=== PATIENT | female | born 1960 | race African-American/Black ===

== ENCOUNTER 2020-03-10 08:48 | Outpatient (REF) | payer BC, SELFPAY ==
--- NOTE | 2020-03-10 | MM_ITS ---
EXAMINATION: MM DIAGNOSTIC DIGITAL BREAST TOMOSYNTHESIS, BILATERAL CLINICAL INFORMATION: Due for yearly. Probable benign fine calcifications mid upper outer right breast. Family history breast cancer in mother and 2 sisters. The lifetime risk of breast cancer based on the Tyrer-Cuzick Model is 11%. COMPARISON: Mammography: 03/12/2019, 09/06/2018, 03/06/2018, 02/23/2018 (BI-RADS 0), 01/26/2017 TECHNIQUE: Digital breast tomosynthesis is performed in both the craniocaudal and mediolateral oblique views along with computer-aided detection (CAD). Synthesized 2D images are generated from the tomosynthesis. Additional views are provided: Bilateral CC, magnification right CC, magnification right ML x2. FINDINGS: There are scattered areas of fibroglandular density (ACR BI-RADS breast composition Category b). There are no significant masses, abnormal calcifications, or other abnormalities. Parenchymal pattern is similar to prior studies and there is no developing density. The axilla and skin contours are unremarkable. Fine calcifications mid upper outer right breast are stable from prior diagnostic exams and now considered benign. Results are provided to the patient at time of visit by the technologist. MM/MM tomosynthesis diagnostic BI IMPRESSION: 1. No significant changes from prior studies. 2. Right breast calcifications for follow-up are stable from prior diagnostic exams and now considered benign. ASSESSMENT: BI-RADS 2: Benign RECOMMENDATION: Routine annual mammography screening. This patient's information was entered into a reminder system with a target due date for their next mammogram.
== END 2020-03-10 08:49 | disposition home or self-care (01) ==
LOC: HO.MAMMO 08:48
PROVIDERS: PCP Internal Medicine; Visit Provider Internal Medicine
DX: R92.1 Mammographic calcification found on diagnostic imaging of breast (principal)
CPT/HCPCS: 77062; 77066

== ENCOUNTER 2020-06-29 10:34 | Outpatient (REF) | payer BC, SELFPAY ==
[2020-06-29 11:09] LABS: MANUAL DIFF FLAG NO
[2020-06-29 11:40] LABS: Basophils Absolute Auto 0.1 X10*3/uL (0.0-0.2); Basophils Percent Auto 0.6 % (0-2); Eosinophils Percent Auto 0.5 % (0-4); Hematocrit 41.6 % (37-47); Hemoglobin 13.2 g/dl (12.0-16.0); Imm Gran Abs Auto 0.02 X10*3/uL (0.00-0.03); Imm Gran Pct Auto 0.3 % (0.0-0.4); Lymphocytes Absolute Auto 3.6 X10*3/uL (1.2-4.9); Lymphocytes Percent Auto 46.8 % (20-40); Mean Corpuscular HGB Conc 31.7 g/dl (31.0-35.0); Mean Corpuscular Hemoglobin 29.1 pg (27.0-33.0); Mean Corpuscular Volume 91.6 fL (80-98); Mean Platelet Volume 10.7 fL (9.4-12.3); Monocytes Absolute Auto 0.7 X10*3/uL (0.1-1.2); Monocytes Percent Auto 8.6 % (2-11); Neutrophils Absolute Auto 3.3 X10*3/uL (2.0-8.3); Neutrophils Percent Auto 43.2 % (45-73); Platelet Count 217 X10*3/uL (160-400); Red Blood Count 4.54 X10*6/uL (4.20-5.50); Red Cell Distribution Width 14.6 % (11.0-16.0); White Blood Count 7.7 X10*3/uL (4.8-10.8)
[2020-06-29 11:52] LABS: Glucose Urine UA NEG (NEG); Leukocyte Esterase Urine NEG (NEG); Nitrite Urine NEG (NEG); PH 5.5 (5.0-8.0); Specific Gravity - Urine >= 1.030 (1.005-1.025); Urine Blood NEG (NEG); Urine Ketones NEG (NEG); Urine Protein NEG (NEG-TRACE)
[2020-06-29 11:55] LABS: Estimated Average Glucose 114 mg/dL; Hemoglobin A1c % 5.6 %
[2020-06-29 11:56] LABS: Appearance Urine CLOUDY; Color Urine YELLOW
[2020-06-29 12:05] LABS: Creatinine Urine 131.72 mg/dL; Microalbum/Creatinine Ratio Ur 4.5 ug/mg cr
[2020-06-29 12:20] LABS: Alanine Aminotransferase 12 U/L (0-31); Albumin Level 3.9 g/dL (3.5-5.0); Alkaline Phosphatase 74 U/L (39-117); Anion Gap 11 (12-20); Aspartate Amino Transferase 13 U/L (5-31); Bilirubin Total 0.6 mg/dL (0.0-1.0); Blood Urea Nitrogen 15 mg/dL (9-16); Calcium 8.9 mg/dL (8.4-10.2); Carbon Dioxide 30 mmol/L (22-29); Chloride 105 mmol/L (96-108); Cholesterol 205 mg/dL; Estimated Glomerular Filt Rate > 60; Glucose Fasting 96 mg/dL (60-99); HDL Cholesterol 76 mg/dL; LDL Cholesterol Calculated 112 mg/dl; Sodium 142 mmol/L (135-145); Total Protein 6.8 g/dL (6.5-8.0); Triglycerides 89 mg/dL
[2020-06-29 12:29] LABS: Vitamin D 25-OH Total 33.5 ng/mL (>30)
== END 2020-06-29 10:35 | disposition home or self-care (01) ==
LOC: HO.LNP 10:34
PROVIDERS: Visit Provider Internal Medicine
DX: Z00.00 Encounter for general adult medical examination without abnormal findings (principal); D72.820 Lymphocytosis (symptomatic); R73.03 Prediabetes; E55.9 Vitamin D deficiency, unspecified
CPT/HCPCS: 80053; 80061; 81003; 82043; 82306; 83036; 85025

== ENCOUNTER 2020-08-12 07:28 | Outpatient (REF) | payer BC, SELFPAY ==
--- NOTE | ~2020-08-12 | XR_ITS ---
EXAMINATION: XR SHOULDER, LEFT CLINICAL INFORMATION: Pain COMPARISON: None TECHNIQUE: Three views of the left shoulder. FINDINGS: Bone alignment is normal. No fracture or dislocation is seen. The glenohumeral joint is normal. There is arthritis at the acromioclavicular joint. Soft tissues are unremarkable. XR/XR shoulder LT min 2V IMPRESSION: Arthritis at the acromioclavicular joint.
== END 2020-08-12 07:29 | disposition home or self-care (01) ==
LOC: HO.HOSX 07:28
PROVIDERS: Visit Provider Physician Assistant
DX: M25.512 Pain in left shoulder (principal); M75.82 Other shoulder lesions, left shoulder
CPT/HCPCS: 20610; 73030; J1040

== ENCOUNTER 2020-09-28 07:00 | Outpatient (RCR) | payer BC, SELFPAY ==
--- NOTE | 2020-09-01 08:05 | MHC.PT.EP ---
[facility] [place] Office [place] Office [place] Office [address] Antwan Kevin [address] [phone] F: [phone] F: [phone] F: [phone] F: [phone] Physical Therapy Plan of Care Date of Evaluation: Date of Surgery: Diagnosis: left shoulder tendinosis Assessment: The patient arrived reporting left shoulder pain. She had normal cervical, and shoulder ROM and functional shoulder strength. Reduced strength in shoulder extension, ER, and abduction suggests she may have secondary GH impingement. 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 I gave her Klaudia seated retractions as her intial HEP due to initial improvements in radiculopathy. I will monitor baselines and proceed based on clinical presention. She is an excellent candidate for skilled PT. Frequency and Duration: The patient will be seen 2x/week x 4 weeks Short Term Goals: 1.Pt to able to demonstrate proper sitting posture with the use of a lumbar roll to decrease aggravating factors. 2.Pt to be able to demonstrate proper posture for common leisure activities such as crocheting and phone/tablet use. 3.For the patient to demonstrate proper upright sitting posture with use of the lumbar roll to improve compliance and carryover. Long-Term Goals: 1. Pt to be able to return to normal PLOF without limiting pain. 2. Pt to be able to return to overhead reaching without pain or limitation. 3. Pt to be able to manage her pain with selected exercise and stretching regime. Treatment Plan: Modalities to reduce pain, spasms and effusion. Manual therapy to restore motion and function. Therapeutic exercise to improve strength and flexibility. Neuromuscular re-education for posture and balance. Therapeutic activities to return to functional activities of daily living. Electronically signed by: Vannesa Field PT DPT Please sign and return to therapist. Thank you for your referral.
== END 2020-10-19 08:00 | disposition home or self-care (01) ==
LOC: HO.PT 07:00
PROVIDERS: PCP Internal Medicine; Visit Provider Physician Assistant
DX: M75.82 Other shoulder lesions, left shoulder (principal)
CPT/HCPCS: 97033; 97110; 97112; 97140; 97162

== ENCOUNTER 2020-10-26 08:10 | Outpatient (REF) | payer BC, SELFPAY ==
--- NOTE | ~2020-10-26 | MM_ITS ---
EXAMINATION: BONE DENSITOMETRY CLINICAL INDICATION: Screening for osteoporosis. COMPARISON: Previous BD dated 10/24/2018 and baseline BD dated 02/25/2016. TECHNIQUE: Using a [employer] DXA System (software version: 13.1) manufactured by [employer], dual-energy x-ray absorptiometry was performed of the lumbar spine and left hip. The images are of good technical quality. Summary results are attached. FINDINGS: AP SPINE L1-L4 (excluding L2): The data of L1-L4 has been changed to exclude the L2 vertebral body, because degenerative changes at this level may cause overestimation of lumbar spine density. Current: BMD 1.005 g/cm2, Z-score -1.6, T-score -1.4, osteopenia, 3.9% increase from previous, 4.0% increase from baseline (<5% change is not significant). Prior: BMD 0.967 g/cm2. Baseline: BMD 0.966 g/cm2. LEFT FEMUR, NECK: Current: BMD 0.854 g/cm2, Z-score -1.5, T-score -1.3, osteopenia. Prior: BMD 0.816 g/cm2. Baseline: BMD 0.821 g/cm2. LEFT FEMUR, TOTAL: Current: BMD 0.955 g/cm2, Z-score -1.0, T-score -0.4, normal, 2.5% increase from previous, 2.6% increase from baseline (<5% change is not significant). Prior: BMD 0.932 g/cm2. Baseline: BMD 0.931 g/cm2. IDENTIFIED RISK FACTORS: Osteoporosis, history of fracture (adult), menopause. HISTORY OF FRACTURE: Rib. MEDICATIONS: Calcium supplements or multivitamin, vitamin D. MM/XR DEXA axial skeleton IMPRESSION: 1. DIAGNOSIS: Osteopenia based on the lowest T-score value of -1.4 in the lumbar spine applying World Health Organization criteria. 2. 10-YEAR FRACTURE RISK PREDICTION, FRAX: Major osteoporotic fracture (clinical spine, forearm, hip or shoulder) 5.4%. Hip fracture 0.4%. 3. Treatment Recommendations: NOF guidelines recommend consideration for treatment in postmenopausal women and men age 50 and older presenting with the following: -A hip or vertebral (clinical or morphometric) fracture. -T-score less than or equal to -2.5 at the femoral neck or spine after appropriate evaluation to exclude secondary causes. -Low bone mass at the hip or spine and a 10-year fracture probability by FRAX of greater than or equal to 3% for hip fracture or greater than or equal to 20% for major osteoporotic fracture based on the [place] adapted WHO algorithm. 4. Other Recommendations: All treatment decisions require clinical judgment and consideration of individual patient factors, including patient preferences, comorbidities, previous drug use, risk factors not captured in the FRAX model (e.g. frailty, falls, vitamin D deficiency, increased bone turnover, interval significant decline in bone density) and possible under or overestimation of fracture risk by FRAX. Additional medical evaluation for secondary cause of low bone mineral density may be appropriate. FUTURE SCAN RECOMMENDATION: People with diagnosed cases of osteoporosis or at high risk for fracture should have regular bone mineral density tests. For patients eligible for Medicare, routine testing is allowed once every 2 years. The testing frequency can be increased to one year for patients who have rapidly progressing disease, those who are receiving or discontinuing medical therapy to restore bone mass, or have additional risk factors.
== END 2020-10-26 08:11 | disposition home or self-care (01) ==
LOC: HO.MAMMO 08:10
PROVIDERS: PCP Internal Medicine; Visit Provider Internal Medicine
DX: Z13.820 Encounter for screening for osteoporosis (principal); M81.8 Other osteoporosis without current pathological fracture; Z78.0 Asymptomatic menopausal state; Z87.81 Personal history of (healed) traumatic fracture; Z79.899 Other long term (current) drug therapy
CPT/HCPCS: 77080

== ENCOUNTER → 2020-12-07 08:26 | Outpatient (BNVA) | payer BC, SELFPAY | PROVIDERS: PCP Internal Medicine; Visit Provider Advanced Practice Midwife ==

== ENCOUNTER 2021-03-16 07:25 | Outpatient (REF) | payer BC, SELFPAY ==
--- NOTE | ~2021-03-16 | MM_ITS ---
EXAMINATION: MM SCREENING DIGITAL BREAST TOMOSYNTHESIS, BILATERAL CLINICAL INFORMATION: Screening. Asymptomatic. The lifetime risk of breast cancer based on the Tyrer-Cuzick Model is 11%. COMPARISON: Mammography: 03/10/2020, 03/12/2019, 09/06/2018, 03/06/2018 TECHNIQUE: Digital breast tomosynthesis is performed in both the craniocaudal and mediolateral oblique views along with computer-aided detection (CAD). Synthesized 2D images are generated from the tomosynthesis. FINDINGS: There are scattered areas of fibroglandular density (ACR BI-RADS breast composition Category b). There are no significant masses, abnormal calcifications, or other abnormalities. No significant changes from prior exam. The axilla and skin contours are unremarkable. MM/MM tomosynthesis screening BI IMPRESSION: No mammographic evidence of malignancy. ASSESSMENT: BI-RADS 1: Negative RECOMMENDATION: Routine annual mammography screening. This patient's information was entered into a reminder system with a target due date for their next mammogram.
== END 2021-03-16 07:26 | disposition home or self-care (01) ==
LOC: HO.MAMMO 07:25
PROVIDERS: PCP Internal Medicine; Visit Provider Internal Medicine
DX: Z12.31 Encounter for screening mammogram for malignant neoplasm of breast (principal)
CPT/HCPCS: 77063; 77067

== ENCOUNTER 2021-06-02 08:46 | Outpatient (REF) | payer BC, SELFPAY ==
--- NOTE | ~2021-06-02 | XR_ITS ---
EXAMINATION: XR SKULL CLINICAL INFORMATION: Head injury. COMPARISON: None TECHNIQUE: 5 views of the skull were obtained. FINDINGS: Multiple views of the skull reveal no visible fracture or bony abnormality. The soft tissues are normal. The paranasal sinuses and the mastoid air cells are well-aerated. No scalp soft tissue abnormality seen. XR/XR skull min 4V IMPRESSION: Unremarkable sinus exam.
== END 2021-06-02 08:47 | disposition home or self-care (01) ==
LOC: HO.XRAY 08:46
PROVIDERS: PCP Internal Medicine; Visit Provider Internal Medicine
DX: S09.90XD Unspecified injury of head, subsequent encounter (principal)
CPT/HCPCS: 70260

== ENCOUNTER 2021-07-07 10:30 | Outpatient (REF) | payer BC, SELFPAY ==
[2021-07-07 10:34] LABS: MANUAL DIFF FLAG NO
[2021-07-07 11:01] LABS: Basophils Percent Auto 0.5 % (0-2); Eosinophils Percent Auto 0.7 % (0-4); Hematocrit 42.2 % (37.0-47.0); Hemoglobin 13.5 g/dl (12.0-16.0); Imm Gran Abs Auto 0.01 X10*3/uL (0.00-0.03); Imm Gran Pct Auto 0.2 % (0.0-0.4); Lymphocytes Absolute Auto 3.1 X10*3/uL (1.2-4.9); Mean Corpuscular Hemoglobin 29.6 pg (27.0-33.0); Mean Corpuscular Volume 92.5 fL (80.0-98.0); Mean Platelet Volume 10.7 fL (9.4-12.3); Monocytes Absolute Auto 0.6 X10*3/uL (0.1-1.2); Monocytes Percent Auto 10.9 % (2-11); Neutrophils Percent Auto 34.7 % (45-73); Platelet Count 247 X10*3/uL (160-400); Red Blood Count 4.56 X10*6/uL (4.20-5.50); Red Cell Distribution Width 13.5 % (11.0-16.0); White Blood Count 5.8 X10*3/uL (4.8-10.8)
[2021-07-07 11:07] LABS: Appearance Urine HAZY; Color Urine YELLOW; Glucose Urine UA NEG (NEG); Leukocyte Esterase Urine NEG (NEG); Nitrite Urine NEG (NEG); PH 5.5 (5.0-8.0); Specific Gravity - Urine >= 1.030 (1.005-1.025); Urine Blood NEG (NEG); Urine Ketones NEG (NEG); Urine Protein NEG (NEG-TRACE)
[2021-07-07 11:11] LABS: Estimated Average Glucose 120 mg/dL; Hemoglobin A1c % 5.8 %
[2021-07-07 11:48] LABS: Alanine Aminotransferase 19 U/L (0-31); Albumin Level 3.9 g/dL (3.5-5.0); Alkaline Phosphatase 92 U/L (39-117); Anion Gap 12 (12-20); Aspartate Amino Transferase 15 U/L (5-31); Bilirubin Total 0.6 mg/dL (0.0-1.0); Blood Urea Nitrogen 9 mg/dL (9-16); Calcium 9.2 mg/dL (8.4-10.2); Carbon Dioxide 27 mmol/L (22-29); Chloride 106 mmol/L (96-108); Cholesterol 184 mg/dL; Estimated Glomerular Filt Rate > 60; Glucose Random 101 mg/dL (60-115); HDL Cholesterol 55 mg/dL; LDL Cholesterol Calculated 110 mg/dl; Sodium 141 mmol/L (135-145); Total Protein 7.1 g/dL (6.5-8.0); Triglycerides 98 mg/dL
[2021-07-07 12:15] LABS: Creatinine Urine 214.29 mg/dL; Microalbum/Creatinine Ratio Ur 3.7 ug/mg cr
[2021-07-07 15:02] LABS: Vitamin D 25-OH Total 34.4 ng/mL (>30)
== END 2021-07-07 10:31 | disposition home or self-care (01) ==
LOC: HO.LNP 10:30
PROVIDERS: Visit Provider Internal Medicine
DX: Z00.00 Encounter for general adult medical examination without abnormal findings (principal); D72.820 Lymphocytosis (symptomatic); E55.9 Vitamin D deficiency, unspecified; R73.03 Prediabetes
CPT/HCPCS: 80053; 80061; 81003; 82043; 82306; 83036; 85025

== ENCOUNTER 2021-12-13 09:43 | Outpatient (REF) | payer BC, SELFPAY ==
--- NOTE | ~2021-12-13 | XR_ITS ---
EXAMINATION: XR RIBS, BILATERAL CLINICAL INFORMATION: Fall and slip. COMPARISON: None TECHNIQUE: PA chest and 3 views of the bilateral ribs. FINDINGS: There is no evidence of acute parenchymal disease, pneumothorax, or pleural effusion. Heart normal size. No evidence of pulmonary edema. There is calcific tendinitis of the right shoulder. There appears to be a Lap band in place. No acute displaced right or left rib fracture is appreciated. XR/XR ribs BI min 4V w CXR1V IMPRESSION: No acute parenchymal disease within the chest. No acute displaced right or left rib fracture identified. Calcific tendinitis of the right shoulder.
== END 2021-12-13 09:44 | disposition home or self-care (01) ==
LOC: HO.XRAY 09:43
PROVIDERS: PCP Internal Medicine; Visit Provider Internal Medicine
DX: R07.81 Pleurodynia (principal)
CPT/HCPCS: 71111

== ENCOUNTER → 2022-01-02 10:01 | Outpatient (REF) | payer BC, SELFPAY ==
--- NOTE | ~2022-01-02 | NM_ITS ---
EXAMINATION: NM BONE SCAN OF THE WHOLE BODY CLINICAL INFORMATION: Rib pain. COMPARISON: The previous bone scan dated 12/31/2017 is available for comparison. Radiographs of the bilateral ribs dated 12/13/2021 and radiographs of the skull dated 06/02/2021 are available for comparison. TECHNIQUE: Multiple gamma scintillation camera images of the whole body were performed 3 hours following the intravenous administration of 32 mCi Tc-99m MDP. FINDINGS: In the head, no significant abnormalities are present. In the thoracic cage and upper extremities, very faint foci of increased activity are present in a few ribs. These are well visualized only on the anterior oblique spot views and involve the anterolateral aspects of the right fifth and eighth ribs and a very faint focus in the anterolateral aspect of the left ninth rib. There is also mild focus of increased activity at the costochondral junction of the left eighth rib. Minimally increased activity is present in the sternomanubrial articulation and the right acromioclavicular joint. In the spine, a minimal thoracolumbar scoliosis is present with lumbar convexity to the left. There is minimally increased activity bilaterally in the posterior elements at L5/S1 and there is minimally increased activity in the right costovertebral junctions of the 5 through T9. In the pelvis, no significant abnormalities are present. In the lower extremities, there is mildly increased activity in the patellar compartments of both knees and the medial compartment of the left knee and a moderately intense foci in the lateral mid feet bilaterally. Minimally increased activity medially in both ankles is also noted. No other definite bony abnormalities are noted. The urinary bladder and faint visualization of both kidneys are noted. Radiographs of the bilateral ribs dated 12/13/2021 do not show abnormalities at correspond to the subtle rib abnormalities on this bone scan described above. NM/NM bone scan whole body IMPRESSION: 1. A few faint rib lesions are visualized bilaterally as described above. These are nonspecific but in the absence of other suspicious abnormalities are likely due to healing rib fractures. 2. A few additional mild nonspecific abnormalities are noted as described above and these are all likely arthritic or traumatic in etiology. None of these abnormalities is strongly suspicious for metastatic disease.
== END ==
LOC: HO.NUCMED 10:01
PROVIDERS: PCP Internal Medicine; Visit Provider Internal Medicine
DX: R07.81 Pleurodynia (principal)
CPT/HCPCS: 78306; A9503

== ENCOUNTER 2022-02-25 14:54 | Emergency (ER) | payer BC, SELFPAY ==
--- NOTE | ~2022-02-25 | XR_ITS ---
EXAMINATION: XR chest 2V CLINICAL INFORMATION: Reason for Exam cough/sputum production COMPARISON: Prior chest x-ray November 2021 TECHNIQUE: XR chest 2V Lungs and Kira: Both lungs are clear. Pleura: Normal. Costophrenic angles are sharp. No pneumothorax. Heart: The heart is normal in size. Mediastinum: The mediastinum is within normal limits.. Bones: Skeletal structures included are normal for patient's age. XR/XR chest 2V IMPRESSION: No radiographic evidence of acute infiltrates or failure.
[2022-02-25 16:23] VITALS: BP 157/76; PULSE 96; RESP 18; TEMP 37; O2SAT 95; BMI 39.4
--- NOTE | 2022-02-25 16:24 | ED_ITS ---
HPI - URI/Sore Throat General Chief Complaint: Upper Respiratory Symptoms Stated Complaint: headache,sinus infection Time Seen by Provider: 02/25/22 19:06 Related Data Home Medications Medication Instructions Recorded Confirmed cholecalciferol (vitamin D3) 50 50 mcg PO DAILY 12/07/20 mcg (2,000 unit) capsule alendronate 70 mg tablet 70 mg PO QWEEK 12/13/21 calcium citrate 250 mg PO DAILY 12/13/21 timolol maleate 0.5 % eye drops 1 drp ophthalmic (eye) BID 12/13/21 Previous Rx's Medication Instructions Recorded doxycycline hyclate 100 mg capsule 100 mg PO BID 10 days #20 caps 02/25/22 prednisone 20 mg tablet 40 mg PO DAILY 5 days #10 tabs 02/25/22 Allergies Allergy/AdvReac Type Severity Reaction Status Date / Time grapefruit [Grapefruit] Allergy Mild RASH Verified 02/25/22 16:26 Penicillins Allergy Mild BLISTERS Verified 02/25/22 16:26 penicillin V Allergy Unknown Unknown Verified 02/25/22 16:26 [facility] Past Medical History Medical History Age related osteoporosis BRCA negative COVID-19 vaccine series completed Vitamin D deficiency Surgical History History of arthroscopy of left shoulder History of arthroscopy of right shoulder Hx of cholecystectomy Hx of laparoscopic gastric banding Family History Family History Mother History of breast cancer Sister History of breast cancer Sister History of breast cancer Social History Social History Alcohol intake: current Alcohol intake frequency: a few times a week Patient Tobacco Use Status: Never used Tobacco Advance Directives: No Advance Directives Information Provided: No Current occupational status: employed 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 Sexual orientation: Straight/Heterosexual Gender identity: Female Physical Exam Vital Signs: Vital Signs: Last Vital Signs Temp 98.6 F 02/25/22 16:23 Pulse 96 02/25/22 16:23 Resp 18 02/25/22 16:23 BP 157/76 H 02/25/22 16:23 Pulse Ox 95 02/25/22 16:23 O2 Del Method 02/25/22 16:23 BMI result Body Mass Index 39.4 Course Reevaluation(s) Reevaluation #1: MITRAE - 61yoF presenting to the ER with complaints of generalized fatigue, malaise, intermittent headaches, sinus pressure pain with associated nasal congestion/rhinorrhea, sore throat, ear pain and a productive cough for the past week which is worsened. Denies any other symptoms. Plan: COVID and influenza swab obtained. Chest x-ray ordered. Patient will be sent back to the waiting room patient is stable at this time. Time: 16:24 MDM - URI/Sore Throat Lab Data Labs: Lab Results 02/25/22 02/25/22 Range/Units 16:27 16:27 COVID-19 ([facility]) Negative (Negative) COVID-19 Clin Com See Note Influenza Type A ([facility]) Negative (Negative) Influenza Type B ([facility]) Negative (Negative) Influenza A & B Note See Note Discharge Plan Discharge Clinical Impression: Sinusitis Patient Disposition: Home, Self-Care Instructions: Sinusitis (ED) Additional Instructions: Take your medications as prescribed. If you were prescribed antibiotics today, it is important that you take your medication to their entirety, do not skip any doses, do not finish them early. Follow-up with your primary care provider this week. Return to the emergency department with new or worsening symptoms. Such as fevers, chills, chest pain, shortness of breath, nausea, vomiting, dizziness, headache, vision changes, lethargy In case of emergency call 911 Prescriptions: New doxycycline hyclate 100 mg capsule 100 mg PO BID 10 Days Qty: 20 0RF prednisone 20 mg tablet 40 mg PO DAILY 5 Days Qty: 10 0RF No Action cholecalciferol (vitamin D3) 50 mcg (2,000 unit) capsule 50 mcg PO DAILY alendronate 70 mg tablet 70 mg PO QWEEK timolol maleate 0.5 % drops 1 drp ophthalmic (eye) BID calcium citrate 250 mg calcium tablet 250 mg PO DAILY Referrals: Fredy De Santiago MD [Primary Care Provider] - 2 days Stand Alone Forms: Work/School Release
[2022-02-25 16:53] LABS: COVID-19 Test Negative (Negative); IDNOW Serial# 16C4AD1C
[2022-02-25 16:54] LABS: IDNOW Serial# 9DB6401D; Influenza A Negative (Negative); Influenza B2 Negative (Negative)
--- NOTE | 2022-02-25 19:30 | ED_ITS ---
HPI - General Adult General Chief complaint: Upper Respiratory Symptoms Stated complaint: headache,sinus infection Time Seen by Provider: 02/25/22 19:06 Source: patient Mode of arrival: ambulatory Limitations: no limitations History of Present Illness HPI narrative: 61-year-old female no significant medical history presents to the emergency department with sinus pressure, dry cough, wheezing, fatigue, malaise x1 week progressively worsening. Patient tells me this feels like her typical sinus infection. She tells me she is experiencing some shortness of breath with coughing however no shortness of breath at rest. Patient reports that her headache feels like her typical sinus headache, frontal pressure. Vague complaints of left ear discomfort. Patient denies chest pain, fevers, chills, nausea, vomiting, abdominal pain, headache, vision changes in dizziness. Related Data Home Medications Medication Instructions Recorded Confirmed cholecalciferol (vitamin D3) 50 50 mcg PO DAILY 12/07/20 mcg (2,000 unit) capsule alendronate 70 mg tablet 70 mg PO QWEEK 12/13/21 calcium citrate 250 mg PO DAILY 12/13/21 timolol maleate 0.5 % eye drops 1 drp ophthalmic (eye) BID 12/13/21 Previous Rx's Medication Instructions Recorded doxycycline hyclate 100 mg capsule 100 mg PO BID 10 days #20 caps 02/25/22 prednisone 20 mg tablet 40 mg PO DAILY 5 days #10 tabs 02/25/22 Allergies Allergy/AdvReac Type Severity Reaction Status Date / Time grapefruit [Grapefruit] Allergy Mild RASH Verified 02/25/22 16:26 Penicillins Allergy Mild BLISTERS Verified 02/25/22 16:26 penicillin V Allergy Unknown Unknown Verified 02/25/22 16:26 Review of Systems Review of Systems: Constitutional : No Weight loss, No Fever, No Chills, + Fatigue, + Malaise ENT/Mouth : No sore throat, No Rhinorrhea, +congestion Eyes: No Eye Pain, No Swelling, No Redness Cardiovascular : No Chest Pain, No SOB, No Dyspnea on Exertion, No Orthopnea, No Edema, No Palpitations Respiratory : + Cough, No Sputum, + Wheezing Gastrointestinal : No Nausea, No Vomiting, No Diarrhea, No Constipation, No abdominal Pain, No Hematochezia, No Melena Genitourinary : No Dysuria, No Urinary Frequency, No Hematuria, Musculoskeletal : No joint pain, No Myalgias, No Joint Swelling Skin : No Skin Lesions, No rash Neuro : No Weakness, No Numbness, No Dizziness, No Headache Psych : No Anxiety/Panic, No Depression All other systems reviewed and are negative Yes all other systems are reviewed and are negative [facility] Past Medical History Attestation statement: The following information was validated with the patient. Source: old records reviewed and nursing notes reviewed Medical History Age related osteoporosis BRCA negative COVID-19 vaccine series completed Vitamin D deficiency Surgical History History of arthroscopy of left shoulder History of arthroscopy of right shoulder Hx of cholecystectomy Hx of laparoscopic gastric banding Family History Family History Mother History of breast cancer Sister History of breast cancer Sister History of breast cancer Social History Social History Alcohol intake: current Alcohol intake frequency: a few times a week Patient Tobacco Use Status: Never used Tobacco Advance Directives: No Advance Directives Information Provided: No Current occupational status: employed 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 Oriented X3.? No acute distress.? Head: Normocephalic, atraumatic, no step-offs or deformities Eyes: Pupils equal, round and reactive to light.? ENT: Pharynx normal.? Neck: Normal inspection.? Neck supple.? CVS: Normal heart rate and rhythm.? Pulses normal.? Respiratory: No respiratory distress.? Breath sounds normal.? Abdomen: Soft and nontender.? Skin: Skin warm and dry.? Normal skin color.? Normal skin turgor.? Extremities: No lower extremity edema.? No calf ttp. 5/5 strength to bilateral upper and lower extremities Back: No midline tenderness, no C-spine tenderness, full range of motion, no CVA tenderness bilaterally Neuro: Oriented X 3.? No motor deficit.? No sensory deficit. CN 2-12 intact Course Reevaluation(s) Reevaluation #1: Chest x-ray with no acute findings. At this time patient will be discharged home on doxycycline for sinusitis as patient does have a penicillin allergy also discharged home on prednisone. Advised return with new or worsening symptoms. At this time I feel comfortable discharge home. Time: 19:38 Medical Decision Making [facility] Narrative Medical decision making narrative: 1938 61-year-old female presents with sinus like symptoms, feels like her typical sinus infection. Reports headache without red flag symptoms. Physical examination with pain it/discomfort with palpation of facial sinuses and pressure with forward bending. Regular rate and rhythm. Lungs clear. Abdomen soft nontender nondistended. Neuro nonfocal. Cerebellar intact. Likely sinusitis or viral infection. I do not suspect intracranial hemorrhage, posterior stroke, stroke. GCS of 15, NIH stroke scale 0. Unlikely pneumonia. No signs of you be ordered Plan at this time is to obtain chest x-ray. Medical Records Medical records reviewed: Yes I reviewed the patient's medical records. Lab Data Lab results reviewed: Yes I reviewed the patient's lab results. Labs: Lab Results 02/25/22 02/25/22 Range/Units 16:27 16:27 COVID-19 ([facility]) Negative (Negative) COVID-19 Clin Com See Note Influenza Type A ([facility]) Negative (Negative) Influenza Type B ([facility]) Negative (Negative) Influenza A & B Note See Note Critical Care Time Critical Care Time Critical Care Time: No Discharge Plan Discharge Clinical Impression: Sinusitis Patient Disposition: Home, Self-Care Instructions: Sinusitis (ED) Additional Instructions: Take your medications as prescribed. If you were prescribed antibiotics today, it is important that you take your medication to their entirety, do not skip any doses, do not finish them early. Follow-up with your primary care provider this week. Return to the emergency department with new or worsening symptoms. Such as fevers, chills, chest pain, shortness of breath, nausea, vomiting, dizziness, headache, vision changes, lethargy In case of emergency call 911 Prescriptions: New doxycycline hyclate 100 mg capsule 100 mg PO BID 10 Days Qty: 20 0RF prednisone 20 mg tablet 40 mg PO DAILY 5 Days Qty: 10 0RF No Action cholecalciferol (vitamin D3) 50 mcg (2,000 unit) capsule 50 mcg PO DAILY alendronate 70 mg tablet 70 mg PO QWEEK timolol maleate 0.5 % drops 1 drp ophthalmic (eye) BID calcium citrate 250 mg calcium tablet 250 mg PO DAILY Referrals: Fredy De Santiago MD [Primary Care Provider] - 2 days Stand Alone Forms: Work/School Release
[2022-02-25] MEDS: Doxycycline Monohydrate 100 MG CAPSULE PO (19:54)
[2022-02-25 19:56] VITALS: BP 176/79; PULSE 87; RESP 20; TEMP 37.2; O2SAT 95
== END 2022-02-25 19:58 | disposition home or self-care (01) ==
PROVIDERS: Physician Assistant Medical; Emergency Provider Emergency Medicine; PCP Internal Medicine
DX: J32.9 Chronic sinusitis, unspecified (principal); Z20.822 Contact with and (suspected) exposure to COVID-19
CPT/HCPCS: 71046; 87502; 87635; 99283

== ENCOUNTER 2022-03-21 07:22 | Outpatient (REF) | payer BC, SELFPAY ==
--- NOTE | ~2022-03-21 | MM_ITS ---
EXAMINATION: MM SCREENING DIGITAL BREAST TOMOSYNTHESIS, BILATERAL CLINICAL INFORMATION: Screening. Asymptomatic. Family history breast cancer: Mother, sister x2. The lifetime risk of breast cancer based on the Tyrer-Cuzick Model is 10%. COMPARISON: Mammography: 03/16/2021, 03/10/2020, 03/12/2019 TECHNIQUE: Digital breast tomosynthesis is performed in both the craniocaudal and mediolateral oblique views along with computer-aided detection (CAD). Synthesized 2D images are generated from the tomosynthesis. Additional left CC view is provided. FINDINGS: There are scattered areas of fibroglandular density (ACR BI-RADS breast composition Category b). There are no significant masses, abnormal calcifications, or other abnormalities. Parenchymal pattern is similar to prior studies. There is no developing density or architectural abnormality. The axilla and skin contours are unremarkable. No significant changes. MM/MM tomosynthesis screening BI IMPRESSION: No mammographic evidence of malignancy. ASSESSMENT: BI-RADS 1: Negative RECOMMENDATION: Routine annual mammography screening. This patient's information was entered into a reminder system with a target due date for their next mammogram.
== END 2022-03-21 07:23 | disposition home or self-care (01) ==
LOC: HO.MAMMO 07:22
PROVIDERS: PCP Internal Medicine; Visit Provider Internal Medicine
DX: Z12.31 Encounter for screening mammogram for malignant neoplasm of breast (principal)
CPT/HCPCS: 77063; 77067

== ENCOUNTER 2022-07-13 10:30 | Outpatient (REF) | payer BC, SELFPAY ==
[2022-07-13 10:34] LABS: MANUAL DIFF FLAG NO
[2022-07-13 10:57] LABS: Appearance Urine Cloudy; Color Urine Yellow; Glucose Urine UA Negative (Negative); Leukocyte Esterase Urine Moderate (2+) (Negative); Nitrite Urine Negative (Negative); PH 5.5 (5.0-9.0); UMIC TRIGGER UACC YES; Urine Blood Large (3+) (Negative); Urine Ketones Negative (Negative); Urine Protein 100 (2+) mg/dL (Neg-Trace)
[2022-07-13 10:59] LABS: Basophils Percent Auto 0.4 % (0-2); Eosinophils Absolute Auto 0.1 X10*3/uL (0.0-0.4); Eosinophils Percent Auto 0.5 % (0-4); Hematocrit 40.5 % (37.0-47.0); Hemoglobin 13.2 g/dl (12.0-16.0); Imm Gran Abs Auto 0.03 X10*3/uL (0.00-0.03); Imm Gran Pct Auto 0.3 % (0.0-0.4); Lymphocytes Absolute Auto 3.4 X10*3/uL (1.2-4.9); Mean Corpuscular HGB Conc 32.6 g/dl (31.0-35.0); Mean Corpuscular Hemoglobin 28.6 pg (27.0-33.0); Mean Corpuscular Volume 87.9 fL (80.0-98.0); Mean Platelet Volume 10.7 fL (9.4-12.3); Monocytes Absolute Auto 1.1 X10*3/uL (0.1-1.2); Monocytes Percent Auto 9.7 % (2-11); Neutrophils Absolute Auto 6.3 x10*3/uL (2.0-8.3); Neutrophils Percent Auto 58.1 % (45-73); Platelet Count 209 X10*3/uL (160-400); Red Blood Count 4.61 X10*6/uL (4.20-5.50); Red Cell Distribution Width 13.9 % (11.0-16.0); White Blood Count 10.9 X10*3/uL (4.8-10.8)
[2022-07-13 11:03] LABS: Bacteria Urine 4+ (None Seen); Hyaline Casts Urine 0-2 /LPF (0-2); RBC Urine >20 /HPF (0-2); UACC Culture Trigger YES; WBC Urine >50 /HPF (0-5)
[2022-07-13 11:24] LABS: Estimated Average Glucose 123 mg/dL; Hemoglobin A1c % 5.9 %
[2022-07-13 11:29] LABS: Alanine Aminotransferase 17 U/L (0-31); Albumin Level 3.9 g/dL (3.5-5.0); Alkaline Phosphatase 74 U/L (39-117); Anion Gap 15 (12-20); Aspartate Amino Transferase 16 U/L (5-31); Bilirubin Total 0.8 mg/dL (0.0-1.0); Blood Urea Nitrogen 11 mg/dL (9-16); Calcium 9.1 mg/dL (8.4-10.2); Carbon Dioxide 26 mmol/L (22-29); Chloride 106 mmol/L (96-108); Cholesterol 187 mg/dL; Estimated Glomerular Filt Rate > 60; Glucose Fasting 96 mg/dL (60-99); HDL Cholesterol 75 mg/dL; LDL Cholesterol Calculated 100 mg/dl; Potassium 3.4 mmol/L (3.3-5.1); Sodium 144 mmol/L (135-145); Total Protein 6.8 g/dL (6.5-8.0); Triglycerides 64 mg/dL
[2022-07-13 11:32] LABS: Vitamin D 25-OH Total 25.5 ng/mL (>30)
== END 2022-07-13 10:31 | disposition home or self-care (01) ==
LOC: HO.LNP 10:30
PROVIDERS: Visit Provider Internal Medicine
DX: Z00.00 Encounter for general adult medical examination without abnormal findings (principal); R73.03 Prediabetes; D72.820 Lymphocytosis (symptomatic); E55.9 Vitamin D deficiency, unspecified
CPT/HCPCS: 80053; 80061; 81001; 82306; 83036; 85025; 87086; 87088; 87186

== ENCOUNTER 2022-08-10 11:39 | Outpatient (REF) | payer BC, SELFPAY ==
[2022-08-10 11:53] LABS: Appearance Urine Cloudy; Color Urine Yellow; Glucose Urine UA Negative (Negative); Leukocyte Esterase Urine Trace (Negative); Nitrite Urine Negative (Negative); Specific Gravity - Urine 1.025 (1.005-1.025); UMIC TRIGGER UA YES; Urine Blood Negative (Negative); Urine Ketones Negative (Negative); Urine Protein Trace mg/dL (Neg-Trace)
[2022-08-10 12:07] LABS: Bacteria Urine 4+ (None Seen); Calcium Oxalate Crystals Urine Present; Hyaline Casts Urine 0-2 /LPF (0-2); WBC Urine 0-5 /HPF (0-5)
== END 2022-08-10 11:40 | disposition home or self-care (01) ==
LOC: HO.LNP 11:39
PROVIDERS: Visit Provider Internal Medicine
DX: R31.9 Hematuria, unspecified (principal)
CPT/HCPCS: 81001

== ENCOUNTER 2022-09-08 11:02 | Outpatient (REF) | payer BC, SELFPAY ==
[2022-09-08 11:35] LABS: Appearance Urine Cloudy; Color Urine Yellow; Glucose Urine UA Negative (Negative); Leukocyte Esterase Urine Negative (Negative); Nitrite Urine Negative (Negative); PH 5.5 (5.0-9.0); Urine Blood Negative (Negative); Urine Ketones Negative (Negative); Urine Protein Negative (Neg-Trace)
[2022-09-08 11:44] LABS: Bacteria Urine 2+ (None Seen); RBC Urine 0-2 /HPF (0-2); WBC Urine 0-5 /HPF (0-5)
== END 2022-09-08 11:03 | disposition home or self-care (01) ==
LOC: HO.LNP 11:02
PROVIDERS: Visit Provider Internal Medicine
DX: R31.9 Hematuria, unspecified (principal)
CPT/HCPCS: 81001

== ENCOUNTER 2023-03-26 07:20 | Outpatient (REF) | payer BC, SELFPAY ==
--- NOTE | ~2023-03-26 | MM_ITS ---
EXAMINATION: MM SCREENING DIGITAL BREAST TOMOSYNTHESIS, BILATERAL CLINICAL INFORMATION: Screening. Asymptomatic. COMPARISON: Mammography: This study is compared with prior exams dating back to 2019. TECHNIQUE: Digital breast tomosynthesis is performed in both the craniocaudal and mediolateral oblique views along with computer-aided detection (CAD). Synthesized 2D images are generated from the tomosynthesis. FINDINGS: There are scattered areas of fibroglandular density (ACR BI-RADS breast composition Category b). There are grouped calcifications in the low 11 to 12:00 position of the left breast at a middle depth. Additional mammographic imaging with magnification is advised. There are no other significant findings in the left breast. In the right breast, there are no significant masses, abnormal calcifications, or other abnormalities. MM/MM tomosynthesis screening BI IMPRESSION: Calcifications in the left breast warrants additional mammographic imaging with magnification. No mammographic signs of malignancy right breast. ASSESSMENT: BI-RADS BI-RADS 0 - Incomplete: Needs additional Imaging. RECOMMENDATION: Additional views of the left breast. Radiology department staff will contact the patient for additional imaging. Additional Imaging required This examination should not preclude the clinical evaluation of a suspicious palpable abnormality. This patient's information was entered into a reminder system with a target due date for their next mammogram.
== END 2023-03-26 07:21 | disposition home or self-care (01) ==
LOC: HO.MAMMO 07:20
PROVIDERS: PCP Internal Medicine; Visit Provider Internal Medicine
DX: Z12.31 Encounter for screening mammogram for malignant neoplasm of breast (principal)
CPT/HCPCS: 77063; 77067

== ENCOUNTER → 2023-03-26 07:30 | Outpatient (BNV) | payer BC, SELFPAY | PROVIDERS: PCP Internal Medicine; Visit Provider Radiology Diagnostic Radiology | DX: Z12.31 Encounter for screening mammogram for malignant neoplasm of breast (principal) | CPT/HCPCS: 77063; 77067 ==

== ENCOUNTER 2023-04-27 07:59 | Outpatient (REF) | payer BC, SELFPAY ==
--- NOTE | ~2023-04-27 | MM_ITS ---
EXAMINATION: MM DIAGNOSTIC DIGITAL MAMMOGRAPHY, LEFT CLINICAL INFORMATION: Follow-up left breast calcifications seen on screening examination central left breast 11-12 o'clock, increasing over time since 2020. Patient is high risk, with strong family history. COMPARISON: Mammography: Screening mammography 03/26/2023, 03/21/2022, 03/16/2021, 03/10/2020, and dating back to 2016. TECHNIQUE: Digital mammography is performed in the following views: 2-D Spot magnification left CC and ML views obtained. FINDINGS: There are scattered areas of fibroglandular density (ACR BI-RADS breast composition Category b). There are focal grouped pleomorphic calcifications measuring approximately 3 mm in diameter in the central left breast, 11-12 o'clock axis, which have been slowly increasing in number over time since 2020. These were not seen in 2019. They have a pleomorphic, somewhat suspicious appearance and cannot be categorized as benign. They are indeterminant. Recommendation is for stereotactic biopsy left breast. No additional abnormalities noted left breast. MM/MM added views LT IMPRESSION: Indeterminate calcifications left breast 11-12 o'clock axis, middle one third, for which stereotactic biopsy is recommended. Findings and recommendations were discussed with the patient in detail, who is in agreement with the overall plan. ASSESSMENT: BI-RADS BI-RADS 4 - Suspicious finding RECOMMENDATION: Biopsy recommended This patient's information was entered into a reminder system with a target due date for their next mammogram.
== END 2023-04-27 08:00 | disposition home or self-care (01) ==
LOC: HO.MAMMO 07:59
PROVIDERS: PCP Internal Medicine; Visit Provider Internal Medicine
DX: R92.1 Mammographic calcification found on diagnostic imaging of breast (principal)
CPT/HCPCS: 77065

== ENCOUNTER → 2023-04-27 08:00 | Outpatient (BNV) | payer BC, SELFPAY | PROVIDERS: PCP Internal Medicine; Visit Provider Radiology Diagnostic Radiology | DX: R92.1 Mammographic calcification found on diagnostic imaging of breast (principal) | CPT/HCPCS: 77065 ==

== ENCOUNTER 2023-05-03 07:59 | Outpatient (AMB) | payer BC, SELFPAY ==
--- NOTE | 2023-05-03 08:02 | A.OFFVIS_ITS ---
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 She is doing well with no concerns. Not currently consuming a healthy diet, does take calcium and vitamin D, no regular exercise. Participates on a [employer] league. Currently sexually active. Denies any vaginal dryness or irritation. STI testing offered; she declines. Last pap smear; 2018. Last mammogram; 2023. Family history of breast cancer BRCA negative. Colonoscopy is UTD. [facility] Medical History Breast calcification, left COVID-19 vaccine series completed BRCA negative Vitamin D deficiency Age related osteoporosis Surgical History Hx of laparoscopic gastric banding Hx of cholecystectomy History of arthroscopy of right shoulder History of arthroscopy of left shoulder Family History (Updated 05/03/23 @ 08:10 by UMM Griffin) Mother History of breast cancer Sister History of breast cancer Sister History of breast cancer Maternal Aunt Ovarian cancer Social History (Updated 05/03/23 @ 08:10 by UMM Griffin) Alcohol intake: current Alcohol intake frequency: a few times a week Patient Tobacco Use Status: Never used Tobacco Current occupational status: employed 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 Sexual orientation: Straight/Heterosexual Gender identity: Female Female Reproductive History Menstrual Menopause type: natural Total pregnancies: 3 Full term: 2 Number of Living Children: 2 Ab induced: 1 Date of last pap smear: 11/26/18 (neg pap and hpv) Date of Mammogram: 03/26/23 (Birad 0) Review of Systems Const All systems reviewed & are unremarkable except as noted in HPI and below Reports as per HPI Eyes Reports no additional complaints ENT Reports no additional complaints Card Reports no additional complaints Resp Reports no additional complaints GI Reports as per HPI and Reports no additional complaints Reports as per HPI Musc Reports no additional complaints Skin/Breast Reports as per HPI Neuro Reports no additional complaints Psych Reports no additional complaints Endo Reports no additional complaints Sherif/Lymph Reports no additional complaints Aller/Immun Reports no additional complaints Physical Exam Vital Signs: Last Vital Signs BP 120/82 05/03/23 08:05 BMI result Body Mass Index 42.0 Const General: cooperative, healthy appearing, no acute distress, well developed and alert Orientation/consciousness: patient oriented x3 HEENT Head: Yes normal to inspection Eyes General: appearance normal, both eyes and all related structures Neck Neck: Yes normal visual inspection Thyroid: Thyroid normal Chest Chest palpation & inspection: normal inspection of the chest and other (no puckering, dimpling, peau de orange, retraction, discharge, masses) Breast/axilla inspection: normal inspection of the breasts Breast/axilla palpation: normal palpation of the breasts Resp Effort & Inspection: normal respiratory effort GI Inspection: Yes normal to inspection and Yes obesity Palpation (GI): Soft to palpation Rectal Exam - Female: deferred General: Yes bladder normal to palpation External Female Exam: normal external appearance and normal appearance of the urethra Speculum Exam - Vagina: normal appearance of the vagina, normal palpation and normal vaginal discharge Speculum Exam - Cervix: normal appearance of the cervix and normal palpation Bimanual exam- vagina & uterus: normal bimanual exam, normal palpation, uterine size normal, bladder normal to palpation, normal palpation and non-tender Bimanual Exam- Adnexa, other: no masses Skin General skin exam: no rashes or lesions noted Rashes: no rashes Neuro General: patient oriented x3 Cognition (Neuro): normal cognition Extrem General: Yes normal to inspection Psych Attitude: cooperative Thought process: Normal thought process present Assessment & Plan Assessment & Plan (1) Encounter for well woman exam with routine gynecological exam: Code(s): Z01.419 - Encounter for gynecological examination (general) (routine) without abnormal findings Plan Discussed: Current recommendations for pap smears per ASCCP guidelines. Breast awareness, periodic self breast exams and yearly mammogram. Maintain a healthy lifestyle, well balanced diet including Calcium 1,200 mg and Vitamin D 600 IU daily, and routine exercise. Contact the office with any postmenopausal bleeding. All of her questions and concerns were addressed to the best of my ability. RTO in 1 year for annual gunner's mate exam. This note is constructed using voice recognition software. While every effort has been made to ensure accuracy, welfare officer errors may have been included. Orders: Orders Pap Smear Today Z01.419 - Encounter for gynecological examination (general) (routine) without abnormal findings Coding Level of Care Code Est Pt Prev Care >65y(50886) Diagnoses Encounter for well woman exam with routine gynecological exam Z01.419
[2023-05-03 08:05] VITALS: BP 120/82; BMI 42.0
== END 2023-05-03 08:38 | disposition home or self-care (01) ==
PROVIDERS: PCP Internal Medicine; Visit Provider Advanced Practice Midwife
DX: Z01.419 Encounter for gynecological examination (general) (routine) without abnormal findings (principal)
CPT/HCPCS: 99397

== ENCOUNTER 2023-05-03 08:21 | Outpatient (REF) | payer BC, SELFPAY ==
[2023-05-08 03:25] LABS: HPV mRNA E6/E7 rflx Not Detected (Not Detected)
== END 2023-05-03 08:22 | disposition home or self-care (01) ==
LOC: HO.LNP 08:21
PROVIDERS: Visit Provider Advanced Practice Midwife
DX: Z01.419 Encounter for gynecological examination (general) (routine) without abnormal findings (principal); Z11.51 Encounter for screening for human papillomavirus (HPV); R92.1 Mammographic calcification found on diagnostic imaging of breast
CPT/HCPCS: 87624; 88142

== ENCOUNTER 2023-05-03 08:34 | Outpatient (AMB) | payer BC, SELFPAY ==
--- NOTE | 2023-05-03 08:39 | MHC.OFFVIS ---
Intake Vital Signs 05/03/23 08:48 Height 4 ft 11 in Weight 208 lb BMI 42.0 BP 120/82 Blood Pressure Location Rt brachial Position Sitting Intake Visit Reasons: Stereo Bx Lt breast calcifications Intake Note: This patient presents for a Stereotactic biopsy consult for left breast calcifications. Patient c/o; reports no breast complaints at this time. Bx: 05/03/23 Registered Client Associate Required: No Accompanied by: Self / Same As Patient Allergies grapefruit [Grapefruit] Allergy (Mild, Verified 05/03/23 08:47) RASH Penicillins Allergy (Mild, Verified 05/03/23 08:47) BLISTERS penicillin V Allergy (Unknown, Verified 05/03/23 08:47) Unknown Medication List - Last Reconciled 05/03/23 by Guerrero Fritz MD alendronate 70 mg PO QWEEK calcium citrate 250 mg PO DAILY cholecalciferol (vitamin D3) 50 mcg PO DAILY timolol maleate 0.5% 1 drp ophthalmic (eye) BID HPI Stereo Bx Lt breast calcifications HPI Details 63-year-old female referred for left breast calcifications. These were initially seen on a screening mammogram last month so she was brought in for diagnostic mammogram last week. There was note of focal grouped pleomorphic calcifications about 3 mm in diameter in the central left breast at the 11 to 12 o'clock position which have increased in number over time since 2020. A stereotactic biopsy was recommended by the radiologist. She denies any palpable breast mass or any nipple or skin changes. Her menarche was at the age of 10. Her 1st was at age of 14. She had 3 pregnancies. She had menopause in her 40's. She does state that her mother and sister were both diagnosed to have breast cancer in their 40s. The patient says that she already had genetic testing which was negative for mutations. [facility] Medical History Breast calcification, left COVID-19 vaccine series completed BRCA negative Vitamin D deficiency Age related osteoporosis Surgical History Hx of laparoscopic gastric banding Hx of cholecystectomy History of arthroscopy of right shoulder History of arthroscopy of left shoulder Family History (Updated 05/03/23 @ 08:10 by UMM Griffin) Mother History of breast cancer Sister History of breast cancer Sister History of breast cancer Maternal Aunt Ovarian cancer Social History (Updated 05/03/23 @ 08:10 by Jeri Chadwick Armen) Alcohol intake: current Alcohol intake frequency: a few times a week Patient Tobacco Use Status: Never used Tobacco Current occupational status: employed 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 Sexual orientation: Straight/Heterosexual Gender identity: Female Female Reproductive History Menstrual Age of Menarche: 10 Total pregnancies: 3 Number of Living Children: 2 Review of Systems Const Denies chills and Denies fever(s) Card Denies chest pain, Denies dyspnea and Denies dyspnea on exertion Resp Denies cough, Denies dyspnea and Denies dyspnea on exertion GI Denies hematochezia and Denies change in bowel habits Denies hematuria Musc Denies back pain and Denies limited range of motion Neuro Denies focal weakness and Denies convulsions Psych Denies depression and Denies mood swings Physical Exam Const Other: Morbidly obese General: comfortable and no acute distress Orientation/consciousness: patient oriented x3 Neck Neck: Yes no lymphadenopathy Chest Other: Has large breasts, no palpable breast masses, no nipple or skin changes, no axillary lymphadenopathy. Resp Auscultation: clear to auscultation bilaterally Cardio Rhythm: regular rhythm GI Palpation (GI): Soft to palpation, nontender and no guarding Neuro General: patient oriented x3 Assessment & Plan Assessment & Plan (1) Breast calcification, left: Code(s): R92.1 - Mammographic calcification found on diagnostic imaging of breast Plan: She had pleomorphic calcifications on the left breast as described above. A stereotactic biopsy was recommended by the radiologist. I explained to her the technique of this procedure. I will see her again in the office to discuss the path report next week. She understands the plan and says she is comfortable with this. She does not seem to present with risk factors for breast cancer. Orders: Orders MM stereotactic biopsy LT 05/02/23 R92.1 - Mammographic calcification found on diagnostic imaging of breast Coding Level of Care Code New Pt Level 3 (62303) Diagnoses Breast calcification, left R92.1
[2023-05-03 08:48] VITALS: BP 120/82; BMI 42.0
== END 2023-05-03 09:01 | disposition home or self-care (01) ==
PROVIDERS: PCP Internal Medicine; Referring Provider Internal Medicine; Visit Provider Surgery
DX: R92.1 Mammographic calcification found on diagnostic imaging of breast (principal)
CPT/HCPCS: 99203

== ENCOUNTER 2023-05-03 09:06 | Outpatient (REF) | payer BC, SELFPAY ==
--- NOTE | ~2023-05-03 | MM_ITS ---
EXAMINATION: STEREOTACTIC TOMOSYNTHESIS-GUIDED VACUUM-ASSISTED BREAST BIOPSY, LEFT SPECIMEN RADIOGRAPH, LEFT POST PROCEDURE DIGITAL MAMMOGRAM, LEFT CLINICAL INFORMATION: Subtle group of suspicious increasing calcifications left breast centrally, approximate 1:00 axis middle one third. COMPARISON: Diagnostic mammogram 04/27/2023. Studies dating back to 2016. TECHNIQUE/PROCEDURE: Informed consent was obtained from the patient after discussion of the benefits, risks, and alternatives to biopsy today. Patient appeared to understand. Gave opportunity for questions. Patient signed consent form. BIOPSY TABLE: NextInput Affirm Prone Biopsy System. LESION: Focus of grouped pleomorphic calcifications 11:00 central left breast. LOCAL ANESTHESIA: 4 mL 1% lidocaine; 8 mL 1% lidocaine with epinephrine. DERMATOTOMY: Single skin lala dermatotomy performed. NEEDLE: Rumble Eviva 9-gauge vacuum assisted core biopsy device. APPROACH: lateral medial. TARGETING: Combination of digital breast tomosynthesis and stereotactic digital mammography used for targeting. CORES: 8. CLIP: SurFlashstarts SecurMark Barrel-shaped marker. SPECIMEN RADIOGRAPH: Specimen radiograph is taken in separate room using digital mammography. The index calcifications are in the excised cores. The calcifications have been completely excised. POST PROCEDURE UNILATERAL DIGITAL MAMMOGRAM: The post biopsy mammogram is performed in separate room using separate digital mammography equipment from the biopsy procedure. CC and ML views are obtained. There are scattered areas of fibroglandular density (breast composition category: b). The clip marker was in appropriate position within the biopsy cavity on the final tomographic post clip images. On the post procedure unilateral mammogram,, on the left cc view, due to tissue rebound, the clip has migrated approximately 4.5 cm lateral to the biopsy cavity. On the left ML view, the clip is migrated along the tract and is located 1.3 cm posterior lateral to the biopsy cavity. This is most definitely one of the most exaggerated cases of tissue rebound clip displacement I have ever witnessed. Should the area need to be excised, we will localize the biopsy cavity, and not the migrated cylinder clip. Surgeon should please take note of this finding. The patient tolerated the procedure well. No immediate complications. Home instructions reviewed with the patient. Final pathology results are pending. MM/MM stereotactic biopsy LT IMPRESSION: 1. Digital tomosynthesis-guided core biopsy left breast calcifications centrally with clip placement. 2. Specimen radiograph taken and post procedure mammogram. Calcifications have been completely excised. Marked tissue rebound clip migration occurred after the patient was removed from the stereotactic compression. See above. We will localize the biopsy cavity, not the clip, should the area need to be excised. 3. Final pathology results pending. An addendum report will be issued.
[2023-05-03] MEDS: Lidocaine HCl 1 % MPF 5 ML VIAL 4 ML SUBCUT (12:03)
[2023-05-03] MEDS: Sodium Bicarbonate 8.4% 50 MEQ/50 ML VIAL SUBCUT (12:05)
[2023-05-03] MEDS: Lidocaine HCl 1%/Epi 1:100,000 10 ML VIAL 17 ML SUBCUT (12:06)
== END 2023-05-03 09:07 | disposition home or self-care (01) ==
LOC: HO.MAMMO 09:06
PROVIDERS: PCP Internal Medicine; Visit Provider Surgery
DX: R92.1 Mammographic calcification found on diagnostic imaging of breast (principal)
CPT/HCPCS: 19081; 88305; A4648

== ENCOUNTER → 2023-05-03 10:00 | Outpatient (BNV) | payer BC, SELFPAY | PROVIDERS: PCP Internal Medicine; Visit Provider Radiology Diagnostic Radiology | DX: R92.1 Mammographic calcification found on diagnostic imaging of breast (principal) | CPT/HCPCS: 19081 ==

== ENCOUNTER 2023-05-10 09:28 | Outpatient (AMB) | payer BC, SELFPAY ==
--- NOTE | 2023-05-10 09:29 | MHC.OFFVIS ---
Intake Intake Visit Reasons: Stereo Bx Results Lt breast calcifications Intake Note: This patient presents for a follow-up for Stereotactic breast biopsy results. Pt c/o; reports no complaints at this time. Working Manager Required: No Accompanied by: Self / Same As Patient Allergies grapefruit [Grapefruit] Allergy (Mild, Verified 05/10/23 09:30) RASH Penicillins Allergy (Mild, Verified 05/10/23 09:30) BLISTERS penicillin V Allergy (Unknown, Verified 05/10/23 09:30) Unknown Medication List - Last Reconciled 05/10/23 by Guerrero Fritz MD alendronate 70 mg PO QWEEK calcium citrate 250 mg PO DAILY cholecalciferol (vitamin D3) 50 mcg PO DAILY timolol maleate 0.5% 1 drp ophthalmic (eye) BID HPI Stereo Bx Results Lt breast calcifications HPI Details She had undergone stereotactic biopsy for left breast calcifications last 05/03/2022. She says she tolerated procedure well denied any bruising or pain post procedure. [facility] Medical History Breast calcification, left COVID-19 vaccine series completed BRCA negative Vitamin D deficiency Age related osteoporosis Surgical History Hx of laparoscopic gastric banding Hx of cholecystectomy History of arthroscopy of right shoulder History of arthroscopy of left shoulder Family History Mother History of breast cancer Sister History of breast cancer Sister History of breast cancer Maternal Aunt Ovarian cancer Social History Alcohol intake: current Alcohol intake frequency: a few times a week Patient Tobacco Use Status: Never used Tobacco Current occupational status: employed 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 Sexual orientation: Straight/Heterosexual Gender identity: Female Female Reproductive History Menstrual Age of Menarche: 10 Review of Systems Const Denies chills and Denies fever(s) Card Denies chest pain, Denies dyspnea and Denies dyspnea on exertion Resp Denies cough, Denies dyspnea and Denies dyspnea on exertion GI Denies hematochezia and Denies change in bowel habits Denies hematuria Musc Denies back pain and Denies limited range of motion Neuro Denies focal weakness and Denies convulsions Psych Denies depression and Denies mood swings Physical Exam Const General: comfortable and no acute distress Chest Other: Biopsy site on left breast without any hematoma or ecchymosis Resp Effort & Inspection: normal respiratory effort Assessment & Plan Assessment & Plan (1) Breast calcification, left: Code(s): R92.1 - Mammographic calcification found on diagnostic imaging of breast Plan: Status post stereotactic biopsy. She is doing very well. Her path report shows fibroadenoma. I explained to her the benign nature of this pathology. I emphasized to her the importance of regular screening mammograms. She can follow up on a p.r.n. basis. Coding Level of Care Code Est Pt Level 2 (78081) Diagnoses Breast calcification, left R92.1
== END 2023-05-10 09:44 | disposition home or self-care (01) ==
PROVIDERS: PCP Internal Medicine; Referring Provider Internal Medicine; Visit Provider Surgery
DX: R92.1 Mammographic calcification found on diagnostic imaging of breast (principal)
CPT/HCPCS: 99212

== ENCOUNTER → 2023-05-10 09:28 | Outpatient (BNVA) | payer BC, SELFPAY | PROVIDERS: PCP Internal Medicine; Visit Provider Surgery | DX: R92.1 Mammographic calcification found on diagnostic imaging of breast (principal) ==

== ENCOUNTER 2023-07-17 11:01 | Outpatient (REF) | payer MEDICARE, SELFPAY ==
[2023-07-17 11:07] LABS: MANUAL DIFF FLAG NO
[2023-07-17 11:40] LABS: Basophils Percent Auto 0.6 % (0-2); Eosinophils Absolute Auto 0.1 X10*3/uL (0.0-0.4); Eosinophils Percent Auto 1.1 % (0-4); Hematocrit 41.2 % (37.0-47.0); Hemoglobin 13.3 g/dl (12.0-16.0); Imm Gran Abs Auto 0.01 X10*3/uL (0.00-0.03); Imm Gran Pct Auto 0.2 % (0.0-0.4); Lymphocytes Absolute Auto 2.8 X10*3/uL (1.2-4.9); Lymphocytes Percent Auto 43.1 % (20-40); Mean Corpuscular HGB Conc 32.3 g/dl (31.0-35.0); Mean Corpuscular Hemoglobin 29.1 pg (27.0-33.0); Mean Corpuscular Volume 90.2 fL (80.0-98.0); Mean Platelet Volume 10.4 fL (9.4-12.3); Monocytes Absolute Auto 0.8 X10*3/uL (0.1-1.2); Monocytes Percent Auto 11.8 % (2-11); Neutrophils Absolute Auto 2.8 x10*3/uL (2.0-8.3); Neutrophils Percent Auto 43.2 % (45-73); Platelet Count 233 X10*3/uL (160-400); Red Blood Count 4.57 X10*6/uL (4.20-5.50); Red Cell Distribution Width 14.1 % (11.0-16.0); White Blood Count 6.5 X10*3/uL (4.8-10.8)
[2023-07-17 11:44] LABS: Estimated Average Glucose 120 mg/dL; Hemoglobin A1c % 5.8 % (<6.0)
[2023-07-17 11:49] LABS: Appearance Urine Cloudy; Color Urine Yellow; Glucose Urine UA Negative (Negative); Leukocyte Esterase Urine Negative (Negative); Nitrite Urine Negative (Negative); PH 5.5 (5.0-9.0); Specific Gravity - Urine 1.025 (1.005-1.025); Urine Blood Negative (Negative); Urine Ketones Negative (Negative); Urine Protein Negative (Neg-Trace)
[2023-07-17 11:54] LABS: Bacteria Urine 4+ (None Seen); Hyaline Casts Urine 0-2 /LPF (0-2); RBC Urine 0-2 /HPF (0-2); Squamous Epithelial Cell Urine >20 /HPF (0-2); UACC Culture Trigger YES
[2023-07-17 12:01] LABS: Alanine Aminotransferase 15 U/L (0-31); Albumin Level 3.8 g/dL (3.5-5.0); Alkaline Phosphatase 67 U/L (39-117); Anion Gap 10 (12-20); Aspartate Amino Transferase 16 U/L (5-31); Bilirubin Total 0.5 mg/dL (0.0-1.0); Blood Urea Nitrogen 13 mg/dL (9-16); Calcium 9.2 mg/dL (8.4-10.2); Carbon Dioxide 30 mmol/L (22-29); Chloride 107 mmol/L (96-108); Cholesterol 193 mg/dL (<200); Estimated Glomerular Filt Rate > 60; Glucose Fasting 97 mg/dL (60-99); HDL Cholesterol 69 mg/dL (>40); LDL Cholesterol Calculated 104 mg/dL (<100); Potassium 3.9 mmol/L (3.3-5.1); Sodium 143 mmol/L (135-145); Total Protein 7.4 g/dL (6.5-8.0); Triglycerides 103 mg/dL (<150)
[2023-07-17 12:06] LABS: Creatinine Urine 179.11 mg/dL; Microalbum/Creatinine Ratio Ur 3.9 ug/mg cr (<30)
[2023-07-17 12:18] LABS: Vitamin D 25-OH Total 33.5 ng/mL (>30)
== END 2023-07-17 11:02 | disposition home or self-care (01) ==
LOC: HO.LNP 11:01
PROVIDERS: Visit Provider Internal Medicine
DX: Z00.00 Encounter for general adult medical examination without abnormal findings (principal); Z13.6 Encounter for screening for cardiovascular disorders; D72.820 Lymphocytosis (symptomatic); E55.9 Vitamin D deficiency, unspecified; R73.03 Prediabetes
CPT/HCPCS: 80053; 80061; 81001; 82043; 82306; 82570; 83036; 85025; 87086

== ENCOUNTER 2023-12-06 11:11 | Outpatient (AMB) | payer MEDICARE, SELFPAY ==
--- NOTE | 2023-12-06 11:13 | A.OFFVIS_ITS ---
Vital Signs 12/06/23 11:25 Height 4 ft 11 in Weight 212 lb BMI 42.8 Handedness Right Intake Visit Reasons: Right shoulder pain Intake Note: Arely is a 63 year old right hand dominant female who presents with complaints of minimal discomfort in her right shoulder. The patient states that she made her appointment several weeks ago. At that time she had relatively severe pain along the lateral aspect of her right shoulder. Over the last 2 weeks her pain has dissipated almost completely. She has been using topical ointments which gave her fairly good relief. The patient states that she underwent bilateral shoulder surgery by Dr. Pepe approximately 10 years ago. She denies any weakness. Allergies grapefruit [Grapefruit] Allergy (Mild, Verified 12/06/23 11:24) RASH Penicillins Allergy (Mild, Verified 12/06/23 11:24) BLISTERS penicillin V Allergy (Unknown, Verified 12/06/23 11:24) Unknown Medication List - Last Reconciled 12/06/23 by Lobo Rivas MD alendronate 70 mg PO QWEEK calcium citrate 250 mg PO DAILY cholecalciferol (vitamin D3) 50 mcg PO DAILY timolol maleate 0.5% 1 drp ophthalmic (eye) BID PFSH Medical History Breast calcification, left COVID-19 vaccine series completed BRCA negative Vitamin D deficiency Age related osteoporosis Surgical History Hx of laparoscopic gastric banding Hx of cholecystectomy History of arthroscopy of right shoulder History of arthroscopy of left shoulder Family History Mother History of breast cancer Sister History of breast cancer Sister History of breast cancer Maternal Aunt Ovarian cancer Social History (Updated 12/06/23 @ 11:25 by ANGELO Lowery) Alcohol intake: current Alcohol intake frequency: a few times a week Patient Tobacco Use Status: Never used Tobacco Current occupational status: unemployed Current occupation: right hand dominant Sexual orientation: Straight/Heterosexual Gender identity: Female Female Reproductive History Menstrual Age of Menarche: 10 Physical Exam Vital Signs: BMI result Body Mass Index 42.8 Const Other: Well-nourished well-developed very friendly female awake alert and oriented x3 in no acute distress Extrem Other: Bilateral upper extremity examination shows good capillary refill, no skin lesions noted, normal sensation light touch Right shoulder examination shows full range of motion when compared to her left shoulder, 5/5 strength with supraspinatus testing, no tenderness over her acromioclavicular joint, no instability Results Reviewed Results Reviewed: X-rays of the patient's right shoulder taken today show moderate acromiocla vicular joint narrowing, a type 2 acromion, no acute bony abnormalities Assessment & Plan Assessment & Plan (1) Right shoulder pain: Code(s): M25.511 - Pain in right shoulder Category: Medical Plan Ms. Jacob presents with intermittent right shoulder discomfort most likely due to impingement syndrome. I had a lengthy discussion with the patient regarding the treatment options. At this point the patient's symptoms are tolerable to her. She will continue with her activity modifications and [id number]-[id number] exercises. The do's and don'ts of lifting were discussed at length with the patient. She will follow up with me on an as-needed basis should her symptoms worsen in any way. Feel free to call me at any time should questions regarding her orthopedic management arise. Thank you very much for asking me to see this very friendly patient. I spent 21 minutes in reviewing the patient's records and imaging studies, seeing the patient and documenting in the medical record. Orders: Orders XR shoulder RT min 2V Today M25.511 - Pain in right shoulder Coding Level of Care Code New Pt Level 3 (73761) Diagnoses Right shoulder pain M25.511
[2023-12-06 11:25] VITALS: BMI 42.8
== END 2023-12-06 11:43 | disposition home or self-care (01) ==
LOC: HO.HOS 11:11
PROVIDERS: PCP Internal Medicine; Visit Provider Orthopaedic Surgery
DX: M25.511 Pain in right shoulder (principal)
CPT/HCPCS: 99203

== ENCOUNTER 2023-12-06 11:11 | Outpatient (REF) | payer MEDICARE, SELFPAY ==
--- NOTE | ~2023-12-06 | XR_ITS ---
EXAMINATION: XR SHOULDER, RIGHT CLINICAL INFORMATION: Right shoulder pain. COMPARISON: None available. TECHNIQUE: Two views of the right shoulder. FINDINGS: Mild glenohumeral osteoarthritis with marginal osteophytes. Acromioclavicular joint is unremarkable. Small foci of calcification of the greater tuberosity measuring up to 4 mm in diameter and are most consistent with calcific tendinitis at the rotator cuff insertion. No fractures. Alignment is appropriate. XR/XR shoulder RT min 2V IMPRESSION: 1. Mild glenohumeral osteoarthritis. 2. Calcific tendinitis at the rotator cuff insertion. Electronically signed by: Daniel Cervantes MD 12/31/2023 05:37 PM EDT RP
== END 2023-12-06 11:12 | disposition home or self-care (01) ==
LOC: HO.HOSX 11:11
PROVIDERS: PCP Internal Medicine; Visit Provider Orthopaedic Surgery
DX: M25.511 Pain in right shoulder (principal)
CPT/HCPCS: 73030; 99202

== ENCOUNTER 2024-04-11 07:37 | Outpatient (REF) | payer MEDICARE, SELFPAY | END 2024-04-11 07:38 | disposition home or self-care (01) | LOC: HO.MAMMO 07:37 | PROVIDERS: PCP Internal Medicine; Visit Provider Internal Medicine | DX: Z12.31 Encounter for screening mammogram for malignant neoplasm of breast (principal) | CPT/HCPCS: 77063; 77067 ==

== ENCOUNTER → 2024-04-11 07:45 | Outpatient (BNV) | payer MEDICARE, SELFPAY | PROVIDERS: PCP Internal Medicine; Visit Provider Internal Medicine | DX: Z12.31 Encounter for screening mammogram for malignant neoplasm of breast (principal) | CPT/HCPCS: 77063; 77067 ==

== ENCOUNTER 2024-05-07 07:33 | Outpatient (AMB) | payer MEDICARE, SELFPAY ==
--- NOTE | 2024-05-07 07:44 | MHC.OFFVIS ---
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 She is doing well with ob gyn physician assistant concerns: onset of bleeding after intimacy for several days, heavy the first day. No pelvic pain. Currently sexually active w/new partner. Denies any vaginal dryness or irritation. STI testing offered; she accepts. Attempting to eat a healthy diet with calcium and vitamin D and stays active with exercise. Last pap smear; 2023, negative pap history. Last mammogram; 2023. Colonoscopy is UTD. Denies any family history of breast, ovarian or colon cancer. [facility] Medical History (Updated 05/07/24 @ 09:37 by Candice Petty CNM) Postmenopausal bleeding PCB (post coital bleeding) Breast calcification, left COVID-19 vaccine series completed BRCA negative Vitamin D deficiency Age related osteoporosis Surgical History Hx of laparoscopic gastric banding Hx of cholecystectomy History of arthroscopy of right shoulder History of arthroscopy of left shoulder Family History Mother History of breast cancer Sister History of breast cancer Sister History of breast cancer Maternal Aunt Ovarian cancer Social History Alcohol intake: current Alcohol intake frequency: a few times a week Patient Tobacco Use Status: Never used Tobacco Current occupational status: unemployed Current occupation: right hand dominant Sexual orientation: Straight/Heterosexual Gender identity: Female Female Reproductive History Menstrual Age of Menarche: 10 Total pregnancies: 3 Full term: 2 Number of Living Children: 2 Ab induced: 1 Date of last pap smear: 05/03/23 (neg pap and hpv) Date of Mammogram: 04/11/24 (Birad 2) Review of Systems Const All systems reviewed & are unremarkable except as noted in HPI and below Reports as per HPI Eyes Reports no additional complaints ENT Reports no additional complaints Card Reports no additional complaints Resp Reports no additional complaints GI Reports as per HPI and Reports no additional complaints Reports as per HPI Musc Reports no additional complaints Skin/Breast Reports as per HPI Neuro Reports no additional complaints Psych Reports no additional complaints Endo Reports no additional complaints Sherif/Lymph Reports no additional complaints Aller/Immun Reports no additional complaints Physical Exam Vital Signs: Last Vital Signs BP 122/82 05/07/24 07:45 BMI result Body Mass Index 42.8 Const General: cooperative, healthy appearing, no acute distress, well developed and alert Orientation/consciousness: patient oriented x3 HEENT Head: Yes normal to inspection Eyes General: appearance normal, both eyes and all related structures Neck Neck: Yes normal visual inspection Thyroid: Thyroid normal Chest Chest palpation & inspection: normal inspection of the chest and other (no puckering, dimpling, peau de orange, retraction, discharge, masses) Breast/axilla inspection: normal inspection of the breasts Breast/axilla palpation: normal palpation of the breasts Resp Effort & Inspection: normal respiratory effort GI Inspection: Yes normal to inspection Palpation (GI): Soft to palpation Rectal Exam - Female: deferred General: Yes bladder normal to palpation External Female Exam: normal external appearance and normal appearance of the urethra Speculum Exam - Vagina: normal appearance of the vagina, normal palpation and normal vaginal discharge Speculum Exam - Cervix: normal appearance of the cervix and normal palpation Bimanual exam- vagina & uterus: normal bimanual exam, normal palpation, uterine size normal, bladder normal to palpation, normal palpation and non-tender Bimanual Exam- Adnexa, other: no masses Skin General skin exam: no rashes or lesions noted Rashes: no rashes Neuro General: patient oriented x3 Cognition (Neuro): normal cognition Extrem General: Yes normal to inspection Psych Attitude: cooperative Thought process: Normal thought process present Assessment & Plan Assessment & Plan (1) Encounter for annual routine gynecological examination: Code(s): Z01.419 - Encounter for gynecological examination (general) (routine) without abnormal findings Category: Medical (2) PCB (post coital bleeding): Code(s): N93.0 - Postcoital and contact bleeding Category: Medical Plan: Postcoital bleeding-Pap smear obtained, cervical cultures completed, await results for plan of care. (3) Postmenopausal bleeding: Comment: Total time I personally spent on visit and management today: 20 minutes. Time spent included review of pertinent office notes in the electronic health record; review of laboratory and imaging results; review of personal family medical history; performing physical exam; discussing diagnosis and plan of care with the patient; documenting the encounter in the EMR. Code(s): N95.0 - Postmenopausal bleeding Category: Medical Plan: Plan workup with pelvic ultrasound and endometrial biopsy to rule out any abnormalities from the uterine cavity, including atypia, precancer or cancer of the uterus. Use of anatomical charts and diagrams to explain possible causes of bleeding including polyps, fibroids, pelvic masses, other. Preprocedure planning reviewed anticipation-advised to have something to eat drink before the procedure and take [id number] either Tylenol or ibuprofen if no contraindications per manufacture's recommendation 1 hour before the procedure to help with cramping. Patient is agreeable to the plan of care and the appointment will be scheduled. Follow up in person pelvic ultrasound for results. (4) Postcoital bleeding: Code(s): N93.0 - Postcoital and contact bleeding Plan Discussed: Current recommendations for pap smears per ASCCP guidelines. Breast awareness, periodic self breast exams and yearly mammogram. Maintain a healthy lifestyle, well balanced diet including Calcium 1,200 mg and Vitamin D 600 IU daily, and routine exercise. Contact the office with any further postmenopausal bleeding. Patient verbalizes understanding and agrees to the plan of care. She was given opportunity to ask questions and all questions were answered to the best of my ability. RTO in 1 year for annual ob gyn physician assistant exam. This note is constructed using voice recognition software. While every effort has been made to ensure accuracy, real estate director errors may have been included. Orders: Orders Pap Smear Today N93.0 - Postcoital and contact bleeding, N95.0 - Postmenopausal bleeding US pelvic and transvaginal Today N93.0 - Postcoital and contact bleeding, N95.0 - Postmenopausal bleeding Bacterial Vaginosis Panel Today N93.0 - Postcoital and contact bleeding, N95.0 - Postmenopausal bleeding CT NG by PCR Today N93.0 - Postcoital and contact bleeding, N95.0 - Postmenopausal bleeding HPV High risk Today N93.0 - Postcoital and contact bleeding, N95.0 - Postmenopausal bleeding Coding Level of Care Code Est Pt Level 2 (09185) Est Pt Prev Care >65y(18312) Diagnoses Encounter for annual routine gynecological examination Z01.419 PCB (post coital bleeding) N93.0 Postmenopausal bleeding N95.0
[2024-05-07 07:45] VITALS: BP 122/82; BMI 42.8
== END 2024-05-07 08:37 | disposition home or self-care (01) ==
PROVIDERS: PCP Internal Medicine; Visit Provider Advanced Practice Midwife
DX: Z01.419 Encounter for gynecological examination (general) (routine) without abnormal findings (principal); N93.0 Postcoital and contact bleeding; N95.0 Postmenopausal bleeding
CPT/HCPCS: 99213; 99397; 99459

== ENCOUNTER 2024-05-07 07:33 | Outpatient (REF) | payer MEDICARE, SELFPAY ==
--- OUTSIDE RECORDS SUMMARY | 2024-05-07 08:21 | XMS_ITS ---
Author Organization Fredy De Santiago MD Address [address] [place] [phone] Care Team Providers Care Proof Technician Name Role Phone Fredy De Santiago Primary Care Provider [phone] ALLERGIES Allergen (clinical drug ingredient) Drug/Non Drug Allergy documented on EMR Reaction Allergy Type Onset Date Status Penicillin (uncoded) hives Allergy Active REASON FOR VISIT ANNUAL EXAM, No Covid symptoms MEDICATIONS Medication SIG (Take, Route, Frequency, Duration) Notes Start Date End Date Status Albuterol Sulfate HFA 108 (90 Base) MCG/ACT INHALE 1 PUFF INTO THE LUNGS EVERY 4 HOURS FOR 30 DAYS for 30 Active Alendronate Sodium 70 MG TAKE 1 TABLET B Y MOUTH ONE TIME PER WEEK for 90 Active Vitamin D3 50 MCG (1999 UT) TAKE 1 CAPSU LE BY MOUTH EVERY DAY Active Timolol Maleate PF 0.5 % 1 drop into aff ected eye Ophthalmic Once a day Active Calcium Citrate 250 MG TAKE 1 TABLET BY MOUTH EVERY DAY for 30 Active SOCIAL HISTORY Tobacco Use: Social History Observation Description Date Details (start date - stop date) Never Smoker NA - NA Sex Assigned At : Social History Observation Description Sex Assigned At Unknown Tobacco Use/Smoking Question Answer Notes Patient is a nonsmoker Additional Findings: Tobacco Non-User Cu rrent non-smoker, currently using no form of tobacco Alcohol Screen Question Answer Notes Did you have a drink contain ing alcohol in the past year? Yes How often did you have a dri nk containing alcohol in the past year? 4 or more times a week (4 points) How many drinks did you have on a typical day when you were drinking in the past year? 3 or 4 drinks (1 point) How often did you have 6 or more drinks on one occasion in the past year? Never (0 point) Points 5 Interpretation Positive VITAL SIGNS BMI 43.09 kg/m2 07/31/2023 Blood pressure systolic 138 mm Hg 07/31/19 24 Blood pressure diastolic 74 mm Hg 024 Height 59.5 in 07/31/2023 Weight 217 lbs 07/31/2023 weight is up 14 pounds since 02-08-23 Encounters Encounter Location Date Provider Diagnosis Fredy De Santiago MD [address] [place] [address] [place] [id number] 07/31/2023 Fredy De Santiago Lymphocytosis D72.82 0 ; Annual physical exam Z00.00 ; Low vitamin D level E55.9 ; Prediabetes R73.03 ; BMI 40.0-44.9, adult Z68.41 and Depression screening Z13.31 ASSESSMENTS Encounter Date Diagnosis Assessment Notes Treatment Notes Treatment Clinical Notes 07/31/2023 Lymphocytosis (ICD-10 - D72.820) is stable had it in past, will continue to monitor 07/31/2023 Annual physical exam (ICD-10 - Z00.00) labs reviewed and discussed with patient 07/31/2023 Low vitamin D level (ICD-10 - E55.9) is theraputic now, will contiue to monitor 07/31/2023 Prediabetes (ICD-10 - R73.03) still with good a1c, no need for medicatio at this time 07/31/2023 BMI 40.0-44.9, adult (ICD-10 - Z68.41) encouraged diet 07/31/2023 Depression screening (ICD-10 - Z13.31) negative screen PLAN OF TREATMENT Medication Medication Name Sig Start Date Stop Date Notes Vitamin D3 50 MCG (2000 UT) TAKE 1 CAPSU LE BY MOUTH EVERY DAY Treatment Notes Assessment Notes Lymphocytosis is stable had it in past, will continue to monitor Annual physical exam labs reviewed and d iscussed with patient Low vitamin D level is theraputic now, w ill contiue to monitor Prediabetes still with good a1c, no need for medicatio at this time BMI 40.0-44.9, adult encouraged diet Depression screening negative screen Next Appt Details Provider Name:Fredy Hussein ier, 07/24/2024 07:00:00 AM, [address] [place] [address], [address], [place], [place], [phone], Provider Name:Fredy velasquez, 07/31/2024 08:00:00 AM, [address] [place] [address], [address], [place], [place], [phone], Progress Notes * Examination Category Sub-Category Detail Notes General Examination GENERAL APPEARANCE: well dev eloped, well nourished, in no acute distress HEAD: normocephalic, atrau matic EYES: pupils equal, round, reactive to light and accommodation, sclera non- icteric EARS: normal THROAT: clear NECK/THYROID: neck supple, full ra nge of motion, no cervical lymphadenopathy, no bruits HEART: regular rate and rhy thm, S1, S2 normal, no murmurs LUNGS: clear to auscultatio n bilaterally ABDOMEN: soft, nontender, non distended, bowel sounds present, normal, no organomegaly , no masses palpable NEUROLOGIC: nonfocal, motor stre ngth normal upper and lower extremities, sensory exam intact SKIN: warm and dry, no lexi picious lesions EXTREMITIES: no clubbing, cyanosi s, or edema BREASTS: done by telephone answerer RECTAL EXAM: done by telephone answerer FEMALE GENITOURINARY: done by telephone answerer ORAL CAVITY: mucosa moist History and Physical Notes * HPI (History of Present Illness) Category Sub-Category Detail Notes Depression Screening PHQ-9 Little inte rest or pleasure in doing things: Not at all Feeling down, depressed, or hopeless: No t at all Trouble falling or staying asleep, or sl eeping too much: Not at all Feeling tired or having little energy: N ot at all Poor appetite or overeating: Not at all Feeling bad about yourself o r that you are a failure, or have let yourself or your family down: Not at all Trouble concentrating on thi ngs, such as reading the newspaper or watching television: Not at all Moving or speaking so slowly that other people could have noticed; or the opposite, being so fidgety or restless that you have been moving around a lot more than usual: Not at all Thoughts that you would be b ramos off or of hurting yourself in some way: Not at all Total Score: 0 Interpretation and Intervention Depression Hugh lopez Findings: Negative Follow-Up for Depression: : review of PH Q-9 found negative result, no follow-up needed SDOH Questions SDOH Questions In the past year have you been worried about losing housing?: No In the past year have you or any family members you live with been unable to get any of the following when it was really needed? Check all that apply:: None Communication Needs Communication Needs Does the patient have a hearing impairment: No Does the patient have a vision impairmen t?: Yes ?If yes, what is the vision impairment?: Glasses Does the patient have a cognition impair ment?: No
--- OUTSIDE RECORDS SUMMARY | 2024-05-07 08:21 | XMS_ITS ---
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
--- OUTSIDE RECORDS SUMMARY | 2024-05-07 08:22 | XMS_ITS ---
Author Organization Fredy De Santiago MD Address [address] [place], [place] [phone] Care Team Providers Care Dishroom Attendant Name Role Phone Fredy De Santiago Primary Care Provider [phone] RESULTS Component Value Reference Range Notes Complete Blood Count Auto Di ff Reviewed date:07/17/2023 12:40:27 PM Interpretation: Performing Lab:[facility], [address] [place] [phone] Notes/Report: White Blood Count 6.5 4.8-10.8 X10*3/uL Red Blood Count 4.57 4.20-5.50 X10*6/uL Hemoglobin 13.3 12.0-16.0 g/dl Hematocrit 41.2 37.0-47.0 % Mean Corpuscular Volume 90.2 80.0-98.0 fL Mean Corpuscular Hemoglobin 29.1 27.0-33.0 pg Mean Corpuscular HGB Conc 32.3 31.0-35.0 g/dl Red Cell Distribution Width 14.1 11.0-16.0 % Platelet Count 233 160-400 X10*3/uL Mean Platelet Volume 10.4 9.4-12.3 fL Neutrophils Percent Auto 43.2 45-73 % Imm Gran Pct Auto 0.2 0.0-0.4 % Lymphocytes Percent Auto 43.1 20-40 % Monocytes Percent Auto 11.8 2-11 % Eosinophils Percent Auto 1.1 0-4 % Basophils Percent Auto 0.6 0-2 % NRBC Pct Auto 0.0 0.0-0.2 /100WBC Neutrophils Absolute Auto 2.8 2.0-8.3 x10*3/u L Imm Gran Abs Auto 0.01 0.00-0.03 X10*3/uL Lymphocytes Absolute Auto 2.8 1.2-4.9 X10*3/u L Monocytes Absolute Auto 0.8 0.1-1.2 X10*3/uL Eosinophils Absolute Auto 0.1 0.0-0.4 X10*3/u L Basophils Absolute Auto 0.0 0.0-0.2 X10*3/uL NRBC Abs Auto 0.000 0.0-0.012 X10*3/uL Comprehensive [place]. Panel Fa st Reviewed date:07/17/2023 12:37:48 PM Interpretation: Performing Lab:[facility], [address] [place] [phone] Notes/Report: Sodium 143 135-145 mmol/L Potassium 3.9 3.3-5.1 mmol/L Chloride 107 96-108 mmol/L Carbon Dioxide 30 22-29 mmol/L Anion Gap 10 12-20 Blood Urea Nitrogen 13 9-16 mg/dL Creatinine 0.75 0.5-1.4 mg/dL Estimated Glomerular Filt Rate > 60 NOTE: For -[place] individuals, multiply the result by 1.210. Chronic Kidney Disease: Estimated GFR < 60 mL/min/1.73m2 Severe Kidney Disease: Estimated GFR < 15 mL/min/1.73m2 Glucose Fasting 97 60-99 mg/dL Calcium 9.2 8.4-10.2 mg/dL Bilirubin Total 0.5 0.0-1.0 mg/dL Aspartate Amino Transferase 16 5-31 U/L Alanine Aminotransferase 15 0-31 U/L Total Protein 7.4 6.5-8.0 g/dL Albumin Level 3.8 3.5-5.0 g/dL Alkaline Phosphatase 67 39-117 U/L Lipid Panel Reviewed date:07/17/2023 12:35:35 PM Interpretation: Performing Lab:[address] [phone] Notes/Report: Triglycerides 103 <150 mg/dL Desirable Triglyceride: less than 150 mg/dL Borderline High Triglyceride 150-199 mg/dL High Triglyceride: 200-499 mg/dL Very High Triglyceride: greater than or equal to 5OO mg/dL Cholesterol 193 <200 mg/dL Desirable Cholesterol: less than 200 mg/dL Borderline High Cholesterol: 200-239 mg/dL High Cholesterol: greater than 239 mg/dL LDL Cholesterol Calculated 104 <100 mg/dL Desirable LDL: less than 100 mg/dL Near Optimal/Above Optimal LDL: 110-129 mg/dL Borderline High LDL: 130-159 mg/dL High LDL: 160-189 mg/dL Very High LDL: greater than or equal to 190 mg/dL HDL Cholesterol 69 >40 mg/dL Desirable HDL: greater than 40 mg/dL Note: This HDL assay may give artificially low results in patients with liver disease. Vitamin D 25-OH Total Reviewed date:07/17/2023 12:38:27 PM Interpretation: Performing Lab:[address] [phone] Notes/Report: Vitamin D 25-OH Total 33.5 >30 ng/mL Health Based Reference Values* < 20 ng/mL Deficient 20-30 ng/mL Insufficient > 30 ng/mL Sufficient *Lesia BOSS. N Engl J Med. 2007;357:266-280 Care must be taken in interpreting Vitamin D results from different laboratories and methodologies. Published data demonstrated that results from patients undergoing hemodialysis may show a negative bias when tested with various automated 25-OH vitamin D assays when compared to LC-MS/MS. When testing samples from patients whose predominant form of Vitamin D is Vitamin D2, such as patients receiving Vitamin D2 supplementation, results that are subtherapeutic should be confirmed with another method such as LC-MS/MS. Microalbumin, Random Reviewed date:07/17/2023 12:34:55 PM Interpretation: Performing Lab:[facility], [address] [place] [phone] Notes/Report: Creatinine Urine 179.11 Microalbumin Urine 7.0 Microalbum/Creatinine Ratio Ur 3.9 <30 ug/mg cr Albumin/Creatinine Ratio Reference Ranges: Normal: < 30 ug/mg creatinine Microalbuminuria: 30 - 300 ug/mg creatinine Clinical Albuminuria: > 300 ug/mg creatinine Hemoglobin A1c Reviewed date:07/17/2023 12:25:45 PM Interpretation: Performing Lab:[facility], [address] [place] [phone] Notes/Report: Hemoglobin A1c % 5.8 <6.0 % Hemoglobin A1C Reference Range Adults: 4.8 - 6.0 % Non diabetic: < 6.0 % Goal: < 7.0 % Additional Action Suggested: > 8.0 % Note: Hemoglobin A1c results are invalid for patients with abnormal amounts of HbF. Blood transfusions may impact the HbA1c concentration in the patient sample. Estimated Average Glucose 120 eAG = Estimated average glucose which is %A1C expressed as average glucose, using the formula of the D6J-Hwnvyaa Average Glucose study (ADAG), Diabetes Care, Vol.31,#8, Nov. 2007 UA ClnCatch+Micro w/rflx Cul t Reviewed date:07/17/2023 12:40:45 PM Interpretation: Performing Lab:[facility], [address] [place] [phone] Notes/Report: Urine, Clean Catch Color Urine Yellow Appearance Urine Cloudy PH 5.5 5.0-9.0 Glucose Urine UA Negative Negative mg/dL Urine Blood Negative Negative Specific [place] - Urine 1.025 1.005-1.025 Urine Protein Negative Neg-Trace mg/dL Urine Ketones Negative Negative mg/dL Nitrite Urine Negative Negative Leukocyte Esterase Urine Negative Negative RBC Urine 0-2 0-2 /HPF WBC Urine 6-10 0-5 /HPF Squamous Epithelial Cell Urine >20 0-2 /HPF Bacteria Urine 4+ None Seen Hyaline Casts Urine 0-2 0-2 /LPF REASON FOR VISIT FASTING LABS Encounters Encounter Location Date Provider Diagnosis Fredy De Santiago MD [address] [place] [address] Drive [address] [place], [place] [phone] 07/17/2023 Fredy De Santiago Blood tests for routine general physical examination Z00.00 ; Lymphocytosis D72.820 ; Low vitamin D level E55.9 and Prediabetes R73.03 ASSESSMENTS Encounter Date Diagnosis Assessment Notes Treatment Notes Treatment Clinical Notes 07/17/2023 Blood tests for routine general physical examination (ICD-10 - Z00.00) 07/17/2023 Lymphocytosis (ICD-1 0 - D72.820) 07/17/2023 Low vitamin D level (ICD-10 - E55.9) 07/17/2023 Prediabetes (ICD-10 - R73.03) PLAN OF TREATMENT Next Appt Details Provider Name:Fredy velasquez, 07/24/2024 07:00:00 AM, [address] [place] [address], [place] [address], [place], [place], [phone], Provider Name:Fredy velasquez, 07/31/2024 08:00:00 AM, [address] [place] [address], [address], [place], [place], [phone],
[2024-05-08 01:41] LABS: CT PCR NOT DETECTED (Not Detect.); NG PCR NOT DETECTED (Not Detect.)
[2024-05-08 12:46] LABS: Bacterial Vaginosis PCR POSITIVE (Negative); Candida Group PCR DETECTED (Not Detect); Candida glab krusei PCR NOT DETECTED (Not Detect); Trichomonas vaginalis PCR NOT DETECTED (Not Detect)
[2024-05-13 12:23] LABS: HPV Genotype 16 Negative (Negative); HPV Genotype 18 Negative (Negative); HPV High Risk Negative (Negative)
== END 2024-05-07 07:34 | disposition home or self-care (01) ==
LOC: HO.LNP 07:33
PROVIDERS: PCP Internal Medicine; Visit Provider Advanced Practice Midwife
DX: Z01.411 Encounter for gynecological examination (general) (routine) with abnormal findings (principal); N95.0 Postmenopausal bleeding; N93.0 Postcoital and contact bleeding
CPT/HCPCS: 81515; 87491; 87591; 87626; 88175; 99212; 99397; 99459

== ENCOUNTER 2024-05-07 08:13 | Outpatient (REF) | payer MEDICARE, SELFPAY ==
--- OUTSIDE RECORDS SUMMARY | 2024-05-07 08:22 | XMS_ITS | Patient Health Record ---
Author Organization Fredy De Santiago MD Address [address] [place] [phone] Care Team Providers Care Gusset Ripper Name Role Phone Fredy De Santiago Primary Care Provider ALLERGIES Allergen (clinical drug ingredient) Drug/Non Drug Allergy documented on EMR Reaction Allergy Type Onset Date Status Penicillin (uncoded) hives Allergy Active RESULTS Component Value Reference Range Notes Sebastien Bowers Reviewed date:07/17/2023 12:25:54 PM Interpretation: Performing Lab:[facility], [address] [place] [phone] Notes/Report: Sebastien Bowers See Note Specimen held untested for 24 hours; Call to request Chemistry testing. Urine Culture Reviewed date:07/19/2023 04:16:06 PM Interpretation: Performing Lab:[facility], [address] [place] [phone] Notes/Report: Urine Culture Report Result Urine Culture 10,000 to 50,000 cfu/ml Urine Culture Mixed bacterial lee a characteristic of Urine Culture urogenital contamination. Complete Blood Count Auto Di ff Reviewed date:07/17/2023 12:40:27 PM Interpretation: Performing Lab:[facility], [address] [place] [phone] Notes/Report: White Blood Count 6.5 4.8-10.8 X10*3/uL [...] 0.0-0.2 /100WBC Neutrophils Absolute Auto 2.8 2.0-8.3 x10*3/uL Imm Gran Abs Auto 0.01 0.00-0.03 X10*3/uL Lymphocytes Absolute Auto 2.8 1.2-4.9 X10*3/uL Monocytes Absolute Auto 0.8 0.1-1.2 X10*3/uL Eosinophils Absolute Auto 0.1 0.0-0.4 X10*3/uL Basophils Absolute Auto 0.0 0.0-0.2 X10*3/uL NRBC Abs Auto 0.000 0.0-0.012 X10*3/uL Comprehensive [place]. Panel Fa st Reviewed date:07/17/2023 12:37:48 PM Interpretation: Performing Lab:[facility], [address] [place] [phone] Notes/Report: Sodium 143 135-145 mmol/L Potassium 3.9 3.3-5.1 mmol/L Chloride 107 96-108 mmol/L Carbon Dioxide 30 22-29 mmol/L Anion Gap 10 12-20 Blood Urea Nitrogen 13 9-16 mg/dL Creatinine 0.75 0.5-1.4 mg/dL Estimated Glomerular Filt Rate > 60 NOTE: For -[place] individuals, multiply the result by 1.210. Chronic [...] Panel Reviewed date:07/17/2023 12:35:35 PM Interpretation: Performing Lab:[address] [phone] Notes/Report: Triglycerides 103 <150 mg/dL Desirable Triglyceride: [...] Total Reviewed date:07/17/2023 12:38:27 PM Interpretation: Performing Lab:[facility], [address] [place] [phone] Notes/Report: Vitamin D 25-OH Total 33.5 >30 [...] Random Reviewed date:07/17/2023 12:34:55 PM Interpretation: Performing Lab:[facility], [address] [place] [phone] Notes/Report: Creatinine Urine 179.11 Microalbumin Urine 7.0 Microalbum/Creatinine Ratio Ur 3.9 <30 ug/mg cr Albumin/Creatinine Ratio Reference Ranges: Normal: < 30 ug/mg creatinine Microalbuminuria: 30 - 300 ug/mg creatinine Clinical Albuminuria: > 300 ug/mg creatinine Hemoglobin A1c Reviewed date:07/17/2023 12:25:45 PM Interpretation: Performing Lab:[facility], [address] [place] [phone] Notes/Report: Hemoglobin A1c % 5.8 <6.0 % [...] average glucose, using the formula of the C0A-Vzbmmpt Average Glucose study (ADAG), Diabetes Care, Vol.31,#8, Nov. 2007 UA ClnCatch+Micro w/rflx Cul t Reviewed date:07/17/2023 12:40:45 PM Interpretation: Performing Lab:[facility], [address] [place] [phone] Notes/Report: Urine, Clean Catch Color Urine Yellow Appearance Urine Cloudy PH 5.5 5.0-9.0 Glucose Urine UA Negative Negative mg/dL Urine Blood Negative Negative Specific [place] - Urine 1.025 1.005-1.025 Urine Protein Negative Neg-Trace mg/dL Urine Ketones Negative Negative mg/dL Nitrite Urine Negative Negative Leukocyte Esterase Urine Negative Negative RBC Urine 0-2 0-2 /HPF WBC Urine 6-10 0-5 /HPF Squamous Epithelial Cell Urine >20 0-2 /HPF Bacteria Urine 4+ None Seen Hyaline Casts Urine 0-2 0-2 /LPF XR shoulder RT min 2V Reviewed date:01/01/2024 12:39:27 PM Interpretation: Performing Lab: Notes/Report: [facility] [address] [place] [address] Drive [address] [place] [address] XRay Report Signed Patient: Arely Jacob MR#: [id number] : 1960 Acct:[id number] Age/Sex: 63 / F ADM Date: 12/06/23 Loc: [facility] Attending Dr: Lobo Rivas MD Ordering Physician: Lobo Rivas MD Date of Service: 12/06/23 Procedure(s): XR shoulder RT min 2V Accession Number(s): [id number] cc: Fredy De Santiago MD; Lobo Rivas MD EXAMINATION: XR SHOULDER, RIGHT CLINICAL INFORMATION: Right shoulder pain. COMPARISON: None available. TECHNIQUE: Two views of the right shoulder. FINDINGS: Mild glenohumeral osteoarthritis with marginal osteophytes. Acromioclavicular joint is unremarkable. Small foci of calcification of the greater tuberosity measuring up to 4 mm in diameter and are most consistent with calcific tendinitis at the rotator cuff insertion. No fractures. Alignment is appropriate. XR/XR shoulder RT min 2V IMPRESSION: 1. Mild glenohumeral osteoarthritis. 2. Calcific tendinitis at the rotator cuff insertion. Electronically signed by: Daniel Cervantes MD 12/31/2023 05:37 PM EDT Dictated By: Daniel Cervantes MD Signed By: <Electronically signed by Daniel Cervantes MD in OV> 12/31/23 1737 DD/ 1116 TD/TT: 12/06/23 1120 Client Director: AUGUSTIN DIAZ tomosynthesis screening B I Reviewed date:04/24/2024 12:38:39 PM Interpretation: Performing Lab: Notes/Report: [facility] [address] [place], [place] [address] Mammography Report Signed Patient: Arely Jacob MR#: [id number] : 1960 Acct:[id number] Age/Sex: 64 / F ADM Date: 04/11/24 Loc: HO.MAMMO Attending Dr: Fredy De Santiago MD Ordering Physician: Fredy De Santiago MD Results: 2Be nign Findings Date of Service: 04/11/24 Follow Up: 1 Year From Orig ina Mammogram Procedure(s): MM tomosynthesis screening BI Accession Number(s): [id number] cc: Fredy De Santiago MD EXAMINATION: MM SCREENING DIGITAL BREAST TOMOSYNTHESIS, BILATERAL CLINICAL INFORMATION: Screening. Asymptomatic. COMPARISON: Mammography: Comparison is made with available priors TECHNIQUE: Digital breast mammography with tomosynthesis is performed in both the craniocaudal and mediolateral oblique views along with computer-aided detection (CAD). FINDINGS: The breasts are heterogeneously dense, which may obscure small masses (ACR BI-RADS breast composition Category c). Left marker clip from previous benign needle core biopsy. Postsurgical changes the right breast are stable. There are no significant masses, abnormal calcifications, or other abnormalities. MM/MM tomosynthesis screening BI IMPRESSION: No mammographic evidence of malignancy. ASSESSMENT: BI-RADS BI-RADS 2 - Benign Findings RECOMMENDATION: Routine annual mammography screening. 1 year F/U This examination should not preclude the clinical evaluation of a suspicious palpable abnormality. This patient's information was entered into a reminder system with a target due date for their next mammogram. Electronically signed by: Yamel Rain DO 04/22/2024 05:43 PM [facility] Dictated By: Yamel Rain DO Signed By: <Electronically signed by Yamel Rani DO in OV> 04/22/24 1743 DD/ 0745 TD/TT: 04/11/24 0800 Client Director: REASON FOR REFERRAL No Information MEDICATIONS Medication SIG (Take, Route, Frequency, Duration) Notes Start Date End Date Status Albuterol Sulfate HFA 108 (90 Base) MCG/ACT INHALE 1 PUFF INTO THE LUNGS EVERY 4 HOURS FOR 30 DAYS for 30 Active Alendronate Sodium 70 MG TAKE 1 TABLET B Y MOUTH ONE TIME PER WEEK for 90 Active Vitamin D3 50 MCG (2000 UT) TAKE 1 CAPSU LE BY MOUTH EVERY DAY Active Timolol Maleate PF 0.5 % 1 drop into aff ected eye Ophthalmic Once a day Active Calcium Citrate 250 MG TAKE 1 TABLET BY MOUTH EVERY DAY for 30 Active IMMUNIZATIONS Vaccine Route Administration Date Status Comme nts SARS-COV-2 Pfizer Unknown 08/01/2020 Administered SARS-COV-2 Pfizer Unknown 08/22/2020 Administered SARS-COV-2 Pfizer Unknown 04/19/2021 Administered Flu Vaccine Unknown 02/14/2016 Refused Fluarix Quadrivalent Unknown 05/27/2018 Refused TDaP Unknown 11/19/2017 Refused Fluarix Quadrivalent Unknown 12/25/2017 Refused PPSV23 (Pnemovax) Unknown 06/03/2019 Refused Fluarix Quadrivalent Unknown 06/03/2019 Refused Fluarix Quadrivalent Unknown 06/02/2021 Refused Fluarix Quadrivalent Unknown 02/08/2023 Refused SOCIAL HISTORY Tobacco Use: Social History Observation [...] Never (0 point) Points 5 Interpretation Positive PROBLEMS Problem Type ICD Code Onset Dates Problem Status W/U Status Risk SNOMED Code Notes Problem Lymphocytosis (D72.820) Active confirmed 72748643 Problem Other osteoporosis without current pathological fracture (M81.8) Active confirmed 54793693 Problem Prediabetes (R73.03) Active confirmed 808041158 Problem 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) Active confirmed 948039747 Problem BMI 40.0-44.9, adult (Z68.41) Active confirmed 928137653 Problem Low vitamin D level (E55.9) Active confirmed 202085017 Problem Abnormal mammogram of both breasts (R92.8) Active confirmed 310219694 Problem At high risk for breast cancer (Z91.89) Active confirmed [id number] VITAL SIGNS Blood pressure diastolic 74 mm Hg 07/31/2023 harriet ght is up 14 pounds since 02-08-23 Height 59.5 in 07/31/2023 weight is up 14 pounds since 02-08-23 Blood pressure systolic 138 mm Hg 07/31/2023 weig ht is up 14 pounds since 02-08-23 Weight 217 lbs 07/31/2023 weight is up 14 pounds since 02-08-23 BMI 43.09 kg/m2 07/31/2023 weight is up 14 pounds since 02-08-23 Encounters Encounter Location Date Provider Diagnosis Fredy De Santiago MD [address] [place] [address] Drive [address] [place] [phone] 07/31/2023 Fredy De Santiago Lymphocytosis D72.82 0 ; Annual physical exam Z00.00 ; Low vitamin D level E55.9 ; Prediabetes R73.03 ; BMI 40.0-44.9, adult Z68.41 and Depression screening Z13.31 Fredy De Santiago MD [address] [place] [address] Drive [address] [place] [phone] 07/17/2023 Fredy De Santiago Blood tests for routine general physical examination Z00.00 ; Lymphocytosis D72.820 ; Low vitamin D level E55.9 and Prediabetes R73.03 Fredy De Santiago MD [address] [place] [address] Drive [address] [place] [phone] 09/24/2023 Fredy De Santiago ASSESSMENTS Encounter Date Diagnosis Assessment Notes Treatment Notes Treatment Clinical Notes 07/31/2023 Lymphocytosis (ICD-10 - D72.820) is stable had it in past, will continue to monitor 07/31/2023 Annual physical exam (ICD-10 - Z00.00) labs reviewed and discussed with patient 07/17/2023 Lymphocytosis (ICD-10 - D72.820) 07/17/2023 Blood tests for routine general physical examination (ICD-10 - Z00.00) 07/31/2023 Low vitamin D level (ICD-10 - E55.9) is theraputic now, will contiue to monitor 07/17/2023 Low vitamin D level (ICD-10 - E55.9) 07/31/2023 Prediabetes (ICD-10 - R73.03) still with good a1c, no need for medicatio at this time 07/17/2023 Prediabetes (ICD-10 - R73.03) 07/31/2023 BMI 40.0-44.9, adult (ICD-10 - Z68.41) encouraged diet 07/31/2023 Depression screening (ICD-10 - Z13.31) negative screen PLAN OF TREATMENT Pending Test Test Name Order Date Electrocardiogram (EKG) 02/17/2016 Electrocardiogram (EKG) 05/25/2017 Electrocardiogram (EKG) 05/31/2018 BONE DENSITY DEXA 07/08/2020 MM screening mammo BI 07/08/2020 NM bone scan whole body 12/15/2021 Next Appt Details Provider Name:Fredy velasquez, 07/24/2024 07:00:00 AM, [address] [place] [address], [address], [phone], Provider Name:Fredy velasquez, 07/31/2024 08:00:00 AM, [address] [place] [address], [address], [phone], Insurance Providers Payer Name Payer Address Payer Phone Subscriber Number Group Number Insured Name Patient Relationship to Insured Coverage Start Date Coverage End Date [employer] [address] [id number] [facility] [place] [address] [id number] Arely Jacob Self - patient is the insured MEDICAL (GENERAL) HISTORY Medical History History ICD Code colonoscopy done 08/17/[address] Dario rodrigez 10 years
== END 2024-05-07 08:14 | disposition home or self-care (01) ==
LOC: HO.LAB 08:13
PROVIDERS: Visit Provider Advanced Practice Midwife
DX: Z13.89 Encounter for screening for other disorder (principal)

== ENCOUNTER 2024-05-29 10:50 | Outpatient (REF) | payer MEDICARE, SELFPAY ==
--- NOTE | ~2024-05-29 | US_ITS ---
EXAMINATION: US PELVIS CLINICAL INFORMATION: Post coital and contact bleeding. COMPARISON: June 18, 2009. TECHNIQUE: Ultrasound of the pelvis is performed using both transabdominal and transvaginal transducers along with Doppler. Transvaginal imaging is performed due to inadequate visualization transabdominally. FINDINGS: Uterus: The uterus is anteverted and measures 7 x 4 x 4 cm. Cervix is closed with small nabothian cysts. The double wall endometrial thickness is 14 mm with increased echotexture.. There is a 0.8 cm partially calcified uterine fibroid and the body of the myometrium . Adnexa: Right ovary is visualized. There is normal color flow to the adnexa. There is no ovarian torsion. There is no pelvic ascites or fluid collection. Right ovary measures 1 x 1 x 2 cm. Volume: 1 cc. Left ovary is not identified. US/US pelvic and transvaginal IMPRESSION: Thickened, 14 mm endometrial stripe and echogenic. Blood products cannot be excluded. 0.8 cm partially calcified uterine fibroid. Left ovary is not identified. Right ovary is normal. Electronically signed by: Edwin Dukes MD 05/29/2024 12:09 PM [facility]ER[facility]
--- OUTSIDE RECORDS SUMMARY | 2024-05-29 11:32 | XMS_ITS ---
Author Organization Fredy De Santiago MD Address [address] [place] [phone] Care Team Providers Care Aircraft Maintenance Director Name Role Phone Fredy De Santiago Primary Care Provider Allergies Allergen (clinical drug ingredient) Drug/Non Drug Allergy documented on EMR Reaction Allergy Type Onset Date Status Penicillin (uncoded) hives Allergy Active REASON FOR VISIT ANNUAL EXAM, No Covid symptoms Medications Medication SIG (Take, Route, Frequency, Duration) Notes [...] BY MOUTH EVERY DAY for 30 Active Social History Tobacco Use: Social History Observation Description Date Details (start date - stop date) Never Smoker NA - NA Tobacco Use/Smoking Question Answer Notes Patient is [...] Never (0 point) Points 5 Interpretation Positive Section Notes: Stopped drinking x 1 month g iving liver a rest Vital Signs Blood pressure systolic 138 mm Hg 07/31/19 24 Blood pressure diastolic 74 mm Hg 024 Height 59.5 in 07/31/2023 Weight 217 lbs 07/31/2023 BMI 43.09 kg/m2 07/31/2023 weight is up 14 pounds since 02-08-23 Encounters Encounter Location Date Provider Diagnosis Fredy De Santiago MD [address] [place] [address] [place] [phone] 07/31/2023 Fredy De Santiago Lymphocytosis D72.82 0 ; Annual physical exam Z00.00 ; Low vitamin D level E55.9 ; Prediabetes R73.03 ; BMI 40.0-44.9, adult Z68.41 and Depression screening Z13.31 Assessments Encounter Date Diagnosis (ICD Code) Assessment Notes Treatment Notes Treatment Clinical Notes Section Notes 07/31/2023 Lymphocytosis (ICD-10 - D72.820) is [...] Depression screening (ICD-10 - Z13.31) negative screen Plan Of Treatment Medication Medication Name Sig Start Date Stop Date Notes Vitamin D3 50 MCG (1999) TAKE 1 CAPSU LE BY MOUTH EVERY [...] Provider Name:Fredy Hussein ier, 07/24/2024 07:00:00 AM, [address], [address], [place], [place], [phone], Provider Name:Fredy Hussein ier, 07/31/2024 08:00:00 AM, [address] [facility], [address], [place], [place], [phone], Progress Notes * Arely JACOB ADOB:[birth year] (63 yo F)Acc No.[id number]:07/31/2023 Progress Notes Patient:?Arely Jacob Provider:?Fredy De Santiago MD :1960???Age:63 Y???Sex:Female D ate:07/31/2023 Address:[address] [place], [place] [address]Stefany LANDON[place]IO, [phone] Subjective: * Chief Complaints: * ???ANNUAL EXAMNo Covid sympt oms * HPI: ???Depression Screening:?PHQ-9?Little interest or pleasure in doing things?Not at all,?Feeling down, depressed, or hopeless?Not at all,?Trouble falling or staying asleep, or sleeping too much?Not at all,?Feeling tired or having little energy?Not at all,?Poor appetite or overeating?Not at all,?Feeling bad about yourself or that you are a failure, or have let yourself or your family down?Not at all,?Trouble concentrating on things, such as reading the newspaper or watching television?Not at all,?Moving or speaking so slowly that other people could have noticed; or the opposite, being so fidgety or restless that you have been moving around a lot more than usual?Not at all,?Thoughts that you would be better off or of hurting yourself in some way?Not at all,?Total Score?0.?Interpretation and Intervention?Depression Screening Findings?Negative,?Follow-Up for Depression?: review of PHQ-9 found negative result, no follow-up needed.?Communication Needs:?Communication Needs?Does the patient have a hearing impairment?No,?Does the patient have a vision impairment??Yes,?If yes, what is the vision impairment??Glasses,?Does the patient have a cognition impairment??No.?SDOH Questions:?SDOH Questions?In the past year have you been worried about losing housing??No,?In the past year have you or any family members you live with been unable to get any of the following when it was really needed? Check all that apply:?None.?Symptom(s):? patient is 63 yo female here for yearly exam with review of recent labs and follow up of chronic issues. . had band checked 2 years ago and it was still working. * ROS:?General/Constitutional:?Patient denies?fatigue , headache.?Change in appetite?denies.?Chills?denies.?Fever?denies.?Ophthalmologic:?Blurred vision?denies.?Discharge?denies.?Pain?denies.?ENT:?Patient denies?decreased sense of smell , any loss of taste , sore throat.?Decreased hearing?denies.?Sore throat?denies.?Swollen glands?denies.?Endocrine:?Cold intolerance?denies.?Excessive thirst?denies.?Heat intolerance?denies.?Weight loss?denies.?Respiratory:?Cough?denies.?Shortness of breath at rest?denies.?Shortness of breath with exertion?denies.?Wheezing?denies.?Cardiovascular:?Chest pain at rest?denies.?Chest pain with exertion?denies.?Irregular heartbeat?denies.?Shortness of breath?denies.?Gastrointestinal:?Abdominal pain?denies.?Change in bowel habits?denies.?Diarrhea?denies.?Nausea?denies.?Rectal bleeding?denies.?Vomiting?denies .?Genitourinary:?Blood in urine?denies.?Difficulty urinating?denies.?Frequent urination?denies.?Urinary incontinence?Denies.?Musculoskeletal:?Patient denies?muscle aches.?Painful joints?denies.?Weakness?denies.?Peripheral Vascular:?Patient denies?red and blue toes.?Skin:?Dry skin?denies.?Itching?denies.?Denies?Mole(s),? changes in moles, new moles or any lesions of concern.?Denies?Photosensitivity.?Rash?denies.?Neurologic:?Dizziness?denies.?Fainting?denies.?Headache?denies.? * Medical History:? * Surgical History:? * Hospitalization/Major Diagno stic Procedure:? * Family History:?Father: dece ased 84 yrs, diagnosed with Cancer.?Mother: 65 yrs, diagnosed with Cancer.?4 brother(s) , 2 sister(s) . 1 son(s) , 1 daughter(s) . .? Father lung cancer Mother lung cancer, No pertinent family medical history, Denies mental health/substance abuse family history, No pertinent family medical history, No pertinent family medical history, Denies mental health/substance abuse family history. * Social History:?Tobacco Use:?Tobacco Use/Smoking?Patient is a?nonsmoker,?Additional Findings: Tobacco Non-User?Current non-smoker, currently using no form of tobacco.?Drugs/Alcohol:?Alcohol Screen?Did you have a drink containing alcohol in the past year??Yes,?How often did you have a drink containing alcohol in the past year??4 or more times a week (4 points),?How many drinks did you have on a typical day when you were drinking in the past year??3 or 4 drinks (1 point),?How often did you have 6 or more drinks on one occasion in the past year??Never (0 point),?Points?5,?Interpretation?Positive.?Miscellaneous:?Caffeine: yes, frequency:,3 cups of coffee per day. Children: yes. no Community involvements. no Exercise. Housing: owning. Living with: with son half of the time. Marital status: . Occupation: works full-time. Pets: none. no Travel outside of the [place]. ???Stopped drinking x 1 month giving liver a rest. * Medications:?TakingTimolol M aleate PF 0.5 % Solution 1 drop into affected eye Ophthalmic Once a dayCalcium Citrate 250 MG Tablet TAKE 1 TABLET BY MOUTH EVERY DAY Albuterol Sulfate HFA 108 (90 Base) MCG/ACT Aerosol Solution INHALE 1 PUFF INTO THE LUNGS EVERY 4 HOURS FOR 30 DAYS Alendronate Sodium 70 MG Tablet TAKE 1 TABLET BY MOUTH ONE TIME PER WEEK Vitamin D3 50 MCG (2000 UT) Capsule TAKE 1 CAPSULE BY MOUTH EVERY DAY Medication List reviewed and reconciled with the patientTaking Timolol Maleate PF 0.5 % Solution 1 drop into affected eye Ophthalmic Once a dayTaking Calcium Citrate 250 MG Tablet TAKE 1 TABLET BY MOUTH EVERY DAY Taking Albuterol Sulfate HFA 108 (90 Base) MCG/ACT Aerosol Solution INHALE 1 PUFF INTO THE LUNGS EVERY 4 HOURS FOR 30 DAYS Taking Alendronate Sodium 70 MG Tablet TAKE 1 TABLET BY MOUTH ONE TIME PER WEEK Taking Vitamin D3 50 MCG (2000 UT) Capsule TAKE 1 CAPSULE BY MOUTH EVERY DAY Medication List reviewed and reconciled with the patient * Allergies:?Penicillin: hives yes[Allergies Verified] Objective: * Vitals:?Ht: 59.5, Wt:217, BM I:43.09, BP:138/74 weight is up 14 pounds since 02-08-23. * ???Past Orders: ???Lab:Hemoglobin A1c (Order Date - 07/17/2023) (Collection Date - 07/17/2023) ? Value Reference Range ?Hemoglobin A1c % 5.8 <6. 0 - % ?Estimated Average Glucose 120 - mg/dL ???Lab:Complete Blood Count Auto Diff (Order Date - 07/17/2023) (Collection Date - 07/17/2023) ? Value Reference Range ?White Blood Count 6.5 4. 8-10.8 - X10*3/uL ?Red Blood Count 4.57 4.20 -5.50 - X10*6/uL ?Hemoglobin 13.3 12.0-16.0 - g/dl ?Hematocrit 41.2 37.0-47.0 - % ?Mean Corpuscular Volume 90.2 80.0-98.0 - fL ?Mean Corpuscular Hemoglobin 29.1 27.0-33.0 - pg ?Mean Corpuscular HGB Conc 32.3 31.0-35.0 - g/dl ?Red Cell Distribution Width 14.1 11.0-16.0 - % ?Platelet Count 233 160-4 00 - X10*3/uL ?Mean Platelet Volume 10.4 9.4-12.3 - fL ?Neutrophils Percent Auto 43.2 L 45-73 - % ?Imm Gran Pct Auto 0.2 0. 0-0.4 - % ?Lymphocytes Percent Auto 43.1 H 20-40 - % ?Monocytes Percent Auto 11.8 H 2-11 - % ?Eosinophils Percent Auto 1.1 0-4 - % ?Basophils Percent Auto 0.6 0-2 - % ?NRBC Pct Auto 0.0 0.0-0. 2 - /100WBC ?Neutrophils Absolute Auto 2.8 2.0-8.3 - x10*3/uL ?Imm Gran Abs Auto 0.01 0. 00-0.03 - X10*3/uL ?Lymphocytes Absolute Auto 2.8 1.2-4.9 - X10*3/uL ?Monocytes Absolute Auto 0.8 0.1-1.2 - X10*3/uL ?Eosinophils Absolute Auto 0.1 0.0-0.4 - X10*3/uL ?Basophils Absolute Auto 0.0 0.0-0.2 - X10*3/uL ?NRBC Abs Auto 0.000 0.0-0. 012 - X10*3/uL ???Lab:UA ClnCatch+Micro w/r flx Cult (Order Date - 07/17/2023) (Collection Date - 07/17/2023) ? Value Reference Range ?Color Urine Yellow - ?Appearance Urine Cloudy - ?PH 5.5 5.0-9.0 - ?Glucose Urine UA Negative Neg ative - mg/dL ?Urine Blood Negative Negative - ?Specific [place] - Urine 1.025 1.005-1.025 - ?Urine Protein Negative Neg-Tr cori - mg/dL ?Urine Ketones Negative Negati ve - mg/dL ?Nitrite Urine Negative Negati ve - ?Leukocyte Esterase Urine Negative Negative - ?RBC Urine 0-2 0-2 - /HPF ?WBC Urine 6-10 A 0-5 - /HPF ?Squamous Epithelial Cell Urine >20 0-2 - /HPF ?Bacteria Urine 4+ None Seen - ?Hyaline Casts Urine 0-2 0-2 - /LPF ???Lab:Comprehensive [place]. P howard Fast (Order Date 07/17/2023) (Collection Date - 07/17/2023) ? Value Reference Range ?Sodium 143 135-145 - mmo l/L ?Bilirubin Total 0.5 0.0- 1.0 - mg/dL ?Aspartate Amino Transferase 16 5-31 - U/L ?Alanine Aminotransferase 15 0-31 - U/L ?Total Protein 7.4 6.5-8. 0 - g/dL ?Albumin Level 3.8 3.5-5. 0 - g/dL ?Alkaline Phosphatase 67 39-117 - U/L ?Potassium 3.9 3.3-5.1 - mmol/L ?Chloride 107 96-108 - mm ol/L ?Carbon Dioxide 30 H 22-29 - mmol/L ?Anion Gap 10 L 12-20 - ?Blood Urea Nitrogen 13 9-16 - mg/dL ?Creatinine 0.75 0.5-1.4 - mg/dL ?Estimated Glomerular Filt Rate > 60 - ?Glucose Fasting 97 60-9 9 - mg/dL ?Calcium 9.2 8.4-10.2 - m g/dL ???Lab:Lipid Panel (Order Da te 07/17/2023) (Collection Date - 07/17/2023) ? Value Reference Range ?Triglycerides 103 <150 - mg/dL ?Cholesterol 193 <200 - m g/dL ?LDL Cholesterol Calculated 104 H <100 - mg/dL ?HDL Cholesterol 69 >40 - mg/dL ???Lab:Vitamin D 25-OH Total (Order Date - 07/17/2023) (Collection Date - 07/17/2023) ? Value Reference Range ?Vitamin D 25-OH Total 33.5 >30 - ng/mL ???Lab:Microalbumin, Random (Order Date - 07/17/2023) (Collection Date - 07/17/2023) ? Value Reference Range ?Creatinine Urine 179.11 - m g/dL ?Microalbumin Urine 7.0 - mg/L ?Microalbum Creatinine Ratio Ur 3.9 <30 - ug/mg cr * Examination: ???General Examination: ?GENERAL APPEARANCE:?well developed, well nourished, in no acute distress.?HEAD:?normocephalic, atraumatic.?EYES:?pupils equal, round, reactive to light and accommodation, sclera non-icteric.?EARS:?normal.?ORAL CAVITY:?mucosa moist.?THROAT:?clear.?NECK/THYROID:?neck supple, full range of motion, no cervical lymphadenopathy, no bruits.?SKIN:?warm and dry, no suspicious lesions.?HEART:?regular rate and rhythm, S1, S2 normal, no murmurs.?LUNGS:?clear to auscultation bilaterally.?BREASTS:?done by rn gyn.?ABDOMEN:?soft, nontender, nondistended, bowel sounds present, normal, no organomegaly , no masses palpable.?RECTAL EXAM:?done by rn gyn.?FEMALE GENITOURINARY:?done by rn gyn.?EXTREMITIES:?no clubbing, cyanosis, or edema.?NEUROLOGIC:?nonfocal, motor strength normal upper and lower extremities, sensory exam intact.? Assessment: * Assessment: 1.?Annual physical exam - Z0 0.00 (Primary)?2.?Lymphocytosis - D72.820?3.?Low vitamin D level - E55.9?4.?Prediabetes - R73.03?5.?BMI 40.0-44.9, adult - Z68.41?6.?Depression screening - Z13.31? Plan: * Treatment: 2.?Lymphocytosis? Notes: is stable had it in past, will continue to monitor.?? 3.?Low vitamin D level? Continue Vitamin D3 Capsule, 50 MCG (1999 UT), TAKE 1 CAPSULE BY MOUTH EVERY DAY.?? Notes: is theraputic now, will contiue to monitor.?? 4.?Prediabetes? Notes: still with good a1c, no need for medicatio at this time.?? 5.?BMI 40.0-44.9, adult? Notes: encouraged diet.?? 6.?Depression screening? Notes: negative screen.?? * Procedure Codes:? * * Sign off status: Completed true * Provider:?Fredy De Santiago MD Date:?0 07/31/2023 Generated for Moses mcneil/Tevin/Kimmieitting on:?05/29/2024 11:31 AM EST History and Physical Notes * HPI (History of Present Illness) Category Sub-Category Detail Notes Category Not es Symptom(s) patient is 63 y o female here for yearly exam with review of recent labs and follow up of chronic issues. . had band checked 2 years ago and it was still working. Depression Screening PHQ-9 Little inte rest or [...] patient have a cognition impair ment?: No Examination Category Sub-Category Detail Notes Category Not es General Examination GENERAL APPEARANCE: well dev eloped, [...] cyanosi s, or edema BREASTS: done by rn gyn RECTAL EXAM: done by rn gyn FEMALE GENITOURINARY: done by rn gyn ORAL CAVITY: mucosa moist
--- OUTSIDE RECORDS SUMMARY | 2024-05-29 11:32 | XMS_ITS ---
Author Organization Fredy De Santiago MD Address [address] [place] [phone] Care Team Providers Care Glass Blower Helper Name Role Phone Fredy De Santiago Primary Care Provider REASON FOR VISIT insurance claim Encounters Encounter Location Date Provider Diagnosis Fredy De Santiago MD [facility] [address] [place] [phone] 09/24/2023 Fredy De Santiago Plan Of Treatment Next Appt Details Provider Name:Fredy velasquez, 07/24/2024 07:00:00 AM, [address] [place] [address], [address], [phone], Provider Name:Fredy velasquez, 07/31/2024 08:00:00 AM, [address] [place] [address], [address], [phone], Progress Notes * Arely JACOB ADOB:[birth year] (63 yo F)Acc No.[id number]:09/24/2023 Patient:?Arely Jacob :1960???Age:63 Y???Sex:Female Address:[address] [place] [address] [place] [phone] * true * Date:? Generated for Moses mcneil/Tevin/Aliceransmitting on:?05/29/2024 11:31 AM EST
--- OUTSIDE RECORDS SUMMARY | 2024-05-29 11:32 | XMS_ITS ---
Author Organization Fredy De Santiago MD Address [address] [place], [place] [phone] Care Team Providers Care General Hardware Salesperson Name Role Phone Fredy De Santiago Primary Care Provider [phone] Results Component Value Reference Range Notes Complete Blood Count Auto Di ff Reviewed date:07/17/2023 12:40:27 PM Interpretation: Performing Lab:[facility], [address] [place] [phone] Notes/Report: White Blood Count 6.5 4.8-10.8 X10*3/uL [...] NRBC Abs Auto 0.000 0.0-0.012 X10*3/uL Comprehensive [place]. Panel Fa st Reviewed date:07/17/2023 12:37:48 PM Interpretation: Performing Lab:[facility], [address] [place] [phone] Notes/Report: Sodium 143 135-145 mmol/L Potassium 3.9 3.3-5.1 mmol/L Chloride 107 96-108 mmol/L Carbon Dioxide 30 22-29 mmol/L Anion Gap 10 12-20 Blood Urea Nitrogen 13 9-16 mg/dL Creatinine 0.75 0.5-1.4 mg/dL Estimated Glomerular Filt Rate > 60 NOTE: For -[place] individuals, multiply the result by 1.210. Chronic [...] Panel Reviewed date:07/17/2023 12:35:35 PM Interpretation: Performing Lab:[address] [phone] Notes/Report: Triglycerides 103 <150 mg/dL Desirable Triglyceride: [...] Total Reviewed date:07/17/2023 12:38:27 PM Interpretation: Performing Lab:[address] [phone] Notes/Report: Vitamin D 25-OH Total 33.5 >30 [...] Random Reviewed date:07/17/2023 12:34:55 PM Interpretation: Performing Lab:[facility], [address] [place] [phone] Notes/Report: Creatinine Urine 179.11 Microalbumin Urine 7.0 Microalbum/Creatinine Ratio Ur 3.9 <30 ug/mg cr Albumin/Creatinine Ratio Reference Ranges: Normal: < 30 ug/mg creatinine Microalbuminuria: 30 - 300 ug/mg creatinine Clinical Albuminuria: > 300 ug/mg creatinine Hemoglobin A1c Reviewed date:07/17/2023 12:25:45 PM Interpretation: Performing Lab:[facility], [address] [place] [phone] Notes/Report: Hemoglobin A1c % 5.8 <6.0 % [...] average glucose, using the formula of the [id number]-[id number] Average Glucose study (ADAG), Diabetes Care, Vol.31,#8, Nov. 2007 UA ClnCatch+Micro w/rflx Cul t Reviewed date:07/17/2023 12:40:45 PM Interpretation: Performing Lab:[facility], [address] [place] [phone] Notes/Report: Urine, Clean Catch Color Urine Yellow Appearance Urine Cloudy PH 5.5 5.0-9.0 Glucose Urine UA Negative Negative mg/dL Urine Blood Negative Negative Specific [place] - Urine 1.025 1.005-1.025 Urine Protein Negative [...] Date Provider Diagnosis Fredy De Santiago MD [address] [place] [address] Drive [address] [place], [place] [phone] 07/17/2023 Fredy De Santiago Blood tests for routine general physical examination Z00.00 ; Lymphocytosis D72.820 ; Low vitamin D level E55.9 and Prediabetes R73.03 Assessments Encounter Date Diagnosis (ICD Code) Assessment Notes Treatment Notes Treatment Clinical Notes Section Notes 07/17/2023 Blood tests for routine general physical examination (ICD-10 - Z00.00) 07/17/2023 Lymphocytosis (ICD-10 - D72.820) 07/17/2023 Low vitamin D level (ICD-10 - E55.9) 07/17/2023 Prediabetes (ICD-10 - R73.03) Plan Of Treatment Next Appt Details Provider Name:Fredy Hussein ier, 07/24/2024 07:00:00 AM, [address], [address], [place], [place], [phone], Provider Name:Fredy Hussein ier, 07/31/2024 08:00:00 AM, [facility], [address], [place], [place], [phone], Progress Notes * Arely JACOB ADOB:[birth year] (64 yo F)Acc No.[id number]:07/17/2023 Progress Note Patient:?Arely JACOB Provider:?Fredy De Santiago MD :1960???Age:63 Y???Sex:Female D ate:07/17/2023 Address:[address] [place], [place] [id number] Subjective: * Chief Complaints: * ???1. FASTING LABS. * Medical History:? Objective: * Vitals:? Assessment: * Assessment: 1.?Blood tests for routine g eneral physical examination - Z00.00 (Primary)???2.?Lymphocytosis - D72.820???3.?Low vitamin D level - E55.9???4.?Prediabetes - R73.03??? Plan: * Treatment: 2.?Lymphocytosis?LAB: Complete Blood Count Auto Diff (Collection Date & Time - 07/17/2023 07:15 AM) ?LAB: Comprehensive [place]. Panel Fast (Collection Date & Time - 07/17/2023 07:15 AM) ?LAB: Lipid Panel (Collection Date & Time - 07/17/2023 07:15 AM) ?LAB: Vitamin D 25-OH Total (Collection Date & Time - 07/17/2023 07:15 AM) ?LAB: Microalbumin, Random (Collection Date & Time 07/17/2023 07:15 AM) ?LAB: Hemoglobin A1c (Collection Date & Time 07/17/2023 07:15 AM) ?LAB: UA ClnCatch+Micro w/rflx Cult (Collection Date & Time 07/17/2023 07:15 AM) 3.?Low vitamin D level?LAB: Complete Blood Count Auto Diff (Collection Date & Time 07/17/2023 07:15 AM) ?LAB: Comprehensive [place]. Panel Fast (Collection Date & Time 07/17/2023 07:15 AM) ?LAB: Lipid Panel (Collection Date & Time 07/17/2023 07:15 AM) ?LAB: Vitamin D 25-OH Total (Collection Date & Time 07/17/2023 07:15 AM) ?LAB: Microalbumin, Random (Collection Date & Time 07/17/2023 07:15 AM) ?LAB: Hemoglobin A1c (Collection Date & Time 07/17/2023 07:15 AM) ?LAB: UA ClnCatch+Micro w/rflx Cult (Collection Date & Time 07/17/2023 07:15 AM) 4.?Prediabetes?LAB: Complete Blood Count Auto Diff (Collection Date & Time 07/17/2023 07:15 AM) ?LAB: Comprehensive [place]. Panel Fast (Collection Date & Time 07/17/2023 07:15 AM) ?LAB: Lipid Panel (Collection Date & Time 07/17/2023 07:15 AM) ?LAB: Vitamin D 25-OH Total (Collection Date & Time 07/17/2023 07:15 AM) ?LAB: Microalbumin, Random (Collection Date & Time 07/17/2023 07:15 AM) ?LAB: Hemoglobin A1c (Collection Date & Time - 07/17/2023 07:15 AM) ?LAB: UA ClnCatch+Micro w/rflx Cult (Collection Date & Time - 07/17/2023 07:15 AM) * Procedure Codes:?18608 VENIP UNCT, ROUTINE* * * The named appointment provid er may or may not be the originator of this progress note, and it is not deemed complete until electronically signed by the appointment provider. Sign off status: Pending * Provider:?Fredy De Santiago MD Date:?0 07/17/2023 Generated for Moses mcneil/Tevin/Mistysmitting on:?05/29/2024 11:31 AM EST
== END 2024-05-29 10:51 | disposition home or self-care (01) ==
LOC: HO.US 10:50
PROVIDERS: PCP Internal Medicine; Visit Provider Advanced Practice Midwife
DX: N93.0 Postcoital and contact bleeding (principal); N95.0 Postmenopausal bleeding
CPT/HCPCS: 76830; 76856

== ENCOUNTER → 2024-05-29 10:52 | Outpatient (BNV) | payer MEDICARE, SELFPAY | PROVIDERS: PCP Internal Medicine; Visit Provider Radiology Diagnostic Radiology | DX: N93.0 Postcoital and contact bleeding (principal) | CPT/HCPCS: 76830; 76856 ==

== ENCOUNTER 2024-07-08 11:30 | Outpatient (AMB) | payer MEDICARE, SELFPAY ==
[2024-07-08 11:42] VITALS: BP 132/84
--- NOTE | 2024-07-08 11:42 | A.OFFVIS_ITS ---
Vital Signs 07/08/24 11:42 BP 132/84 Intake Visit Reasons: Ultra sound follow up/ EMB Electronic Equipment Repairmen: Electronic Equipment Repairmen Present (Karla) Allergies grapefruit [Grapefruit] Allergy (Mild, Verified 07/08/24 11:42) RASH Penicillins Allergy (Mild, Verified 07/08/24 11:42) BLISTERS penicillin V Allergy (Unknown, Verified 07/08/24 11:42) Unknown HPI Comments Details: Patient is here today for an US follow up and endometrial biopsy procedure due to a history of postmenopausal bleeding. Currently has bleeding today. Ultrasound findings indicate a thickened endometrial lining. [facility] Medical History (Updated 05/07/24 @ 09:37 by Candice Petty CNM) Postmenopausal bleeding PCB (post coital bleeding) Breast calcification, left COVID-19 vaccine series completed BRCA negative Vitamin D deficiency Age related osteoporosis Surgical History Hx of laparoscopic gastric banding Hx of cholecystectomy History of arthroscopy of right shoulder History of arthroscopy of left shoulder Family History Mother History of breast cancer Sister History of breast cancer Sister History of breast cancer Maternal Aunt Ovarian cancer Social History Alcohol intake: current Alcohol intake frequency: a few times a week Patient Tobacco Use Status: Never used Tobacco Current occupational status: unemployed Current occupation: right hand dominant Sexual orientation: Straight/Heterosexual Gender identity: Female Female Reproductive History Menstrual Age of Menarche: 10 Review of Systems Const All systems reviewed & are unremarkable except as noted in HPI and below Physical Exam Vital Signs: Last Vital Signs BP 132/84 07/08/24 11:42 Const General: cooperative, healthy appearing and no acute distress Orientation/consciousness: patient oriented x3 GI Inspection: Yes normal to inspection Palpation (GI): Soft to palpation and Other GI palpation findings present (Nontender) Rectal Exam - Female: visual inspection normal General: Yes bladder normal to palpation External Female Exam: normal appearance of the urethra Speculum Exam - Vagina: normal appearance of the vagina, normal palpation and vaginal bleeding Speculum Exam - Cervix: normal appearance of the cervix and normal palpation Bimanual exam- vagina & uterus: normal bimanual exam, normal palpation, uterine size normal, bladder normal to palpation, normal palpation, uterine shape normal and non-tender Bimanual Exam- Adnexa, other: normal adnexae OB/external & speculum: vaginal bleeding Neuro General: patient oriented x3 Office Procedures Endometrial Biopsy Details: The patient is here today for an endometrial biopsy due to PMB to rule out any pathology including atypical, hyperplasia or cancer cells of the uterus. She was counseled regarding anticipatory guidance for the procedure including the risks for pain, infection, bleeding, perforation, potential injury to the tissues may include the cervix, uterus, tubes, bladder and bowels. These injuries may include further treatment and evaluation including surgery, blood transfusions, antibiotics, hospitalizations and anesthesia. Permanent injury and scarring can occur. She was consented for the procedure, and the consent forms were signed. She is agreeable to have the procedure today. All questions were answered. Endometrial Biopsy Procedure: The patient was placed in the dorsal lithotomy position and a sterile speculum inserted. Using aseptic technique for the procedure. The cervix was cleansed with Betadine x 3 swabs. A single toothed tenaculum was placed on the cervix for stabilization, the cervix external os was visually stenotic and Pipelle was not able to be passed, a small graduated dilator was gently passed through the internal os x1, and the uterus was sounded to 7 cm with a 4mm pipelle, and tissue sample obtained. Minimal bleeding was observed. The tissue sample was placed in formalin in a patient labeled container by staff assisting and sent to the pathology department for processing and interp retation. The patient tolerate the procedure well and was in good condition when leaving the department. Endometrial Biopsy Post Procedure Care: Nothing in the vagina including: tampons, douching or intimacy until all the bleeding has subsided. There may be some post procedure bleeding for several days, this bleeding is usually light and may turn to a light brown or pink color. Mild cramps may o ccurs. Nothing in the vaginal including: tampons, douching, or intimacy until all the bleeding has subsided. You may take an over the counter mild analgesic such as Tylenol or Advil (if no allergies) per the manufactures recommendation on dosing, frequency, and follow the directions completely. Call the office if any: fever (over 100.4), flu like symptoms, abdominal pain (worse than cramping), foul smelling, infected appearing vaginal discharge, or heavy bleeding. Return to the office in 1-2 weeks for results and plan of care. This note is constructed using voice recognition software. While every effort has been made to ensure accuracy, ruby developer errors may have been included. 64367-Ekdbcoqwvzp Biopsy Results Reviewed Results Reviewed: [address] [address] Ultrasound Report Signed Patient: Arely Jacob MR#: [id number] : 1960 Acct:[id number] Age/Sex: 64 / F ADM Date: 05/29/24 Loc: .[place] Attending Dr: Candice Petty CNM Ordering Physician: Candice Petty CNM Date of Service: 05/29/24 Procedure(s): US pelvic and transvaginal Accession Number(s): [id number] cc: Fredy De Santiago MD; Candice Petty CNM~ EXAMINATION: US PELVIS CLINICAL INFORMATION: Post coital and contact bleeding. COMPARISON: June 18, 2009. TECHNIQUE: Ultrasound of the pelvis is performed using both transabdominal and transvaginal transducers along with Doppler. Transvaginal imaging is performed due to inadequate visualization transabdominally. FINDINGS: Uterus: The uterus is anteverted and measures 7 x 4 x 4 cm. Cervix is closed with small nabothian cysts. The double wall endometrial thickness is 14 mm with increased echotexture.. There is a 0.8 cm partially calcified uterine fibroid and the body of the myometrium . Adnexa: Right ovary is visualized. There is normal color flow to the adnexa. There is no ovarian torsion. There is no pelvic ascites or fluid collection. Right ovary measures 1 x 1 x 2 cm. Volume: 1 cc. Left ovary is not identified. US/US pelvic and transvaginal IMPRESSION: Thickened, 14 mm endometrial stripe and echogenic. Blood products cannot be excluded. 0.8 cm partially calcified uterine fibroid. Left ovary is not identified. Right ovary is normal. Electronically signed by: Edwin Dukes MD 05/29/2024 12:[address] [facility] Dictated By: Edwin Cuello MD Signed By: <Electronically signed by Edwin Manley MD in OV> 05/29/24 1209 DD/ 1105 TD/TT: 05/29/24 1135 Home Support Worker: Assessment & Plan Assessment & Plan (1) Leiomyoma: Code(s): D21.9 - Benign neoplasm of connective and other soft tissue, unspecified Plan: Counseled re: Leiomyoma: common pelvic neoplasm. Differential diagnosis-may include but not limited to- leiomyosarcoma which is a rare uterine sarcoma 3- 7/100,000, difficult to distinguish from fibroids on ultrasound from uterine sarcoma's. Unlikely any single test will have a highly positive predictive value. Hysterectomy is not recommended for sole purpose of excluding malignant neoplasm. Consult for surgical exploration, medical treatment, other treatments, verses expectant management, pros and cons, risks and benefits. Expectant management follow up in 6 months, then yearly for stability. Patient prefers to proceed with expectant management. Report any PMB changes/increase, pelvic pressure, bloating, or pain. Follow up pending results. Referral to MD if indicated for level of care if indicated. Total time I personally spent on visit and management today: ?10 minutes. Time spent included review of pertinent office notes in the electronic health record; review of laboratory and imaging results; review of personal family medical history; performing physical exam; discussing diagnosis and plan of care with the patient; documenting the encounter in the EMR. (2) Postmenopausal: Code(s): Z78.0 - Asymptomatic menopausal state Plan See EMB procedure notes. Follow up pending results. The patient expressed understanding and agreement with the plan of care. All of her questions and concerns were addressed to the best of my ability. This note is constructed using voice recognition software. While every effort has been made to ensure accuracy, ruby developer errors may have been included. Orders: Orders Surgical Today N95.0 - Postmenopausal bleeding US pelvic and transvaginal 11/24/24 D21.9 - Benign neoplasm of connective and other soft tissue, unspecified Coding Level of Care Code Est Pt Level 2 (38176) Procedure Only Diagnoses Leiomyoma D21.9 Postmenopausal Z78.0 CPT Codes Endometrial Biopsy - CPT: 91472-Legflekzscu Biopsy ([id number])
--- OUTSIDE RECORDS SUMMARY | 2024-07-08 14:17 | XMS_ITS ---
Author Organization Fredy De Santiago MD Address [address] [place], [place] [id number] Care Team Providers Care Fire Marshal Name Role Phone Fredy De Santiago Primary Care Provider [phone] Results Component Value Reference Range Notes Complete Blood Count Auto Di ff Reviewed date:07/17/2023 12:40:27 PM Interpretation: Performing Lab:[facility], [address] [place] [phone] Notes/Report: White Blood Count 6.5 4.8-10.8 X10*3/uL [...] NRBC Abs Auto 0.000 0.0-0.012 X10*3/uL Comprehensive [place]. Panel Fa st Reviewed date:07/17/2023 12:37:48 PM Interpretation: Performing Lab:[facility], [address] [place] [phone] Notes/Report: Sodium 143 135-145 mmol/L Potassium 3.9 3.3-5.1 mmol/L Chloride 107 96-108 mmol/L Carbon Dioxide 30 22-29 mmol/L Anion Gap 10 12-20 Blood Urea Nitrogen 13 9-16 mg/dL Creatinine 0.75 0.5-1.4 mg/dL Estimated Glomerular Filt Rate > 60 NOTE: For -Israeli individuals, multiply the result by 1.210. Chronic [...] Panel Reviewed date:07/17/2023 12:35:35 PM Interpretation: Performing Lab:[address] [phone] Notes/Report: Triglycerides 103 <150 mg/dL Desirable Triglyceride: [...] Total Reviewed date:07/17/2023 12:38:27 PM Interpretation: Performing Lab:[address] [phone] Notes/Report: Vitamin D 25-OH Total 33.5 >30 [...] Random Reviewed date:07/17/2023 12:34:55 PM Interpretation: Performing Lab:[facility], [address] [place] [phone] Notes/Report: Creatinine Urine 179.11 Microalbumin Urine 7.0 Microalbum/Creatinine Ratio Ur 3.9 <30 ug/mg cr Albumin/Creatinine Ratio Reference Ranges: Normal: < 30 ug/mg creatinine Microalbuminuria: 30 - 300 ug/mg creatinine Clinical Albuminuria: > 300 ug/mg creatinine Hemoglobin A1c Reviewed date:07/17/2023 12:25:45 PM Interpretation: Performing Lab:[facility], [address] [place] [phone] Notes/Report: Hemoglobin A1c % 5.8 <6.0 % [...] average glucose, using the formula of the Q9D-Dvzubsi Average Glucose study (ADAG), Diabetes Care, Vol.31,#8, Nov. 2007 UA ClnCatch+Micro w/rflx Cul t Reviewed date:07/17/2023 12:40:45 PM Interpretation: Performing Lab:[facility], [address] [place] [phone] Notes/Report: Urine, Clean Catch Color Urine Yellow Appearance Urine Cloudy PH 5.5 5.0-9.0 Glucose Urine UA Negative Negative mg/dL Urine Blood Negative Negative Specific [place] - Urine 1.025 1.005-1.025 Urine Protein Negative [...] Date Provider Diagnosis Fredy De Santiago MD [address] [place] [address] Drive [address] [place], [place] [phone] 07/17/2023 Fredy De Santiago Blood tests for [...] 07/24/2024 07:00:00 AM, [address], [address], [place], [place], [phone], Provider Name:Fredy Hussein ier, 07/31/2024 08:00:00 AM, [address] [facility], [address], [place], [place], [phone], Progress Notes * Arely JACOB ADOB:[birth year] (64 yo F)Acc No.[id number]:07/17/2023 Progress Note Patient:?Arely JACOB Provider:?Fredy De Santiago MD :1960???Age:63 Y???Sex:Female D ate:07/17/2023 Address:[address] [place], [place] [phone] Subjective: * Chief Complaints: * ???1. FASTING LABS. * Medical History:? Objective: * Vitals:? Assessment: * Assessment: 1.?Blood tests for routine g eneral physical examination - Z00.00 (Primary)???2.?Lymphocytosis - D72.820???3.?Low vitamin D level - E55.9???4.?Prediabetes - R73.03??? Plan: * Treatment: 2.?Lymphocytosis?LAB: Complete Blood Count Auto Diff (Collection Date & Time - 07/17/2023 07:15 AM) ?LAB: [facility] [place]. Panel Fast (Collection Date & Time - [...] & Time 07/17/2023 07:15 AM) ?LAB: [facility] [place]. Panel Fast (Collection Date & Time 07/17/2023 [...] & Time 07/17/2023 07:15 AM) ?LAB: [facility] [place]. Panel Fast (Collection Date & Time 07/17/2023 [...] Time - 07/17/2023 07:15 AM) * Procedure Codes:?72483 VENIP UNCT, ROUTINE* * * The named appointment provid er may or may not be the originator of this progress note, and it is not deemed complete until electronically signed by the appointment provider. Sign off status: Pending * Provider:?Fredy De Santiago MD Date:?0 07/17/2023 Generated for Moses mcneil/Tevin/eTransmitting on:?07/08/2024 02:16 PM EDT
--- OUTSIDE RECORDS SUMMARY | 2024-07-08 14:17 | XMS_ITS ---
Author Organization Fredy De Santiago MD Address [address] [place] [phone] Care Team Providers Care Miner Helper Name Role Phone Fredy De Santiago [...] Date Provider Diagnosis Fredy De Santiago MD [address] [place] [address] [place] [phone] 07/31/2023 Fredy De Santiago Lymphocytosis D72.82 0 [...] 07:00:00 AM, [address], [address], [place], [place], [phone], Provider Name:Fredy Hussein ier, 07/31/2024 08:00:00 AM, [address] [facility], [address], [place], [place], [phone], Progress Notes * Arely JACOB ADOB:[birth year] (63 yo F)Acc No.[id number]:07/31/2023 Progress Notes Patient:?Arely Jacob Provider:?Fredy De Santiago MD :1960???Age:63 Y???Sex:Female D ate:07/31/2023 Address:[address] [place], [place] [address], [phone] Subjective: * Chief Complaints: * ???ANNUAL EXAMNo [...] mg/dL ?Urine Blood Negative Negative - ?Specific [place] - Urine 1.025 1.005-1.025 - ?Urine Protein [...] Casts Urine 0-2 0-2 - /LPF ???Lab:Comprehensive [place]. P howard Fast (Order Date 07/17/2023) (Collection [...] normal, no murmurs.?LUNGS:?clear to auscultation bilaterally.?BREASTS:?done by inspector fuel hose.?ABDOMEN:?soft, nontender, nondistended, bowel sounds present, normal, no organomegaly , no masses palpable.?RECTAL EXAM:?done by inspector fuel hose.?FEMALE GENITOURINARY:?done by inspector fuel hose.?EXTREMITIES:?no clubbing, cyanosis, or edema.?NEUROLOGIC:?nonfocal, motor strength normal [...] Santiago MD Date:?0 07/31/2023 Generated for Moses mcneil/Tevin/Ailyn on:?07/08/2024 02:16 PM EDT History and Physical Notes * HPI (History [...] cyanosi s, or edema BREASTS: done by inspector fuel hose RECTAL EXAM: done by inspector fuel hose FEMALE GENITOURINARY: done by inspector fuel hose ORAL CAVITY: mucosa moist
--- OUTSIDE RECORDS SUMMARY | 2024-07-08 14:17 | XMS_ITS ---
Author Organization Fredy De Santiago MD Address [address] [place] [phone] Care Team Providers Care Profiling Machine Setup Operator Name Role Phone Fredy De Santiago Primary Care Provider REASON FOR VISIT insurance claim Encounters Encounter Location Date Provider Diagnosis Fredy De Santiago MD 10 [facility] [address] [place] [phone] 09/24/2023 Fredy De Santiago Plan Of Treatment Next Appt Details Provider Name:Fredy velasquez, 07/24/2024 07:00:00 AM, [address] [place] [address], [address], [phone], Provider Name:Fredy velasquez, 07/31/2024 08:00:00 AM, [address] [place] [address], [address], [phone], Progress Notes * Arely JACOB ADOB:[birth year] (63 yo F)Acc No.[id number]:09/24/2023 Patient:?Arely Jacob :1960???Age:63 Y???Sex:Female Address:[address] [place] [address] [place] [phone] * true * Date:? Generated for Moses mcneil/Tevin/eTransmitting on:?07/08/2024 02:16 PM EDT
== END 2024-07-08 12:50 | disposition home or self-care (01) ==
LOC: HO.HWS 11:30
PROVIDERS: PCP Internal Medicine; Visit Provider Advanced Practice Midwife
DX: D21.9 Benign neoplasm of connective and other soft tissue, unspecified (principal); Z78.0 Asymptomatic menopausal state
CPT/HCPCS: 58100

== ENCOUNTER 2024-07-08 11:30 | Outpatient (REF) | payer MEDICARE, SELFPAY | END 2024-07-08 11:31 | disposition home or self-care (01) | LOC: HO.LNP 11:30 | PROVIDERS: PCP Internal Medicine; Visit Provider Advanced Practice Midwife | DX: N95.0 Postmenopausal bleeding (principal); D21.9 Benign neoplasm of connective and other soft tissue, unspecified; Z78.0 Asymptomatic menopausal state | CPT/HCPCS: 58100; 88305 ==

== ENCOUNTER 2024-07-10 09:49 | Outpatient (AMB) | payer MEDICARE, SELFPAY ==
--- NOTE | 2024-07-10 09:50 | A.OFFVIS_ITS ---
Intake Visit Reasons: EMB results Intake Note: cell [phone] Allergies grapefruit [Grapefruit] Allergy (Mild, Verified 07/08/24 11:42) RASH Penicillins Allergy (Mild, Verified 07/08/24 11:42) BLISTERS penicillin V Allergy (Unknown, Verified 07/08/24 11:42) Unknown HPI Comments Details: Tele Health Visit Total time I personally spent on visit and management today: 17 minutes. Failed video due to technical issues on patient's phone. Time spent included review of pertinent office notes in the electronic health record; review of laboratory and imaging results; review of personal family medical history; discussing diagnosis and plan of care with the patient; documenting the encounter in the EMR. Patient presents to discuss: Endometrial biopsy results, history of postmenopausal bleeding. [facility] Medical History (Updated 07/10/24 @ 10:18 by Candice Petty CNM) Postmenopausal bleeding PCB (post coital bleeding) Breast calcification, left COVID-19 vaccine series completed BRCA negative Vitamin D deficiency Age related osteoporosis Surgical History Hx of laparoscopic gastric banding Hx of cholecystectomy History of arthroscopy of right shoulder History of arthroscopy of left shoulder Family History Mother History of breast cancer Sister History of breast cancer Sister History of breast cancer Maternal Aunt Ovarian cancer Social History Alcohol intake: current Alcohol intake frequency: a few times a week Patient Tobacco Use Status: Never used Tobacco Current occupational status: unemployed Current occupation: right hand dominant Sexual orientation: Straight/Heterosexual Gender identity: Female Female Reproductive History Menstrual Age of Menarche: 10 Telehealth Telehealth Telehealth Platform: bigtincan Location of provider rendering services: practice address Patient Identification confirmed using: Name, : Yes Telehealth method: video Patient verbally consented to treatment: Yes Patient verbally consented to billing insurance company: Yes Patient informed of any privacy concerns related to visit: Yes Results Reviewed Results Reviewed: Name: Arely Jacob Age/Sex: 64/F Attending: Candice Petty CNM : 1960 Submitted by: Candice Petty CNM Copies to: Fredy De Santiago MD MR #: [id number] Status: DEP REF Collected: 07/08/24 Location: [facility] Received: 07/08/24 Diagnosis Endometrium, biopsy: Benign endometrium and fragments of benign endometrial polyps with extensive glandular and stromal breakdown, and endocervical glandular epithelium; no atypia or carcinoma. Clinical History PMB Microscopic Description Microscopic sections reviewed. Material Received Endometrial biopsy Gross Description Received in formalin labeled ?EMB is a 1.5 x 1.5 x 0.45 cm aggregate of multiple irregular and tubular cast fragments of congested and hemorrhagic red-maroon tissue, mucus and blood, submitted in toto in a cassette labeled A. CEDS Copies To Fredy De Santiago MD [facility] [address] [place] [address] Candice Petty CNM [facility] [address] [place] [address] NOTE: Unless otherwise stated, all tissue is formalin-fixed and paraffin- embedded. Some or all of the immunohistochemical tests reported herein may have been developed and their performance characteristics determined by [facility]. They have not been cleared or approved by the U.S. Food and Drug Administration (FDA). However, the FDA has determined that such clearance or approval is not necessary. This laboratory is certified under the Clinical Laboratory Improvement Amendments of 1988 (CLIA) as qualified to perform high complexity clinical laboratory testing. Patient: Arely Jacob Age/Sex: 64/F MR#: [id number] Page 1 of 2 Surgical Assessment & Plan Assessment & Plan (1) PCB (post coital bleeding): Code(s): N93.0 - Postcoital and contact bleeding Category: Medical Plan: Monitor for bleeding if there is any any heavy or prolonged to call the office immediately for further evaluation. (2) Encounter to discuss test results: Code(s): Z71.2 - Person consulting for explanation of examination or test findings Plan Endometrial biopsy results no atypia or carcinoma, polyp fragments noted, recommendation is to follow up with a hysteroscopy for further treatment and diagnosis. The patient expressed understanding and agreement with the plan of care. All of her questions and concerns were addressed to the best of my ability. Appointment for hysteroscopy to be made with Dr. Muñoz. Anticipatory guidance reviewed. This note is constructed using voice recognition software. While every effort has been made to ensure accuracy, ibm websphere portal developer errors may have been included. Coding Level of Care Code Tele Est Pt Level 2 (26238) Diagnoses PCB (post coital bleeding) N93.0 Encounter to discuss test results Z71.2
--- OUTSIDE RECORDS SUMMARY | 2024-07-10 12:10 | XMS_ITS ---
Author Organization Fredy De Santiago MD Address [address] [place] [phone] Care Team Providers Care Sock Knitter Name Role Phone Fredy De Santiago Primary Care Provider [phone] REASON FOR VISIT insurance claim Encounters Encounter Location Date Provider Diagnosis Fredy De Santiago MD 10 [facility] [address] [place] [phone] 09/24/2023 Fredy De Santiago Plan Of Treatment Next Appt Details Provider Name:Fredy velasquez, 07/24/2024 07:00:00 AM, [address] [place] [address], [address], [phone], Provider Name:Fredy velasquez, 07/31/2024 08:00:00 AM, [address] [place] [address], [address], [phone], Progress Notes * Arely JACOB ADOB:[birth year] (63 yo F)Acc No.[id number]:09/24/2023 Patient:?Arely Jacob :1960???Age:63 Y???Sex:Female Address:[address] [place] [address] [place] [address] * true * Date:? Generated for Moses mcneil/Tevin/eTransmitting on:?07/10/2024 12:10 PM EDT
--- OUTSIDE RECORDS SUMMARY | 2024-07-10 12:10 | XMS_ITS ---
Author Organization Fredy De Santiago MD Address [address] [place], [place] [id number] Care Team Providers Care Neon Glass Blower Name Role Phone Fredy De Santiago Primary Care Provider [phone] Results Component Value Reference Range Notes Complete Blood Count Auto Di ff Reviewed date:07/17/2023 12:40:27 PM Interpretation: Performing Lab:[facility], [address] [place] [phone] Notes/Report: White Blood Count 6.5 4.8-10.8 X10*3/uL [...] NRBC Abs Auto 0.000 0.0-0.012 X10*3/uL Comprehensive [place]. Panel Fa st Reviewed date:07/17/2023 12:37:48 PM Interpretation: Performing Lab:[facility], [address] [place] [phone] Notes/Report: Sodium 143 135-145 mmol/L Potassium 3.9 3.3-5.1 mmol/L Chloride 107 96-108 mmol/L Carbon Dioxide 30 22-29 mmol/L Anion Gap 10 12-20 Blood Urea Nitrogen 13 9-16 mg/dL Creatinine 0.75 0.5-1.4 mg/dL Estimated Glomerular Filt Rate > 60 NOTE: For -Hungarian individuals, multiply the result by 1.210. Chronic [...] Panel Reviewed date:07/17/2023 12:35:35 PM Interpretation: Performing Lab:[address] [phone] Notes/Report: Triglycerides 103 <150 mg/dL Desirable Triglyceride: [...] Total Reviewed date:07/17/2023 12:38:27 PM Interpretation: Performing Lab:[address] [phone] Notes/Report: Vitamin D 25-OH Total 33.5 >30 [...] Random Reviewed date:07/17/2023 12:34:55 PM Interpretation: Performing Lab:[facility], [address] [place] [phone] Notes/Report: Creatinine Urine 179.11 Microalbumin Urine 7.0 Microalbum/Creatinine Ratio Ur 3.9 <30 ug/mg cr Albumin/Creatinine Ratio Reference Ranges: Normal: < 30 ug/mg creatinine Microalbuminuria: 30 - 300 ug/mg creatinine Clinical Albuminuria: > 300 ug/mg creatinine Hemoglobin A1c Reviewed date:07/17/2023 12:25:45 PM Interpretation: Performing Lab:[facility], [address] [place] [phone] Notes/Report: Hemoglobin A1c % 5.8 <6.0 % [...] average glucose, using the formula of the T6V-Lawpejv Average Glucose study (ADAG), Diabetes Care, Vol.31,#8, Nov. 2007 UA ClnCatch+Micro w/rflx Cul t Reviewed date:07/17/2023 12:40:45 PM Interpretation: Performing Lab:[facility], [address] [place] [phone] Notes/Report: Urine, Clean Catch Color Urine Yellow Appearance Urine Cloudy PH 5.5 5.0-9.0 Glucose Urine UA Negative Negative mg/dL Urine Blood Negative Negative Specific [place] - Urine 1.025 1.005-1.025 Urine Protein Negative [...] Date Provider Diagnosis Fredy De Santiago MD [address] [place] [address] Drive [address] [place], [place] [phone] 07/17/2023 Fredy De Santiago Blood tests for [...] 07/24/2024 07:00:00 AM, [address], [address], [place], [place], [phone], Provider Name:Fredy Hussein ier, 07/31/2024 08:00:00 AM, 10 [facility], [address], [place], [place], [phone], Progress Notes * Arely JACOB ADOB:[birth year] (64 yo F)Acc No.[id number]:07/17/2023 Progress Note Patient:?Arely JACOB Provider:?Fredy De Santiago MD :1960???Age:63 Y???Sex:Female D ate:07/17/2023 Address:[address] [place], [place] [phone] Subjective: * Chief Complaints: * ???1. FASTING LABS. * Medical History:? Objective: * Vitals:? Assessment: * Assessment: 1.?Blood tests for routine g eneral physical examination - Z00.00 (Primary)???2.?Lymphocytosis - D72.820???3.?Low vitamin D level - E55.9???4.?Prediabetes - R73.03??? Plan: * Treatment: 2.?Lymphocytosis?LAB: Complete Blood Count Auto Diff (Collection Date & Time - 07/17/2023 07:15 AM) ?LAB: Comprehensive [place]. Panel Fast (Collection Date & Time - [...] & Time 07/17/2023 07:15 AM) ?LAB: Comprehensive [place]. Panel Fast (Collection Date & Time 07/17/2023 [...] & Time 07/17/2023 07:15 AM) ?LAB: Comprehensive [place]. Panel Fast (Collection Date & Time 07/17/2023 [...] Time - 07/17/2023 07:15 AM) * Procedure Codes:?42214 VENIP UNCT, ROUTINE* * * The named appointment provid er may or may not be the originator of this progress note, and it is not deemed complete until electronically signed by the appointment provider. Sign off status: Pending * Provider:?Fredy De Santiago MD Date:?0 07/17/2023 Generated for Moses mcneil/Tevin/eTransmitting on:?07/10/2024 12:10 PM EDT
--- OUTSIDE RECORDS SUMMARY | 2024-07-10 12:10 | XMS_ITS ---
Author Organization Fredy De Santiago MD Address [address] [place] [phone] Care Team Providers Care Sequins Slinger Name Role Phone Fredy De Santiago Primary Care Provider [phone] Allergies Allergen (clinical drug ingredient) Drug/Non Drug [...] Date Provider Diagnosis Fredy De Santiago MD [address] [place] [address] [place] [phone] 07/31/2023 Fredy De Santiago Lymphocytosis D72.82 0 [...] 07:00:00 AM, [address], [address], [place], [place], [phone], Provider Name:Fredy Hussein ier, 07/31/2024 08:00:00 AM, 10 [facility], [address], [place], [place], [phone], Progress Notes * Arely JACOB ADOB:[birth year] (63 yo F)Acc No.[id number]:07/31/2023 Progress Notes Patient:?Arely Jacob Provider:?Fredy De Santiago MD :1960???Age:63 Y???Sex:Female D ate:07/31/2023 Address:[address] [place], [place] [address]Stef[place], [id number] Subjective: * Chief Complaints: * ???ANNUAL EXAMNo [...] mg/dL ?Urine Blood Negative Negative - ?Specific [place] - Urine 1.025 1.005-1.025 - ?Urine Protein [...] Casts Urine 0-2 0-2 - /LPF ???Lab:Comprehensive [place]. P howard Fast (Order Date 07/17/2023) (Collection [...] normal, no murmurs.?LUNGS:?clear to auscultation bilaterally.?BREASTS:?done by building energy consultant.?ABDOMEN:?soft, nontender, nondistended, bowel sounds present, normal, no organomegaly , no masses palpable.?RECTAL EXAM:?done by building energy consultant.?FEMALE GENITOURINARY:?done by building energy consultant.?EXTREMITIES:?no clubbing, cyanosis, or edema.?NEUROLOGIC:?nonfocal, motor strength normal [...] MD Date:?0 07/31/2023 Generated for Moses mcneil/Tevin/Kimmieitting on:?07/10/2024 12:10 PM EDT History and Physical Notes * [...] cyanosi s, or edema BREASTS: done by building energy consultant RECTAL EXAM: done by building energy consultant FEMALE GENITOURINARY: done by building energy consultant ORAL CAVITY: mucosa moist
== END 2024-07-10 13:07 | disposition home or self-care (01) ==
LOC: HO.HWS 09:49
PROVIDERS: PCP Internal Medicine; Visit Provider Advanced Practice Midwife
DX: N93.0 Postcoital and contact bleeding (principal); Z71.2 Person consulting for explanation of examination or test findings
CPT/HCPCS: 99213

== ENCOUNTER → 2024-07-10 09:49 | Outpatient (BNVA) | payer MEDICARE, SELFPAY | PROVIDERS: PCP Internal Medicine; Visit Provider Advanced Practice Midwife ==

== ENCOUNTER 2024-07-15 10:29 | Outpatient (AMB) | payer MEDICARE, SELFPAY ==
--- NOTE | 2024-07-15 10:31 | A.OFFVIS_ITS ---
Intake Visit Reasons: Hysteroscopy consult Leasing Machine Tender: Leasing Machine Tender Present (Mary Beth) Accompanied by: Self / Same As Patient Allergies grapefruit [Grapefruit] Allergy (Mild, Verified 07/15/24 10:33) RASH Penicillins Allergy (Mild, Verified 07/15/24 10:33) BLISTERS penicillin V Allergy (Unknown, Verified 07/15/24 10:33) Unknown Is last menstrual period known: Yes Last menstrual period: 02/12/20 Post menopausal: No Patient : No Do you need a note to return to daycare/school/sports/work: Yes (for surgery on sunday) HPI Comments Details: Presenting referred from Candice Petty regarding postcoital bleeding. Pelvic ultrasound showed the following: IMPRESSION: Thickened, 14 mm endometrial stripe and echogenic. Blood products cannot be excluded. 0.8 cm partially calcified uterine fibroid. Left ovary is not identified. Right ovary is normal. Endometrial biopsy pathology showed the following: Endometrium, biopsy: Benign endometrium and fragments of benign endometrial polyps with extensive glandular and stromal breakdown, and endocervical glandular epithelium; no atypia or carcinoma. 05/10 cotest negative GC/CT negative PFSH Medical History Postmenopausal bleeding PCB (post coital bleeding) Breast calcification, left COVID-19 vaccine series completed BRCA negative Vitamin D deficiency Age related osteoporosis Surgical History Hx of laparoscopic gastric banding Hx of cholecystectomy History of arthroscopy of right shoulder History of arthroscopy of left shoulder Family History Mother History of breast cancer Sister History of breast cancer Sister History of breast cancer Maternal Aunt Ovarian cancer Social History Alcohol intake: current Alcohol intake frequency: a few times a week Patient Tobacco Use Status: Never used Tobacco Current occupational status: unemployed Current occupation: right hand dominant Sexual orientation: Straight/Heterosexual Gender identity: Female Female Reproductive History Menstrual Age of Menarche: 10 Date of last menstrual period: 02/12/20 Total pregnancies: 2 Full term: 2 Review of Systems Card Reports as per HPI and Reports no additional complaints Resp Reports as per HPI and Reports no additional complaints GI Reports as per HPI and Reports no additional complaints Reports as per HPI Physical Exam Const General: cooperative, healthy appearing and comfortable Resp Effort & Inspection: normal respiratory effort Auscultation: clear to auscultation bilaterally Percussion: percussion normal Cardio Palpation: normal PMI Rate: regular rate Rhythm: regular rhythm Heart sounds: no murmurs and no rubs Peripheral pulses: Peripheral pulses 2+ throughout GI Inspection: Yes normal to inspection Palpation (GI): Soft to palpation, nontender, no guarding, not rigid and No hepatosplenomegaly present Percussion: Yes normal to percussion Auscultation: normal bowel sounds Rectal Exam - Female: deferred Assessment & Plan Assessment & Plan (1) PCB (post coital bleeding): Code(s): N93.0 - Postcoital and contact bleeding Category: Medical Plan: Discuss discussed with the patient the results of the ultrasound, thick endometrium and endometrial pathology showing fragments of a polyp, recommended hysteroscopy D&C possible polypectomy/myomectomy. Discussed with the patient the procedure , all benefits and risks including but not limited to inability to complete the procedure , insufficient endometrial tissue for a complete evaluation of the endometrial cavity , bleeding, in fection, possible need for blood transfusion with all its risk ( HIV,syphilis, Hepatitis, anaphylaxis shock, others..), injury to bladder, rectum, possible need for laparoscopy/laparotomy or hysterectomy. The patient verbalized understanding and signed the consent. Instructions given the patient to stay NPO after midnight the day prior to the procedure and to take only the specific medication (s) discussed the morning of the surgical procedure and to schedule a 2 week postoperative appointment (2) Uterine myoma: Code(s): D25.9 - Leiomyoma of uterus, unspecified Category: Medical Plan: Discussed with the patient the findings on pelvic ultrasound & the risk of myosarcoma; in addition reviewed with the patient that malignancy and pre malignancy cannot be ruled out without hysterectomy for pathological evaluation ; furthermore, explained to the patient the limitation of pelvic ultrasound and endometrial biopsy in the setting. Discussed with the patient the options of treatment including expectant management versus hysterectomy; the pros and cons, risks benefits of each approach were discussed with the patient including the fact that in cases of myosarcoma, surgical treatment can lead to early diagnosis and positively affects the prognosis; after further discussion, the patient decided to proceed with expectant management. Will repeat pelvic ultrasound periodically. Instructions given to patient to call in case any of the following occurs: pressure symptoms, abnormal uterine bleeding, pelvic pain; and to schedule a six-months pelvic ultrasound (order placed) and a follow-up appointment . All questions answered, the patient verbalized understanding and agreed with the plan . Orders: Orders US pelvic and transvaginal Today D25.9 - Leiomyoma of uterus, unspecified Coding Level of Care Code Est Pt Level 3 (75778) Diagnoses PCB (post coital bleeding) N93.0 Uterine myoma D25.9
--- OUTSIDE RECORDS SUMMARY | 2024-07-15 12:24 | XMS_ITS ---
Author Organization Fredy De Santiago MD Address [address] [place] [phone] Care Team Providers Care Load Dispatcher Local Name Role Phone Fredy De Santiago Primary Care Provider [phone] REASON FOR VISIT insurance claim Encounters Encounter Location Date Provider Diagnosis Fredy De Santiago MD 10 [facility] [address] [place] [phone] 09/24/2023 rFedy De Santiago Plan Of Treatment Next Appt Details Provider Name:Fredy velasquez, 07/24/2024 07:00:00 AM, [address] [place] [address], [address], [phone], Provider Name:Fredy velasquez, 07/31/2024 08:00:00 AM, [address] [place] [address], [address], [phone], Progress Notes * Arely JACOB ADOB:[birth year] (63 yo F)Acc No.[id number]:09/24/2023 Patient:?Arely Jacob :1960???Age:63 Y???Sex:Female Address:[address] [place] [address] [place] [address] * true * Date:? Generated for Moses mcneil/Tevin/eTransmitting on:?07/15/2024 12:24 PM EDT
--- OUTSIDE RECORDS SUMMARY | 2024-07-15 12:25 | XMS_ITS ---
Author Organization Fredy De Santiago MD Address [address] [place] [phone] Care Team Providers Care Banner Painter Name Role Phone Fredy De Santiago Primary Care Provider [phone] Allergies Allergen (clinical drug ingredient) Drug/Non Drug [...] Date Provider Diagnosis Fredy De Santiago MD [address] [place] [address] [place] [phone] 07/31/2023 Fredy De Santiago Lymphocytosis D72.82 0 [...] 07:00:00 AM, [address], [address], [place], [place], [phone], Provider Name:Fredy Hussein ier, 07/31/2024 08:00:00 AM, 10 [facility], [address], [place], [place], [phone], Progress Notes * Arely JACOB ADOB:[birth year] (63 yo F)Acc No.[id number]:07/31/2023 Progress Notes Patient:?Arely Jacob Provider:?Fredy De Santiago MD :1960???Age:63 Y???Sex:Female D ate:07/31/2023 Address:[address] [place], [place] [address]Stefany [place], [id number] Subjective: * Chief Complaints: * ???ANNUAL EXAMNo [...] mg/dL ?Urine Blood Negative Negative - ?Specific [place] - Urine 1.025 1.005-1.025 - ?Urine Protein [...] Casts Urine 0-2 0-2 - /LPF ???Lab:Comprehensive [place]. P howard Fast (Order Date 07/17/2023) (Collection [...] normal, no murmurs.?LUNGS:?clear to auscultation bilaterally.?BREASTS:?done by poly packer and heat sealer.?ABDOMEN:?soft, nontender, nondistended, bowel sounds present, normal, no organomegaly , no masses palpable.?RECTAL EXAM:?done by poly packer and heat sealer.?FEMALE GENITOURINARY:?done by poly packer and heat sealer.?EXTREMITIES:?no clubbing, cyanosis, or edema.?NEUROLOGIC:?nonfocal, motor strength normal [...] MD Date:?0 07/31/2023 Generated for Moses mcneil/Tevin/Ailyn on:?07/15/2024 12:24 PM EDT History and Physical Notes * [...] cyanosi s, or edema BREASTS: done by poly packer and heat sealer RECTAL EXAM: done by poly packer and heat sealer FEMALE GENITOURINARY: done by poly packer and heat sealer ORAL CAVITY: mucosa moist
--- OUTSIDE RECORDS SUMMARY | 2024-07-15 12:25 | XMS_ITS ---
Author Organization Fredy De Santiago MD Address [address] [place], [place] [phone] Care Team Providers Care Elementary Reading Tutor Name Role Phone Fredy De Santiago Primary Care Provider Results Component Value Reference Range Notes Complete Blood Count Auto Di ff Reviewed date:07/17/2023 12:40:27 PM Interpretation: Performing Lab:[facility], [address] [place] [phone] Notes/Report: White Blood Count 6.5 4.8-10.8 X10*3/uL [...] NRBC Abs Auto 0.000 0.0-0.012 X10*3/uL Comprehensive [place]. Panel Fa st Reviewed date:07/17/2023 12:37:48 PM Interpretation: Performing Lab:[facility], [address] [place] [phone] Notes/Report: Sodium 143 135-145 mmol/L Potassium 3.9 3.3-5.1 mmol/L Chloride 107 96-108 mmol/L Carbon Dioxide 30 22-29 mmol/L Anion Gap 10 12-20 Blood Urea Nitrogen 13 9-16 mg/dL Creatinine 0.75 0.5-1.4 mg/dL Estimated Glomerular Filt Rate > 60 NOTE: For -Dutch individuals, multiply the result by 1.210. Chronic [...] Panel Reviewed date:07/17/2023 12:35:35 PM Interpretation: Performing Lab:[address] [phone] Notes/Report: Triglycerides 103 <150 mg/dL Desirable Triglyceride: [...] Total Reviewed date:07/17/2023 12:38:27 PM Interpretation: Performing Lab:[address] [phone] Notes/Report: Vitamin D 25-OH Total 33.5 >30 [...] Random Reviewed date:07/17/2023 12:34:55 PM Interpretation: Performing Lab:[facility], [address] [place] [phone] Notes/Report: Creatinine Urine 179.11 Microalbumin Urine 7.0 Microalbum/Creatinine Ratio Ur 3.9 <30 ug/mg cr Albumin/Creatinine Ratio Reference Ranges: Normal: < 30 ug/mg creatinine Microalbuminuria: 30 - 300 ug/mg creatinine Clinical Albuminuria: > 300 ug/mg creatinine Hemoglobin A1c Reviewed date:07/17/2023 12:25:45 PM Interpretation: Performing Lab:[facility], [address] [place] [phone] Notes/Report: Hemoglobin A1c % 5.8 <6.0 % [...] average glucose, using the formula of the Q8N-Axdlozl Average Glucose study (ADAG), Diabetes Care, Vol.31,#8, Nov. 2007 UA ClnCatch+Micro w/rflx Cul t Reviewed date:07/17/2023 12:40:45 PM Interpretation: Performing Lab:[facility], [address] [place] [phone] Notes/Report: Urine, Clean Catch Color Urine Yellow Appearance Urine Cloudy PH 5.5 5.0-9.0 Glucose Urine UA Negative Negative mg/dL Urine Blood Negative Negative Specific [place] - Urine 1.025 1.005-1.025 Urine Protein Negative [...] Date Provider Diagnosis Fredy De Santiago MD [address] [place] [address] Drive [address] [place], [place] [phone] 07/17/2023 Fredy De Santiago Blood tests for [...] 07/24/2024 07:00:00 AM, [address], [address], [place], [place], [phone], Provider Name:Fredy Hussein ier, 07/31/2024 08:00:00 AM, 10 [facility], [address], [place], [place], [phone], Progress Notes * Arely JACOB ADOB:[birth year] (64 yo F)Acc No.[id number]:07/17/2023 Progress Note Patient:?Arely JACOB Provider:?Fredy De Santiago MD :1960???Age:63 Y???Sex:Female D ate:07/17/2023 Address:[address] [place], [place] [phone] Subjective: * Chief Complaints: * ???1. FASTING LABS. * Medical History:? Objective: * Vitals:? Assessment: * Assessment: 1.?Blood tests for routine g eneral physical examination - Z00.00 (Primary)???2.?Lymphocytosis - D72.820???3.?Low vitamin D level - E55.9???4.?Prediabetes - R73.03??? Plan: * Treatment: 2.?Lymphocytosis?LAB: Complete Blood Count Auto Diff (Collection Date & Time - 07/17/2023 07:15 AM) ?LAB: Comprehensive [place]. Panel Fast (Collection Date & Time - [...] & Time 07/17/2023 07:15 AM) ?LAB: Comprehensive [place]. Panel Fast (Collection Date & Time 07/17/2023 [...] & Time 07/17/2023 07:15 AM) ?LAB: Comprehensive [place]. Panel Fast (Collection Date & Time 07/17/2023 [...] Time - 07/17/2023 07:15 AM) * Procedure Codes:?48312 VENIP UNCT, ROUTINE* * * The named appointment provid er may or may not be the originator of this progress note, and it is not deemed complete until electronically signed by the appointment provider. Sign off status: Pending * Provider:?Fredy De Santiago MD Date:?0 07/17/2023 Generated for Moses mcneil/Tevin/eTransmitting on:?07/15/2024 12:24 PM EDT
== END 2024-07-15 10:56 | disposition home or self-care (01) ==
LOC: HO.HWS 10:30
PROVIDERS: PCP Internal Medicine; Visit Provider Obstetrics & Gynecology
DX: N93.0 Postcoital and contact bleeding (principal); D25.9 Leiomyoma of uterus, unspecified
CPT/HCPCS: 99213

== ENCOUNTER → 2024-07-15 10:29 | Outpatient (BNVA) | payer MEDICARE, SELFPAY | PROVIDERS: PCP Internal Medicine; Visit Provider Obstetrics & Gynecology | DX: N93.0 Postcoital and contact bleeding (principal); D25.9 Leiomyoma of uterus, unspecified | CPT/HCPCS: 99212 ==

== ENCOUNTER 2024-07-23 05:44 | Day surgery (SDC) | payer MEDICARE, SELFPAY ==
--- OUTSIDE RECORDS SUMMARY | 2024-07-16 06:19 | XMS_ITS ---
Author Organization Fredy De Santiago MD Address [address] [place] [phone] Care Team Providers Care Executive Sales Manager Name Role Phone Fredy De Santiago Primary Care Provider REASON FOR VISIT insurance claim Encounters Encounter Location Date Provider Diagnosis Fredy De Santiago MD 10 [facility] [address] [place] [phone] 09/24/2023 Fredy De Santiago Plan Of Treatment Next Appt Details Provider Name:Fredy velasquez, 07/24/2024 07:00:00 AM, [address] [place] [address], [address], [phone], Provider Name:Fredy velasquez, 07/31/2024 08:00:00 AM, [address] [place] [address], [address], [phone], Progress Notes * Arely JACOB ADOB:[birth year] (63 yo F)Acc No.[id number]:09/24/2023 Patient:?Arely Jacob :1960???Age:63 Y???Sex:Female Address:[address] [place] [address] [place] [address] * true * Date:? Generated for Moses mcneil/Tevin/eTransmitting on:?07/16/2024 06:18 AM EDT
--- OUTSIDE RECORDS SUMMARY | 2024-07-16 06:19 | XMS_ITS ---
Author Organization Fredy De Santiago MD Address [address] [place] [phone] Care Team Providers Care Aerospace Quality Engineer Name Role Phone Fredy De Santiago Primary Care Provider [phone] Allergies Allergen (clinical drug ingredient) Drug/Non Drug [...] Date Provider Diagnosis Fredy De Santiago MD [address] [place] [address] [place] [phone] 07/31/2023 Fredy De Santiago Lymphocytosis D72.82 0 [...] 07:00:00 AM, [address], [address], [place], [place], [phone], Provider Name:Fredy Hussein ier, 07/31/2024 08:00:00 AM, 10 [facility], [address], [place], [place], [phone], Progress Notes * Arely JACOB ADOB:[birth year] (63 yo F)Acc No.[id number]:07/31/2023 Progress Notes Patient:?Arely Jacob Provider:?Fredy De Santiago MD :1960???Age:63 Y???Sex:Female D ate:07/31/2023 Address:[address] [place], [place] [address]Stef[place], [id number] Subjective: * Chief Complaints: * ???ANNUAL EXAMNo [...] mg/dL ?Urine Blood Negative Negative - ?Specific [place] - Urine 1.025 1.005-1.025 - ?Urine Protein [...] Casts Urine 0-2 0-2 - /LPF ???Lab:Comprehensive [place]. P howard Fast (Order Date 07/17/2023) (Collection [...] normal, no murmurs.?LUNGS:?clear to auscultation bilaterally.?BREASTS:?done by automatic pattern edger.?ABDOMEN:?soft, nontender, nondistended, bowel sounds present, normal, no organomegaly , no masses palpable.?RECTAL EXAM:?done by automatic pattern edger.?FEMALE GENITOURINARY:?done by automatic pattern edger.?EXTREMITIES:?no clubbing, cyanosis, or edema.?NEUROLOGIC:?nonfocal, motor strength normal [...] MD Date:?0 07/31/2023 Generated for Moses mcneil/Tevin/Ailyn on:?07/16/2024 06:19 AM EDT History and Physical Notes * HPI [...] cyanosi s, or edema BREASTS: done by automatic pattern edger RECTAL EXAM: done by automatic pattern edger FEMALE GENITOURINARY: done by automatic pattern edger ORAL CAVITY: mucosa moist
--- OUTSIDE RECORDS SUMMARY | 2024-07-16 06:19 | XMS_ITS ---
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 Panel Fa st Reviewed date:07/17/2023 12:37:48 PM Interpretation: Performing Lab:[facility], [address] [place] [phone] Notes/Report: Sodium 143 135-145 mmol/L Potassium 3.9 [...] Panel Reviewed date:07/17/2023 12:35:35 PM Interpretation: Performing Lab:[address] [phone] Notes/Report: Triglycerides 103 <150 mg/dL Desirable Triglyceride: [...] Total Reviewed date:07/17/2023 12:38:27 PM Interpretation: Performing Lab:[address] [phone] Notes/Report: Vitamin D 25-OH Total 33.5 >30 [...] Random Reviewed date:07/17/2023 12:34:55 PM Interpretation: Performing Lab:[facility], [address] [place] [phone] Notes/Report: Creatinine Urine 179.11 Microalbumin Urine 7.0 Microalbum/Creatinine Ratio Ur 3.9 <30 ug/mg cr Albumin/Creatinine Ratio Reference Ranges: Normal: < 30 ug/mg creatinine Microalbuminuria: 30 - 300 ug/mg creatinine Clinical Albuminuria: > 300 ug/mg creatinine Hemoglobin A1c Reviewed date:07/17/2023 12:25:45 PM Interpretation: Performing Lab:[facility], [address] [place] [phone] Notes/Report: Hemoglobin A1c % 5.8 <6.0 % [...] average glucose, using the formula of the E7M-Pkcutko Average Glucose study (ADAG), Diabetes Care, Vol.31,#8, Nov. 2007 UA ClnCatch+Micro w/rflx Cul t Reviewed date:07/17/2023 12:40:45 PM Interpretation: Performing Lab:[facility], [address] [place] [phone] Notes/Report: Urine, Clean Catch Color Urine Yellow Appearance Urine Cloudy PH 5.5 5.0-9.0 Glucose Urine UA Negative Negative mg/dL Urine Blood Negative Negative Specific [place] - Urine 1.025 1.005-1.025 Urine Protein Negative [...] Date Provider Diagnosis Fredy De Santiago MD [address] [place] [address] Drive [address] [place], [place] [id number] 07/17/2023 Fredy De Santiago Blood tests for [...] 07/24/2024 07:00:00 AM, [address], [address], [place], [place], [id number], Provider Name:Fredy Hussein ier, 07/31/2024 08:00:00 AM, [address] [facility], [address], [place], [place], [id number], Progress Notes * Arely JACOB ADOB:[birth year] (64 yo F)Acc No.[id number]:07/17/2023 Progress Note Patient:?Arely JACOB Provider:?Fredy De Santiago MD :1960???Age:63 Y???Sex:Female D ate:07/17/2023 Address:[address] [place], [place] [phone] Subjective: * Chief Complaints: * ???1. FASTING LABS. * Medical History:? Objective: * Vitals:? Assessment: * Assessment: 1.?Blood tests for routine g eneral physical examination - Z00.00 (Primary)???2.?Lymphocytosis - D72.820???3.?Low vitamin D level - E55.9???4.?Prediabetes - R73.03??? Plan: * Treatment: 2.?Lymphocytosis?LAB: Complete Blood Count Auto Diff (Collection Date & Time - 07/17/2023 07:15 AM) ?LAB: Comprehensive [facility]. Panel Fast (Collection Date & Time - [...] & Time 07/17/2023 07:15 AM) ?LAB: Comprehensive [place]. Panel Fast (Collection Date & Time 07/17/2023 [...] & Time 07/17/2023 07:15 AM) ?LAB: Comprehensive [place]. Panel Fast (Collection Date & Time 07/17/2023 [...] Time - 07/17/2023 07:15 AM) * Procedure Codes:?39263 VENIP UNCT, ROUTINE* * * The named appointment provid er may or may not be the originator of this progress note, and it is not deemed complete until electronically signed by the appointment provider. Sign off status: Pending * Provider:?Fredy De Santiago MD Date:?0 07/17/2023 Generated for Moses mcneil/Tevin/eTransmitting on:?07/16/2024 06:18 AM EDT
--- OUTSIDE RECORDS SUMMARY | 2024-07-16 06:19 | XMS_ITS | Patient Health Record ---
Author Organization Fredy De Santiago MD Address [address] [place] [phone] Care Team Providers Care Compound Worker Name Role Phone Fredy De Santiago Primary Care Provider Allergies Allergen (clinical drug ingredient) Drug/Non Drug Allergy documented on EMR Reaction Allergy Type Onset Date Status Penicillin (uncoded) hives Allergy Active Results Component Value Reference Range Notes Complete Blood Count Auto Di ff Reviewed date:07/17/2023 12:40:27 PM Interpretation: Performing Lab:[facility], [address] [place] [phone] Notes/Report: White Blood Count 6.5 4.8-10.8 X10*3/uL [...] NRBC Abs Auto 0.000 0.0-0.012 X10*3/uL Comprehensive [place]. Panel Fa st Reviewed date:07/17/2023 12:37:48 PM Interpretation: Performing Lab:[facility], [address] [place] [phone] Notes/Report: Sodium 143 135-145 mmol/L Potassium 3.9 3.3-5.1 mmol/L Chloride 107 96-108 mmol/L Carbon Dioxide 30 22-29 mmol/L Anion Gap 10 12-20 Blood Urea Nitrogen 13 9-16 mg/dL Creatinine 0.75 0.5-1.4 mg/dL Estimated Glomerular Filt Rate > 60 NOTE: For -Cam[place] individuals, multiply the result by 1.210. Chronic [...] Panel Reviewed date:07/17/2023 12:35:35 PM Interpretation: Performing Lab:[facility], [address] [place] [phone] Notes/Report: Triglycerides 103 <150 mg/dL Desirable Triglyceride: [...] Total Reviewed date:07/17/2023 12:38:27 PM Interpretation: Performing Lab:[facility], [address] [place] [phone] Notes/Report: Vitamin D 25-OH Total 33.5 >30 [...] Random Reviewed date:07/17/2023 12:34:55 PM Interpretation: Performing Lab:[facility], [address] [place] [phone] Notes/Report: Creatinine Urine 179.11 Microalbumin Urine 7.0 Microalbum/Creatinine Ratio Ur 3.9 <30 ug/mg cr Albumin/Creatinine Ratio Reference Ranges: Normal: < 30 ug/mg creatinine Microalbuminuria: 30 - 300 ug/mg creatinine Clinical Albuminuria: > 300 ug/mg creatinine Hemoglobin A1c Reviewed date:07/17/2023 12:25:45 PM Interpretation: Performing Lab:[facility], [address] [place] [phone] Notes/Report: Hemoglobin A1c % 5.8 <6.0 % [...] average glucose, using the formula of the T8D-Zlpamun Average Glucose study (ADAG), Diabetes Care, Vol.31,#8, Nov. 2007 UA ClnCatch+Micro w/rflx Cul t Reviewed date:07/17/2023 12:40:45 PM Interpretation: Performing Lab:[facility], [address] [place] [phone] Notes/Report: Urine, Clean Catch Color Urine Yellow Appearance Urine Cloudy PH 5.5 5.0-9.0 Glucose Urine UA Negative Negative mg/dL Urine Blood Negative Negative Specific Wesley - Urine 1.025 1.005-1.025 Urine Protein Negative Neg-Trace mg/dL Urine Ketones Negative Negative mg/dL Nitrite Urine Negative Negative Leukocyte Esterase Urine Negative Negative RBC Urine 0-2 0-2 /HPF WBC Urine 6-10 0-5 /HPF Squamous Epithelial Cell Urine >20 0-2 /HPF Bacteria Urine 4+ None Seen Hyaline Casts Urine 0-2 0-2 /LPF Hold Gold Reviewed date:07/17/2023 12:25:54 PM Interpretation: Performing Lab:[address] [phone] Notes/Report: Hold Gold See Note Specimen held untested for 24 hours; Call to request Chemistry testing. Urine Culture Reviewed date:07/19/2023 04:16:06 PM Interpretation: Performing Lab:[facility], [address] [facility] [place] [address] Notes/Report: Urine Culture Report Result Urine Culture 10,000 to 50,000 cfu/ml Urine Culture Mixed bacterial lee a characteristic of Urine Culture urogenital contamination. XR shoulder RT min 2V Reviewed date:01/01/2024 12:39:27 PM Interpretation: Performing Lab: Notes/Report: [facility] [address] [place] [address] Drive [address] [place] [address] XRay Report Signed Patient: Arely Jacob MR#: [id number] : 1960 Acct:[id number] Age/Sex: 63 / F ADM Date: 12/06/23 Loc: GERARDTgALEXANDRO Attending Dr: Lobo Rivas MD Ordering Physician: Lobo Rivas MD Date of Service: 12/06/23 Procedure(s): XR shoulder RT min 2V Accession Number(s): [id number] cc: Fredy De Santiago MD; Lobo Rivas [...] 12/31/23 1737 DD/ 1116 TD/TT: 12/06/23 1120 Land Examiner: AUGUSTIN [facility] [address] [place] [address] [address] [place] [address] XRay Report Signed Patient: Arely Jacob MR#: [id number] : 1960 Acct:[id number] Age/Sex: 63 / F ADM Date: 12/06/23 Loc: HO.HOSX Attending Dr: Lobo Rivas MD Ordering Physician: Lobo Rivas MD Date of Service: 12/06/23 Procedure(s): XR shoulder RT min 2V Accession Number(s): [id number] cc: Fredy De Santiago MD; Lobo Rivas MD EXAMINATION: XR SHOULDER, RIGHT CLINICAL INFORMATION: Right shoulder pain. COMPARISON: None available. TECHNIQUE: Two views of the rig ht shoulder. FINDINGS: Mild glenohumeral osteoarthritis with marginal osteophytes. Acromioclavicular deisi int is unremarkable. Small foci of calcification of the greater tuberosi ty measuring up to 4 mm in diameter and are most consistent with calc ific tendinitis at the rotator cuff insertion. No fractures. Alignment is appropriate. X R/XR shoulder RT min 2V IMPRESSION: 1. Mild glenohumeral osteoarthritis. 2. Calcific tendinit is at the rotator cuff insertion. Electronically randy d by: Daniel Cervantes MD 12/31/2023 05:37 PM EDT Dictated By: Daniel Cervantes MD Signed By: <Electronically signed by Daniel Cervantes MD in OV> 12/31/23 1737 DD/ 1116 TD/TT: 12/06/23 1120 Land Examiner: AUGUSTIN DIAZ tomosynthesis screening B I Reviewed date:04/24/2024 12:38:39 PM Interpretation: Performing Lab: Notes/Report: [facility] [address] [place] [address] Mammography Report Signed Patient: Arely Jacob MR#: [id number] : 1960 Acct:[id number] Age/Sex: 64 / F ADM Date: 04/11/24 Loc: HO.MAMMO Attending Dr: Fredy De Santiago MD Ordering Physician: Fredy De Santiago MD Results: 2Be nign Findings Date of Service: 04/11/24 Follow Up: 1 Year From Orig inal Mammogram Procedure(s): MM tomosynthesis screening BI Accession Number(s): [id number] cc: Fredy De Santiago MD EXAMINATION: MM [...] by: Yamel Rain DO 04/22/2024 05:43 PM [facility] Dictated By: Yamel Rain DO Signed By: <Electronically signed by Yamel Rain DO in OV> 04/22/24 1743 DD/ 0745 TD/TT: 04/11/24 0800 Land Examiner: [facility] [address] [place] [address] Mammography Report Signed Patient: Arely Jacob MR#: [id number] : 1960 Acct:[id number] Age/Sex: 64 / F ADM Date: 04/11/24 Loc: MARISSAO Attending Dr: Fredy De Santiago MD Ordering Physician: Fredy De Santiago MD Results: 2Be nign Findings Date of Service: 04/11/24 Follow Up: 1 Year From Orig inal Mammogram Procedure(s): MM tomosynthesis screening BI Accession Number(s): [id number] cc: Fredy De Santiago MD EXAMINATION: MM SCREENING DIGITAL BREAST TOMOSYNTHESIS, BILATERAL CLINICAL INFORMATION: Screening. Asymptomatic. COMPARISON: Mammography: Compari son is made with available priors TECHNIQUE: Digital breast mammography with tomosynthesis is performed in both the craniocaudal and mediolateral oblique views along with computer-aided detection (CAD). FINDINGS: The breasts are heterogeneously dense, which may obscure small masses (ACR BI-RADS breast composition Category c). Left marker clip fro m previous benign needle core biopsy. Postsurgical changes the right breast are stable. There are no signifi cant masses, abnormal calcifications, or other abnormalities. M M/MM tomosynthesis screening BI IMPRESSION: No mammographic evid ence of malignancy. ASSESSMENT: BI-RADS BI-RADS 2 - Benign Findings RECOMMENDATION: Routine annual mammography screening. 1 year F/U This examination lauri uld not preclude the clinical evaluation of a suspicious palpable abnormality. This patient's information was entered into a reminder system with a target due date for their next mammogram. Electronically randy d by: Yamel Rain DO 04/22/2024 05:43 PM [facility] Dictated By: Yamel Rain DO Signed By: <Electronically signed by Yamel Rain DO in OV> 04/22/24 1743 DD/ 0745 TD/TT: 04/11/24 0800 Land Examiner: CT NG by PCR Reviewed date:05/08/2024 05:48:45 PM Interpretation: Performing Lab:[facility], [address] [place] [phone] Notes/Report: Vaginal CT PCR NOT DETECTED Not Detect. A not detected test result does not exclude the possibility of infection because test results can be affected by improper specimen collection, concurrent antibiotic therapy, or the number of organisms in the specimen which may be below the sensitivity of the test. As with many diagnostic tests, results from the Xpert CT/NG assay should be interpreted in conjunction with other laboratory and clinical data available to the clinician. Xpert CT/NG performance has not been evaluated in patients less than 14 years of age. The assay should not be used for the evaluation of suspected sexual abuse or for other medico-legal indications. Additional testing is recommended in any circumstance when false positive or false negative results could lead to adverse medical, social or psychological consequences. NG PCR NOT DETECTED Not Detect. A not detected test result does not exclude the possibility of infection because test results can be affected by improper specimen collection, concurrent antibiotic therapy, or the number of organisms in the specimen which may be below the sensitivity of the test. As with many diagnostic tests, results from the Xpert CT/NG assay should be interpreted in conjunction with other laboratory and clinical data available to the clinician. Xpert CT/NG performance has not been evaluated in patients less than 14 years of age. The assay should not be used for the evaluation of suspected sexual abuse or for other medico-legal indications. Additional testing is recommended in any circumstance when false positive or false negative results could lead to adverse medical, social or psychological consequences. Bacterial Vaginosis Panel Reviewed date:05/08/2024 05:51:05 PM Interpretation: Performing Lab:[address] [phone] Notes/Report: Trichomonas vaginalis PCR NOT DETECTED Not Detect Bacterial Vaginosis PCR POSITIVE Negative The BV organism targets of the Xpert Xpress MVP test can be commensal in women; Xpert Xpress MVP positive results for bacterial vaginosis should be considered in conjunction with other clinical and patient information to determine the disease status. Organisms that are not detected by the Xpert Xpress MVP test have also been reported to be associated with BV and aerobic vaginitis. The Xpert Xpress MVP test performance has not been evaluated in patients under the age of 14. [employer] PCR DETECTED Not Detect Pearl glab krusei PCR NOT DETECTED Not Detect Pap Smear Reviewed date:05/13/2024 12:43:34 PM Interpretation: Performing Lab:[facility], [address] [place] [phone] Notes/Report: ---- Name: Martín Jacob Age/Sex: 64/F : 1960 Unit#: [id number] Attend Dr: Candice Petty CNM Re05/07/24 Status : DEP REF Location: [facility] Disch: ---- SPEC : [id number] RECD : 05/08/24 STATUS: DAJUAN SEGURA NUM: [id number] GARETH: 05/07/[address] [facility] [address]: Candice Petty CNM ENTERED: 05/08/24 SP TYPE: Pap Smr OTHR DR: Fredy De Santiago MD ORDERED: Pap Smear Interpretation Satisfactory for evaluation. Negative for intraepithelial lesion or malignancy. Coccobacilli consist ent with shift in vaginal juany. HPV High Risk: Negative HPV Genotyping 16: Negative HPV Genotyping 18: Negative Clinical Information LMP: Menopausal Previous PAP test: 2023 Other surgery: Other history: Material Received ThinPrep-Cervical Copies To: Fredy De Santiago MD [facility] [address] [facility] [address] [place] [address] Candice Petty CNM [facility] Women's Services [address] [address] ---- Signed (signature on file) LIBERTY Molina (ASCP) 05/13/24 1018 ---- END OF REPORT HPV High risk Reviewed date:05/13/2024 12:43:02 PM Interpretation: Performing Lab:[facility], [address] [place] [phone] Notes/Report: HPV High Risk Negative Negative HPV Genotype 16 Negative Negative HPV Genotype 18 Negative Negative HPV testing performed at [facility] (CLIA #[id number]), [address] [place] [address]. Testing for HPV was performed using the Christopher LUIS 6800 system. The presence of HPV in the female genital tract is associated with a number of diseases, including cervical carcinoma. The HPV DNA high risk pool tests for HPV 31, 33, 35, 39, 45, 51, 52, 56, 58, 59, 66 and 68. The testing for HPV 16 and 18 genotypes has also been performed. A positive result indicates detection of nucleic acid sequences from one or more subtypes, whereas a negative result indicates such sequences were not detected. US pelvic and transvaginal Reviewed date:05/29/2024 04:58:07 PM Interpretation: Performing Lab: Notes/Report: [address] [address] Ultrasound Report Signed Patient: Arely Jacob MR#: [id number] : 1960 Acct:[id number] Age/Sex: 64 / F ADM Date: 05/29/24 Loc: HO. Attending Dr: Candice Petty CNM Ordering Physician: Candice Petty CNM Date of Service: 05/29/24 Procedure(s): US pelvic and transvaginal Accession Number(s): [id number] cc: Fredy De Santiago MD; Candice Petty CNM EXAMINATION: US PELVIS CLINICAL INFORMATION: Post coital and contact bleeding. COMPARISON: June 18, 2009. TECHNIQUE: Ultrasound of the pelvis is performed using both transabdominal and transvaginal transducers along with Doppler. Transvaginal imaging is performed due to inadequate visualization transabdominally. FINDINGS: Uterus: The uterus is anteverted and measures 7 x 4 x 4 cm. Cervix is closed with small nabothian cysts. The double wall endometrial thickness is 14 mm with increased echotexture.. There is a 0.8 cm partially calcified uterine fibroid and the body of the myometrium . Adnexa: Right ovary is visualized. There is normal color flow to the adnexa. There is no ovarian torsion. There is no pelvic ascites or fluid collection. Right ovary measures 1 x 1 x 2 cm. Volume: 1 cc. Left ovary is not identified. US/US pelvic and transvaginal IMPRESSION: Thickened, 14 mm endometrial stripe and echogenic. Blood products cannot be excluded. 0.8 cm partially calcified uterine fibroid. Left ovary is not identified. Right ovary is normal. Electronically signed by: Edwin Dukes MD 05/29/2024 12:09 PM [facility] Dictated By: Edwin Cuello MD Signed By: <Electronically signed by Edwin Manley MD in OV> 05/29/24 1209 DD/ 1105 TD/TT: 05/29/24 1135 Land Examiner: [place] [address] Ultrasound Report Signed Patient: Arely Jacob MR#: [id number] : 1960 Acct:[id number] Age/Sex: 64 / F ADM Date: 05/29/24 Loc: HO.US Attending Dr: Candice Petty CNM Ordering Physician: Candice Petty CNM Date of Service: 05/29/24 Procedure(s): US pel lissette and transvaginal Accession Number(s): [id number] cc: Fredy De Santiago MD; Candice Petty CNM EXAMINATION: US PELVIS CLINICAL INFORMATION: Post coital and cont act bleeding. COMPARISON: June 18, 2009. TECHNIQUE: Ultrasound of the pe lvis is performed using both transabdominal and transvaginal transdu cers along with Doppler. Transvaginal imaging is performed due to inadequate visualization transabdominally. FINDINGS: Uterus: The uterus is anteve rted and measures 7 x 4 x 4 cm. Cervix is closed with small nabothian cysts. The double wall endometrial thickness is 14 mm with increased echotexture.. There is a 0.8 cm partially calcified uterine fibroid and the body of the myometrium . Adnexa: Right ovary is visualized. There is normal color flow to the adnexa. There is no ovarian torsion. There is no pelvic ascites or fluid collection. Right ovary measures 1 x 1 x 2 cm. Volume: 1 cc. Left ovary is not identified. U S/US pelvic and transvaginal IMPRESSION: Thickened, 14 mm endometrial stripe and echogenic. Blood products cannot be excluded. 0.8 cm partially calcified uterine fibroid. Left ovary is not identified. Right ovary is normal. Electronically randy d by: Edwin Dukes MD 05/29/2024 12:09 PM [facility] Dictated By: Edwin Rosales MD Signed By: <Electronically signed by Edwin Manley MD in OV> 05/29/24 1209 DD/ 1105 TD/TT: 05/29/24 1135 Land Examiner: Pathology Reviewed date:07/10/2024 04:38:33 PM Interpretation: Performing Lab:[facility], [address] [place] [phone] Notes/Report: ---- Name: Martín Jacob Age/Sex: 64/F : 1960 Unit#: [id number] Attend Dr: Candice Petty CNM Re07/08/24 Status : DEP REF Location: [facility] Disch: ---- SPEC : [id number] RECD : 07/08/24 STATUS: DAJUAN SEGURA NUM: [id number] GARETH: 07/08/[address] [facility] [address]: Candice Petty CNM ENTERED: 07/08/24 SP TYPE: Surgical OTHR DR: Fredy De Santiago MD ORDERED: HE Stain/2, Gross Micro L4 Diagnosis Endometrium, biopsy: Benign endometrium and fragments of benign endometrial polyps with extensive glandular and stromal breakdown, and endocervical glandular epithelium; no atypia or carcinoma. Clinical History PMB Microscopic Description Microscopic sections reviewed. Material Received Endometrial biopsy Gross Description Received in formalin labeled ?EMB is a 1.5 x 1.5 x 0.45 cm aggregate of multiple irregular and tubular cast fragments of congested and hemorrhagic red-maroon tissue, mucus and blood, submitted in toto in a cassette labeled A. CEDS Copies To: Fredy De Santiago MD [facility] [address] [facility] [address] [place], [place] [phone] Candice Petty CNM [facility] Women's Services [address] [facility] [address] [place] [address] ---- Signed (signature on file) Dori Bryce 07/09/24 1531 ---- END OF REPORT Reason For Referral No Information Medications Medication SIG (Take, Route, Frequency, Duration) Notes Start Date End Date Status Albuterol Sulfate HFA 108 (90 Base) MCG/ACT INHALE 1 PUFF INTO THE LUNGS EVERY 4 HOURS FOR 30 DAYS for 30 Active Vitamin D3 50 MCG (2000 UT) TAKE 1 CAPSU LE BY MOUTH EVERY DAY Active Alendronate Sodium 70 MG TAKE 1 TABLET B Y MOUTH ONE TIME PER WEEK for 90 Active Timolol Maleate PF 0.5 % 1 drop into aff ected eye Ophthalmic Once a day Active Calcium Citrate 250 MG TAKE 1 TABLET BY MOUTH EVERY DAY for 30 Active Immunizations Vaccine Route Administration Date Status Comme nts SARS-COV-2 Pfizer Unknown 08/01/2020 Administered SARS-COV-2 Pfizer Unknown 08/22/2020 Administered SARS-COV-2 Pfizer Unknown 04/19/2021 Administered Flu Vaccine Unknown 02/14/2016 Refused Fluarix Quadrivalent Unknown 05/27/2018 Refused TDaP Unknown 11/19/2017 Refused Fluarix Quadrivalent Unknown 12/25/2017 Refused PPSV23 (Pnemovax) Unknown 06/03/2019 Refused Fluarix Quadrivalent Unknown 06/03/2019 Refused Fluarix Quadrivalent Unknown 06/02/2021 Refused Fluarix Quadrivalent Unknown 02/08/2023 Refused Social History Tobacco Use: Social History Observation [...] 1 month g iving liver a rest Stopped drinking x 1 month g iving liver a rest Stopped drinking x 1 month g iving liver a rest Stopped drinking x 1 month g iving liver a rest Problems Problem Type SNOMED Code ICD Code Onset Dates Problem Status W/U Status Risk Notes Problem 07125693 Lymphocytosis (D72.820) Active confirmed Problem 70208948 Other osteoporosis without current pathological fracture (M81.8) Active confirmed Problem 558302596 Prediabetes (R73.03) Active confirmed Problem 065981011 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) Active confirmed Problem 293189665 BMI 40.0-44.9, adult (Z68.41) Active confirmed Problem 760183660 Low vitamin D level (E55.9) Active confirmed Problem 026267263 Abnormal mammogram of both breasts (R92.8) Active confirmed Problem 218418535426857 At high risk for breast cancer (Z91.89) Active confirmed Vital Signs Blood pressure diastolic 74 mm Hg 07/31/2023 [...] Provider Diagnosis Fredy De Santiago MD [address] [place] [phone] 07/17/2023 Fredy De Santiago Blood tests for routine general physical examination Z00.00 ; Lymphocytosis D72.820 ; Low vitamin D level E55.9 and Prediabetes R73.03 Fredy De Santiago MD [address] [place] [phone] 07/31/2023 Fredy De Santiago Lymphocytosis D72.82 0 ; Annual physical exam Z00.00 ; Low vitamin D level E55.9 ; Prediabetes R73.03 ; BMI 40.0-44.9, adult Z68.41 and Depression screening Z13.31 Fredy De Santiago MD [address] [place] [address] Drive [address] [place], [place] [phone] 09/24/2023 Fredy De Santiago Assessments Encounter Date Diagnosis (ICD Code) Assessment Notes Treatment Notes Treatment Clinical Notes Section Notes 07/17/2023 Blood tests for routine general physical examination (ICD-10 - Z00.00) 07/17/2023 Lymphocytosis (ICD-10 - D72.820) 07/31/2023 Lymphocytosis (ICD-10 - D72.820) is stable had it in past, will continue to monitor 07/31/2023 Annual physical exam (ICD-10 - Z00.00) labs reviewed and discussed with patient 07/17/2023 Low vitamin D level (ICD-10 - E55.9) 07/31/2023 Low vitamin D level (ICD-10 - E55.9) is theraputic now, will contiue to monitor 07/17/2023 Prediabetes (ICD-10 - R73.03) 07/31/2023 Prediabetes (ICD-10 - R73.03) still with good a1c, no need for medicatio at this time 07/31/2023 BMI 40.0-44.9, adult (ICD-10 - Z68.41) encouraged diet 07/31/2023 Depression screening (ICD-10 - Z13.31) negative screen Plan Of Treatment Pending Test Test Name Order Date Electrocardiogram (EKG) 05/25/2017 Electrocardiogram (EKG) 05/31/2018 Electrocardiogram (EKG) 02/17/2016 BONE DENSITY DEXA 07/08/2020 MM screening mammo BI 07/08/2020 NM bone scan whole body 12/15/2021 Next Appt Details Provider Name:Fredy velasquez, 07/24/2024 07:00:00 AM, [address] [place] [address], [address] [place] [address], [phone], Provider Name:Fredy velasquez, 07/31/2024 08:00:00 AM, [address] [place] [address], [address], [place], [place], [phone], Insurance Providers Payer Name Payer Address Payer Phone Subscriber Number Group Number Insured Name Patient Relationship to Insured Coverage Start Date Coverage End Date [employer] [address] [address] [place] [phone] [id number] Arely Jacob Self - patient is the insured Medical (General) History Medical History History ICD Code colonoscopy done 08/17/[address] Dario rodrigez 10 years
--- NOTE | 2024-07-22 10:06 | HO.ANESPROP2 ---
Documented by User: Lidia Marrero NP 07/22/24 10:07 HPI - Anesthesia Eval Consult details Narrative: 64yo F for D&C Hysteroscopy,possible myomectomy,possible polypectomy PMFSH Active Problems Active Problems: All Active Problems Uterine myoma (Acute) Postmenopausal bleeding (Acute) PCB (post coital bleeding) (Acute) Right shoulder pain (Acute) Breast calcification, left (Acute) Encounter for annual routine gynecological examination (Acute) Tendinitis of left rotator cuff (Acute) Past Medical History Medical History Postmenopausal bleeding PCB (post coital bleeding) Breast calcification, left COVID-19 vaccine series completed BRCA negative Vitamin D deficiency Age related osteoporosis Family History Family History Mother History of breast cancer Sister History of breast cancer Sister History of breast cancer Maternal Aunt Ovarian cancer Surgical History Surgical History Hx of laparoscopic gastric banding Hx of cholecystectomy History of arthroscopy of right shoulder History of arthroscopy of left shoulder Social History Social History Are you a primary lawn care specialist to a significant other at home: No Do you presently have visiting nurse or other home services: No Alcohol intake: current Alcohol intake frequency: a few times a week Patient Tobacco Use Status: Never used Tobacco Use of substances other than those prescribed or required for medical reasons: No Have you been hit, kicked, punched, or otherwise hurt by someone within the past year? If so, by whom?: No Are you DNR?: No Advance Directives: No Advance Directives Information Provided: Yes Patient : No Current occupational status: unemployed Current occupation: right hand dominant Sexual orientation: Straight/Heterosexual Gender identity: Female Meds Allergies Allergy/AdvReac Type Severity Reaction Status Date / Time grapefruit [Grapefruit] Allergy Mild RASH Verified 07/15/24 10:33 Penicillins Allergy Mild BLISTERS Verified 07/15/24 10:33 penicillin V Allergy Unknown Unknown Verified 07/15/24 10:33 Home Medications ?Medication ?Instructions ?Recorded ?Confirmed ?Last Taken ?Type cholecalciferol (vitamin D3) 50 50 mcg PO DAILY 12/07/20 12/06/23 Unknown History mcg (2,000 unit) capsule alendronate 70 mg tablet 70 mg PO QWEEK 12/13/21 12/06/23 Unknown History calcium citrate 250 mg PO DAILY 12/13/21 12/06/23 Unknown History timolol maleate 0.5 % eye drops 1 drp ophthalmic (eye) BID 12/13/21 12/06/23 07/23/24 05:15 History Assessment and Plan Assessment Anesthesia Assessment: Chart Reviewed Documented by User: Soni Diaz MD 07/23/24 07:27 PMFSH Past Medical History Medical History Postmenopausal bleeding PCB (post coital bleeding) Breast calcification, left COVID-19 vaccine series completed BRCA negative Vitamin D deficiency Age related osteoporosis Family History Family History Mother History of breast cancer Sister History of breast cancer Sister History of breast cancer Maternal Aunt Ovarian cancer Family history of problems with anesthesia: No Surgical History Surgical History Hx of laparoscopic gastric banding Hx of cholecystectomy History of arthroscopy of right shoulder History of arthroscopy of left shoulder History of Problems with Anesthesia: No Social History Social History Are you a primary lawn care specialist to a significant other at home: No Do you presently have visiting nurse or other home services: No Alcohol intake: current Alcohol intake frequency: a few times a week Patient Tobacco Use Status: Never used Tobacco Use of substances other than those prescribed or required for medical reasons: No Have you been hit, kicked, punched, or otherwise hurt by someone within the past year? If so, by whom?: No Are you DNR?: No Advance Directives: No Advance Directives Information Provided: Yes Patient : No Current occupational status: unemployed Current occupation: right hand dominant Sexual orientation: Straight/Heterosexual Gender identity: Female Meds Allergies Allergy/AdvReac Type Severity Reaction Status Date / Time grapefruit [Grapefruit] Allergy Mild RASH Verified 07/15/24 10:33 Penicillins Allergy Mild BLISTERS Verified 07/15/24 10:33 penicillin V Allergy Unknown Unknown Verified 07/15/24 10:33 Home Medications ?Medication ?Instructions ?Recorded ?Confirmed ?Last Taken ?Type cholecalciferol (vitamin D3) 50 50 mcg PO DAILY 12/07/20 12/06/23 Unknown History mcg (2,000 unit) capsule alendronate 70 mg tablet 70 mg PO QWEEK 12/13/21 12/06/23 Unknown History calcium citrate 250 mg PO DAILY 12/13/21 12/06/23 Unknown History timolol maleate 0.5 % eye drops 1 drp ophthalmic (eye) BID 12/13/21 12/06/23 07/23/24 05:15 History Exam Airway Mallampati Class: III TM Dist: >3cm Neck ROM: Full Denture: Upper Partial: Lower Assessment and Plan Assessment Anesthesia Assessment: Anesthesia Plan Discussed Final Anesthetic Review Family History of Problems with Anesthesia: No History of Problems with Anesthesia: No NPO: Yes ASA Class: III Final Preanesthetic Review: No Changes in Pt Med Stat, Meds/Allgs Chart Reviewed, Consent Obtained/Reviewed and Anes Risks/Benef Reviewed Patient Risk: Intermediate Procedure Risk: Low Anesthetic Plan Anesthetic Plan: GA Disposition: Standard PACU
[2024-07-23] VITALS (8 sets, daily range): BP systolic 147–178; BP diastolic 68–88; PULSE 61–70; RESP 15–20; TEMP 36.1–36.6; O2SAT 97–100; BMI 43.8
[2024-07-23] MEDS: Lactated Ringers 1,000 ML 100 ML IVCONT (06:50)
--- NOTE | 2024-07-23 07:32 | MHC.SHP ---
Pre-Procedural Eval Section A - 24 Hr Update-Section A only Date of Service: 07/23/24 The patient is an INPATIENT: No Changes since office visit: No Cold of Flu in the past 2 weeks, No New Medical Problems, No Changes in Medication and No Patient answered all questions The patient has been examined within 24 hours of the surgical procedure. The History & Physical has been completed within 30 days and I have reviewed it.: Yes Section B - Complete if H&P > 30 days Chief Complaint: Postcoital and contact bleeding Allergies: Allergies Allergy/AdvReac Type Severity Reaction Status Date / Time grapefruit [Grapefruit] Allergy Mild RASH Verified 07/15/24 10:33 Penicillins Allergy Mild BLISTERS Verified 07/15/24 10:33 penicillin V Allergy Unknown Unknown Verified 07/15/24 10:33 Plan Diagnosis/Plan: Unchanged I have reviewed the history and physical and performed a pertinent physical examination on my patient. No changes have occurred unless specified. Time Spent With Patient Time: Total time managing care of this patient today ____ minutes.
--- NOTE | 2024-07-23 08:15 | PM.OP ---
Brief Operative Note Date of Service: 07/23/24 Pre-op diagnosis: Postcoital bleeding, abnormal endometrium by ultrasound, endometrial polyp by endometrial pathology Post-op diagnosis: same (Endometrial polyp) Procedure: Hysteroscopy D&C, Polypectomy Surgeon: Marcin Muñoz MD Anesthesia: GLMA Was an Media Liaison Officer used for this Procedure?: No Estimated blood loss (mL): 0 Pathology: other (Endometrial Scrapping. Polyp) Condition: stable Disposition: PACU
--- NOTE | 2024-07-23 08:16 | P.OP_ITS ---
Operative Note Operative Note Date of Service: 07/23/24 Narrative: Preop Diagnosis: Postcoital bleeding, abnormal endometrium by ultrasound, Endometrial polyp by EMB pathology Operation: Diagnostic Hysteroscopy, Dilataion & Curettage and polypectomy Post Op Diagnosis: Endometrial Polyp QBL: Minimal Anesthesia: GLMA Surgeon: Marcin Muñoz MD Prototype Machine Operator: None Complication: None Pathology: Endometrial Scrapings, Endometrial polyp Procedure: The patient was put in the dorsal lithotomy position, scrubbed, and draped in the usual manner. A sterile speculum was inserted in the patient's vagina. The anterior lip of the cervix was grasped with a single tooth tenaculum. The cervix was dilated up to 5 mm, then the scope was inserted in the patient's uterus. Inspection revealed endometrial polyp. The Myosure Reach device was used; it was introduced through the operative channel and polypectomy done with no complications. The scope was then taken out from the uterine cavity, sharp curettings was carried on with minimal to moderate amount of tissues retrieved. At the end of the procedure, all instruments were taken out of the patient uterine and vaginal cavity. The single tooth tenaculum was removed and homeostasis was assured using pressure,. The patient tolerated the procedure well and was transferred to the PACU in a stable condition.
[2024-07-23] MEDS: Ketorolac Tromethamine 15 MG/ML VIAL IVPUSH (08:37)
== END 2024-07-23 09:29 | disposition home or self-care (01) ==
PROVIDERS: PCP Internal Medicine; Visit Provider Obstetrics & Gynecology
PROC: 0UDB8ZZ Extraction of Endometrium, Via Natural or Artificial Opening Endoscopic (ICD-10-PCS; CPT 58558; principal; 2024-07-23 07:30)
DX: N93.9 Abnormal uterine and vaginal bleeding, unspecified (principal); N84.0 Polyp of corpus uteri; D25.9 Leiomyoma of uterus, unspecified; Z88.0 Allergy status to penicillin; M81.0 Age-related osteoporosis without current pathological fracture; E55.9 Vitamin D deficiency, unspecified; Z79.899 Other long term (current) drug therapy; Z98.84 Bariatric surgery status; Z90.49 Acquired absence of other specified parts of digestive tract; Z98.890 Other specified postprocedural states; Z56.0 Unemployment, unspecified
CPT/HCPCS: 58558; 88305; J1100; J1885; J2003; J2250; J2405; J2704; J3010

== ENCOUNTER → 2024-07-23 05:44 | Outpatient (BNV) | payer MEDICARE, SELFPAY | PROVIDERS: PCP Internal Medicine; Visit Provider Obstetrics & Gynecology | DX: N84.0 Polyp of corpus uteri (principal); N93.0 Postcoital and contact bleeding | CPT/HCPCS: 58558 ==

== ENCOUNTER 2024-07-25 11:19 | Outpatient (REF) | payer MEDICARE, SELFPAY ==
[2024-07-25 11:22] LABS: MANUAL DIFF FLAG NO
[2024-07-25 11:29] LABS: Appearance Urine Cloudy; Basophils Absolute Auto 0.1 X10*3/uL (0.0-0.2); Basophils Percent Auto 0.5 % (0-2); Color Urine Yellow; Eosinophils Percent Auto 0.4 % (0-4); Glucose Urine UA Negative (Negative); Hematocrit 40.1 % (37.0-47.0); Hemoglobin 12.9 g/dl (12.0-16.0); Imm Gran Abs Auto 0.04 X10*3/uL (0.00-0.03); Imm Gran Pct Auto 0.4 % (0.0-0.4); Leukocyte Esterase Urine Small (1+) (Negative); Lymphocytes Absolute Auto 4.7 X10*3/uL (1.2-4.9); Lymphocytes Percent Auto 49.4 % (20-40); Mean Corpuscular HGB Conc 32.2 g/dl (31.0-35.0); Mean Corpuscular Hemoglobin 29.7 pg (27.0-33.0); Mean Corpuscular Volume 92.2 fL (80.0-98.0); Mean Platelet Volume 10.6 fL (9.4-12.3); Monocytes Absolute Auto 0.9 X10*3/uL (0.1-1.2); Monocytes Percent Auto 8.9 % (2-11); Neutrophils Absolute Auto 3.9 x10*3/uL (2.0-8.3); Neutrophils Percent Auto 40.4 % (45-73); Nitrite Urine Negative (Negative); PH 5.5 (5.0-9.0); Platelet Count 226 X10*3/uL (160-400); Red Blood Count 4.35 X10*6/uL (4.20-5.50); Red Cell Distribution Width 14.3 % (11.0-16.0); Specific Gravity - Urine 1.025 (1.005-1.025); UMIC TRIGGER UACC YES; Urine Blood Moderate (2+) (Negative); Urine Ketones Negative (Negative); Urine Protein Negative (Neg-Trace); White Blood Count 9.6 X10*3/uL (4.8-10.8)
[2024-07-25 11:36] LABS: Estimated Average Glucose 120 mg/dL; Hemoglobin A1C 134.4259 umol/L; Hemoglobin A1c % 5.8 % (<6.0); Total Hemoglobin (HGBA1C) 3406.8464 umol/L
[2024-07-25 11:51] LABS: Bacteria Urine 3+ (None Seen); Hyaline Casts Urine 0-2 /LPF (0-2); UACC Culture Trigger YES; WBC Urine 0-5 /HPF (0-5)
[2024-07-25 11:55] LABS: Alanine Aminotransferase 24 U/L (0-31); Albumin Level 3.9 g/dL (3.5-5.0); Alkaline Phosphatase 62 U/L (39-117); Anion Gap 11 (12-20); Aspartate Amino Transferase 23 U/L (5-31); Bilirubin Total 0.5 mg/dL (0.0-1.0); Blood Urea Nitrogen 16 mg/dL (9-16); Calcium 8.6 mg/dL (8.4-10.2); Carbon Dioxide 29 mmol/L (22-29); Chloride 107 mmol/L (96-108); Cholesterol 188 mg/dL (<200); Estimated Glomerular Filt Rate > 60; Glucose Fasting 81 mg/dL (60-99); HDL Cholesterol 75 mg/dL (>40); LDL Cholesterol Calculated 96 mg/dL (<100); Potassium 3.7 mmol/L (3.3-5.1); Sodium 143 mmol/L (135-145); Total Protein 7.1 g/dL (6.5-8.0); Triglycerides 87 mg/dL (<150)
[2024-07-25 12:06] LABS: Creatinine Urine 185.77 mg/dL; Microalbum/Creatinine Ratio Ur 17.2 ug/mg cr (<30)
[2024-07-25 12:11] LABS: Vitamin D 25-OH Total 40.4 ng/mL (>30)
--- OUTSIDE RECORDS SUMMARY | 2024-07-25 12:20 | XMS_ITS ---
Author Organization Fredy De Santiago MD Address [address] [place] [phone] Care Team Providers Care Healthcare Management Name Role Phone Fredy De Santiago Primary [...] Date Provider Diagnosis Fredy De Santiago MD [address] [place] [address] [place] [phone] 07/31/2023 Fredy De Santiago Lymphocytosis D72.82 0 [...] Stop Date Notes Vitamin D3 50 MCG (1999 UT) TAKE [...] Next Appt Details Provider Name:Fredy Hussein ier, 07/31/2024 08:00:00 AM, [address], [address], [place], [place], [phone], Progress Notes * Arely JACOB ADOB:[birth year] (63 yo F)Acc No.[id number]:07/31/2023 Progress Notes Patient:?Arely Jacob Provider:?Fredy De Santiago MD :1960???Age:63 Y???Sex:Female D ate:07/31/2023 Address:[address] [place], [place] [phone] Subjective: * Chief Complaints: * ???ANNUAL EXAMNo [...] mg/dL ?Urine Blood Negative Negative - ?Specific [place] - Urine 1.025 1.005-1.025 - ?Urine Protein [...] Casts Urine 0-2 0-2 - /LPF ???Lab:Comprehensive [place]. P howard Fast (Order Date - 07/17/2023) (Collection Date - [...] - m g/dL ???Lab:Lipid Panel (Order Da 07/17/2023) (Collection Date 07/17/2023) ? Value Reference Range ?Triglycerides 103 <150 - mg/dL ?Cholesterol 193 <200 - m g/dL ?LDL Cholesterol Calculated 104 H <100 - mg/dL ?HDL Cholesterol 69 >40 - mg/dL ???Lab:Vitamin D 25-OH Total (Order 07/17/2023) (Collection Date - 07/17/2023) ? Value [...] normal, no murmurs.?LUNGS:?clear to auscultation bilaterally.?BREASTS:?done by corporate strategy intern.?ABDOMEN:?soft, nontender, nondistended, bowel sounds present, normal, no organomegaly , no masses palpable.?RECTAL EXAM:?done by corporate strategy intern.?FEMALE GENITOURINARY:?done by corporate strategy intern.?EXTREMITIES:?no clubbing, cyanosis, or edema.?NEUROLOGIC:?nonfocal, motor strength normal [...] level? Continue Vitamin D3 Capsule, 50 MCG (2000 UT), TAKE 1 CAPSULE BY MOUTH EVERY DAY.?? Notes: is theraputic now, will contiue to monitor.?? 4.?Prediabetes? Notes: still with good a1c, no need for medicatio at this time.?? 5.?BMI 40.0-44.9, adult? Notes: encouraged diet.?? 6.?Depression screening? Notes: negative screen.?? * Procedure Codes:? * * Sign off status: Completed true * Provider:?Fredy De Santiago MD Date:?0 07/31/2023 Generated for Moses mcneil/Tevin/eTransmitting on:?07/25/2024 12:20 PM EDT History and Physical Notes * [...] cyanosi s, or edema BREASTS: done by corporate strategy intern RECTAL EXAM: done by corporate strategy intern FEMALE GENITOURINARY: done by corporate strategy intern ORAL CAVITY: mucosa moist
--- OUTSIDE RECORDS SUMMARY | 2024-07-25 12:20 | XMS_ITS ---
Author Organization Fredy De Santiago MD Address [address] [place], [place] [phone] Care Team Providers Care Yard Specialist Name Role Phone Fredy De Santiago Primary Care Provider Results Component Value Reference Range Notes Complete Blood Count Auto Di ff (Not yet reviewed by provider) Interpretation: Performing Lab:[facility], [address] [place] [phone] Notes/Report: White Blood Count 9.6 4.8-10.8 X10*3/uL [...] NRBC Abs Auto 0.000 0.0-0.012 X10*3/uL Comprehensive [place]. Panel Fa st (Not yet reviewed by provider) Interpretation: Performing Lab:[facility], [address] [place] [phone] Notes/Report: Sodium 143 135-145 mmol/L Potassium 3.7 [...] Alkaline Phosphatase 62 39-117 U/L Lipid Panel (Not yet reviewe d by provider) Interpretation: Performing Lab:[address] [phone] Notes/Report: Triglycerides 87 <150 mg/dL Desirable Triglyceride: [...] with liver disease. Vitamin D 25-OH Total (Not y et reviewed by provider) Interpretation: Performing Lab:[address] [phone] Notes/Report: Vitamin D 25-OH Total 40.4 >30 [...] another method such as LC-MS/MS. Microalbumin, Random (Not ye t reviewed by provider) Interpretation: Performing Lab:[address] [place] [phone] Notes/Report: Creatinine Urine 185.77 Microalbumin Urine 32.0 Microalbum/Creatinine Ratio Ur 17.2 <30 ug/mg cr Albumin/Creatinine Ratio Reference Ranges: Normal: < 30 ug/mg creatinine Microalbuminuria: 30 - 300 ug/mg creatinine Clinical Albuminuria: > 300 ug/mg creatinine Hemoglobin A1c (Not yet revi ewed by provider) Interpretation: Performing Lab:[facility], [address] [place] [phone] Notes/Report: Hemoglobin A1c % 5.8 <6.0 % [...] average glucose, using the formula of the I7E-Abzoqcr Average Glucose study (ADAG), Diabetes Care, Vol.31,#8, 2007 UA ClnCatch+Micro w/rflx Cul t (Not yet reviewed by provider) Interpretation: Performing Lab:[facility], [address] [place] [phone] Notes/Report: Urine, Clean Catch Color Urine Yellow Appearance Urine Cloudy PH 5.5 5.0-9.0 Glucose Urine UA Negative Negative mg/dL Urine Blood Moderate (2+) Negative Specific [place] - Urine 1.025 1.005-1.025 Urine Protein Negative [...] Date Provider Diagnosis Fredy De Santiago MD [address] [place] [address] Drive [address] [place], [place] [phone] 07/25/2024 Fredy De Santiago Blood tests for [...] Prediabetes (ICD-10 - R73.03) Plan Of Treatment Pending Test Test Name Order Date Complete Blood Count Auto Diff Comprehensive [place]. Panel Fast Lipid Panel 07/25/2024 Vitamin D 25-OH Total 07/25/2024 Microalbumin, Random 07/25/2024 Hemoglobin A1c 07/25/2024 UA ClnCatch+Micro w/rflx Cult 07/25/2024 Next Appt Details Provider Name:Fredy velasquez, 07/31/2024 08:00:00 AM, [address] [facility], [address], [place], [place], [phone], Progress Notes * Arely JACOB ADOB:[birth year] (64 yo F)Acc No.[id number]:07/25/2024 Progress Note Patient:?KOBI Arely Armen Provider:?Fredy De Santiago MD :1960???Age:64 Y???Sex:Female D ate:07/25/2024 Address:[address] [place], [place] [phone] Subjective: * Chief Complaints: * ???1. Yearly fasting labs. * Medical History:? Objective: * Vitals:? Assessment: * Assessment: 1.?Blood tests for routine g eneral physical examination - Z00.00 (Primary)???2.?Lymphocytosis - D72.820???3.?Low vitamin D level - E55.9???4.?Prediabetes - R73.03??? Plan: * Treatment: 2.?Lymphocytosis?LAB: Complete Blood Count Auto Diff (Collection Date & Time - 07/25/2024 07:00 AM) ?LAB: Comprehensive [place]. Panel Fast (Collection Date & Time - 07/25/2024 07:00 AM) ?LAB: Lipid Panel (Collection Date & Time 07/25/2024 07:00 AM) ?LAB: Vitamin D 25-OH Total (Collection Date & Time 07/25/2024 07:00 AM) ?LAB: Microalbumin, Random (Collection Date & Time 07/25/2024 07:00 AM) ?LAB: Hemoglobin A1c (Collection Date & Time 07/25/2024 07:00 AM) ?LAB: UA ClnCatch+Micro w/rflx Cult (Collection Date & Time 07/25/2024 07:00 AM) 3.?Low vitamin D level?LAB: Complete Blood Count Auto Diff (Collection Date & Time 07/25/2024 07:00 AM) ?LAB: Comprehensive [place]. Panel Fast (Collection Date & Time 07/25/2024 07:00 AM) ?LAB: Lipid Panel (Collection Date & Time 07/25/2024 07:00 AM) ?LAB: Vitamin D 25-OH Total (Collection Date & Time 07/25/2024 07:00 AM) ?LAB: Microalbumin, Random (Collection Date & Time 07/25/2024 07:00 AM) ?LAB: Hemoglobin A1c (Collection Date & Time 07/25/2024 07:00 AM) ?LAB: UA ClnCatch+Micro w/rflx Cult (Collection Date & Time 07/25/2024 07:00 AM) 4.?Prediabetes?LAB: Complete Blood Count Auto Diff (Collection Date & Time 07/25/2024 07:00 AM) ?LAB: Comprehensive [place]. Panel Fast (Collection Date & Time 07/25/2024 07:00 AM) ?LAB: Lipid Panel (Collection Date & Time 07/25/2024 07:00 AM) ?LAB: Vitamin D 25-OH Total (Collection Date & Time - 07/25/2024 07:00 AM) ?LAB: Microalbumin, Random (Collection Date & Time - 07/25/2024 07:00 AM) ?LAB: Hemoglobin A1c (Collection Date & Time - 07/25/2024 07:00 AM) ?LAB: UA ClnCatch+Micro w/rflx Cult (Collection Date & Time - 07/25/2024 07:00 AM) * Procedure Codes:?84651 VENIP UNCT, ROUTINE*, 20338 VENIPUNCT, ROUTINE* * * The named appointment provid er may or may not be the originator of this progress note, and it is not deemed complete until electronically signed by the appointment provider. Sign off status: Pending * Provider:?Fredy De Santiago MD Date:?0 07/25/2024 Generated for Moses mcneil/Tevin/Kimmieitting on:?07/25/2024 12:20 PM EDT
--- OUTSIDE RECORDS SUMMARY | 2024-07-25 12:20 | XMS_ITS | Patient Health Record ---
Author Organization Fredy De Santiago MD Address [address] [place], [place] [id number] Care Team Providers Care Dry Roaster Name Role Phone Fredy De Santiago Primary Care Provider Allergies Allergen (clinical drug ingredient) Drug/Non Drug Allergy documented on EMR Reaction Allergy Type Onset Date Status Penicillin (uncoded) hives Allergy Active Results Component Value Reference Range Notes Complete Blood Count Auto Di ff (Not yet reviewed by provider) Interpretation: Performing Lab:[facility], [address] [place] [phone] Notes/Report: White Blood Count 9.6 4.8-10.8 X10*3/uL [...] 0.0-0.2 /100WBC Neutrophils Absolute Auto 3.9 2.0-8.3 x10*3/uL Imm Gran Abs Auto 0.04 0.00-0.03 X10*3/uL Lymphocytes Absolute Auto 4.7 1.2-4.9 X10*3/uL Monocytes Absolute Auto 0.9 0.1-1.2 X10*3/uL Eosinophils Absolute Auto 0.0 0.0-0.4 X10*3/uL Basophils Absolute Auto 0.1 0.0-0.2 X10*3/uL NRBC Abs Auto 0.000 0.0-0.012 X10*3/uL Comprehensive [place]. Panel Fa st (Not yet reviewed by provider) Interpretation: Performing Lab:[facility], [address] [place] [phone] Notes/Report: Sodium 143 135-145 mmol/L Potassium 3.7 [...] yet reviewe d by provider) Interpretation: Performing Lab:[facility], [address] [place] [phone] Notes/Report: Triglycerides 87 <150 mg/dL Desirable Triglyceride: [...] y et reviewed by provider) Interpretation: Performing Lab:[facility], [address] [place] [phone] Notes/Report: Vitamin D 25-OH Total 40.4 >30 [...] ye t reviewed by provider) Interpretation: Performing Lab:[facility], [address] [place] [phone] Notes/Report: Creatinine Urine 185.77 Microalbumin Urine 32.0 Microalbum/Creatinine Ratio Ur 17.2 <30 ug/mg cr Albumin/Creatinine Ratio Reference Ranges: Normal: < 30 ug/mg creatinine Microalbuminuria: 30 - 300 ug/mg creatinine Clinical Albuminuria: > 300 ug/mg creatinine Hemoglobin A1c (Not yet revi ewed by provider) Interpretation: Performing Lab:[facility], [address] [place] [phone] Notes/Report: Hemoglobin A1c % 5.8 <6.0 % [...] average glucose, using the formula of the F4J-Tlncdcl Average Glucose study (ADAG), Diabetes Care, Vol.31,#8, Nov. 2007 UA ClnCatch+Micro w/rflx Cul t (Not yet reviewed by provider) Interpretation: Performing Lab:[facility], [address] [place] [phone] Notes/Report: Urine, Clean Catch Color Urine Yellow Appearance Urine Cloudy PH 5.5 5.0-9.0 Glucose Urine UA Negative Negative mg/dL Urine Blood Moderate (2+) Negative Specific [place] - Urine 1.025 1.005-1.025 Urine Protein Negative [...] date:01/01/2024 12:39:27 PM Interpretation: Performing Lab: Notes/Report: [facility] [address] [place] [address] XRay Report Signed Patient: Arely Jacob MR#: [id number] : 1960 Acct:[id number] Age/Sex: 63 / F ADM Date: 12/06/23 Loc: [facility] Attending Dr: Lobo Rivas MD Ordering Physician: Lobo Rivas MD Date of Service: 12/06/23 Procedure(s): XR shoulder RT min 2V Accession Number(s): [id number] cc: Fredy De Santiago MD; Lobo Rivas [...] Daniel Cervantes MD 12/31/2023 05:37 PM EDT RP Dictated By: Daniel Cervantes MD Signed By: <Electronically signed by Daniel Cervantes MD in OV> 12/31/23 1737 DD/ 1116 TD/TT: 12/06/23 1120 Commercial Attorney: [facility] [place] [facility] [address] [place] [address] XRay Report Signed Patient: Arely Jacob MR#: [id number] : 1960 Acct:[id number] Age/Sex: 63 / F ADM Date: 12/06/23 Loc: [facility]VA Attending Dr: Lobo Rivas MD Ordering Physician: Lobo Rivas MD Date of Service: 12/06/23 Procedure(s): XR shoulder RT min 2V Accession Number(s): [id number] cc: Fredy De Santaigo MD; Lobo Rivas MD EXAMINATION: XR SHOULDER, [...] Daniel Cervantes MD 12/31/2023 05:37 PM EDT RP Dictated By: Daniel Cervantes MD Signed By: <Electronically signed by Daniel Cervantes MD in OV> 12/31/23 1737 DD/ 1116 TD/TT: 12/06/23 1120 Commercial Attorney: AUGUSTIN DIAZ tomosynthesis screening B I Reviewed date:04/24/2024 12:38:39 PM Interpretation: Performing Lab: Notes/Report: [facility] [place] [address] Mammography Report Signed Patient: Arely Jacob MR#: [id number] : 1960 Acct:[id number] Age/Sex: 64 / F ADM Date: 04/11/24 Loc: HO.MAMMO Attending Dr: Fredy De Santiago MD Ordering Physician: Fredy De Santiago MD Results: 2Be nign Findings Date of Service: 04/11/24 Follow Up: 1 Year From [facility] Mammogram Procedure(s): MM tomosynthesis screening BI Accession Number(s): [id number] cc: Fredy De Santiago MD EXAMINATION: MM [...] by: Yamel Rain DO 04/22/2024 05:43 PM EST Dictated By: Yamel Rain DO Signed By: <Electronically signed by Yamel Rain DO in OV> 04/22/24 1743 DD/ 0745 TD/TT: 04/11/24 0800 Commercial Attorney: [facility] [address] [place] [address] Mammography Report Signed Patient: Arely Jacob MR#: [id number] : 1960 Acct:[id number] Age/Sex: 64 / F ADM Date: 04/11/24 Loc: HO.MAMMO Attending Dr: Fredy De Santiago MD Ordering Physician: Fredy De Santiago MD Results: 2Be nign Findings Date of Service: 04/11/24 Follow Up: 1 Year From Orig ina Mammogram Procedure(s): MM tomosynthesis screening BI Accession Number(s): [id number] cc: Fredy De Santiago MD EXAMINATION: MM [...] by: Yamel Rain DO 04/22/2024 05:43 PM EST Dictated By: Yamel Rain DO Signed By: <Electronically signed by Yamel Rain DO in OV> 04/22/24 1743 DD/ 07 TD/TT: 04/11/24 0800 Commercial Attorney: CT NG by PCR Reviewed date:05/08/2024 05:48:45 PM Interpretation: Performing Lab:[facility], [address] [place] [phone] Notes/Report: Vaginal CT PCR NOT DETECTED Not [...] Panel Reviewed date:05/08/2024 05:51:05 PM Interpretation: Performing Lab:[facility], [address] [place] [phone] Notes/Report: Trichomonas vaginalis PCR NOT DETECTED Not [...] Smear Reviewed date:05/13/2024 12:43:34 PM Interpretation: Performing Lab:[facility], [address] [place] [phone] Notes/Report: ---- Name: Martín Jacob Armen Age/Sex: 64/F : 1960 Unit#: [id number] Attend Dr: Candice Petty CNM Re05/07/24 Status : DEP REF Location: [facility] Disch: ---- SPEC : [id number] RECD : 05/08/24 STATUS: DAJUAN SEGURA NUM: [id number] GARETH: 05/07/[address] [facility] [address]: Candice Petty CNM ENTERED: 05/08/24 34 SP TYPE: Pap Smr OTHR DR: Fredy [...] De Santiago MD [facility] [address] [place] [address] Candice Petty CNM [facility] Women's Services [address] [facility] [address] [place] [address] ---- Signed (signature on file) LIBERTY Molina (ASCP) 05/13/24 1018 ---- END OF REPORT HPV High risk Reviewed date:05/13/2024 12:43:02 PM Interpretation: Performing Lab:[facility], [address] [place] [phone] Notes/Report: HPV High Risk Negative Negative HPV Genotype 16 Negative Negative HPV Genotype 18 Negative Negative HPV testing performed at [facility] (CLIA #[id number]), [address] [place] [address]. Testing for HPV was performed using the [...] date:05/29/2024 04:58:07 PM Interpretation: Performing Lab: Notes/Report: [address] [address] Ultrasound Report Signed Patient: Arely Jacob MR#: [id number] : 1960 Acct:[id number] Age/Sex: 64 / F ADM Date: 05/29/24 Loc: .US Attending Dr: Candice Petty CNM Ordering Physician: Candice Petty CNM Date of Service: 05/29/24 Procedure(s): US pelvic and transvaginal Accession Number(s): [id number] cc: Fredy De Santiago MD; Candice Petty [...] by: Edwin Dukes MD 05/29/2024 12:09 PM [facility] Dictated By: Edwin Cuello MD Signed By: <Electronically signed by Edwin Manley MD in OV> 05/29/24 1209 DD/ 1105 TD/TT: 05/29/24 1135 Commercial Attorney: [place] [address] Ultrasound Report Signed Patient: Arely Jacob MR#: [id number] : 1960 Acct:[id number] Age/Sex: 64 / F ADM Date: 05/29/24 Loc: HO.US Attending Dr: Candice Petty CNM Ordering Physician: Candice Petty CNM Date of Service: 05/29/24 Procedure(s): US pel lissette and transvaginal Accession Number(s): [id number] cc: Fredy De Santiago MD; Candice Petty [...] by: Edwin Dukes MD 05/29/2024 12:09 PM [facility] Dictated By: Edwin Trevino MD Signed By: <Electronically signed by Edwin Manley MD in OV> 05/29/24 1209 DD/ 1105 TD/TT: 05/29/24 1135 Commercial Attorney: Pathology Reviewed date:07/10/2024 04:38:33 PM Interpretation: Performing Lab:[facility], [address] [place] [phone] Notes/Report: ---- Name: Martín Jacob Age/Sex: 64/F : 1960 Unit#: [id number] Attend Dr: Candice Petty [facility] Re07/08/24 Status : DEP REF Location: [facility] Disch: ---- SPEC : [id number] RECD : 07/08/24 STATUS: DAJUAN SEGURA NUM: [id number] GARETH: 07/08/24-[address] [facility] [address]: Candice Petty CNM ENTERED: 07/08/24 SP [...] De Santiago MD [facility] [address] [facility] [address] [place] [address] Candice Petty CNM [facility] Women's Services [address] [facility] [address] [place] [address] ---- Signed (signature on file) Dori Bryce 07/09/24 1531 ---- END OF REPORT Pathology Reviewed date:07/24/2024 06:29:37 PM Interpretation: Performing Lab:[facility], [address] [facility], [place] [address] Notes/Report: ---- Name: Martín Jacob Age/Sex: 64/F : 1960 Unit#: [id number] Attend Dr: Marcin Muñoz MD Re07/23/24 Status : [facility] Location: [facility] Disch: ---- SPEC : [id number] RECD : 07/23/24 STATUS: KATTSylvia COLTON NUM: [id number] GARETH: 07/23/[address] [facility] [address]: Marcin Muñoz MD ENTERED: 07/23/24 56 SP TYPE: Surgical OTHR DR: Fredy De Santiago MD ORDERED: HE Stain/4, Gross Micro L4/2 Diagnosis A. Endometrium, curettage: Benign atrophic endometrium and benign endocervical glandular epithelium ; no atypia or carcinoma. B. Endometrial polyp , resection: Fragments of benign endometrial polyp; no atypia or carcinoma. Clinical History Pre-Op Dx: Bleeding Post-Op Dx: Endometr ial polyp Microscopic Description Microscopic sections reviewed. Material Received [facility]. [facility] B. Endometrial polyp Gross Description Received two parts. Part A: Received in formalin labeled ?EMC is a 1.5 x 1.5 x 0.4 cm aggregate of multiple congested and hemorrhagic red-maroon tissue fragments, scant mucus and blood, submitted in toto in a cassette labeled A. Part B: Received in formalin labeled ?endometrial polyp? in a white cotton mesh suction sock device are mult iple rubbery, mas-pink and pink-red irregular shards of tissue ranging from minute to 0.9 c m and aggregating 2.0 x 2.0 x 0.5-0.8 cm, submitted in toto in cassettes B1 and B2. CEDS This case was review ed intradepartmentally. CONTINUED ON NEXT PAGE ---- Name: Martín Jacob Age/Sex: 64/F : 1960 Unit#: [id number] Attend Dr: Marcin Muñoz MD Re07/23/24 Status : [facility] Location: [facility] Disch: ---- SPEC : [id number] RECD : 07/23/24 STATUS: DAJUAN COLTON NUM: [id number] GARETH: 07/23/[address] [facility] [address]: Marcin Muñoz MD ENTERED: 07/23/24 56 SP TYPE: Surgical OTHR DR: Fredy De Santiago MD ORDERED: HE Stain/4, Gross Micro L4/2 Copies To: Fredy De Santiago MD [facility] [address] [place] [address] Marcin Muñoz MD [facility] Women's Services [address] [place] [address] ---- Signed (signature on file) Dori Bryce 07/24/24 1725 ---- END OF REPORT Reason For Referral [...] Problem Status W/U Status Risk Notes Problem 59137255 Lymphocytosis (D72.820) Active confirmed Problem 76959071 Other osteoporosis without current pathological fracture (M81.8) Active confirmed Problem 303317476 Prediabetes (R73.03) Active confirmed Problem 864371484 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) Active confirmed Problem 538858145 BMI 40.0-44.9, adult (Z68.41) Active confirmed Problem 771840547 Low vitamin D level (E55.9) Active confirmed Problem 032265717 Abnormal mammogram of both breasts (R92.8) Active confirmed Problem 930104816797392 At high risk for breast cancer (Z91.89) [...] Date Provider Diagnosis Fredy De Santiago MD [address] [place] [phone] 07/25/2024 Fredy De Santiago Blood tests for routine general physical examination Z00.00 ; Lymphocytosis D72.820 ; Low vitamin D level E55.9 and Prediabetes R73.03 Fredy De Santiago MD [address] [place] [address] Drive [address] [place] [phone] 07/31/2023 Fredy De Santiago Lymphocytosis D72.82 0 ; Annual physical exam Z00.00 ; Low vitamin D level E55.9 ; Prediabetes R73.03 ; BMI 40.0-44.9, adult Z68.41 and Depression screening Z13.31 Fredy De Santiago MD [address] [place] [phone] 09/24/2023 Fredy De Santiago Assessments Encounter Date Diagnosis (ICD Code) Assessment Notes Treatment Notes Treatment Clinical Notes Section Notes 07/25/2024 Blood tests for routine general physical examination (ICD-10 - Z00.00) 07/31/2023 Lymphocytosis (ICD-10 - D72.820) is stable had it in past, will continue to monitor 07/31/2023 Annual physical exam (ICD-10 - Z00.00) labs reviewed and discussed with patient 07/25/2024 Lymphocytosis (ICD-10 - D72.820) 07/31/2023 Low vitamin D level (ICD-10 - E55.9) is theraputic now, will contiue to monitor 07/25/2024 Low vitamin D level (ICD-10 - E55.9) 07/31/2023 Prediabetes (ICD-10 - R73.03) still with good a1c, no need for medicatio at this time 07/25/2024 Prediabetes (ICD-10 - R73.03) 07/31/2023 BMI 40.0-44.9, adult (ICD-10 - Z68.41) encouraged diet 07/31/2023 Depression screening (ICD-10 - Z13.31) negative screen Plan Of Treatment Pending Test Test Name Order Date Electrocardiogram (EKG) 05/25/2017 Electrocardiogram (EKG) 05/31/2018 Electrocardiogram (EKG) 02/17/2016 BONE DENSITY DEXA 07/08/2020 Complete Blood Count Auto Diff Comprehensive [place]. Panel Fast 5 Lipid Panel 07/25/2024 Vitamin D 25-OH Total 07/25/2024 Microalbumin, Random 07/25/2024 MM screening mammo BI 07/08/2020 NM bone scan whole body 12/15/2021 Hemoglobin A1c 07/25/2024 UA ClnCatch+Micro w/rflx Cult 07/25/2024 Next Appt Details Provider Name:Fredy Hussein ier, 07/31/2024 08:00:00 AM, [address] [place] [address], [address], [place], [place], [phone], Insurance Providers Payer Name Payer Address Payer Phone Subscriber Number Group Number Insured Name Patient Relationship to Insured Coverage Start Date Coverage End Date [employer] PLAN [employer] [facility] [address] [place] [phone] [id number] Arely Jacob Self - patient is the insured Medical (General) History Medical History History ICD Code colonoscopy done 08/17/[address] Dario rodrigez 10 years
--- OUTSIDE RECORDS SUMMARY | 2024-07-25 12:20 | XMS_ITS ---
Author Organization Fredy De Santiago MD Address [address] [place] [phone] Care Team Providers Care Planisher Name Role Phone Fredy De Santiago Primary Care Provider [phone] REASON FOR VISIT insurance claim Encounters Encounter Location Date Provider Diagnosis Fredy De Santiago MD [facility] [address] [place] [phone] 09/24/2023 Fredy De Santiago Plan Of Treatment Next Appt Details Provider Name:Fredy velasquez, 07/31/2024 08:00:00 AM, [facility], Suite [facility], [place], [place], [phone], Progress Notes * Arely JACOB ADOB:[birth year] (63 yo F)Acc No.[id number]:09/24/2023 Patient:?Arely Jacob :1960???Age:63 Y???Sex:Female Address:[address] [place], [place] [address]Y PRATIK MCMANUS [phone] * true * Date:? Generated for Moses mcneil/Tevin/Kimmieitting on:?07/25/2024 12:20 PM EDT
== END 2024-07-25 11:20 | disposition home or self-care (01) ==
LOC: HO.LNP 11:19
PROVIDERS: Visit Provider Internal Medicine
DX: Z00.00 Encounter for general adult medical examination without abnormal findings (principal); D72.820 Lymphocytosis (symptomatic); E55.9 Vitamin D deficiency, unspecified; R73.03 Prediabetes
CPT/HCPCS: 80053; 80061; 81001; 82043; 82306; 82570; 83036; 85025; 87086

== ENCOUNTER 2024-08-06 07:29 | Outpatient (AMB) | payer MEDICARE, SELFPAY ==
--- OUTSIDE RECORDS SUMMARY | 2024-08-06 07:32 | XMS_ITS | Patient Health Record ---
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 Panel Fa st Reviewed date:07/25/2024 05:16:44 PM Interpretation: Performing Lab:[facility], [address] [place] [phone] Notes/Report: Sodium 143 135-145 mmol/L Potassium 3.7 [...] Panel Reviewed date:07/25/2024 05:01:06 PM Interpretation: Performing Lab:[facility], [address] [place] [phone] Notes/Report: Triglycerides 87 <150 mg/dL Desirable Triglyceride: [...] Total Reviewed date:07/25/2024 05:15:01 PM Interpretation: Performing Lab:[facility], [address] [place] [phone] Notes/Report: Vitamin D 25-OH Total 40.4 >30 [...] Random Reviewed date:07/25/2024 05:00:57 PM Interpretation: Performing Lab:[address] [phone] Notes/Report: Creatinine Urine 185.77 Microalbumin Urine 32.0 Microalbum/Creatinine Ratio Ur 17.2 <30 ug/mg cr Albumin/Creatinine Ratio Reference Ranges: Normal: < 30 ug/mg creatinine Microalbuminuria: 30 - 300 ug/mg creatinine Clinical Albuminuria: > 300 ug/mg creatinine Hemoglobin A1c Reviewed date:07/25/2024 05:00:46 PM Interpretation: Performing Lab:[address] [phone] Notes/Report: Hemoglobin A1c % 5.8 <6.0 % [...] average glucose, using the formula of the A0G-Dragcmj Average Glucose study (ADAG), Diabetes Care, Vol.31,#8, Nov. 2007 UA ClnCatch+Micro w/rflx Cul t Reviewed date:07/31/2024 01:06:17 PM Interpretation:07-31-2024 Performing Lab:[address] [phone] Notes/Report: Urine, Clean Catch Color Urine Yellow Appearance Urine Cloudy PH 5.5 5.0-9.0 Glucose Urine UA Negative Negative mg/dL Urine Blood Moderate (2+) Negative Specific [place] - Urine 1.025 1.005-1.025 Urine Protein Negative [...] date:01/01/2024 12:39:27 PM Interpretation: Performing Lab: Notes/Report: [facility] [address] [place] [address] XRay Report Signed Patient: Arely Jacob MR#: [id number] : 1960 Acct:[id number] Age/Sex: 63 / F ADM Date: 12/06/23 Loc: [facility] Attending Dr: Lobo Rivas MD Ordering Physician: Lobo Rivas MD Date of Service: 12/06/23 Procedure(s): XR shoulder RT min 2V Accession Number(s): [id number] cc: Fredy DeS antiago MD; Lobo Rivas MD EXAMINATION: XR SHOULDER, [...] 12/31/23 1737 DD/ 1116 TD/TT: 12/06/23 1120 Cardiac Cath Technologist: AUGUSTIN [facility] [address] [place] [address] XRay Report Signed Patient: Arely Jacob MR#: [id number] : 1960 Acct:[id number] Age/Sex: 63 / F ADM Date: 12/06/23 Loc: [facility] Attending Dr: Lobo Rivas MD Ordering Physician: Lobo Rivas MD Date of Service: 12/06/23 Procedure(s): XR shoulder RT min 2V Accession Number(s): [id number] cc: Fredy De Santiago MD; Lobo Rivas [...] 12/31/23 1737 DD/ 1116 TD/TT: 12/06/23 1120 Cardiac Cath Technologist: AUGUSTIN DIAZ tomosynthesis screening B I Reviewed date:04/24/2024 12:38:39 PM Interpretation: Performing Lab: Notes/Report: [facility] [address] [place] [address] Mammography Report Signed Patient: Arely Jacob MR#: [id number] : 1960 Acct:[id number] Age/Sex: 64 / F ADM Date: 04/11/24 Loc: HO.MAMMO Attending Dr: Fredy De Santiago MD Ordering Physician: Fredy De Santiago MD Results: 2Be nign Findings Date of Service: 04/11/24 Follow Up: 1 Year From Orig inal Mammogram Procedure(s): MM tomosynthesis screening BI Accession Number(s): [id number] cc: Fredy De Santiago MD EXAMINATION: MM [...] by: Yamel Rain DO 04/22/2024 05:43 PM [facility] [place]ict[place] By: Yamel Rain DO Signed By: <Electronically signed by Yamel Rain DO in OV> 04/22/24 1743 DD/ 0745 TD/TT: 04/11/24 0800 Cardiac Cath Technologist: [place] [facility] [address] [place] [address] Mammography Report Signed Patient: Arely Jacob MR#: [id number] : 1960 Acct:[id number] Age/Sex: 64 / F ADM Date: 04/11/24 Loc: HO.MAMMO Attending Dr: Fredy De Santiago MD Ordering Physician: Fredy De Santiago MD Results: 2Be nign Findings Date of Service: 04/11/24 Follow Up: 1 Year From Orig ina Mammogram Procedure(s): MM tomosynthesis screening BI Accession Number(s): [id number] cc: Fredy De Santiago MD EXAMINATION: MM [...] by: Yamel Rain DO 04/22/2024 05:43 PM [facility] [place]ictated By: Yamel Rain DO Signed By: <Electronically signed by Yamel Rain DO in OV> 04/22/24 1743 DD/ 0745 TD/TT: 04/11/24 0800 Cardiac Cath Technologist: CT NG by PCR Reviewed date:05/08/2024 05:48:45 PM Interpretation: Performing Lab:[facility], [address] [place] [phone] Notes/Report: Vaginal CT PCR NOT DETECTED Not [...] Panel Reviewed date:05/08/2024 05:51:05 PM Interpretation: Performing Lab:[address] [phone] Notes/Report: Trichomonas vaginalis PCR NOT DETECTED Not [...] Smear Reviewed date:05/13/2024 12:43:34 PM Interpretation: Performing Lab:[facility], [address] [place] [phone] Notes/Report: ---- Name: Martín Jacob Age/Sex: 64/F : 1960 Unit#: [id number] Attend Dr: Candice Petty CNM Re05/07/24 Status : DEP REF Location: [facility] Disch: ---- SPEC : [id number] RECD : 05/08/24 STATUS: DAJUAN SEGURA NUM: [id number] GARETH: 05/07/[address] [facility] [address]: Candice Petty CNM ENTERED: 05/08/24 34 [...] MD [facility] [address] [facility] [address] [place] [address] Candice Petty CNM [facility] [address] [facility] [address] [place] [address] ---- Signed (signature on file) LIBERTY Molina ([facility]) 05/13/24 1018 ---- END OF REPORT HPV High risk Reviewed date:05/13/2024 12:43:02 PM Interpretation: Performing Lab:[facility], [address] [place] [phone] Notes/Report: HPV High Risk Negative Negative HPV Genotype 16 Negative Negative HPV Genotype 18 Negative Negative HPV testing performed at [facility] (CLIA #[id number]), [address] [place] [address]. Testing for HPV was performed using the Christopher LIUS 6800 system. The presence of HPV in [...] date:05/29/2024 04:58:07 PM Interpretation: Performing Lab: Notes/Report: [address] [address] Ultrasound Report Signed Patient: Arely Jacob MR#: [id number] : 1960 Acct:[id number] Age/Sex: 64 / F ADM Date: 05/29/24 Loc: .US Attending Dr: Candice Petty CNM Ordering Physician: Candice Petty CNM Date of Service: 05/29/24 Procedure(s): US pelvic and transvaginal Accession Number(s): [id number] cc: Fredy De Santiago MD; Candice Petty [...] by: Edwin Dukes MD 05/29/2024 12:09 PM [facility] [place] Dictated By: Edwin Cuello MD Signed By: <Electronically signed by Edwin Manley MD in OV> 05/29/24 1209 DD/ 1105 TD/TT: 05/29/24 1135 Cardiac Cath Technologist: [place] [address] Ultrasound Report Signed Patient: Arely Jacob MR#: [id number] : 1960 Acct:[id number] Age/Sex: 64 / F ADM Date: 05/29/24 Loc: . Attending Dr: Candice Petty CNM Ordering Physician: Candice Petty CNM Date of Service: 05/29/24 Procedure(s): US pel lissette and transvaginal Accession Number(s): [id number] cc: Fredy De Santiago MD; Candice Petty [...] by: Edwin Dukes MD 05/29/2024 12:09 PM [facility] [place] Dictated By: Edwin Rosales MD Signed By: <Electronically signed by Edwin Manley MD in OV> 05/29/24 1209 DD/ 1105 TD/TT: 05/29/24 1135 Cardiac Cath Technologist: Pathology Reviewed date:07/10/2024 04:38:33 PM Interpretation: Performing Lab:[facility], [address] [place] [phone] Notes/Report: ---- Name: Martín Jacob Age/Sex: 64/F : 1960 Unit#: [id number] Attend Dr: Candice Petty CNM Re07/08/24 Status : DEP REF Location: [facility] Disch: ---- SPEC : [id number] RECD : 07/08/24 STATUS: DAJUAN SEGURA NUM: [id number] GARETH: 07/08/24-12[address] [facility] [address]: Candice Petty CNM ENTERED: 07/08/24 TYPE: Surgical OTHR DR: Fredy De Santiago [...] MD [facility] [address] [facility] [address] [place] [address] Candice Petty CNM [facility] [address] [facility] [address] [place] [address] ---- Signed (signature on file) Dori Wu 07/09/24 1531 ---- END OF REPORT Pathology Reviewed date:07/24/2024 06:29:37 PM Interpretation: Performing Lab:[facility], [address] [place] [phone] Notes/Report: ---- Name: Martín Jacob Age/Sex: 64/F : 1960 Unit#: [id number] Attend Dr: Marcin Muñoz MD Re07/23/24 Status : [facility] Location: [facility] Disch: ---- SPEC : [id number] REC STATUS: DAJUAN SEGURA NUM: [id number] GARETH: 07/23/[address] [facility] [address]: Marcin Muñoz MD ENTERED: 07/23/24 56 SP TYPE: Surgical OTHR DR: Fredy De Santiago MD ORDERED: HE Stain/4, Gross Micro L4/2 Diagnosis A. Endometrium, curettage: Benign atrophic endometrium and benign endocervical glandular epithelium ; no atypia or carcinoma. B. Endometrial poly p, resection: Fragments of benign endometrial polyp; no atypia or carcinoma. Clinical History Pre-Op Dx: Bleeding Post-Op Dx: Endometr ial polyp Microscopic Description Microscopic sections reviewed. Material Received A. [facility] B. Endometrial polyp Gross Description Received two [...] Martín Jacob Age/Sex: 64/F : 1960 Unit#: [id number] Attend Dr: Marcin Muñoz MD Re07/23/24 Status : [facility] Location: [facility] Disch: ---- SPEC : [id number] RECD : 07/23/24 STATUS: DAJUAN SEGURA NUM: [id number] GARETH: 07/23/[address] [facility] [address]: Marcin Muñoz MD ENTERED: 07/23/24 SP TYPE: Surgical OTHR DR: Fredy De Santiago MD ORDERED: HE Stain/4, Gross Micro L4/2 Copies To: Fredy De Santiago MD [facility] [address] [place] [address] Marcin Muñoz MD [facility] [address] [place] [address] ---- Signed (signature on file) Dori Wu 07/24/24 1725 ---- END OF REPORT Urine Culture Reviewed date:07/27/2024 09:07:25 AM Interpretation: Performing Lab:[facility], [address] [place] [phone] Notes/Report: Urine Culture Report Result Urine Culture < 10,000 cfu/ml Reason For Referral No Information Medications Medication [...] ONE TIME PER WEEK for 90 Active Immunizations Vaccine Route Administration Date Status [...] Problem Status W/U Status Risk Notes Problem 73772141 Lymphocytosis (D72.820) Active confirmed Problem 57410712 Other osteoporosis without current pathological fracture (M81.8) Active confirmed Problem 668449127 Prediabetes (R73.03) Active confirmed Problem 244871617 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) Active confirmed Problem 594508347 BMI 40.0-44.9, adult (Z68.41) Active confirmed Problem 094542958 Low vitamin D level (E55.9) Active confirmed Problem 985640523 Abnormal mammogram of both breasts (R92.8) Active confirmed Problem 876849161443427 At high risk for breast cancer (Z91.89) Active confirmed Vital Signs Blood pressure diastolic 80 mm Hg 07/31/2024 Height 59.5 in 07/31/2024 Blood pressure systolic 152 mm Hg 07/31/2024 Weight 217 lbs 07/31/2024 BMI 43.09 kg/m2 07/31/2024 Encounters Encounter Location Date Provider Diagnosis Fredy De Santiago MD [address] [place] [address] Drive [address] [place] [id number] 07/25/2024 Fredy De Santiago Blood tests for routine general physical examination Z00.00 ; Lymphocytosis D72.820 ; Low vitamin D level E55.9 and Prediabetes R73.03 Fredy De Santiago MD [address] [place] [id number] 07/31/2024 Fredy De Santiago Adult general medica l exam Z00.00 ; Lymphocytosis D72.820 ; Low vitamin D level E55.9 ; Prediabetes R73.03 ; Hematuria R31.9 and Depression screening Z13.31 Fredy De Santiago MD [address] [place] [id number] 09/24/2023 Fredy De Santiago Assessments Encounter Date Diagnosis (ICD Code) Assessment Notes Treatment Notes Treatment Clinical Notes Section Notes 07/25/2024 Blood tests for routine general physical examination (ICD-10 - Z00.00) 07/31/2024 Adult general medical exam (ICD-10 - Z00.00) labs reviewed and discussed with patient 07/31/2024 Lymphocytosis (ICD-10 - D72.820) chronic, will continue to monitor, stable at present 07/25/2024 Lymphocytosis (ICD-10 - D72.820) 07/31/2024 Low vitamin D level (ICD-10 - E55.9) well controlled, will continue curent regiment 07/25/2024 Low vitamin D level (ICD-10 - E55.9) 07/31/2024 Prediabetes (ICD-10 - R73.03) doing well, no need formedication at this time 07/25/2024 Prediabetes (ICD-10 - R73.03) 07/31/2024 Hematuria (ICD-10 - R31.9) had just had a d/c, will continue to monitor 07/31/2024 Depression screening (ICD-10 - Z13.31) negative screen Plan Of Treatment Pending Test Test Name Order Date Electrocardiogram (EKG) 02/17/2016 Electrocardiogram (EKG) 05/25/2017 Electrocardiogram (EKG) 05/31/2018 BONE DENSITY DEXA 07/08/2020 MM screening mammo BI 07/08/2020 NM bone scan whole body 12/15/2021 Next Appt Details Provider Name:Fredycheryl Hussein ier, 08/29/2024 08:30:00 AM, [address] [place] [address], Suite [facility], [place], [place], [phone], Provider Name:Fredy Hussein ier, 01/30/2025 09:00:00 AM, [address] [place] [address], [place] [address], [place], [place], [phone], Provider Name:Fredy Be Keenan ier, 07/28/2025 07:30:00 AM, [address] [place] [address], Suite [facility], [place], [place], [phone], Provider Name:Fredy Be Keenan ier, 08/04/2025 08:30:00 AM, [address] [place] [address], Suite [facility], [place], [place], [phone], Insurance Providers Payer Name Payer Address Payer Phone Subscriber Number Group Number Insured Name Patient Relationship to Insured Coverage Start Date Coverage End Date [employer]AN [facility] [address] [place] [phone] [id number] Arely Jacob Self - patient is the insured Medical (General) History Medical History History ICD Code colonoscopy done 08/17/[address] Dario rodrigez 10 years
--- OUTSIDE RECORDS SUMMARY | 2024-08-06 07:32 | XMS_ITS ---
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 [address] [place] [phone] 09/24/2023 Fredy De Santiago Plan Of Treatment Next Appt Details Provider Name:Fredy velasquez, 08/29/2024 08:30:00 AM, [address] [place] [address], [address], [phone], Provider Name:Fredy velasquez, 01/30/2025 09:00:00 AM, [address] [place] [address], [address], [phone], Provider Name:Fredy velasquez, 07/28/2025 07:30:00 AM, [address] [place] [address], [address], [phone], Provider Name:Fredycheryl velasquez, 08/04/2025 08:30:00 AM, [address], [address], [place], [phone], Progress Notes * Arely JACOB ADOB:[birth year] (63 yo F)Acc No.[id number]:09/24/2023 Patient:?Arely Jacob :1960???Age:63 Y???Sex:Female Address:[address] [place] [address] [place] [phone] * true * Date:? Generated for Moses mcneil/Tevin/eTransmitting on:?08/06/2024 07:32 AM EDT
--- OUTSIDE RECORDS SUMMARY | 2024-08-06 07:33 | XMS_ITS ---
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 Name Role Phone Fredy De Santiago Primary [...] Date Provider Diagnosis Fredy De Santiago MD [address] [place] [address] [place] [phone] 07/31/2024 Fredy De Santiago Adult general medica [...] continue to monitor Depression screening negative screen Future Test Test Name Order Date Urinalysis and Microscopic 08/28/2024 Next Appt Details Follow Up: 6 Months, Reason: Provider Name:Fredy velasquez, 08/29/2024 08:30:00 AM, [address] [place] [address], [address], [place], [place], [phone], Provider Name:Fredy velasquez, 01/30/2025 09:00:00 AM, [address] [place] [address], [address], [place], [place], [phone], Provider Name:Fredy velasquez, 07/28/2025 07:30:00 AM, [address] [place] [address], Suite [facility], [place], [place], [phone], Provider Name:Fredy velasquez, 08/04/2025 08:30:00 AM, [address] [place] [address], Suite [facility], [place], [place], [phone], Progress Notes * Arely JACOB ADOB:[birth year] (64 yo F)Acc No.[id number]:07/31/2024 Progress Notes Patient:?Arely JACOB Provider:?Fredy De Santiago MD :1960???Age:64 Y???Sex:Female D ate:07/31/2024 Address:[address] [place], [place] [address], [id number] Subjective: * Chief Complaints: * ???annual visit/ must see He maturia * HPI: ???Depression Screening:?PHQ-9?Little interest or pleasure [...] vision impairment??Glasses,?Does the patient have a cognition impairment??No.?Fall Risk:?History?Have you had any falls with injury in the past year??No,?Have you had two or more falls in the past year??No.?SDOH Questions:?SDOH Questions?In the past year have you been worried about losing housing??No,?In the past year have you or any family members you live with been unable to get any of the following when it was really needed? Check all that apply:?None.?Symptom(s):? patient is a 64 yo female here for annual visit eith review of recent labs and follow up of chronic issues, has recent evaluation by [employer]. had a d/c. * ROS:?General/Constitutional:?Change in appetite?denies.?Chills?denies.?Fever?denies.?Ophthalmologic:?Blurred vision?denies.?Discharge?denies.?Pain?denies.?ENT:?Decreased hearing?denies.?Sore throat?denies.?Swollen glands?denies.?Endocrine:?Cold intolerance?denies.?Excessive thirst?denies.?Heat intolerance?denies.?Weight loss?denies.?Respiratory:?Cough?denies.?Shortness of breath at rest?denies.?Shortness of breath with exertion?denies.?Wheezing?denies.?Cardiovascular:?Chest pain at rest?denies.?Chest pain with exertion?denies.?Irregular heartbeat?denies.?Shortness of breath?denies.?Gastrointestinal:?Abdominal pain?denies.?Change in bowel habits?denies.?Diarrhea?denies.?Nausea?denies.?Rectal bleeding?denies.?Vomiting?denies .?Genitourinary:?Blood in urine?denies.?Difficulty urinating?denies.?Frequent urination?denies.?Urinary incontinence?Denies.?Musculoskeletal:?Painful joints?denies.?Weakness?denies.?Skin:?Dry skin?denies.?Itching?denies.?Denies?Mole(s),? changes in moles, new moles or [...] full-time. Pets: none. Travel outside of the [place]: no. ???Stopped drinking x 1 month giving liver [...] hives yes[Allergies Verified] Objective: * Vitals:?Ht: 59.5, Wt: 217, B OK:43.09, BP:152/80, Repeat BP:140/78, Wt-k.43. * ???Past Orders: ???Lab:Lipid Panel (Order Da 07/25/2024) (Collection Date & Time - 07/25/2024 07:00 AM) ? Value Reference Range ?Triglycerides 87 <150 - mg/dL ?Cholesterol 188 <200 - m g/dL ?LDL Cholesterol Calculated 96 <100 - mg/dL ?HDL Cholesterol 75 >40 - mg/dL ???Lab:Vitamin D 25-OH Total (Order 07/25/2024) (Collection & Time 07/25/2024 07:00 AM) ? Value Reference Range ?Vitamin D 25-OH Total 40.4 >30 - ng/mL ???Lab:Microalbumin, Random (Order 07/25/2024) (Collection & Time - 07/25/2024 07:00 AM) ? Value Reference Range ?Creatinine Urine 185.77 - m g/dL ?Microalbumin Urine 32.0 - mg/L ?Microalbum Creatinin e Ratio Ur 17.2 <30 - ug/mg cr ???Lab:Hemoglobin A1c (Order 07/25/2024) (Collection & Time - 07/25/2024 07:00 AM) ? Value Reference Range ?Hemoglobin A1c % 5.8 <6. 0 - % ?Estimated Average Glucose 120 - mg/dL ???Lab:Complete Blood Count Auto Diff (Order 07/25/2024) (Collection & Time - 07/25/2024 07:00 AM) ? Value Reference Range ?White Blood Count 9.6 4. 8-10.8 - X10*3/uL ?Red Blood Count 4.35 4.20 -5.50 - X10*6/uL ?Hemoglobin 12.9 12.0-16.0 - g/dl ?Hematocrit 40.1 37.0-47.0 - % ?Mean Corpuscular Volume 92.2 80.0-98.0 - fL ?Mean Corpuscular Hemoglobin 29.7 27.0-33.0 - pg ?Mean Corpuscular HGB Conc 32.2 31.0-35.0 - g/dl ?Red Cell Distributio n Width 14.3 11.0-16.0 - % ?Platelet Count 226 160-4 00 - X10*3/uL ?Mean Platelet Volume 10.6 9.4-12.3 - fL ?Neutrophils Percent Auto 40.4 L 45-73 - % ?Imm Gran Pct Auto 0.4 0. 0-0.4 - % ?Lymphocytes Percent Auto 49.4 H 20-40 - % ?Monocytes Percent Auto 8.9 2-11 - % ?Eosinophils Percent Auto 0.4 0-4 - % ?Basophils Percent Auto 0.5 0-2 - % ?NRBC Pct Auto 0.0 0.0-0. 2 - /100WBC ?Neutrophils Absolute Auto 3.9 2.0-8.3 - x10*3/uL ?Imm Gran Abs Auto 0.04 H 0. 00-0.03 - X10*3/uL ?Lymphocytes Absolute Auto 4.7 1.2-4.9 - X10*3/uL ?Monocytes Absolute Auto 0.9 0.1-1.2 - X10*3/uL ?Eosinophils Absolute Auto 0.0 0.0-0.4 - X10*3/uL ?Basophils Absolute Auto 0.1 0.0-0.2 - X10*3/uL ?NRBC Abs Auto 0.000 0.0-0. 012 - X10*3/uL ???Lab:Urine Culture (Order Date - 07/25/2024) (Collection Date & Time - 07/25/2024) ? Value Reference Range ?Urine Culture < 10,000 cfu/ml - ???Lab:Comprehensive [place]. P howard Fast (Order Date - 07/25/2024) (Collection Date & Time - 07/25/2024 07:00 AM) ? Value Reference Range ?Sodium 143 135-145 - mmo l/L ?Bilirubin Total 0.5 0.0- 1.0 - mg/dL ?Aspartate Amino Transferase 23 5-31 - U/L ?Alanine Aminotransferase 24 0-31 - U/L ?Total Protein 7.1 6.5-8. 0 - g/dL ?Albumin Level 3.9 3.5-5. 0 - g/dL ?Alkaline Phosphatase 62 39-117 - U/L ?Potassium 3.7 3.3-5.1 - mmol/L ?Chloride 107 96-108 - mm ol/L ?Carbon Dioxide 29 22-29 - mmol/L ?Anion Gap 11 L 12-20 - ?Blood Urea Nitrogen 16 9-16 - mg/dL ?Creatinine 0.71 0.5-1.4 - mg/dL ?Estimated Glomerular Filt Rate > 60 - ?Glucose Fasting 81 60-9 9 - mg/dL ?Calcium 8.6 8.4-10.2 - m g/dL * Examination: ???General Examination: ?GENERAL APPEARANCE:?well developed, well nourished, in no acute distress.?HEAD:?normocephalic, atraumatic.?EYES:?pupils equal, round, reactive to light and accommodation, sclera non-icteric.?EARS:?normal.?ORAL CAVITY:?mucosa moist.?THROAT:?clear.?NECK/THYROID:?neck supple, full range of motion, no cervical lymphadenopathy, no bruits.?SKIN:?warm and dry, no suspicious lesions.?HEART:?regular rate and rhythm, S1, S2 normal, no murmurs.?LUNGS:?clear to auscultation bilaterally.?BREASTS:?done by [employer].?ABDOMEN:?soft, nontender, nondistended, bowel sounds present, normal, no organomegaly , no masses palpable.?RECTAL EXAM:?refused.?FEMALE GENITOURINARY:?done by [employer].?EXTREMITIES:?no clubbing, cyanosis, or edema.?NEUROLOGIC:?nonfocal, motor strength normal upper and lower extremities, sensory exam intact.? Assessment: * Assessment: 1.?Adult general medical exa m - Z00.00 (Primary)???2.?Lymphocytosis - D72.820???3.?Low vitamin D level - E55.9???4.?Prediabetes - R73.03???5.?Hematuria - R31.9???6.?Depression screening - Z13.31??? Plan: * Treatment: 2.?Lymphocytosis? Notes: chronic, will continue to monitor, stable at present?? 3.?Low vitamin D level? Notes: well controlled, will continue curent regiment?? 4.?Prediabetes? Notes: doing well, no need formedication at this time?? 5.?Hematuria?LAB: Urinalysis and Microscopic (Ordered for 08/28/2024) Notes: had just had a d/c, will continue to monitor?? 6.?Depression screening? Notes: negative screen?? * Procedure Codes:? * Follow Up:?6 Months * * Sign off status: Completed true * Provider:?Fredy De Santiago MD Date:?0 07/31/2024 Generated for Moses mcneil/Tevin/eTransmitting on:?08/06/2024 07:32 AM EDT History and Physical Notes * HPI (History of Present Illness) Category Sub-Category Detail Notes Category Not es Symptom(s) patient is a 64 yo female here for annual visit eith review of recent labs and follow up of chronic issues, has recent evaluation by [employer]. had a d/c Depression Screening PHQ-9 Little [...] all Thoughts that you would be b raoms off or of hurting yourself in some [...] had two or more falls in the year?: No Communication Needs Communication Needs Does [...] cyanosi s, or edema BREASTS: done by [employer] RECTAL EXAM: refused FEMALE GENITOURINARY: done by [employer] ORAL CAVITY: mucosa moist
--- OUTSIDE RECORDS SUMMARY | 2024-08-06 07:33 | XMS_ITS ---
Author Organization Fredy De Santiago MD Address [address] [place], [place] [phone] Care Team Providers Care Benchroom Shop Optician Name Role Phone Fredy De Santiago Primary Care Provider Results Component Value Reference Range Notes Complete Blood Count Auto Di ff Reviewed date:07/25/2024 05:17:26 PM Interpretation: Performing Lab:[facility], [address] [place] [phone] Notes/Report: White Blood Count 9.6 4.8-10.8 X10*3/uL [...] NRBC Abs Auto 0.000 0.0-0.012 X10*3/uL Comprehensive [place]. Panel Fa Reviewed date:07/25/2024 05:16:44 PM Interpretation: Performing Lab:[facility], [address] [place] [phone] Notes/Report: Sodium 143 135-145 mmol/L Potassium 3.7 [...] Panel Reviewed date:07/25/2024 05:01:06 PM Interpretation: Performing Lab:[facility], [address] [place] [phone] Notes/Report: Triglycerides 87 <150 mg/dL Desirable Triglyceride: [...] Total Reviewed date:07/25/2024 05:15:01 PM Interpretation: Performing Lab:[facility], [address] [place] [phone] Notes/Report: Vitamin D 25-OH Total 40.4 >30 [...] Random Reviewed date:07/25/2024 05:00:57 PM Interpretation: Performing Lab:[facility], [address] [place] [phone] Notes/Report: Creatinine Urine 185.77 Microalbumin Urine 32.0 Microalbum/Creatinine Ratio Ur 17.2 <30 ug/mg cr Albumin/Creatinine Ratio Reference Ranges: Normal: < 30 ug/mg creatinine Microalbuminuria: 30 - 300 ug/mg creatinine Clinical Albuminuria: > 300 ug/mg creatinine Hemoglobin A1c Reviewed date:07/25/2024 05:00:46 PM Interpretation: Performing Lab:[facility], [address] [place] [phone] Notes/Report: Hemoglobin A1c % 5.8 <6.0 % [...] average glucose, using the formula of the Y0H-Vyfozbo Average Glucose study (ADAG), Diabetes Care, Vol.31,#8, 2007 UA ClnCatch+Micro w/rflx Cul t Reviewed date:07/31/2024 01:06:17 PM Interpretation:07-31-2024 Performing Lab:[facility], [address] [place] [phone] Notes/Report: Urine, Clean Catch Color Urine Yellow Appearance Urine Cloudy PH 5.5 5.0-9.0 Glucose Urine UA Negative Negative mg/dL Urine Blood Moderate (2+) Negative Specific [facility] - Urine 1.025 1.005-1.025 Urine Protein Negative [...] Date Provider Diagnosis Fredy De Santiago MD [address] [place] [address] [place] [phone] 07/25/2024 Fredy De Santiago Blood tests for [...] Details Provider Name:Fredy velasquez, 08/29/2024 08:30:00 AM, [address] [place] [address], [address], [phone], Provider Name:Fredy velasquez, 01/30/2025 09:00:00 AM, [address] [place] [address], [address], [phone], Provider Name:Fredy velasquez, 07/28/2025 07:30:00 AM, [address] [place] [address], [address], [phone], Provider Name:Fredy velasquez, 08/04/2025 08:30:00 AM, [address] [place] [address], [address], [phone], Progress Notes * Arely JACOB ADOB:[birth year] (64 yo F)Acc No.[id number]:07/25/2024 Progress Note Patient:?Arely JACOB Provider:?Fredy De Santiago MD :1960???Age:64 Y???Sex:Female D ate:07/25/2024 Address:[address] [place], [place] [phone] Subjective: * Chief Complaints: * ???1. Yearly fasting labs. * Medical History:? Objective: * Vitals:? Assessment: * Assessment: 1.?Blood tests for routine g eneral physical examination - Z00.00 (Primary)???2.?Lymphocytosis - D72.820???3.?Low vitamin D level - E55.9???4.?Prediabetes - R73.03??? Plan: * Treatment: 2.?Lymphocytosis?LAB: Complete Blood Count Auto Diff (Collection Date & Time - 07/25/2024 07:00 AM) ?LAB: Comprehensive [place]. Panel Fast (Collection Date & Time - 07/25/2024 07:00 AM) ?LAB: Lipid Panel (Collection Date & Time - 07/25/2024 07:00 AM) ?LAB: Vitamin D 25-OH Total (Collection Date & Time - 07/25/2024 07:00 AM) ?LAB: Microalbumin, Random (Collection Date & Time 07/25/2024 07:00 AM) ?LAB: Hemoglobin A1c (Collection Date & Time - 07/25/2024 07:00 AM) ?LAB: UA ClnCatch+Micro w/rflx Cult (Collection & Time - 07/25/2024 07:00 AM) 3.?Low vitamin D level?LAB: Complete Blood Count Auto Diff (Collection Date & Time - 07/25/2024 07:00 AM) ?LAB: Comprehensive [place]. Panel Fast (Collection Date & Time - 07/25/2024 07:00 AM) ?LAB: Lipid Panel (Collection Date & Time - 07/25/2024 07:00 AM) ?LAB: Vitamin D 25-OH Total (Collection Date & Time - 07/25/2024 07:00 AM) ?LAB: Microalbumin, Random (Collection Date & Time - 07/25/2024 07:00 AM) ?LAB: Hemoglobin A1c (Collection Date & Time - 07/25/2024 07:00 AM) ?LAB: UA ClnCatch+Micro w/rflx Cult (Collection Date & Time - 07/25/2024 07:00 AM) 4.?Prediabetes?LAB: Complete Blood Count Auto Diff (Collection Date & Time - 07/25/2024 07:00 AM) ?LAB: Comprehensive [place]. Panel Fast (Collection Date & Time - 07/25/2024 07:00 AM) ?LAB: Lipid Panel (Collection Date & Time - 07/25/2024 07:00 AM) ?LAB: Vitamin D 25-OH Total (Collection Date & Time - 07/25/2024 07:00 AM) ?LAB: Microalbumin, Random (Collection Date & Time - 07/25/2024 07:00 AM) ?LAB: Hemoglobin A1c (Collection Date & Time - 07/25/2024 07:00 AM) ?LAB: UA ClnCatch+Micro w/rflx Cult (Collection Date & Time - 07/25/2024 07:00 AM) * Procedure Codes:?31196 VENIP UNCT, ROUTINE* * * The named appointment provid er may or may not be the originator of this progress note, and it is not deemed complete until electronically signed by the appointment provider. Sign off status: Pending * Provider:?Fredy De Santiago MD Date:?0 07/25/2024 Generated for Moses mcneil/Tevin/Kimmieitting on:?08/06/2024 07:32 AM EDT
--- NOTE | 2024-08-06 07:39 | A.OFFVIS_ITS ---
Vital Signs 08/06/24 07:41 Height 4 ft 11 in Weight 212 lb BMI 42.8 BP 128/86 Intake Visit Reasons: post op Allergies grapefruit [Grapefruit] Allergy (Mild, Verified 07/15/24 10:33) RASH Penicillins Allergy (Mild, Verified 07/15/24 10:33) BLISTERS penicillin V Allergy (Unknown, Verified 07/15/24 10:33) Unknown HPI Comments Details: The patient is presenting post hysteroscopy D&C no complaints minimal vaginal bleeding no feverishness chills or abdominal pain. The pathology showed the following: A. Endometrium, curettage: Benign atrophic endometrium and benign endocervical glandular epithelium; no atypia or carcinoma. B. Endometrial polyp, resection: Fragments of benign endometrial polyp; no atypia or carcinoma. PFSH Medical History Postmenopausal bleeding PCB (post coital bleeding) Breast calcification, left COVID-19 vaccine series completed BRCA negative Vitamin D deficiency Age related osteoporosis Surgical History Hx of laparoscopic gastric banding Hx of cholecystectomy History of arthroscopy of right shoulder History of arthroscopy of left shoulder Family History Mother History of breast cancer Sister History of breast cancer Sister History of breast cancer Maternal Aunt Ovarian cancer Social History Are you a primary skin care technician to a significant other at home: No Do you presently have visiting nurse or other home services: No Alcohol intake: current Alcohol intake frequency: a few times a week Patient Tobacco Use Status: Never used Tobacco Current occupational status: unemployed Current occupation: right hand dominant Sexual orientation: Straight/Heterosexual Gender identity: Female Female Reproductive History Menstrual Age of Menarche: 10 Review of Systems Const All systems reviewed & are unremarkable except as noted in HPI and below Reports as per HPI and Reports no additional complaints GI Reports no additional complaints Reports no additional complaints Physical Exam Vital Signs: Last Vital Signs BP 128/86 08/06/24 07:41 Assessment & Plan Assessment & Plan (1) Postmenopausal bleeding: Code(s): N95.0 - Postmenopausal bleeding Category: Medical Plan: Discussed with the patient the intraoperative finding, pathology results. Discussed with the patient the sensitivity, specificity, positive and negative predictive value, of endometrial biopsy in detecting endometrial pathology including but not limited to endometrial hyperplasia, cancer and other pathology; instructed the patient to call in case vaginal bleeding recurs, the next step will be to proceed with further endometrial sampling evaluation to rule out endometrial pathology. All questions answered and the patient verbalized understanding and agreed with the plan. Coding Level of Care Code Est Pt Level 3 (71979) Diagnoses Postmenopausal bleeding N95.0
[2024-08-06 07:41] VITALS: BP 128/86; BMI 42.8
== END 2024-08-06 08:13 | disposition home or self-care (01) ==
LOC: HO.HWS 07:29
PROVIDERS: PCP Internal Medicine; Visit Provider Obstetrics & Gynecology
DX: N95.0 Postmenopausal bleeding (principal)
CPT/HCPCS: 99213

== ENCOUNTER → 2024-08-06 07:29 | Outpatient (BNVA) | payer MEDICARE, SELFPAY | PROVIDERS: PCP Internal Medicine; Visit Provider Obstetrics & Gynecology | DX: N95.0 Postmenopausal bleeding (principal) | CPT/HCPCS: 99212 ==

== ENCOUNTER 2024-08-29 10:20 | Outpatient (REF) | payer MEDICARE, SELFPAY ==
--- OUTSIDE RECORDS SUMMARY | 2024-08-29 10:39 | XMS_ITS | Patient Health Record ---
Author Organization Fredy De Santiago MD Address [address] [place], [place] [address] Care Team Providers Care Superintendent House Name Role Phone Fredy De Santiago Primary Care Provider Allergies Allergen (clinical drug ingredient) Drug/Non Drug Allergy documented on EMR Reaction Allergy Type Onset Date Status Penicillin (uncoded) hives Allergy Active Results Component Value Reference Range Notes Complete Blood Count Auto Di ff Reviewed date:07/25/2024 05:17:26 PM Interpretation: Performing Lab:[facility], [address] [place] [phone] Notes/Report: White Blood Count 9.6 4.8-10.8 X10*3/uL [...] NRBC Abs Auto 0.000 0.0-0.012 X10*3/uL Comprehensive [place]. Panel Fa st Reviewed date:07/25/2024 05:16:44 PM Interpretation: Performing Lab:[facility], [address] [place] [phone] Notes/Report: Sodium 143 135-145 mmol/L Potassium 3.7 [...] Panel Reviewed date:07/25/2024 05:01:06 PM Interpretation: Performing Lab:[facility], [address] [place] [phone] Notes/Report: Triglycerides 87 <150 mg/dL Desirable Triglyceride: [...] Total Reviewed date:07/25/2024 05:15:01 PM Interpretation: Performing Lab:[facility], [address] [place] [phone] Notes/Report: Vitamin D 25-OH Total 40.4 >30 [...] Random Reviewed date:07/25/2024 05:00:57 PM Interpretation: Performing Lab:[address] [phone] Notes/Report: Creatinine Urine 185.77 Microalbumin Urine 32.0 Microalbum/Creatinine Ratio Ur 17.2 <30 ug/mg cr Albumin/Creatinine Ratio Reference Ranges: Normal: < 30 ug/mg creatinine Microalbuminuria: 30 - 300 ug/mg creatinine Clinical Albuminuria: > 300 ug/mg creatinine Hemoglobin A1c Reviewed date:07/25/2024 05:00:46 PM Interpretation: Performing Lab:[address] [phone] Notes/Report: Hemoglobin A1c % 5.8 <6.0 % [...] average glucose, using the formula of the G1U-Jbuvnic Average Glucose study (ADAG), Diabetes Care, Vol.31,#8, Nov. 2007 UA ClnCatch+Micro w/rflx Cul t Reviewed date:07/31/2024 01:06:17 PM Interpretation:07-31-2024 Performing Lab:[address] [phone] Notes/Report: Urine, Clean Catch Color Urine Yellow Appearance Urine Cloudy PH 5.5 5.0-9.0 Glucose Urine UA Negative Negative mg/dL Urine Blood Moderate (2+) Negative Specific [place] - Urine 1.025 1.005-1.025 Urine Protein Negative [...] [facility] [address] [place] [address] XRay Report Signed Patient: Arely Jacob MR#: [id number] : 1960 Acct:[id number] Age/Sex: 63 / F ADM Date: 12/06/23 Loc: [facility] Attending Dr: Lobo Rivas MD Ordering Physician: Lobo Rivas MD Date of Service: 12/06/23 Procedure(s): XR shoulder RT min 2V Accession Number(s): [id number] cc: Fredy De Santiago MD; Lobo Rivas [...] 12/31/23 1737 DD/ 1116 TD/TT: 12/06/23 1120 Staffing Branch Manager: AUGUSTIN [place] [facility] [address] [place] [address] XRay Report Signed Patient: Arely Jacob MR#: [id number] : 1960 Acct:[id number] Age/Sex: 63 / F ADM Date: 12/06/23 Loc: [facility] Attending Dr: Lobo Rivas MD Ordering Physician: Lobo Rivas MD Date of Service: 12/06/23 Procedure(s): XR shoulder RT min 2V Accession Number(s): [id number] cc: Fredy De Santiago MD; Lobo Rivas [...] 12/31/23 1737 DD/ 1116 TD/TT: 12/06/23 1120 Staffing Branch Manager: AUGUSTIN DIAZ tomosynthesis screening B I Reviewed date:04/24/2024 12:38:39 PM Interpretation: Performing Lab: Notes/Report: [facility] [address] [place] [address] Mammography Report Signed Patient: Arely Jacob MR#: [id number] : 1960 Acct:[id number] Age/Sex: 64 / F ADM Date: 04/11/24 Loc: HO.MAMMO Attending Dr: Fredy De Santiago MD Ordering Physician: Fredy De Santiago MD Results: 2Be nign Findings Date of Service: 04/11/24 Follow Up: 1 Year From Orig inal Mammogram Procedure(s): MM tomosynthesis screening BI Accession Number(s): [id number] cc: Fredy De Santiago MD EXAMINATION: MM [...] by: Yamel Rain DO 04/22/2024 05:43 PM [facility] Dictated By: Yamel Rain DO Signed By: <Electronically signed by Yamel Rain DO in OV> 04/22/24 1743 DD/ 0745 TD/TT: 04/11/24 0800 Staffing Branch Manager: [place] [facility] [address] [place] [address] Mammography Report Signed Patient: Arely Jacob MR#: [id number] : 1960 Acct:[id number] Age/Sex: 64 / F ADM Date: 04/11/24 Loc: HO.MAMMO Attending Dr: Fredy De Santiago MD Ordering Physician: Fredy De Santiago MD Results: 2Be nign Findings Date of Service: 04/11/24 Follow Up: 1 Year From Orig ina Mammogram Procedure(s): MM tomosynthesis screening BI Accession Number(s): [id number] cc: Fredy De Santiago MD EXAMINATION: MM [...] by: Yamel Rain DO 04/22/2024 05:43 PM [facility] Dictated By: Yamel Rain DO Signed By: <Electronically signed by Yamel Rain DO in OV> 04/22/24 1743 DD/ 0745 TD/TT: 04/11/24 0800 Staffing Branch Manager: CT NG by PCR Reviewed date:05/08/2024 05:48:45 PM Interpretation: Performing Lab:[facility], [address] [place] [phone] Notes/Report: Vaginal CT PCR NOT DETECTED Not [...] Panel Reviewed date:05/08/2024 05:51:05 PM Interpretation: Performing Lab:[address] [phone] Notes/Report: Trichomonas vaginalis PCR NOT DETECTED Not [...] Smear Reviewed date:05/13/2024 12:43:34 PM Interpretation: Performing Lab:[facility], [address] [place] [phone] Notes/Report: ---- Name: Martín Jacob Age/Sex: 64/F : 1960 Unit#: [id number] Attend Dr: Candice Petty CNM Re05/07/24 Status : DEP REF Location: [facility] Disch: ---- SPEC : [id number] RECD : 05/08/24 STATUS: DAJUAN SEGURA NUM: [id number] GARETH: 05/07/24 [facility] DR: Candice Petty CNM ENTERED: 05/08/24 34 [...] MD [facility] [address] [facility] [address] [place] [address] Candice Petty CNM [facility] [address] [facility] [address] [place] [address] ---- Signed (signature on file) LIBERTY Molina ([facility]) 05/13/24 1018 ---- END OF REPORT HPV High risk Reviewed date:05/13/2024 12:43:02 PM Interpretation: Performing Lab:[facility], [address] [place] [phone] Notes/Report: HPV High Risk Negative Negative HPV Genotype 16 Negative Negative HPV Genotype 18 Negative Negative HPV testing performed at [facility] (CLIA #[id number]), [address] [place] [address]. Testing for HPV was performed using the [...] date:05/29/2024 04:58:07 PM Interpretation: Performing Lab: Notes/Report: [address] [address] Ultrasound Report Signed Patient: Arely Jacob MR#: [id number] : 1960 Acct:[id number] Age/Sex: 64 / F ADM Date: 05/29/24 Loc: .US Attending Dr: Candice Petty CNM Ordering Physician: Candice Petty CNM Date of Service: 05/29/24 Procedure(s): US pelvic and transvaginal Accession Number(s): [id number] cc: Fredy De Santiago MD; Candice Petty [...] by: Edwin Dukes MD 05/29/2024 12:09 PM [facility] Dictated By: Edwin Cuello MD Signed By: <Electronically signed by Edwin Manley MD in OV> 05/29/24 1209 DD/ 1105 TD/TT: 05/29/24 1135 Staffing Branch Manager: [place] [address] Ultrasound Report Signed Patient: Arely Jacob MR#: [id number] : 1960 Acct:[id number] Age/Sex: 64 / F ADM Date: 05/29/24 Loc: . Attending Dr: Candice Petty CNM Ordering Physician: Candice Petty CNM Date of Service: 05/29/24 Procedure(s): US pel lissette and transvaginal Accession Number(s): [id number] cc: Fredy De Santiago MD; Candice Petty [...] by: Edwin Dukes MD 05/29/2024 12:09 PM [facility] Dictated By: Edwin Rosales MD Signed By: <Electronically signed by Edwin Manley MD in OV> 05/29/24 1209 DD/ 1105 TD/TT: 05/29/24 1135 Staffing Branch Manager: Pathology Reviewed date:07/10/2024 04:38:33 PM Interpretation: Performing Lab:[facility], [address] [place] [phone] Notes/Report: ---- Name: Martín Jacob Age/Sex: 64/F : 1960 Unit#: [id number] Attend Dr: Candice Petty CNM Re07/08/24 Status : DEP REF Location: [facility] Disch: ---- SPEC : [id number] RECD : 07/08/24 STATUS: DAJUAN SEGURA NUM: [id number] GARETH: 07/08/24-1231 [facility] DR: Candice Petty CNM ENTERED: 07/08/24 TYPE: [...] MD [facility] [address] [facility] [address] [place] [address] Candice Petty CNM [facility] [address] [facility] [address] [place] [address] ---- Signed (signature on file) Dori Wu 07/09/24 1531 ---- END OF REPORT Pathology Reviewed date:07/24/2024 06:29:37 PM Interpretation: Performing Lab:[facility], [address] [place] [phone] Notes/Report: ---- Name: Martín Jacob Age/Sex: 64/F : 1960 Unit#: [id number] Attend Dr: Marcin Muñoz MD Re07/23/24 Status : [facility] Location: [facility] Disch: ---- SPEC : [id number] REC STATUS: DAJUNA SEGURA NUM: [id number] GARETH: 07/23/24 [facility] DR: Marcin Muñoz MD ENTERED: 07/23/24 56 [...] Description Microscopic sections reviewed. Material Received [facility]. [facility]. Endometrial polyp Gross Description Received two [...] Martín Jacob Age/Sex: 64/F : 1960 Unit#: [id number] Attend Dr: Marcin Muñoz MD Re07/23/24 Status : [facility] Location: [facility] Disch: ---- SPEC : [id number] RECD : 07/23/24 STATUS: DAJUAN SEGURA NUM: [id number] GARETH: 07/23/24 [facility] DR: Marcin Muñoz MD ENTERED: 07/23/24 SP TYPE: Surgical OTHR DR: Fredy De Santiago MD ORDERED: HE Stain/4, Gross Micro L4/2 Copies To: Fredy De Santiago MD [facility] [address] [place] [address] Marcin Muñoz MD [facility] [address] [place] [address] ---- Signed (signature on file) Dori Wu 07/24/24 1725 ---- END OF REPORT Urine Culture Reviewed date:07/27/2024 09:07:25 AM Interpretation: Performing Lab:[facility], [address] [place] [phone] Notes/Report: Urine Culture Report Result Urine Culture [...] Problem Status W/U Status Risk Notes Problem 19686725 Lymphocytosis (D72.820) Active confirmed Problem 54513788 Other osteoporosis without current pathological fracture (M81.8) Active confirmed Problem 749618071 Prediabetes (R73.03) Active confirmed Problem 435691791 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) Active confirmed Problem 546000930 BMI 40.0-44.9, adult (Z68.41) Active confirmed Problem 515330110 Low vitamin D level (E55.9) Active confirmed Problem 669981442 Abnormal mammogram of both breasts (R92.8) Active confirmed Problem 658916697464163 At high risk for breast cancer (Z91.89) Active confirmed Vital Signs Blood pressure diastolic 80 mm Hg 07/31/2024 Height 59.5 in 07/31/2024 Blood pressure systolic 152 mm Hg 07/31/2024 Weight 217 lbs 07/31/2024 BMI 43.09 kg/m2 07/31/2024 Encounters Encounter Location Date Provider Diagnosis Fredy De Santiago MD [address] [place] [id number] 07/25/2024 Fredy De Santiago Blood tests for routine general physical examination Z00.00 ; Lymphocytosis D72.820 ; Low vitamin D level E55.9 and Prediabetes R73.03 Fredy De Santiago MD [address] [place] [address] Drive [address] [place] [id number] 08/29/2024 Fredy De Santiago Hematuria R31.9 Fredy De Santiago MD [address] [place] [address] [phone] 07/31/2024 Fredy De Santiago Adult general medica l exam Z00.00 ; Lymphocytosis D72.820 ; Low vitamin D level E55.9 ; Prediabetes R73.03 ; Hematuria R31.9 and Depression screening Z13.31 Fredy De Santiago MD [address] [place] [address] Drive [address] [place] [id number] 09/24/2023 Fredy De Santiago Assessments Encounter Date Diagnosis (ICD Code) Assessment Notes Treatment Notes Treatment Clinical Notes Section Notes 07/25/2024 Blood tests for routine general physical examination (ICD-10 - Z00.00) 08/29/2024 Hematuria (ICD-10 - R31.9) 07/31/2024 Adult general medical exam (ICD-10 - [...] 07/08/2020 NM bone scan whole body 12/15/2021 Urinalysis and Microscopic 08/29/2024 Next Appt Details Provider Name:Fredy Hussein ier, 01/30/2025 09:00:00 AM, [address] [place] [address], [address], [phone], Provider Name:Fredy Hussein ier, 07/28/2025 07:30:00 AM, [address] [place] [address], [address], [phone], Provider Name:Fredy Hussein ier, 08/04/2025 08:30:00 AM, [address] [place] [address], [address], [phone], Insurance Providers Payer Name Payer Address Payer Phone Subscriber Number Group Number Insured Name Patient Relationship to Insured Coverage Start Date Coverage End Date [employer] PLAN [facility] [address] [place] [phone] [id number] Arely Jacob Self - patient is the insured Medical (General) History Medical History History ICD Code colonoscopy done 08/17/[address] Dario rodrigez 10 years
--- OUTSIDE RECORDS SUMMARY | 2024-08-29 10:39 | XMS_ITS ---
Author Organization Fredy De Santiago MD Address [address] [place] [phone] Care Team Providers Care End User Consultant Name Role Phone Fredy De Santiago Primary Care Provider [phone] Allergies Allergen (clinical drug ingredient) Drug/Non Drug [...] Date Provider Diagnosis Fredy De Santiago MD [address] [place] [address] [place] [phone] 07/31/2024 Fredy De Santiago Adult general medica [...] continue to monitor Depression screening negative screen Pending Test Test Name Order Date Urinalysis and Microscopic 07/31/2024 Next Appt Details Follow Up: 6 Months, Reason: Provider Name:Fredy velasquez, 01/30/2025 09:00:00 AM, [address], [place], [place], [phone], Provider Name:Fredy velasquez, 07/28/2025 07:30:00 AM, [address], [place], [place], [phone], Provider Name:Fredy velasquez, 08/04/2025 08:30:00 AM, [address] [place] [address], [address], [place], [place], [phone], Progress Notes * Arely JACOB ADOB:[birth year] (64 yo F)Acc No.[id number]:07/31/2024 Progress Notes Patient:?Arely JACOB Provider:?Fredy De Santiago MD :1960???Age:64 Y???Sex:Female D ate:07/31/2024 Address:[address] [place], [place] [phone] Subjective: * Chief Complaints: * ???annual visit/ must see He tyler * HPI: ???Depression Screening:?PHQ-9?Little interest or pleasure [...] of chronic issues, has recent evaluation by staff registered nurse. had a d/c. * ROS:?General/Constitutional:?Change in appetite?denies.?Chills?denies.?Fever?denies.?Ophthalmologic:?Blurred [...] full-time. Pets: none. Travel outside of the [place]: no. ???Stopped drinking x 1 month [...] Objective: * Vitals:?Ht: 59.5, Wt: 217, B [place]:43.09, BP:152/80, Repeat BP:140/78, Wt-k.43. * ???Past Orders: ???Lab:Lipid Panel (Order Da te - 07/25/2024) (Collection & Time 07/25/2024 07:00 AM) ? Value Reference Range ?Triglycerides 87 <150 - mg/dL ?Cholesterol 188 <200 - m g/dL ?LDL Cholesterol Calculated 96 <100 - mg/dL ?HDL Cholesterol 75 >40 - mg/dL ???Lab:Vitamin D 25-OH Total (Order 07/25/2024) (Collection & Time - 07/25/2024 07:00 AM) ? Value Reference Range ?Vitamin D 25-OH Total 40.4 >30 - ng/mL ???Lab:Microalbumin, Random (Order 07/25/2024) (Collection & Time 07/25/2024 07:00 AM) ? Value Reference Range ?Creatinine Urine 185.77 - m g/dL ?Microalbumin Urine 32.0 - mg/L ?Microalbum Creatinin e Ratio Ur 17.2 <30 - ug/mg cr ???Lab:Hemoglobin A1c (Order 07/25/2024) (Collection & Time 07/25/2024 07:00 [...] ?Urine Culture < 10,000 cfu/ml - ???Lab:Comprehensive [place]. P howard Fast (Order Date - 07/25/2024) [...] normal, no murmurs.?LUNGS:?clear to auscultation bilaterally.?BREASTS:?done by staff registered nurse.?ABDOMEN:?soft, nontender, nondistended, bowel sounds present, normal, no organomegaly , no masses palpable.?RECTAL EXAM:?refused.?FEMALE GENITOURINARY:?done by staff registered nurse.?EXTREMITIES:?no clubbing, cyanosis, or edema.?NEUROLOGIC:?nonfocal, motor strength normal [...] De Santiago MD Date:?0 07/31/2024 Generated for Vickii ewa/Tevin/eTransmitting on:?08/29/2024 10:39 AM EDT History and Physical Notes * HPI (History of Present Illness) Category Sub-Category Detail Notes Category Not es Symptom(s) patient is a 64 yo female here for annual visit eith review of recent labs and follow up of chronic issues, has recent evaluation by staff registered nurse. had a d/c Depression Screening PHQ-9 Little [...] cyanosi s, or edema BREASTS: done by staff registered nurse RECTAL EXAM: refused FEMALE GENITOURINARY: done by staff registered nurse ORAL CAVITY: mucosa moist
--- OUTSIDE RECORDS SUMMARY | 2024-08-29 10:39 | XMS_ITS ---
Author Organization Fredy De Santiago MD Address [address] [place], [place] [phone] Care Team Providers Care Machine Cementer Name Role Phone Fredy De Santiago Primary Care Provider [phone] Results Component Value Reference Range Notes Complete Blood Count Auto Di ff Reviewed date:07/25/2024 05:17:26 PM Interpretation: Performing Lab:[facility], [address] [place] [phone] Notes/Report: White Blood Count 9.6 4.8-10.8 X10*3/uL [...] NRBC Abs Auto 0.000 0.0-0.012 X10*3/uL Comprehensive [place]. Panel Fa Reviewed date:07/25/2024 05:16:44 PM Interpretation: Performing Lab:[facility], [address] [place] [phone] Notes/Report: Sodium 143 135-145 mmol/L Potassium 3.7 [...] Panel Reviewed date:07/25/2024 05:01:06 PM Interpretation: Performing Lab:[facility], [address] [place] [phone] Notes/Report: Triglycerides 87 <150 mg/dL Desirable Triglyceride: [...] Total Reviewed date:07/25/2024 05:15:01 PM Interpretation: Performing Lab:[facility], [address] [place] [phone] Notes/Report: Vitamin D 25-OH Total 40.4 >30 [...] Random Reviewed date:07/25/2024 05:00:57 PM Interpretation: Performing Lab:[facility], [address] [place] [phone] Notes/Report: Creatinine Urine 185.77 Microalbumin Urine 32.0 Microalbum/Creatinine Ratio Ur 17.2 <30 ug/mg cr Albumin/Creatinine Ratio Reference Ranges: Normal: < 30 ug/mg creatinine Microalbuminuria: 30 - 300 ug/mg creatinine Clinical Albuminuria: > 300 ug/mg creatinine Hemoglobin A1c Reviewed date:07/25/2024 05:00:46 PM Interpretation: Performing Lab:[facility], [address] [place] [phone] Notes/Report: Hemoglobin A1c % 5.8 <6.0 % [...] average glucose, using the formula of the A2A-Oadktse Average Glucose study (ADAG), Diabetes Care, Vol.31,#8, 2007 UA ClnCatch+Micro w/rflx Cul t Reviewed date:07/31/2024 01:06:17 PM Interpretation:07-31-2024 Performing Lab:[facility], [address] [place] [phone] Notes/Report: Urine, Clean Catch Color Urine Yellow Appearance Urine Cloudy PH 5.5 5.0-9.0 Glucose Urine UA Negative Negative mg/dL Urine Blood Moderate (2+) Negative Specific [place] - Urine 1.025 1.005-1.025 Urine Protein Negative [...] Date Provider Diagnosis Fredy De Santiago MD [address] [place] [address] [place] [phone] 07/25/2024 Fredy De Santiago Blood tests for [...] Treatment Next Appt Details Provider Name:Fredy velasquez, 01/30/2025 09:00:00 AM, [address] [place] [address], Suite [facility], [place], [place], [phone], Provider Name:Fredy velasquez, 07/28/2025 07:30:00 AM, [address] [place] [address], Suite [facility], [place], [place], [phone], Provider Name:Fredy velasquez, 08/04/2025 08:30:00 AM, [address] [place] [address], [place] [address], [place], [place], [phone], Progress Notes * Arely JACOB ADOB:[birth year] (64 yo F)Acc No.[id number]:07/25/2024 Progress Note Patient:?Arely JACOB Provider:?Fredy De Santiago MD :1960???Age:64 Y???Sex:Female D ate:07/25/2024 Address:[address] [place], [place] [phone] Subjective: * Chief Complaints: * ???1. Yearly fasting labs. * Medical History:? Objective: * Vitals:? Assessment: * Assessment: 1.?Blood tests for routine g eneral physical examination - Z00.00 (Primary)???2.?Lymphocytosis - D72.820???3.?Low vitamin D level - E55.9???4.?Prediabetes - R73.03??? Plan: * Treatment: 2.?Lymphocytosis?LAB: Complete Blood Count Auto Diff (Collection Date & Time - 07/25/2024 07:00 AM) ?LAB: Comprehensive [place]. Panel Fast (Collection Date & Time - [...] Date & Time - 07/25/2024 07:00 AM) 3.?Low vitamin D level?LAB: Complete Blood Count Auto Diff (Collection Date & Time - 07/25/2024 07:00 AM) ?LAB: [facility] [place]. Panel Fast (Collection Date & Time - [...] Time - 07/25/2024 07:00 AM) ?LAB: Comprehensive [place]. Panel Fast (Collection Date & Time - [...] Time - 07/25/2024 07:00 AM) * Procedure Codes:?39920 VENIP UNCT, ROUTINE* * * The named appointment provid er may or may not be the originator of this progress note, and it is not deemed complete until electronically signed by the appointment provider. Sign off status: Pending * Provider:?Fredy De Santiago MD Date:?0 07/25/2024 Generated for Moses mcneil/Tevin/eTransmitting on:?08/29/2024 10:39 AM EDT
--- OUTSIDE RECORDS SUMMARY | 2024-08-29 10:39 | XMS_ITS ---
Author Organization Fredy De Santiago MD Address [address] [place] [phone] Care Team Providers Care Insurance Loss Control Surveyor Name Role Phone Fredy De Santiago Primary Care Provider REASON FOR VISIT URINALYSIS AND MICROSCOPIC Encounters Encounter Location Date Provider Diagnosis Fredy De Santiago MD [address] [facility] [address] [place] [phone] 08/29/2024 Fredy De Santiago Hematuria R31.9 Assessments Encounter Date Diagnosis (ICD Code) Assessment Notes Treatment Notes Treatment Clinical Notes Section Notes 08/29/2024 Hematuria (ICD-10 - R31.9) Plan Of Treatment Pending Test Test Name Order Date Urinalysis and Microscopic 08/29/2024 Next Appt Details Provider Name:Fredy velasquez, 01/30/2025 09:00:00 AM, [address] [place] [address], [address], [phone], Provider Name:Fredy velasquez, 07/28/2025 07:30:00 AM, [address] [place] [address], [address], [phone], Provider Name:Fredy Hussein ier, 08/04/2025 08:30:00 AM, [address], [address], [place], [phone], Progress Notes * Arely JACOB ADOB:[birth year] (64 yo F)Acc No.[id number]:08/29/2024 Progress Note Patient:?Arely JACOB Provider:?Fredy De Santiago MD :1960???Age:64 Y???Sex:Female D ate:08/29/2024 Address:[address] [place] [address] SERAFIN MCMANUS [id number] Subjective: * Chief Complaints: * ???1. URINALYSIS AND MICROSC OPIC. * Medical History:? Objective: * Vitals:? Assessment: * Assessment: 1.?Hematuria - R31.9 (Primar y)??? Plan: * Treatment: * * The named appointment provid er may or may not be the originator of this progress note, and it is not deemed complete until electronically signed by the appointment provider. Sign off status: Pending * Provider:?Fredy De Santiago MD Date:?0 08/29/2024 Generated for Moses mcneil/Tevin/eTransmitting on:?08/29/2024 10:38 AM EDT
[2024-08-29 11:05] LABS: Appearance Urine Cloudy; Color Urine Dark Yellow; Glucose Urine UA Negative (Negative); Leukocyte Esterase Urine Trace (Negative); Nitrite Urine Negative (Negative); PH 5.5 (5.0-9.0); Specific Gravity - Urine 1.025 (1.005-1.025); UMIC TRIGGER UA YES; Urine Blood Negative (Negative); Urine Ketones Trace mg/dL (Negative); Urine Protein Trace mg/dL (Neg-Trace)
[2024-08-29 11:18] LABS: Bacteria Urine Trace (None Seen); Calcium Oxalate Crystals Urine Present; Hyaline Casts Urine 0-2 /LPF (0-2); RBC Urine 0-2 /HPF (0-2); WBC Urine 0-5 /HPF (0-5)
== END 2024-08-29 10:21 | disposition home or self-care (01) ==
LOC: HO.LNP 10:20
PROVIDERS: Visit Provider Internal Medicine
DX: R31.9 Hematuria, unspecified (principal)
CPT/HCPCS: 81001

== ENCOUNTER 2025-03-24 14:16 | Outpatient (REF) | payer MEDICARE, SELFPAY ==
--- OUTSIDE RECORDS SUMMARY | 2023-09-24 08:53 | XMS_ITS ---
Author Organization Fredy De Santiago MD Address [address] [place] [phone] Care Team Providers Care Thoroughbred Horse Farm Manager Name Role Phone Fredy De Santiago Primary Care Provider [phone] REASON FOR VISIT insurance claim Encounters Encounter Location Date Provider Diagnosis Fredy De Santiago MD [address] [facility] [address] [place] [phone] 09/24/2023 Fredy De Santiago Plan Of Treatment Next Appt Details Provider Name:Fredy velasquez, 07/28/2025 07:30:00 AM, [address] [place] [address], [address], [phone], Provider Name:Fredy velasquez, 08/04/2025 08:30:00 AM, [address] [place] [address], [address], [phone], Progress Notes * Arely JACOB ADOB:[birth year] (63 yo F)Acc No.[id number]:09/24/2023 Patient: Arely Churchill :1960 A ge:63 Y S ex:Female Address:[address] [place] [id number] * true * Date: Generated for Moses mcneil/Tevin/Ailyn on: 05/25/2024 08:15 PM EST
--- OUTSIDE RECORDS SUMMARY | 2024-07-25 02:00 | XMS_ITS ---
Author Organization Fredy De Santiago MD Address [address] [place], [place] [id number] Care Team Providers Care Dog Behaviorist Name Role Phone Fredy De Santiago Primary Care Provider Results Component Value Reference Range Notes Complete Blood Count Auto Di ff Reviewed date:07/25/2024 05:17:26 PM Interpretation: Performing Lab:[facility], [address] [place] [phone] Notes/Report: White Blood Count 9.6 4.8-10.8 X10*3/uL [...] NRBC Abs Auto 0.000 0.0-0.012 X10*3/uL Comprehensive [place]. Panel Fa Reviewed date:07/25/2024 05:16:44 PM Interpretation: Performing Lab:[facility], [address] [place] [phone] Notes/Report: Sodium 143 135-145 mmol/L Potassium 3.7 [...] Panel Reviewed date:07/25/2024 05:01:06 PM Interpretation: Performing Lab:[facility], [address] [place] [phone] Notes/Report: Triglycerides 87 <150 mg/dL Desirable Triglyceride: [...] Total Reviewed date:07/25/2024 05:15:01 PM Interpretation: Performing Lab:[facility], [address] [place] [phone] Notes/Report: Vitamin D 25-OH Total 40.4 >30 ng/mL Health Based Reference Values* < 20 ng/mL Deficient 20-30 ng/mL Insufficient > 30 ng/mL Sufficient *Lesia BSOS. N Engl J Med. 2007;357:266-280 There is [...] Random Reviewed date:07/25/2024 05:00:57 PM Interpretation: Performing Lab:[facility], [address] [place] [phone] Notes/Report: Creatinine Urine 185.77 Microalbumin Urine 32.0 Microalbum/Creatinine Ratio Ur 17.2 <30 ug/mg cr Albumin/Creatinine Ratio Reference Ranges: Normal: < 30 ug/mg creatinine Microalbuminuria: 30 - 300 ug/mg creatinine Clinical Albuminuria: > 300 ug/mg creatinine Hemoglobin A1c Reviewed date:07/25/2024 05:00:46 PM Interpretation: Performing Lab:[facility], [address] [place] [phone] Notes/Report: Hemoglobin A1c % 5.8 <6.0 % [...] average glucose, using the formula of the C7A-Lqrrdut Average Glucose study (ADAG), Diabetes Care, Vol.31,#8, 2007 UA ClnCatch+Micro w/rflx Cul t Reviewed date:07/31/2024 01:06:17 PM Interpretation:07-31-2024 Performing Lab:[facility], [address] [place] [phone] Notes/Report: Urine, Clean Catch Color Urine Yellow Appearance Urine Cloudy PH 5.5 5.0-9.0 Glucose Urine UA Negative Negative mg/dL Urine Blood Moderate (2+) Negative Specific [place] - Urine 1.025 1.005-1.025 Urine Protein Negative [...] Date Provider Diagnosis Fredy De Santiago MD [address] [place] [address] [place] [phone] 07/25/2024 Fredy De Santiago Blood tests for [...] Of Treatment Next Appt Details Provider Name:Fredy velasqeuz, 07/28/2025 07:30:00 AM, [address] [place] [address], [address], [phone], Provider Name:Fredy velasquez, 08/04/2025 08:30:00 AM, [address] [place] [address], Suite [facility], [place], [place], [phone], Progress Notes * Arely JACOB ADOB:[birth year] (64 yo F)Acc No.[id number]:07/25/2024 Progress Note Patient: Arely MARTINEZ Provider: Mirna De Santiago MD :1960 A ge:64 Y S ex:Female Date:07/25/2024 Address:[address] [place], [place] [phone] Subjective: * Chief Complaints: * 1 . [...] - 07/25/2024 07:00 AM) L AB: Comprehensive [place]. Panel Fast (Collection Date & Time - [...] - 07/25/2024 07:00 AM) L AB: Comprehensive [place]. Panel Fast (Collection Date & Time - [...] - 07/25/2024 07:00 AM) L AB: Comprehensive [place]. Panel Fast (Collection Date & Time - [...] 07/25/2024 Generated for Moses mcneil/Tevin/Kimmieitting on: 1 05/25/2024 08:16 PM EST
--- OUTSIDE RECORDS SUMMARY | 2024-07-31 03:00 | XMS_ITS ---
Author Organization Fredy De Santiago MD Address [address] [place] [phone] Care Team Providers Care Batter Out Name Role Phone Fredy De Santiago Primary Care Provider [phone] Allergies Allergen (clinical drug ingredient) Drug/Non Drug Allergy documented on EMR Reaction Allergy Type Onset Date Status Penicillin (uncoded) hives Allergy Active REASON FOR VISIT annual visit/ must see Hematuria Medications Medication SIG (Take, Route, Frequency, Duration) Notes Start Date End Date Status Vitamin D3 50 MCG (1999 UT) TAKE 1 CAPSULE BY MOUTH EVERY DAY Active Albuterol Sulfate HFA 108 (90 Base) MCG/ACT INHALE 1 PUFF INTO THE LUNGS EVERY 4 HOURS FOR 30 DAYS for 30 Not-Taking Calcium Citrate 250 MG TAKE 1 TABLET BY MOUTH EVERY DAY for 30 Active Timolol Maleate PF 0.5 % 1 drop into aff ected eye Ophthalmic Once a day Active Alendronate Sodium 70 MG TAKE 1 TABLET B Y MOUTH ONE TIME PER WEEK for 90 Active Social History Tobacco Use: Social History [...] a rest Vital Signs Blood pressure systolic 152 mm Hg 08/01/19 25 Blood pressure diastolic 80 mm Hg 025 Height 59.5 in 07/31/2024 Weight 217 lbs 07/31/2024 BMI 43.09 kg/m2 07/31/2024 Encounters Encounter Location Date Provider Diagnosis Fredy De Santiago MD [address] [place] [address] [place] [phone] 07/31/2024 Fredy De Santiago Adult general medica l exam Z00.00 ; Lymphocytosis D72.820 ; Low vitamin D level E55.9 ; Prediabetes R73.03 ; Hematuria R31.9 and Depression screening Z13.31 Assessments Encounter Date Diagnosis (ICD Code) Assessment Notes Treatment Notes Treatment Clinical Notes Section Notes 07/31/2024 Adult general medical exam (ICD-10 - Z00.00) labs reviewed and discussed with patient 07/31/2024 Lymphocytosis (ICD-10 - D72.820) chronic, will continue to monitor, stable at present 07/31/2024 Low vitamin D level (ICD-10 - E55.9) well controlled, will continue curent regiment 07/31/2024 Prediabetes (ICD-10 - R73.03) doing well, no need formedication at this time 07/31/2024 Hematuria (ICD-10 - R31.9) had just had a d/c, will continue to monitor 07/31/2024 Depression screening (ICD-10 - Z13.31) negative screen Plan Of Treatment Treatment Notes Assessment Notes Adult general medical exam labs reviewed and discussed with patient Lymphocytosis chronic, will contin ue to monitor, stable at present Low vitamin D level well controlled, levi l continue curent regiment Prediabetes doing well, no need formedication at this time Hematuria had just had a d/c, will continue to monitor Depression screening negative screen Next Appt Details Follow Up: 6 Months, Reason: Provider Name:Fredy Hussein ron, 07/28/2025 07:30:00 AM, [address] [facility], [address], [place], [place], [phone], Provider Name:Fredy Hussein madysonr, 08/04/2025 08:30:00 AM, [address] [facility], [address], [place], [place], [phone], Progress Notes * Arely JACOB ADOB:[birth year] (64 yo F)Acc No.[id number]:07/31/2024 Progress Notes Patient: Arely MARTINEZ Provider: Mirna De Santiago MD :1960 A ge:64 Y S ex:Female Date:07/31/2024 Address:[address] [place] [id number] Subjective: * Chief Complaints: * a nnual visit/ must see Hematuria * HPI: D epression Screening: PHQ-9 L ittle interest or pleasure in doing things N ot at all, F eeling down, depressed, or hopeless N ot at all, T rouble falling or staying asleep, or sleeping too much N ot at all, F eeling tired or having little energy N ot at all, P oor appetite or overeating N ot at all, F eeling bad about yourself or that you are a failure, or have let yourself or your family down N ot at all, T rouble concentrating on things, such as reading the newspaper or watching television N ot at all, M oving or speaking so slowly that other people could have noticed; or the opposite, being so fidgety or restless that you have been moving around a lot more than usual N ot at all, T houghts that you would be better off or of hurting yourself in some way N ot at all, T otal Score 0 . I nterpretation and Intervention D epression Screening Findings N egative, F ollow-Up for Depression : review of PHQ-9 found negative result, no follow-up needed. C ommunication Needs: Communication Needs D oes the patient have a hearing impairment N o, D oes the patient have a vision impairment? Y es, I f yes, what is the vision impairment? G lasses, D oes the patient have a cognition impairment? N o. F all Risk: History H ave you had any falls with injury in the past year? N o, H ave you had two or more falls in the past year? N o. S GISELLE Questions: SDOH Questions I n the past year have you been worried about losing housing? N o, I n the past year have you or any family members you live with been unable to get any of the following when it was really needed? Check all that apply: N one. S ymptom(s): patient is a 64 yo female here for annual visit eith review of recent labs and follow up of chronic issues, has recent evaluation by powder monkey. had a d/c. * ROS: G eneral/Constitutional: Change in appetite d enies. C hills d enies. F ever d enies. O phthalmologic: Blurred vision d enies. D ischarge d enies. P ain d enies. E NT: Decreased hearing d enies. S ore throat d enies.?Swollen glands d enies. E ndocrine: Cold intolerance d enies. E xcessive thirst d enies. H eat intolerance d enies. W eight loss d enies. R espiratory: Cough d enies. S hortness of breath at rest d enies. S hortness of breath with exertion d enies. W heezing d enies. C ardiovascular: Chest pain at rest d enies. C hest pain with exertion?denies. I rregular heartbeat d enies. S hortness of breath d enies. ? G astrointestinal: Abdominal pain d enies. C hange in bowel habits d enies. D iarrhea d enies. N ausea d enies. R ectal bleeding d enies. V omiting d enies . G enitourinary: Blood in urine d enies. D ifficulty urinating d enies. F requent urination d enies. U rinary incontinence D enies. M usculoskeletal: Painful joints d enies. W eakness d enies. ? S kin: Dry skin d enies. I tching d enies. D enies?Mole(s), changes in moles, new moles or any lesions of concern. D enies P hotosensitivity. R joe d enies. N eurologic: Dizziness d enies. F ainting d enies. H eadache?denies. * Medical History: * Surgical History: * Hospitalization/Major Diagno stic Procedure: * Family History: F ather: 84 yrs, diagnosed with Cancer. M other: 65 yrs, diagnosed with Cancer. 4 brother(s) , 2 sister(s) . 1 son(s) , 1 daughter(s) . . Father lung cancer Mother lung cancer, No pertinent family medical history, Denies mental health/substance abuse family history, No pertinent family medical history, No pertinent family medical history, Denies mental health/substance abuse family history. * Social History: T obacco Use: T obacco Use/Smoking P atient is a n onsmoker, A dditional Findings: Tobacco Non-User C urrent non-smoker, currently using no form of tobacco. D rugs/Alcohol: A lcohol Screen D id you have a drink containing alcohol in the past year? Y es, H ow often did you have a drink containing alcohol in the past year? 4 or more times a week (4 points), H ow many drinks did you have on a typical day when you were drinking in the past year? 3 or 4 drinks (1 point), H ow often did you have 6 or more drinks on one occasion in the past year? N ever (0 point), P oints 5 , I nterpretation P ositive. M iscellaneous: C affeine: yes, frequency:,3 cups of coffee per day. Children: yes. Community involvements: no. Exercise: no. Housing: owning. Living with: with son half of the time. Marital status: . Occupation: works full-time. Pets: none. Travel outside of the [place]: no. S topped drinking x 1 month giving liver a rest. * Medications: T akingTimolol Maleate PF 0.5 % Solution 1 drop into affected eye Ophthalmic Once a day Calcium Citrate 250 MG Tablet TAKE 1 TABLET BY MOUTH EVERY DAY Vitamin D3 50 MCG (2000 UT) Capsule TAKE 1 CAPSULE BY MOUTH EVERY DAY Alendronate Sodium 70 MG Tablet TAKE 1 TABLET BY MOUTH ONE TIME PER WEEK Taking Timolol Maleate PF 0.5 % Solution 1 drop into affected eye Ophthalmic Once a day Taking Calcium Citrate 250 MG Tablet TAKE 1 TABLET BY MOUTH EVERY DAY Taking Vitamin D3 50 MCG (2000 UT) Capsule TAKE 1 CAPSULE BY MOUTH EVERY DAY Taking Alendronate Sodium 70 MG Tablet TAKE 1 TABLET BY MOUTH ONE TIME PER WEEK Not-Taking/PRNAlbuterol Sulfate HFA 108 (90 Base) MCG/ACT Aerosol Solution INHALE 1 PUFF INTO THE LUNGS EVERY 4 HOURS FOR 30 DAYS Medication List reviewed and reconciled with the patientNot-Taking/PRN Albuterol Sulfate HFA 108 (90 Base) MCG/ACT Aerosol Solution INHALE 1 PUFF INTO THE LUNGS EVERY 4 HOURS FOR 30 DAYS Medication List reviewed and reconciled with the patient * Allergies: P enicillin: hivesyes[Allergies Verified] Objective: * Vitals: H t: 59.5, Wt: 217, BMI:43.09, BP:152/80, Repeat BP:140/78, Wt-k.43. * P ast Orders: L ab:Lipid Panel (Order Date - 07/25/2024) (Collection Date & Time - 07/25/2024 07:00 AM) Value Reference Range Triglycerides 87 <150 - mg/dL Cholesterol 188 <200 - mg/dL LDL Cholesterol Calculated 96 <100 - mg/dL HDL Cholesterol 75 >40 - mg/dL L ab:Vitamin D 25-OH Total (Order Date - 07/25/2024) (Collection Date & Time - 07/25/2024 07:00 AM) Value Reference Range Vitamin D 25-OH Total 40.4 >30 - ng/mL L ab:Microalbumin, Random (Order Date - 07/25/2024) (Collection Date & Time - 07/25/2024 07:00 AM) Value Reference Range Creatinine Urine 185.77 - mg/dL Microalbumin Urine 32.0 - mg/L Microalbum Creatinine Ratio Ur 17.2 <30 - ug/ mg cr L ab:Hemoglobin A1c (Order Date - 07/25/2024) (Collection Date & Time - 07/25/2024 07:00 AM) Value Reference Range Hemoglobin A1c % 5.8 <6.0 - % Estimated Average Glucose 120 - mg/dL L ab:Complete Blood Count Auto Diff (Order Date - 07/25/2024) (Collection Date & Time - 07/25/2024 07:00 AM) Value Reference Range White Blood Count 9.6 4.8-10.8 - X10*3/uL Red Blood Count 4.35 4.20-5.50 - X10*6/uL Hemoglobin 12.9 12.0-16.0 - g/dl Hematocrit 40.1 37.0-47.0 - % Mean Corpuscular Volume 92.2 80.0-98.0 - fL Mean Corpuscular Hemoglobin 29.7 27.0-33.0 - pg Mean Corpuscular HGB Conc 32.2 31.0-35.0 - g/ dl Red Cell Distribution Width 14.3 11.0-16.0 - % Platelet Count 226 160-400 - X10*3/uL Mean Platelet Volume 10.6 9.4-12.3 - fL Neutrophils Percent Auto 40.4 L 45-73 - % Imm Gran Pct Auto 0.4 0.0-0.4 - % Lymphocytes Percent Auto 49.4 H 20-40 - % Monocytes Percent Auto 8.9 2-11 - % Eosinophils Percent Auto 0.4 0-4 - % Basophils Percent Auto 0.5 0-2 - % NRBC Pct Auto 0.0 0.0-0.2 - /100WBC Neutrophils Absolute Auto 3.9 2.0-8.3 - x10* 3/uL Imm Gran Abs Auto 0.04 H 0.00-0.03 - X10*3/uL Lymphocytes Absolute Auto 4.7 1.2-4.9 - X10* 3/uL Monocytes Absolute Auto 0.9 0.1-1.2 - X10*3/ uL Eosinophils Absolute Auto 0.0 0.0-0.4 - X10* 3/uL Basophils Absolute Auto 0.1 0.0-0.2 - X10*3/ uL NRBC Abs Auto 0.000 0.0-0.012 - X10*3/uL L ab:Urine Culture (Order Date - 07/25/2024) (Collection Date & Time - 07/25/2024) Value Reference Range Urine Culture < 10,000 cfu/ml - L ab:Comprehensive [place]. Panel Fast (Order Date - 07/25/2024) (Collection Date & Time - 07/25/2024 07:00 AM) Value Reference Range Sodium 143 135-145 - mmol/L Bilirubin Total 0.5 0.0-1.0 - mg/dL Aspartate Amino Transferase 23 5-31 - U/L Alanine Aminotransferase 24 0-31 - U/L Total Protein 7.1 6.5-8.0 - g/dL Albumin Level 3.9 3.5-5.0 - g/dL Alkaline Phosphatase 62 39-117 - U/L Potassium 3.7 3.3-5.1 - mmol/L Chloride 107 96-108 - mmol/L Carbon Dioxide 29 22-29 - mmol/L Anion Gap 11 L 12-20 - Blood Urea Nitrogen 16 9-16 - mg/dL Creatinine 0.71 0.5-1.4 - mg/dL Estimated Glomerular Filt Rate > 60 - Glucose Fasting 81 60-99 - mg/dL Calcium 8.6 8.4-10.2 - mg/dL * Examination: G eneral Examination: GENERAL APPEARANCE: w ell developed, well nourished, in no acute distress. HEAD: n ormocephalic, atraumatic. EYES: p upils equal, round, reactive to light and accommodation, sclera non-icteric. EARS: n ormal. ORAL CAVITY: m ucosa moist. THROAT: c lear. NECK/THYROID: n marcus supple, full range of motion, no cervical lymphadenopathy, no bruits. SKIN: w arm and dry, no suspicious lesions. HEART: r egular rate and rhythm, S1, S2 normal, no murmurs.? LUNGS: c lear to auscultation bilaterally. BREASTS: d one by powder monkey. ABDOMEN: s oft, nontender, nondistended, bowel sounds present, normal, no organomegaly , no masses palpable. RECTAL EXAM: r efused. FEMALE GENITOURINARY: d one by powder monkey. EXTREMITIES: n o clubbing, cyanosis, or edema. NEUROLOGIC: n onfocal, motor strength normal upper and lower extremities, sensory exam intact. Assessment: * Assessment: 1. A dult general medical exam - Z00.00 (Primary) 2 . L ymphocytosis - D72.820 3 . L ow vitamin D level - E55.9 4 . P rediabetes - R73.03 5 . H ematuria - R31.9 6 . D epression screening - Z13.31? Plan: * Treatment: 2. L ymphocytosis Notes: chronic, will continue to monitor, stable at present 3. L ow vitamin D level Notes: well controlled, will continue curent regiment 4. P rediabetes Notes: doing well, no need formedication at this time 5. H ematuria L AB: Urinalysis and Microscopic (Ordered for 08/28/2024) Notes: had just had a d/c, will continue to monitor 6. D epression screening Notes: negative screen * Procedure Codes: * Follow Up: 6 Months * * Sign off status: Completed true * Provider: Mirna De Santiago MD Date: 0 07/31/2024 Generated for Moses mcneil/Tevin/eTransmitting on: 1 05/25/2024 08:16 PM EST History and Physical Notes * HPI (History of Present Illness) Category Sub-Category Detail Notes Category Not es Symptom(s) patient is a 64 yo female here for annual visit eith review of recent labs and follow up of chronic issues, has recent evaluation by powder monkey. had a d/c Depression Screening PHQ-9 Little inte rest or [...] really needed? Check all that apply:: None Fall Risk History Have you had any falls with injury i n the past year?: No Have you had two or more falls in the st year?: No Communication Needs Communication Needs Does the patient have a hearing impairment: No Does the patient have a vision impairmen t?: Yes If yes, what is the vision impairment?: Glasses Does the patient have a cognition impair ment?: No Examination Category Sub-Category Detail Notes Category Not es General Examination GENERAL APPEARANCE: well dev eloped, well nourished, in no acute distress HEAD: normocephalic, atrau matic EYES: pupils equal, round, reactive to light and accommodation, sclera non-icteric EARS: normal THROAT: clear NECK/THYROID: neck supple, [...] cyanosi s, or edema BREASTS: done by powder monkey RECTAL EXAM: refused FEMALE GENITOURINARY: done by powder monkey ORAL CAVITY: mucosa moist
--- OUTSIDE RECORDS SUMMARY | 2024-08-29 03:30 | XMS_ITS ---
Author Organization Fredy De Santiago MD Address [address] [place] [phone] Care Team Providers Care Card Folder Name Role Phone Fredy De Santiago Primary Care Provider Results Component Value Reference Range Notes Urinalysis and Microscopic Reviewed date:08/29/2024 12:45:23 PM Interpretation: Performing Lab:[facility], [address] [place] [phone] Notes/Report: Color Urine Dark Yellow Appearance Urine Cloudy PH 5.5 5.0-9.0 Glucose Urine UA Negative Negative mg/dL Urine Blood Negative Negative Specific [place] - Urine 1.025 1.005-1.025 Urine Protein Trace [...] Santiago MD [address] [place], [place] [phone] 08/29/2024 Fredy De Santiago Hematuria R31.9 Assessments Encounter Date Diagnosis (ICD Code) Assessment Notes Treatment Notes Treatment Clinical Notes Section Notes 08/29/2024 Hematuria (ICD-10 - R31.9) Plan Of Treatment Next Appt Details Provider Name:Fredy Hussein ier, 07/28/2025 07:30:00 AM, [address], [place], [place], [phone], Provider Name:Fredy Hussein ier, 08/04/2025 08:30:00 AM, [address] [place] [address], [address], [place], [place], [phone], Progress Notes * Arely JACOB ADOB:[birth year] (64 yo F)Acc No.[id number]:08/29/2024 Progress Note Patient: Arely MARTINEZ Provider: Mirna De Santiago MD :1960 A ge:64 Y S ex:Female Date:08/29/2024 Address:[address] [place], [place] [phone] Subjective: * Chief Complaints: * 1 . [...] 08/29/2024 Generated for Moses mcneil/Tevin/Ailyn on: 1 05/25/2024 08:15 PM EST
--- OUTSIDE RECORDS SUMMARY | 2025-01-30 04:00 | XMS_ITS ---
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 Role Phone Fredy De Santiago Primary Care Provider [phone] Allergies Allergen (clinical drug ingredient) Drug/Non Drug [...] Status Risk Notes Problem Labile essential hypertension (950938933) Labile hypertension (I10) Active confirmed Vital Signs Blood pressure systolic 160 mm Hg 01/31/20 25 Blood pressure diastolic 90 mm Hg 025 Height 59.5 in 01/30/2025 Weight 212 lbs 01/30/2025 BMI 42.1 kg/m2 01/30/2025 weight is down 5 pounds [facility] 07-31-24 Encounters Encounter Location Date Provider Diagnosis Fredy De Santiago MD [address] [place] [phone] 01/30/2025 Fredy De Santiago Prediabetes R73.03 and [...] Details Provider Name:Fredy velasquez, 07/28/2025 07:30:00 AM, [address] [place] [address], [place] [address], [place], [place], [phone], Provider Name:Fredy velasquez, 08/04/2025 08:30:00 AM, [address] [place] [address], [address], [phone], Progress Notes * Arely JACOB ADOB:[birth year] (64 yo F)Acc No.[id number]:01/30/2025 Progress Notes Patient: Berto Arely MEEKS Provider: [...] 2947 ASSAY, GLUCOSE, BLOOD QUANT, Modifiers: QW 39391 GLYCATED HEMOGLOBIN TEST, Modifiers: QW * * Sign off status: Completed true * Provider: Mirna De Santiago MD Date: 1 Generated for Moses mcneil/Tevin/Ailyn on: 05/25/2024 08:16 PM EST History and Physical [...]
--- NOTE | ~2025-03-24 | US_ITS ---
EXAMINATION: US PELVIS CLINICAL INFORMATION: Leiomyoma follow-up COMPARISON: None available. TECHNIQUE: Ultrasound of the pelvis is performed using both transabdominal and transvaginal transducers along with Doppler. Transvaginal imaging is performed due to inadequate visualization transabdominally. FINDINGS: Uterus: The uterus is anteverted and measures 7.5 x 3.3 x 4.6 cm. The double wall endometrial thickness is 4 mm. Echogenic focus with posterior acoustic shadowing in the right fundus of the uterus measures 8 x 6 x 10 mm, previously 8 x 5 x 7 mm consistent with intramural leiomyoma. Adnexa: Both ovaries are visualized. There is normal color flow to the adnexa. There is no ovarian torsion. There is no pelvic ascites or fluid collection. Right ovary measures 1.6 x 0.9 x 0.7 cm. Left ovary measures 1.9 x 1.2 x 1.1 cm. US/US pelvic and transvaginal IMPRESSION: Degenerated and calcified uterine leiomyoma measuring 10 mm. Electronically signed by: Jaylen Neff MD 03/24/2025 02:55 PM [facility]
--- OUTSIDE RECORDS SUMMARY | 2025-03-24 20:15 | XMS_ITS | Patient Health Record ---
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 Name Role Phone Fredy De Santiago Primary Care Provider Allergies Allergen (clinical drug ingredient) Drug/Non Drug Allergy documented on EMR Reaction Allergy Type Onset Date Status Penicillin (uncoded) hives Allergy Active Results Component Value Reference Range Notes Hemoglobin A1c Reviewed date:01/30/2025 09:14:43 AM Interpretation: Performing Lab: Notes/Report: Hemoglobin A1c 6.0 Complete Blood Count Auto Di ff Reviewed date:07/25/2024 05:17:26 PM Interpretation: Performing Lab:[facility], [address] [place] [address] Notes/Report: White Blood Count 9.6 4.8-10.8 X10*3/uL [...] NRBC Abs Auto 0.000 0.0-0.012 X10*3/uL Comprehensive Franklin. Panel Fa st Reviewed date:07/25/2024 05:16:44 PM Interpretation: Performing Lab:[facility], [address] [place] [place] [address] Notes/Report: Sodium 143 135-145 mmol/L Potassium 3.7 [...] Panel Reviewed date:07/25/2024 05:01:06 PM Interpretation: Performing Lab:[facility], [address] [place] [address] Notes/Report: Triglycerides 87 <150 mg/dL Desirable Triglyceride: [...] Total Reviewed date:07/25/2024 05:15:01 PM Interpretation: Performing Lab:[facility], [address] [place] [address] Notes/Report: Vitamin D 25-OH Total 40.4 >30 [...] Random Reviewed date:07/25/2024 05:00:57 PM Interpretation: Performing Lab:[address] [address] Notes/Report: Creatinine Urine 185.77 Microalbumin Urine 32.0 Microalbum/Creatinine Ratio Ur 17.2 <30 ug/mg cr Albumin/Creatinine Ratio Reference Ranges: Normal: < 30 ug/mg creatinine Microalbuminuria: 30 - 300 ug/mg creatinine Clinical Albuminuria: > 300 ug/mg creatinine Hemoglobin A1c Reviewed date:07/25/2024 05:00:46 PM Interpretation: Performing Lab:[address] [address] Notes/Report: Hemoglobin A1c % 5.8 <6.0 % [...] average glucose, using the formula of the B3N-Bwezqum Average Glucose study (ADAG), Diabetes Care, Vol.31,#8, Nov. 2007 UA ClnCatch+Micro w/rflx Cul t Reviewed date:07/31/2024 01:06:17 PM Interpretation:07-31-2024 Performing Lab:[facility], [address] [place] [phone] Notes/Report: Urine, Clean Catch Color Urine Yellow Appearance Urine Cloudy PH 5.5 5.0-9.0 Glucose Urine UA Negative Negative mg/dL Urine Blood Moderate (2+) Negative Specific [place] - Urine 1.025 1.005-1.025 Urine Protein Negative Neg-Trace mg/dL Urine Ketones Negative Negative mg/dL Nitrite Urine Negative Negative Leukocyte Esterase Urine Small (1+) Negative RBC Urine 3-5 0-2 /HPF WBC Urine 0-5 0-5 /HPF Squamous Epithelial Cell Urine 6-10 0-2 /HPF Bacteria Urine 3+ None Seen Hyaline Casts Urine 0-2 0-2 /LPF Urinalysis and Microscopic Reviewed date:08/29/2024 12:45:23 PM Interpretation: Performing Lab:[facility], [address] [place] [address] Notes/Report: Color Urine Dark Yellow Appearance Urine Cloudy PH 5.5 5.0-9.0 Glucose Urine UA Negative Negative mg/dL Urine Blood Negative Negative Specific [place] - Urine 1.025 1.005-1.025 Urine Protein Trace Neg-Trace mg/dL Urine Ketones Trace Negative mg/dL Nitrite Urine Negative Negative Leukocyte Esterase Urine Trace Negative RBC Urine 0-2 0-2 /HPF WBC Urine 0-5 0-5 /HPF Squamous Epithelial Cell Urine 11-20 0-2 /HPF Calcium Oxalate Crystals Urine Present Bacteria Urine Trace None Seen Hyaline Casts Urine 0-2 0-2 /LPF Glucose, finger stick Reviewed date:01/30/2025 09:01:15 AM Interpretation: Performing Lab: Notes/Report: Value 95 MM tomosynthesis screening B I Reviewed date:04/24/2024 12:38:39 PM Interpretation: Performing Lab: Notes/Report: [address] [place] [address] Mammography Report Signed Patient: Arely Jacob MR#: [id number] : 1960 Acct:[id number] Age/Sex: 64 / F ADM Date: 04/11/24 Loc: HO.MAMMO Attending Dr: Fredy De Santiago MD Ordering Physician: Fredy De Santiago MD Results: 2Be nign Findings Date of Service: 04/11/24 Follow Up: 1 Year From [facility] Mammogram Procedure(s): MM tomosynthesis screening BI Accession Number(s): [id number] cc: Fredy De Santiago MD EXAMINATION: MM [...] by: Yamel Rain DO 04/22/2024 05:43 PM [facility] Dictated By: Yamel Rain DO Signed By: <Electronically signed by Yamel Rain DO in OV> 04/22/24 1743 DD/ 0745 TD/TT: 04/11/24 0800 Stamp Clerk: [facility] [address] [place] [address] Mammography Report Signed Patient: Arely Jacob MR#: [id number] : 1960 Acct:[id number] Age/Sex: 64 / F ADM Date: 04/11/24 Loc: HO.MAMMO Attending Dr: Fredy De Santiago MD Ordering Physician: Fredy De Santiago MD Results: 2Be nign Findings Date of Service: 04/11/24 Follow Up: 1 Year From [facility] Mammogram Procedure(s): MM tomosynthesis screening BI Accession Number(s): [id number] cc: Fredy De Santiago MD EXAMINATION: MM [...] by: Yamel Rain DO 04/22/2024 05:43 PM [facility] Dictated By: Yamel Rain DO Signed By: <Electronically signed by Yamel Rain DO in OV> 04/22/24 1743 DD/ 4 TD/TT: 04/11/24 0800 Stamp Clerk: CT NG by PCR Reviewed date:05/08/2024 05:48:45 PM Interpretation: Performing Lab:[facility], [address] [place] [address] Notes/Report: Vaginal CT PCR NOT DETECTED Not [...] Panel Reviewed date:05/08/2024 05:51:05 PM Interpretation: Performing Lab:[facility], [address] [place] [address] Notes/Report: Trichomonas vaginalis PCR NOT DETECTED Not [...] Smear Reviewed date:05/13/2024 12:43:34 PM Interpretation: Performing Lab:[facility], [address] [place] [phone] Notes/Report: --- Name: Martín Jacob Age/Sex: 64/F : 1960 Unit#: [id number] Attend Dr: Candice Petty CNM Re05/07/24 Status : DEP REF Location: HO.LNP Disch: --- SPEC : [id number] RECD : 05/08/24 STATUS: DAJUAN SEGURA NUM: [id number] GARETH: 05/07/24 [facility] DR: Candice Petty CNM ENTERED: 05/08/24 [...] De Santiago MD [facility] [address] [facility] [address] [place] [address] Candice Petty CNM [facility] [address] [facility] [address] [place] [address] --- Signed (signature on file) LIBERTY Molina (ASCP) 05/13/24 1018 --- END OF REPORT HPV High risk Reviewed date:05/13/2024 12:43:02 PM Interpretation: Performing Lab:[facility], [address] [place] [phone] Notes/Report: HPV High Risk Negative Negative HPV Genotype 16 Negative Negative HPV Genotype 18 Negative Negative HPV testing performed at [facility] (CLIA #[id number]), [address] [place] [address]. Testing for HPV was performed using the [...] date:05/29/2024 04:58:07 PM Interpretation: Performing Lab: Notes/Report: [address] [address] Ultrasound Report Signed Patient: Arely Jacob MR#: [id number] : 1960 Acct:[id number] Age/Sex: 64 / F ADM Date: 05/29/24 Loc: HO.US Attending Dr: Candice Petty CNM Ordering Physician: Candice Petty CNM Date of Service: 05/29/24 Procedure(s): US pelvic and transvaginal Accession Number(s): [id number] cc: Fredy De Santiago MD; Candice Petty [...] by: Edwin Dukes MD 05/29/2024 12:09 PM [facility] Dictated By: Edwin Cuello MD Signed By: <Electronically signed by Edwin Manley MD in OV> 05/29/24 1209 DD/ 1105 TD/TT: 05/29/24 1135 Stamp Clerk: [place] [address] Ultrasound Report Signed Patient: Arely Jacob MR#: [id number] : 1960 Acct:[id number] Age/Sex: 64 / F ADM Date: 05/29/24 Loc: HO.US Attending Dr: Candice Petty CNM Ordering Physician: Candice Petty CNM Date of Service: 05/29/24 Procedure(s): US pel lissette and transvaginal Accession Number(s): [id number] cc: Fredy De Santiago MD; Candice Petty [...] by: Edwin Dukes MD 05/29/2024 12:09 PM [facility] Dictated By: Edwin Rosales MD Signed By: <Electronically signed by Edwin Manley MD in OV> 05/29/24 1209 DD/ 1105 TD/TT: 05/29/24 1135 Stamp Clerk: Pathology Reviewed date:07/10/2024 04:38:33 PM Interpretation: Performing Lab:[facility], [address] [place] [phone] Notes/Report: --- Name: Martín Jacob Age/Sex: 64/F : 1960 Unit#: [id number] Attend Dr: Candice Petty [facility] Re07/08/24 Status : DEP REF Location: [facility] Disch: --- SPEC : [id number] RECD : 07/08/24 STATUS: DAJUAN SEGURA NUM: [id number] GARETH: 07/08/24-1231 [facility] DR: Candice Petty CNM ENTERED: 07/08/24 [...] De Santiago MD [facility] [address] [facility] [address] [place] [address] Candice Petty CNM [facility] [address] [facility] [address] [place] [address] --- Signed (signature on file) Dori [place] 07/09/24 1531 --- END OF REPORT Pathology Reviewed date:07/24/2024 06:29:37 PM Interpretation: Performing Lab:[facility], [address] [facility] [place] [address] Notes/Report: --- Name: Martín Jacob Age/Sex: 64/F : 1960 Unit#: [id number] Attend Dr: Marcin Muñoz MD Re07/23/24 Status : [facility] Location: [facility] Disch: --- SPEC : [id number] RECD : 07/23/24 STATUS: DAJUAN SEGURA NUM: [id number] GARETH: 07/23/24 [facility] DR: Marcin Muñoz MD ENTERED: 07/23/24 [...] Description Microscopic sections reviewed. Material Received A. [facility] B. Endometrial polyp Gross Description Received two parts. Part A: Received in formalin labeled ?EMC is a 1.5 x 1.5 x 0.4 cm aggregate of multiple congested and hemorrhagic red-maroon tissue fragments, scant mucus and blood, submitted in toto in a cassette labeled A. Part B: Received in formalin labeled ?endometrial polyp? in a white cotton mesh suction sock device are multiple rubbery, mas-pink and pink-red irregular shards of tissue ranging from minute to 0.9 c m and aggregating 2.0 x 2.0 x 0.5-0.8 cm, submitted in toto in cassettes B1 and B2. CEDS This case was review ed intradepartmentally. CONTINUED ON NEXT PAGE --- Name: Martín Jacob Age/Sex: 64/F : 1960 Unit#: [id number] Attend Dr: Marcin Muñoz MD Re07/23/24 Status : [facility] Location: [facility] Disch: --- SPEC : [id number] RECD : 07/23/24 STATUS: DAJUAN VANEGASGuy NUM: [id number] GARETH: 07/23/24 [facility] DR: Marcin Muñoz MD ENTERED: 07/23/24 56 SP TYPE: Surgical OTHR DR: Fredy De Santiago MD ORDERED: HE Stain/4, Gross Micro L4/2 Copies To: Fredy De Santiago MD [facility] [address] [place], [place] [id number] Marcin Muñoz MD [facility] [address] [place] [place] [address] --- Signed (signature on file) Dori [place] 07/24/24 1725 --- END OF REPORT Urine Culture Reviewed date:07/27/2024 09:07:25 AM Interpretation: Performing Lab:[facility], [address] [place] [address] Notes/Report: Urine Culture Report Result Urine Culture < 10,000 cfu/ml US pelvic and transvaginal Reviewed date:03/24/2025 05:38:19 PM Interpretation: Performing Lab: Notes/Report: [address] [address] Ultrasound Report Signed Patient: Arely Jacob MR#: [id number] : 1960 Acct:[id number] Age/Sex: 64 / F ADM Date: 03/24/25 Loc: .US Attending Dr: Marcin Muñoz MD Ordering Physician: Marcin Muñoz MD Date of Service: 03/24/25 Procedure(s): US pelvic and transvaginal Accession Number(s): [id number] cc: Fredy De Santiago MD; Marcin Muñoz MD Reason for Exam: D25.9 - Leiomyoma of uterus, unspecified EXAMINATION: US PELVIS CLINICAL INFORMATION: Leiomyoma follow-up COMPARISON: None available. TECHNIQUE: Ultrasound of the pelvis is performed using both transabdominal and transvaginal transducers along with Doppler. Transvaginal imaging is performed due to inadequate visualization transabdominally. FINDINGS: Uterus: The uterus is anteverted and measures 7.5 x 3.3 x 4.6 cm. The double wall endometrial thickness is 4 mm. Echogenic focus with posterior acoustic shadowing in the right fundus of the uterus measures 8 x 6 x 10 mm, previously 8 x 5 x 7 mm consistent with intramural leiomyoma. Adnexa: Both ovaries are visualized. There is normal color flow to the adnexa. There is no ovarian torsion. There is no pelvic ascites or fluid collection. Right ovary measures 1.6 x 0.9 x 0.7 cm. Left ovary measures 1.9 x 1.2 x 1.1 cm. US/US pelvic and transvaginal IMPRESSION: Degenerated and calcified uterine leiomyoma measuring 10 mm. Electronically signed by: Jaylen Neff MD 03/24/2025 02:55 PM EST Dictated By: Jaylen Neff MD Signed By: <Electronically signed by Jaylen Neff MD in OV> 03/24/25 1455 DD/ 1431 TD/TT: 03/24/25 1444 Stamp Clerk: [place] [address] Ultrasound Report Signed Patient: Arely Jacob MR#: [id number] : 1960 Acct:[id number] Age/Sex: 64 / F ADM Date: 03/24/25 Loc: .US Attending Dr: Marcin Muñoz MD Ordering Physician: Marcin Muñoz MD Date of Service: 03/24/25 Procedure(s): US pel lissette and transvaginal Accession Number(s): [id number] cc: Fredy De Santiago MD; Marcin Muñoz MD Reason for Exam: D25 .9 - Leiomyoma of uterus, unspecified EXAMINATION: US PELVIS CLINICAL INFORMATION: Leiomyoma follow-up COMPARISON: None available. TECHNIQUE: Ultrasound of the pelvis is performed using both transabdominal and transvaginal transducers along with Doppler. Transvaginal imaging is performed due to inadequate visualization transabdominally. FINDINGS: Uterus: The uterus is anteverted and measures 7.5 x 3.3 x 4.6 cm. The double wall endometrial thickness is 4 mm. Echogenic focus with posterior acoustic shadowing in the right fundus of the uterus measur es 8 x 6 x 10 mm, previously 8 x 5 x 7 mm consistent with intramural leiomyoma. Adnexa: Both ovaries are visualized. There is normal color flow to the adnexa. There is no ovarian torsion. There is no pelvic ascites or fluid collection. Right ovary measures 1.6 x 0.9 x 0.7 cm. Left ovary measures 1.9 x 1.2 x 1.1 cm. US/US pelvic and transvaginal IMPRESSION: Degenerated and calcified uterine leiomyoma measuring 10 mm. Electronically randy d by: Jaylen Neff MD 03/24/2025 02:55 PM [facility] Dictated By: Jaylen Neff MD Signed By: <Electronically signed by Jaylen Neff MD in OV> 03/24/25 1455 DD/ 1431 TD/TT: 03/24/25 1444 Stamp Clerk: Reason For Referral No Information Medications Medication SIG (Take, Route, Frequency, Duration) Notes Start Date End Date Status Calcium Citrate 250 MG TAKE 1 TABLET BY MOUTH EVERY DAY for 30 Active Vitamin D3 50 MCG (2000 UT) TAKE 1 CAPSULE BY MOUTH EVERY [...] 06/02/2021 Refused Fluarix Quadrivalent Unknown 02/08/2023 Refused Fluarix Quadrivalent - 150 Unknown 01/30/2025 Refused Social History Tobacco Use: Social History [...] Problem Status W/U Status Risk Notes Problem 41600175 Lymphocytosis (D72.820) Active confirmed Problem 91707736 Other osteoporosis without current pathological fracture (M81.8) Active confirmed Problem Labile essential hypertension (279843594) Labile hypertension (I10) Active confirmed Problem 317400201 Prediabetes (R73.03) Active confirmed Problem 459378506 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) Active confirmed Problem 184076988 BMI 40.0-44.9, adult (Z68.41) Active confirmed Problem 015911528 Low vitamin D level (E55.9) Active confirmed Problem 413932880 Abnormal mammogram of both breasts (R92.8) Active confirmed Problem 774642354968208 At high risk for breast cancer (Z91.89) Active confirmed Vital Signs Blood pressure diastolic 90 mm Hg 01/30/2025 harriet ght is down 5 pounds since 07-31-24 Height 59.5 in 01/30/2025 weight is down 5 pounds since 07-31-24 Blood pressure systolic 160 mm Hg 01/30/2025 weig ht is down 5 pounds since 07-31-24 Weight 212 lbs 01/30/2025 weight is down 5 pounds since 07-31-24 BMI 42.1 kg/m2 01/30/2025 weight is down 5 pounds since 07-31-24 Encounters Encounter Location Date Provider Diagnosis Fredy De Santiago MD [address] [place] [address] [address] [place] [id number] 07/25/2024 Fredy De Santiago Blood tests for routine general physical examination Z00.00 ; Lymphocytosis D72.820 ; Low vitamin D level E55.9 and Prediabetes R73.03 Fredy De Santiago MD [address] [place] [id number] 08/29/2024 Fredy De Santiago Hematuria R31.9 Fredy De Santiago MD [address] [place] [id number] 07/31/2024 Fredy De Santiago Adult general medica l exam Z00.00 ; Lymphocytosis D72.820 ; Low vitamin D level E55.9 ; Prediabetes R73.03 ; Hematuria R31.9 and Depression screening Z13.31 Fredy De Santiago MD [address] [place] [phone] 01/30/2025 Fredy De Santiago Prediabetes R73.03 and [...] will continue to monitor, stable at present 01/30/2025 Prediabetes (ICD-10 - R73.03) a1c gradually increadsint. advised weight loss 01/30/2025 Labile hypertension (ICD-10 - I10) had been drinking heavily last night. will repeat since usually very good 07/25/2024 Lymphocytosis (ICD-10 - D72.820) 07/31/2024 Low [...] 12/15/2021 Next Appt Details Provider Name:Fredy velasquez, 07/28/2025 07:30:00 AM, [address] [place] [address], [address], [phone], Provider Name:Fredy velasquez, 08/04/2025 08:30:00 AM, [address] [place] [address], [address], [phone], Insurance Providers Payer Name Payer Address Payer Phone Subscriber Number Group Number Insured Name Patient Relationship to Insured Coverage Start Date Coverage End Date [facility] [employer] [address] [address] [place] [address] [id number] Arely Jacob Self - patient is the insured Medical (General) History Medical History History ICD Code colonoscopy done 08/17/[address] Dario rodrigez 10 years
--- OUTSIDE RECORDS SUMMARY | 2025-03-24 20:17 | XMS_ITS | Patient Health Record ---
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: Nonsmoker; 3-4 beers twice a week Problems Problem Type SNOMED Code ICD Code Onset Dates Problem Status W/U Status Risk Notes Problem Screening for malignant neoplasm of colon (972473082) Encounter for screening for malignant neoplasm of colon (Z12.11) Active confirmed Problem Screening for malignant neoplasm of rectum (565996258) Encounter for screening for malignant neoplasm of rectum (Z12.12) Active confirmed Problem Preprocedural examination (796476059992481) Preprocedural examination (Z01.818) Active confirmed Plan Of Treatment Future Test Test Name Order Date COLONOSCOPY 05/19/2015 Insurance Providers Payer Name Payer Address Payer Phone Subscriber Number Group Number Insured Name Patient Relationship to Insured Coverage Start Date Coverage End Date [employer] [address] [place] [address] [id number] [place] Self - patient is the insured Medical (General) History Medical History History ICD Code Denies [place],DM,CVA,Lung disease,renal dise ase Surgical History Surgery Date(Month/Year) CCY 1997 Lap band--presently not inflated--Dr. Shannon allo--approx 2009 Both shoulders for bone spurs
== END 2025-03-24 14:17 | disposition home or self-care (01) ==
LOC: HO.US 14:16
PROVIDERS: PCP Internal Medicine; Visit Provider Obstetrics & Gynecology
DX: D25.9 Leiomyoma of uterus, unspecified (principal)
CPT/HCPCS: 76830; 76856

== ENCOUNTER → 2025-03-24 14:17 | Outpatient (BNV) | payer MEDICARE, SELFPAY | PROVIDERS: PCP Internal Medicine; Visit Provider Radiology Diagnostic Radiology | DX: D25.1 Intramural leiomyoma of uterus (principal) | CPT/HCPCS: 76830; 76856 ==

== ENCOUNTER 2025-03-31 09:53 | Outpatient (AMB) | payer MEDICARE, SELFPAY ==
--- OUTSIDE RECORDS SUMMARY | 2024-07-25 02:00 | XMS_ITS ---
Author Organization Fredy De Santiago MD Address [address] [place], [place] [id number] Care Team Providers Care Financial Aid Advisor Name Role Phone Fredy De Santiago Primary Care Provider [phone] Results Component Value Reference Range Notes Complete Blood Count Auto Di ff Reviewed date:07/25/2024 05:17:26 PM Interpretation: Performing Lab:[facility], [address] [place] [phone] Notes/Report: White Blood Count 9.6 4.8-10.8 X10*3/uL [...] NRBC Abs Auto 0.000 0.0-0.012 X10*3/uL Comprehensive [place]. Panel Fa Reviewed date:07/25/2024 05:16:44 PM Interpretation: Performing Lab:[facility], [address] [place] [phone] Notes/Report: Sodium 143 135-145 mmol/L Potassium 3.7 [...] Panel Reviewed date:07/25/2024 05:01:06 PM Interpretation: Performing Lab:[facility], [address] [place] [phone] Notes/Report: Triglycerides 87 <150 mg/dL Desirable Triglyceride: [...] Total Reviewed date:07/25/2024 05:15:01 PM Interpretation: Performing Lab:[facility], [address] [place] [phone] Notes/Report: Vitamin D 25-OH Total 40.4 >30 [...] Random Reviewed date:07/25/2024 05:00:57 PM Interpretation: Performing Lab:[facility], [address] [place] [phone] Notes/Report: Creatinine Urine 185.77 Microalbumin Urine 32.0 Microalbum/Creatinine Ratio Ur 17.2 <30 ug/mg cr Albumin/Creatinine Ratio Reference Ranges: Normal: < 30 ug/mg creatinine Microalbuminuria: 30 - 300 ug/mg creatinine Clinical Albuminuria: > 300 ug/mg creatinine Hemoglobin A1c Reviewed date:07/25/2024 05:00:46 PM Interpretation: Performing Lab:[facility], [address] [place] [phone] Notes/Report: Hemoglobin A1c % 5.8 <6.0 % [...] average glucose, using the formula of the E3P-Foghogm Average Glucose study (ADAG), Diabetes Care, Vol.31,#8, 2007 UA ClnCatch+Micro w/rflx Cul t Reviewed date:07/31/2024 01:06:17 PM Interpretation:07-31-2024 Performing Lab:[facility], [address] [place] [phone] Notes/Report: Urine, Clean Catch Color Urine Yellow Appearance Urine Cloudy PH 5.5 5.0-9.0 Glucose Urine UA Negative Negative mg/dL Urine Blood Moderate (2+) Negative Specific [place] - Urine 1.025 1.005-1.025 Urine Protein Negative [...] Date Provider Diagnosis Fredy De Santiago MD [address] [place] [address] [place] [phone] 07/25/2024 Fredy De Santiago Blood tests for [...] Details Provider Name:Fredy velasquez, 07/28/2025 07:30:00 AM, [address] [place] [address], [address], [phone], Provider Name:Fredy velasquez, 08/04/2025 08:30:00 AM, [address] [place] [address], Suite [facility], [place], [place], [phone], Progress Notes * Arely JACOB ADOB:[birth year] (64 yo F)Acc No.[id number]:07/25/2024 Progress Note Patient: Arely MARTINEZ Provider: Mirna De Santiago MD :1960 A ge:64 Y S ex:Female Date:07/25/2024 Address:[address] [place], [place] [phone] Subjective: * Chief Complaints: * 1 . [...] - 07/25/2024 07:00 AM) L AB: Comprehensive [place]. Panel Fast (Collection Date & Time - [...] - 07/25/2024 07:00 AM) L AB: Comprehensive [place]. Panel Fast (Collection Date & Time - [...] - 07/25/2024 07:00 AM) L AB: Comprehensive [place]. Panel Fast (Collection Date & Time - [...] 07/25/2024 Generated for Moses mcneil/Tevin/Kimmieitting on: 1 06/01/2024 11:55 AM EST
--- OUTSIDE RECORDS SUMMARY | 2024-07-31 03:00 | XMS_ITS ---
Author Organization Fredy De Santiago MD Address [address] [place] [phone] Care Team Providers Care Philosophy Faculty Name Role Phone Fredy De Santiago Primary [...] Date Provider Diagnosis Fredy De Santiago MD [address] [place] [address] [place] [phone] 07/31/2024 Fredy De Santiago Adult general medica [...] ron, 07/28/2025 07:30:00 AM, [address] [facility], [address], [place], [place], [phone], Provider Name:Fredy Hussein madysonr, 08/04/2025 08:30:00 AM, [address] [facility], [address], [place], [place], [phone], Progress Notes * Arely JACOB ADOB:[birth year] (64 yo F)Acc No.[id number]:07/31/2024 Progress Notes Patient: Arely MARTINEZ Provider: Mirna De Santiago MD :1960 A ge:64 Y S ex:Female Date:07/31/2024 Address:[address] [place] [phone] Subjective: * Chief Complaints: * a nnual [...] of chronic issues, has recent evaluation by dining room server. had a d/c. * ROS: G eneral/Constitutional: [...] full-time. Pets: none. Travel outside of the [place]: no. S topped drinking x 1 [...] Culture < 10,000 cfu/ml - L ab:Comprehensive [place]. Panel Fast (Order Date - 07/25/2024) (Collection [...] to auscultation bilaterally. BREASTS: d one by dining room server. ABDOMEN: s oft, nontender, nondistended, bowel sounds present, normal, no organomegaly , no masses palpable. RECTAL EXAM: r efused. FEMALE GENITOURINARY: d one by dining room server. EXTREMITIES: n o clubbing, cyanosis, or edema. [...] 07/31/2024 Generated for Moses mcneil/Tevin/eTransmitting on: 1 06/01/2024 11:56 AM EST History and Physical Notes * HPI (History of Present Illness) Category Sub-Category Detail Notes Category Not es Symptom(s) patient is a 64 yo female here for annual visit eith review of recent labs and follow up of chronic issues, has recent evaluation by dining room server. had a d/c Depression Screening PHQ-9 Little [...] cyanosi s, or edema BREASTS: done by dining room server RECTAL EXAM: refused FEMALE GENITOURINARY: done by dining room server ORAL CAVITY: mucosa moist
--- OUTSIDE RECORDS SUMMARY | 2024-08-29 03:30 | XMS_ITS ---
Author Organization Fredy De Santiago MD Address [address] [place] [phone] Care Team Providers Care Perl Programmer Name Role Phone Fredy De Santiago Primary Care Provider Results Component Value Reference Range Notes Urinalysis and Microscopic Reviewed date:08/29/2024 12:45:23 PM Interpretation: Performing Lab:[facility], [address] [place] [phone] Notes/Report: Color Urine Dark Yellow Appearance Urine Cloudy PH 5.5 5.0-9.0 Glucose Urine UA Negative Negative mg/dL Urine Blood Negative Negative Specific [place] - Urine 1.025 1.005-1.025 Urine Protein Trace [...] Santiago MD [address] [place], [place] [phone] 08/29/2024 Fredy De Santiago Hematuria R31.9 Assessments Encounter Date Diagnosis (ICD Code) Assessment Notes Treatment Notes Treatment Clinical Notes Section Notes 08/29/2024 Hematuria (ICD-10 - R31.9) Plan Of Treatment Next Appt Details Provider Name:Fredy Hussein ier, 07/28/2025 07:30:00 AM, [address], [address], [place], [place], [phone], Provider Name:Fredy Hussein ier, 08/04/2025 08:30:00 AM, [address] [place] [address], [address], [place], [place], [phone], Progress Notes * Arely JACOB ADOB:[birth year] (64 yo F)Acc No.[id number]:08/29/2024 Progress Note Patient: Arely MARTINEZ Provider: Mirna De Santiago MD :1960 A ge:64 Y S ex:Female Date:08/29/2024 Address:[address] [place], [place] [phone] Subjective: * Chief Complaints: * 1 . [...] MD Date: 0 08/29/2024 Generated for Moses mcneil/Tevin/Kimmieitting on: 1 06/01/2024 11:55 AM EST
--- OUTSIDE RECORDS SUMMARY | 2025-01-30 04:00 | XMS_ITS ---
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 Role Phone Fredy De Santiago Primary Care Provider [phone] Allergies Allergen (clinical drug ingredient) Drug/Non Drug Allergy documented on EMR Reaction Allergy Type Onset Date Status Penicillin (uncoded) hives Allergy Active Results Component Value Reference Range Notes Hemoglobin A1c Reviewed date:01/30/2025 09:14:43 AM Interpretation: Performing Lab: Notes/Report: Hemoglobin A1c 6.0 Glucose, finger stick Reviewed date:01/30/2025 09:01:15 AM Interpretation: Performing Lab: Notes/Report: Value 95 REASON FOR VISIT 6 MO F/U Medications Medication SIG (Take, Route, Frequency, Duration) Notes Start Date End Date Status Calcium Citrate 250 MG TAKE 1 TABLET BY MOUTH EVERY DAY for 30 Active Vitamin D3 50 MCG (1999) TAKE 1 CAPSULE BY MOUTH EVERY DAY Active Alendronate Sodium 70 MG TAKE 1 TABLET B Y MOUTH ONE TIME PER WEEK for 90 Active Albuterol Sulfate HFA 108 (90 Base) MCG/ACT INHALE 1 PUFF INTO THE LUNGS EVERY 4 HOURS FOR 30 DAYS for 30 Not-Taking Timolol Maleate PF 0.5 % 1 drop into aff ected eye Ophthalmic Once a day Active Immunizations Vaccine Route Administration Date Status Comme nts Fluarix Quadrivalent - 150 Unknown 01/30/2025 Refused Problems Problem Type SNOMED Code ICD Code Onset Dates Problem Status W/U Status Risk Notes Problem Labile essential hypertension (813665534) Labile hypertension (I10) Active confirmed Vital Signs Blood pressure systolic 160 mm Hg 01/31/20 25 Blood pressure diastolic 90 mm Hg 025 Height 59.5 in 01/30/2025 Weight 212 lbs 01/30/2025 BMI 42.1 kg/m2 01/30/2025 weight is down 5 pounds [facility] e 07-31-24 Encounters Encounter Location Date Provider Diagnosis Fredy De Santiago MD [address] [place] [phone] 01/30/2025 Fredy De Santiago Prediabetes R73.03 and Labile hypertension I10 Assessments Encounter Date Diagnosis (ICD Code) Assessment Notes Treatment Notes Treatment Clinical Notes Section Notes 01/30/2025 Prediabetes (ICD-10 - R73.03) a1c gradually increadsint. advised weight loss 01/30/2025 Labile hypertension (ICD-10 - I10) had been drinking heavily last night. will repeat since usually very good Plan Of Treatment Treatment Notes Assessment Notes Prediabetes a1c gradually increa dsint. advised weight loss Labile hypertension had been drinking he avily last night. will repeat since usually very good Next Appt Details Provider Name:Fredy velasquez, 07/28/2025 07:30:00 AM, [address] [place] [address], [place] [address], [place], [place], [phone], Provider Name:Fredy velasquez, 08/04/2025 08:30:00 AM, [address] [place] [address], [address], [phone], Progress Notes * Arely JACOB ADOB:[birth year] (64 yo F)Acc No.[id number]:01/30/2025 Progress Notes Patient: Berto Arely MEEKS Provider: Mirna De Santiago MD :1960 A ge:64 Y S ex:Female Date:01/30/2025 Address:[address] [id number] Subjective: * Chief Complaints: * 6 MO F/U * HPI: S ymptom(s): patient is a 64 yo female here for 6 month follow up visit/ is doing chair yoga at home. * ROS: G eneral/Constitutional: Denies C hills. D enies F atigue. D enies F ever. D enies H eadache. E NT: Denies S ore throat. E ndocrine: Denies D ifficulty sleeping. D enies D izziness.?Denies E xcessive sweating. D enies E xcessive thirst. D enies F requent urination. R espiratory: Denies C ough. D enies S hortness of breath at rest. D enies S hortness of breath with exertion. C ardiovascular: Denies C hest pain at rest. D enies C hest pain with exertion. D enies D izziness. D enies P alpitations. D enies S hortness of breath. G astrointestinal: Denies D iarrhea. D enies N ausea. * Medical History: * Surgical History: * Hospitalization/Major Diagno stic Procedure: * Medications: T akingTimolol Maleate PF 0.5 [...] Objective: * Vitals: H t: 59.5, Wt: 212, BMI:42.1, BP:160/90, Repeat BP:150/82, Wt-k.16. weight is down 5 pounds since 07-31-24. * Examination: G eneral Examination: GENERAL APPEARANCE: a lert, well hydrated, in no distress.? HEAD: n ormocephalic. SKIN: g ood turgor. HEART: n o murmurs, rubs, gallops, regular rate and rhythm.? LUNGS: n o wheezes, rales, rhonchi, good air movement, clear to auscultation bilaterally. Assessment: * Assessment: 1. L abile hypertension - I10 (Primary) 2 . P rediabetes - R73.03 ? Plan: * Treatment: 2. P rediabetes L AB: Hemoglobin A1c (Collection Date & Time - 01/30/2025) Value Reference Range H emoglobin A1c 6.0 ?LAB: Glucose, finger stick (Collection Date & Time - 01/30/2025)* Value Reference Range V alue 95 Notes: a1c gradually increadsint. advised weight loss?? * Immunizations: Fluarix Quadrivalent - 150 (Not administered - Refused: Patient decision) * Procedure Codes: 8 2947 ASSAY, GLUCOSE, BLOOD QUANT, Modifiers: QW 69755 GLYCATED HEMOGLOBIN TEST, Modifiers: QW * * Sign off status: Completed true * Provider: Mirna De Santiago MD Date: 1 Generated for Moses mcneil/Tevin/eTfranciaitting on: 06/01/2024 11:55 AM EST History and Physical Notes * HPI (History of Present Illness) Category Sub-Category Detail Notes Category Not es Symptom(s) patient is a 64 yo female here for 6 month follow up visit/ is doing chair yoga at home. Examination Category Sub-Category Detail Notes Category Not es General Examination GENERAL APPEARANCE: alert, w ell hydrated, in no distress HEAD: normocephalic HEART: no murmurs, rubs, ga llops, regular rate and rhythm LUNGS: no wheezes, rales, r honchi, good air movement, clear to auscultation bilaterally SKIN: good turgor
--- NOTE | 2025-03-31 09:54 | A.OFFVIS_ITS ---
Vital Signs 03/31/25 09:57 Height 4 ft 11 in Weight 200 lb BMI 40.4 Intake Visit Reasons: Right shoulder pain and weakness Intake Note: Arely is a 64 year old female right hand dominant who presents with complaints of right shoulder pain and weakness. She describes her pain as sharp in nature. She did undergo right shoulder surgery by Dr. Pepe several years ago. She got fairly good relief from that surgery initially. Her pain and weakness have gotten worse over the last year in spite of continued non operative treatments. She has had injections in the past which gave her minimal relief. She has failed the last 6 weeks of conservative treatment which has included Tylenol, anti-inflammatory medicines and physical therapy exercises. The patient reports difficulty raising her right hand above shoulder height. At this point her right shoulder pain and weakness or interfering with her activities of daily living and her ability to sleep well through the night. Allergies grapefruit (Grapefruit) Allergy (Mild, Verified 07/15/24 10:33) RASH Penicillins Allergy (Mild, Verified 07/15/24 10:33) BLISTERS penicillin V Allergy (Unknown, Verified 07/15/24 10:33) Unknown Medication List - Last Reconciled 03/31/25 by Lobo Rivas MD alendronate 70 mg PO QWEEK calcium citrate 250 mg PO DAILY cholecalciferol (vitamin D3) 50 mcg PO DAILY timolol maleate 0.5% 1 drp ophthalmic (eye) BID PFSH Medical History Postmenopausal bleeding PCB (post coital bleeding) Breast calcification, left COVID-19 vaccine series completed BRCA negative Vitamin D deficiency Age related osteoporosis Surgical History Hx of laparoscopic gastric banding Hx of cholecystectomy History of arthroscopy of right shoulder History of arthroscopy of left shoulder Family History Mother History of breast cancer Sister History of breast cancer Sister History of breast cancer Maternal Aunt Ovarian cancer Social History Are you a primary dog daycare provider to a significant other at home: No Do you presently have visiting nurse or other home services: No Alcohol intake: current Alcohol intake frequency: a few times a week Patient Tobacco Use Status: Never used Tobacco Current occupational status: unemployed Current occupation: right hand dominant Sexual orientation: Straight/Heterosexual Gender identity: Female Female Reproductive History Menstrual Age of Menarche: 10 Physical Exam Vital Signs: BMI result Body Mass Index 40.4 Extrem Other: Right shoulder examination shows decreased range of motion when compared to her left shoulder, 4+ out of 5 strength with supraspinatus testing, positive impingement signs, no instability Results Reviewed Results Reviewed: X-rays of the patient's right shoulder show severe acromioclavicular joint narrowing, a type 2 acromion, no acute bony abnormalities Assessment & Plan Assessment & Plan (1) Rotator cuff insufficiency of right shoulder: Code(s): M25.311 - Other instability, right shoulder Category: Medical Plan Ms. Jacob presents with right shoulder pain and weakness due to impingement syndrome and possible rotator cuff tearing. Thus, I will send the patient for an MRI of her right shoulder for further evaluation. I will see her back once the MRI is completed to discuss the findings and treatment options. She will continue with her haehn-da-ucapuz exercises in the meantime. Feel free to call me at any time should questions regarding her orthopedic management arise. I spent 21 minutes in reviewing the patient's records and imaging studies, seeing the patient and documenting in the medical record. Orders: Orders MR shoulder RT wo con 04/01/25 M25.311 - Other instability, right shoulder Coding Level of Care Code Est Pt Level 3 (29951) Add On Problem Visit Only Diagnoses Rotator cuff insufficiency of right shoulder M25.311
[2025-03-31 09:57] VITALS: BMI 40.4
--- OUTSIDE RECORDS SUMMARY | 2025-03-31 11:55 | XMS_ITS | Patient Health Record ---
Author Organization Fredy De Santiago MD Address [address] [place], [place] [address] Care Team Providers Care Program Rep Name Role Phone Fredy De Santiago Primary Care Provider [phone] Allergies Allergen (clinical drug ingredient) Drug/Non Drug Allergy documented on EMR Reaction Allergy Type Onset Date Status Penicillin (uncoded) hives Allergy Active Results Component Value Reference Range Notes Hemoglobin A1c Reviewed date:01/30/2025 09:14:43 AM Interpretation: Performing Lab: Notes/Report: Hemoglobin A1c 6.0 Complete Blood Count Auto Di ff Reviewed date:07/25/2024 05:17:26 PM Interpretation: Performing Lab:[facility], [address] [place] [address] Notes/Report: White Blood Count 9.6 4.8-10.8 X10*3/uL [...] NRBC Abs Auto 0.000 0.0-0.012 X10*3/uL Comprehensive [place]. Panel Fa st Reviewed date:07/25/2024 05:16:44 PM Interpretation: Performing Lab:[facility], [address] [place] [address] Notes/Report: Sodium 143 135-145 mmol/L Potassium 3.7 [...] Panel Reviewed date:07/25/2024 05:01:06 PM Interpretation: Performing Lab:[facility], [address] [place] [address] Notes/Report: Triglycerides 87 <150 mg/dL Desirable Triglyceride: [...] Total Reviewed date:07/25/2024 05:15:01 PM Interpretation: Performing Lab:[facility], [address] [place] [address] Notes/Report: Vitamin D 25-OH Total 40.4 >30 [...] Random Reviewed date:07/25/2024 05:00:57 PM Interpretation: Performing Lab:[address] [address] Notes/Report: Creatinine Urine 185.77 Microalbumin Urine 32.0 Microalbum/Creatinine Ratio Ur 17.2 <30 ug/mg cr Albumin/Creatinine Ratio Reference Ranges: Normal: < 30 ug/mg creatinine Microalbuminuria: 30 - 300 ug/mg creatinine Clinical Albuminuria: > 300 ug/mg creatinine Hemoglobin A1c Reviewed date:07/25/2024 05:00:46 PM Interpretation: Performing Lab:[address] [address] Notes/Report: Hemoglobin A1c % 5.8 <6.0 % [...] average glucose, using the formula of the U7Y-Ttdeocj Average Glucose study (ADAG), Diabetes Care, Vol.31,#8, Nov. 2007 UA ClnCatch+Micro w/rflx Cul t Reviewed date:07/31/2024 01:06:17 PM Interpretation:07-31-2024 Performing Lab:[facility], [address] [place] [address] Notes/Report: Urine, Clean Catch Color Urine Yellow Appearance Urine Cloudy PH 5.5 5.0-9.0 Glucose Urine UA Negative Negative mg/dL Urine Blood Moderate (2+) Negative Specific [place] - Urine 1.025 1.005-1.025 Urine Protein Negative Neg-Trace mg/dL Urine Ketones Negative Negative mg/dL Nitrite Urine Negative Negative Leukocyte Esterase Urine Small (1+) Negative RBC Urine 3-5 0-2 /HPF WBC Urine 0-5 0-5 /HPF Squamous Epithelial Cell Urine 6-10 0-2 /HPF Bacteria Urine 3+ None Seen Hyaline Casts Urine 0-2 0-2 /LPF Urinalysis and Microscopic Reviewed date:08/29/2024 12:45:23 PM Interpretation: Performing Lab:[facility], [address] [place] [address] Notes/Report: Color Urine Dark Yellow Appearance Urine Cloudy PH 5.5 5.0-9.0 Glucose Urine UA Negative Negative mg/dL Urine Blood Negative Negative Specific [place] - Urine 1.025 1.005-1.025 Urine Protein Trace [...] date:04/24/2024 12:38:39 PM Interpretation: Performing Lab: Notes/Report: [address] [place] [address] Mammography Report Signed Patient: Arely Jacob MR#: [id number] : 1960 Acct:[id number] Age/Sex: 64 / F ADM Date: 04/11/24 Loc: HO.MAMMO Attending Dr: Fredy De Santiago MD Ordering Physician: Fredy De Santiago MD Results: 2Be nign Findings Date of Service: 04/11/24 Follow Up: 1 Year From [facility] Mammogram Procedure(s): MM tomosynthesis screening BI Accession Number(s): [id number] cc: Fredy De Santiago MD EXAMINATION: MM [...] by: Yamel Rain DO 04/22/2024 05:43 PM [facility] Dictated By: Yamel Rain DO Signed By: <Electronically signed by Yamel Rain DO in OV> 04/22/24 1743 DD/ 0745 TD/TT: 04/11/24 0800 Tumbling Instructor: [facility] [address] [place] [address] Mammography Report Signed Patient: Arely Jacob MR#: [id number] : 1960 Acct:[id number] Age/Sex: 64 / F ADM Date: 04/11/24 Loc: HO.MAMMO Attending Dr: Fredy De Santiago MD Ordering Physician: Fredy De Santiago MD Results: 2Be nign Findings Date of Service: 04/11/24 Follow Up: 1 Year From [facility] Mammogram Procedure(s): MM tomosynthesis screening BI Accession Number(s): [id number] cc: Fredy De Santiago MD EXAMINATION: MM [...] by: Yamel Rain DO 04/22/2024 05:43 PM [facility] Dictated By: Yamel Rain DO Signed By: <Electronically signed by Yamel Rain DO in OV> 04/22/24 1743 DD/ 4 TD/TT: 04/11/24 0800 Tumbling Instructor: CT NG by PCR Reviewed date:05/08/2024 05:48:45 PM Interpretation: Performing Lab:[facility], [address] [place] [address] Notes/Report: Vaginal CT PCR NOT DETECTED Not [...] Panel Reviewed date:05/08/2024 05:51:05 PM Interpretation: Performing Lab:[facility], [address] [place] [address] Notes/Report: Trichomonas vaginalis PCR NOT DETECTED Not [...] Smear Reviewed date:05/13/2024 12:43:34 PM Interpretation: Performing Lab:[facility], [address] [place] [address] Notes/Report: --- Name: Martín Jacob Age/Sex: 64/F : 1960 Unit#: [id number] Attend Dr: Candice Petty CNM Re05/07/24 Status : DEP REF Location: HO.LNP Disch: --- SPEC : [id number] RECD : 05/08/24 STATUS: DAJUAN SEGURA NUM: [id number] GARETH: 05/07/24 [facility] DR: Candice Petty CNM ENTERED: [...] Care Physicians [address] [facility] [address] [place] [address] Candice Petty CNM [facility] Women's Services [address] [facility] [address] [place] [address] --- Signed (signature on file) LIBERTY Molina (ASCP) 05/13/24 1018 --- END OF REPORT HPV High risk Reviewed date:05/13/2024 12:43:02 PM Interpretation: Performing Lab:[facility], [address] [place] [address] Notes/Report: HPV High Risk Negative Negative HPV Genotype 16 Negative Negative HPV Genotype 18 Negative Negative HPV testing performed at [facility] (CLIA #[id number]), [address] [place] [address]. Testing for HPV was performed using the [...] date:05/29/2024 04:58:07 PM Interpretation: Performing Lab: Notes/Report: [address] [address] Ultrasound Report Signed Patient: Arely Jacob MR#: [id number] : 1960 Acct:[id number] Age/Sex: 64 / F ADM Date: 05/29/24 Loc: HO.US Attending Dr: Candice Petty CNM Ordering Physician: Candice Petty CNM Date of Service: 05/29/24 Procedure(s): US pelvic and transvaginal Accession Number(s): [id number] cc: Fredy De Santiago MD; Candice Petty [...] by: Edwin Dukes MD 05/29/2024 12:09 PM [facility] Dictated By: Edwin Cuello MD Signed By: <Electronically signed by Edwin Manley MD in OV> 05/29/24 1209 DD/ 1105 TD/TT: 05/29/24 1135 Tumbling Instructor: [place] [address] Ultrasound Report Signed Patient: Arely Jacob MR#: [id number] : 1960 Acct:[id number] Age/Sex: 64 / F ADM Date: 05/29/24 Loc: HO.US Attending Dr: Candice Petty CNM Ordering Physician: Candice Petty CNM Date of Service: 05/29/24 Procedure(s): US pel lissette and transvaginal Accession Number(s): [id number] cc: Fredy De Santiago MD; Candice Petty [...] by: Edwin Dukes MD 05/29/2024 12:09 PM [facility] Dictated By: Edwin Rosales MD Signed By: <Electronically signed by Edwin Manley MD in OV> 05/29/24 1209 DD/ 1105 TD/TT: 05/29/24 1135 Tumbling Instructor: Pathology Reviewed date:07/10/2024 04:38:33 PM Interpretation: Performing Lab:[facility], [address] [place] [address] Notes/Report: --- Name: Martín Jacob Age/Sex: 64/F : 1960 Unit#: [id number] Attend Dr: Candice Petty [facility] Re07/08/24 Status : DEP REF Location: [facility] Disch: --- SPEC : [id number] RECD : 07/08/24 STATUS: DAJUAN SEGURA NUM: [id number] GARETH: 07/08/24-1231 [facility] [address]: Candice Petty CNM ENTERED: 07/08/24 SP [...] Care Physicians [address] [facility] [address] [place] [address] Candice Petty CNM [facility] Women's Services [address] [facility] [address] [place] [address] --- Signed (signature on file) Dori [place] 07/09/24 1531 --- END OF REPORT Pathology Reviewed date:07/24/2024 06:29:37 PM Interpretation: Performing Lab:[facility], [address] [facility], [place] [address] Notes/Report: --- Name: Martín Jacob Age/Sex: 64/F : 1960 Unit#: [id number] Attend Dr: Marcin Muñoz MD Re07/23/24 Status : [facility] Location: [facility] Disch: --- SPEC : [id number] RECD : 07/23/24 STATUS: DAJUAN SEGURA NUM: [id number] GARETH: 07/23/[address] [facility] [address]: Marcin Muñoz MD ENTERED: [...] Description Microscopic sections reviewed. Material Received [facility] B. Endometrial polyp Gross Description Received two [...] Martín Jacob Age/Sex: 64/F : 1960 Unit#: [id number] Attend Dr: Marcin Muñoz MD Re07/23/24 Status : [facility] Location: [facility] Disch: --- SPEC : [id number] RECD : 07/23/24 STATUS: DAJUAN VANEGASGuy NUM: [id number] GARETH: 07/23/[address] [facility] [address]: Marcin Muñoz MD ENTERED: 07/23/24 56 SP TYPE: Surgical OTHR DR: Fredy De Santiago MD ORDERED: HE Stain/4, Gross Micro L4/2 Copies To: Fredy De Santiago MD [facility] [address] [place], [place] [phone] Marcin Muñoz MD [facility] Women's Services [address] [place] [address] [place] [address] --- Signed (signature on file) Dori [place] 07/24/24 1725 --- END OF REPORT Urine Culture Reviewed date:07/27/2024 09:07:25 AM Interpretation: Performing Lab:[facility], [address] [place] [address] Notes/Report: Urine Culture Report Result Urine Culture < 10,000 cfu/ml US pelvic and transvaginal Reviewed date:03/24/2025 05:38:19 PM Interpretation: Performing Lab: Notes/Report: [address] [address] Ultrasound Report Signed Patient: Arely Jacob MR#: [id number] : 1960 Acct:[id number] Age/Sex: 64 / F ADM Date: 03/24/25 Loc: .US Attending Dr: Marcin Muñoz MD Ordering Physician: Marcin Muñoz MD Date of Service: 03/24/25 Procedure(s): US pelvic and transvaginal Accession Number(s): [id number] cc: Fredy De Santiago MD; Marcin Muñoz [...] 03/24/25 1455 DD/ 1431 TD/TT: 03/24/25 1444 Tumbling Instructor: [place] [address] Ultrasound Report Signed Patient: Arely Jacob MR#: [id number] : 1960 Acct:[id number] Age/Sex: 64 / F ADM Date: 03/24/25 Loc: .US Attending Dr: Marcin Muñoz MD Ordering Physician: Marcin Muñoz MD Date of Service: 03/24/25 Procedure(s): US pel lissette and transvaginal Accession Number(s): [id number] cc: Fredy De Santiago MD; Marcin Muñoz [...] by: Jaylen Neff MD 03/24/2025 02:55 PM [facility] Dictated By: Jaylen Neff MD Signed By: <Electronically signed by Jaylen Neff MD in OV> 03/24/25 1455 DD/ 1431 TD/TT: 03/24/25 1444 Tumbling Instructor: Reason For Referral No Information Medications Medication [...] Problem Status W/U Status Risk Notes Problem 60443166 Lymphocytosis (D72.820) Active confirmed Problem 62106573 Other osteoporosis without current pathological fracture (M81.8) Active confirmed Problem Labile essential hypertension (285687803) Labile hypertension (I10) Active confirmed Problem 352612465 Prediabetes (R73.03) Active confirmed Problem 247410057 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) Active confirmed Problem 917413686 BMI 40.0-44.9, adult (Z68.41) Active confirmed Problem 088727348 Low vitamin D level (E55.9) Active confirmed Problem 678531677 Abnormal mammogram of both breasts (R92.8) Active confirmed Problem 062044493011715 At high risk for breast cancer (Z91.89) [...] Provider Diagnosis Fredy De Santiago MD [address] [place] [address] Drive [address] [place] [phone] 07/25/2024 Fredy De Santiago Blood tests for routine general physical examination Z00.00 ; Lymphocytosis D72.820 ; Low vitamin D level E55.9 and Prediabetes R73.03 Fredy De Santiago MD [address] [place] [id number] 08/29/2024 Fredy De Santiago Hematuria R31.9 Fredy De Santiago MD [address] [place] [phone] 07/31/2024 Fredy De Santiago Adult general medica l exam Z00.00 ; Lymphocytosis D72.820 ; Low vitamin D level E55.9 ; Prediabetes R73.03 ; Hematuria R31.9 and Depression screening Z13.31 Fredy De Santiago MD [address] [place] [id number] 01/30/2025 Fredy De Santiago Prediabetes R73.03 and [...] Provider Name:Fredy velasquez, 07/28/2025 07:30:00 AM, [address] [place] [address], [address], [phone], Provider Name:Fredy velasquez, 08/04/2025 08:30:00 AM, [address] [place] [address], [address], [phone], Insurance Providers Payer Name Payer Address Payer Phone Subscriber Number Group Number Insured Name Patient Relationship to Insured Coverage Start Date Coverage End Date [employer] [address] [address] [place] [address] [id number] Arely Jacob Self - patient is the insured Medical (General) History Medical History History ICD Code colonoscopy done 08/17/[address] Dario rodrigez 10 years
--- OUTSIDE RECORDS SUMMARY | 2025-03-31 11:56 | XMS_ITS | Patient Health Record ---
Author Organization 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: Nonsmoker; 3-4 beers twice a week Problems Problem Type SNOMED Code ICD Code Onset Dates Problem Status W/U Status Risk Notes Problem Screening for malignant neoplasm of colon (644494824) Encounter for screening for malignant neoplasm of colon (Z12.11) Active confirmed Problem Screening for malignant neoplasm of rectum (988172085) Encounter for screening for malignant neoplasm of rectum (Z12.12) Active confirmed Problem Preprocedural examination (757662549758351) Preprocedural examination (Z01.818) Active confirmed Plan Of Treatment Future Test Test Name Order Date COLONOSCOPY 05/19/2015 Insurance Providers Payer Name Payer Address Payer Phone Subscriber Number Group Number Insured Name Patient Relationship to Insured Coverage Start Date Coverage End Date [employer] [address] [place] [address] [id number] [id number] [place] Self - patient is the insured Medical (General) History Medical History History ICD Code Denies [place],DM,CVA,Lung disease,renal dise ase Surgical History Surgery Date(Month/Year) CCY 1997 Lap band--presently not inflated--Dr. Shannon allo--approx 2009 Both shoulders for bone spurs
== END 2025-03-31 10:09 | disposition home or self-care (01) ==
LOC: HO.HOS 09:53
PROVIDERS: PCP Internal Medicine; Visit Provider Orthopaedic Surgery
DX: M25.311 Other instability, right shoulder (principal)
CPT/HCPCS: 99213; G2211

== ENCOUNTER → 2025-03-31 09:53 | Outpatient (BNVA) | payer MEDICARE, SELFPAY | PROVIDERS: PCP Internal Medicine; Visit Provider Orthopaedic Surgery | DX: M25.511 Pain in right shoulder (principal); M25.311 Other instability, right shoulder | CPT/HCPCS: 99212 ==

== ENCOUNTER 2025-04-14 10:56 | Outpatient (AMB) | payer MEDICARE, SELFPAY ==
--- OUTSIDE RECORDS SUMMARY | 2024-07-25 02:00 | XMS_ITS ---
Author Organization Fredy De Santiago MD Address [address] [place], [place] [id number] Care Team Providers Care Drawer In Jacquard Loom Name Role Phone Fredy De Santiago Primary Care Provider Results Component Value Reference Range Notes Complete Blood Count Auto Di ff Reviewed date:07/25/2024 05:17:26 PM Interpretation: Performing Lab:[facility], [address] [place] [phone] Notes/Report: White Blood Count 9.6 4.8-10.8 X10*3/uL Red Blood Count 4.35 4.20-5.50 X10*6/uL Hemoglobin 12.9 12.0-16.0 g/dl Hematocrit 40.1 37.0-47.0 % Mean Corpuscular Volume 92.2 80.0-98.0 fL Mean Corpuscular Hemoglobin 29.7 27.0-33.0 pg Mean Corpuscular HGB Conc 32.2 31.0-35.0 g/dl Red Cell Distribution Width 14.3 11.0-16.0 % Platelet Count 226 160-400 X10*3/uL Mean Platelet Volume 10.6 9.4-12.3 fL Neutrophils Percent Auto 40.4 45-73 % Imm Gran Pct Auto 0.4 0.0-0.4 % Lymphocytes Percent Auto 49.4 20-40 % Monocytes Percent Auto 8.9 2-11 % Eosinophils Percent Auto 0.4 0-4 % Basophils Percent Auto 0.5 0-2 % NRBC Pct Auto 0.0 0.0-0.2 /100WBC Neutrophils Absolute Auto 3.9 2.0-8.3 x10*3/u L Imm Gran Abs Auto 0.04 0.00-0.03 X10*3/uL Lymphocytes Absolute Auto 4.7 1.2-4.9 X10*3/u L Monocytes Absolute Auto 0.9 0.1-1.2 X10*3/uL Eosinophils Absolute Auto 0.0 0.0-0.4 X10*3/u L Basophils Absolute Auto 0.1 0.0-0.2 X10*3/uL NRBC Abs Auto 0.000 0.0-0.012 X10*3/uL Comprehensive [place]. Panel Fa Reviewed date:07/25/2024 05:16:44 PM Interpretation: Performing Lab:[facility], [address] [place] [phone] Notes/Report: Sodium 143 135-145 mmol/L Potassium 3.7 3.3-5.1 mmol/L Chloride 107 96-108 mmol/L Carbon Dioxide 29 22-29 mmol/L Anion Gap 11 12-20 Blood Urea Nitrogen 16 9-16 mg/dL Creatinine 0.71 0.5-1.4 mg/dL Estimated Glomerular Filt Rate > 60 Chronic Kidney Disease: Estimated GFR < 60 mL/min/1.73m2 Severe Kidney Disease: Estimated GFR < 15 mL/min/1.73m2 Glucose Fasting 81 60-99 mg/dL Calcium 8.6 8.4-10.2 mg/dL Bilirubin Total 0.5 0.0-1.0 mg/dL Aspartate Amino Transferase 23 5-31 U/L Alanine Aminotransferase 24 0-31 U/L Total Protein 7.1 6.5-8.0 g/dL Albumin Level 3.9 3.5-5.0 g/dL Alkaline Phosphatase 62 39-117 U/L Lipid Panel Reviewed date:07/25/2024 05:01:06 PM Interpretation: Performing Lab:[facility], [address] [place] [phone] Notes/Report: Triglycerides 87 <150 mg/dL Desirable Triglyceride: less than 150 mg/dL Borderline High Triglyceride 150-199 mg/dL High Triglyceride: 200-499 mg/dL Very High Triglyceride: greater than or equal to 5OO mg/dL Cholesterol 188 <200 mg/dL Desirable Cholesterol: less than 200 mg/dL Borderline High Cholesterol: 200-239 mg/dL High Cholesterol: greater than 239 mg/dL LDL Cholesterol Calculated 96 <100 mg/dL Desirable LDL: less than 100 mg/dL Near Optimal/Above Optimal LDL: 110-129 mg/dL Borderline High LDL: 130-159 mg/dL High LDL: 160-189 mg/dL Very High LDL: greater than or equal to 190 mg/dL HDL Cholesterol 75 >40 mg/dL Desirable HDL: greater than 40 mg/dL Note: This HDL assay may give artificially low results in patients with liver disease. Vitamin D 25-OH Total Reviewed date:07/25/2024 05:15:01 PM Interpretation: Performing Lab:[facility], [address] [place] [phone] Notes/Report: Vitamin D 25-OH Total 40.4 >30 ng/mL Health Based Reference Values* < 20 ng/mL Deficient 20-30 ng/mL Insufficient > 30 ng/mL Sufficient *Lesia BOSS. N Engl J Med. 2007;357:266-280 There is no well-established upper level of normal vitamin D levels. Some laboratories use 50 ng/mL as an upper limit of normal. However, toxicity is patient-dependent and may occur at any level. Careful correlation with the patient's presentation is necessary and, if there is concern for vitamin D toxicity, treatment should be considered irrespective of the serum level. Care must be taken in interpreting Vitamin [...] method such as LC-MS/MS. Microalbumin, Random Reviewed date:07/25/2024 05:00:57 PM Interpretation: Performing Lab:[facility], [address] [place] [phone] Notes/Report: Creatinine Urine 185.77 Microalbumin Urine 32.0 Microalbum/Creatinine Ratio Ur 17.2 <30 ug/mg cr Albumin/Creatinine Ratio Reference Ranges: Normal: < 30 ug/mg creatinine Microalbuminuria: 30 - 300 ug/mg creatinine Clinical Albuminuria: > 300 ug/mg creatinine Hemoglobin A1c Reviewed date:07/25/2024 05:00:46 PM Interpretation: Performing Lab:[facility], [address] [place] [phone] Notes/Report: Hemoglobin A1c % 5.8 <6.0 % [...] average glucose, using the formula of the O7J-Nrwceph Average Glucose study (ADAG), Diabetes Care, Vol.31,#8, 2007 UA ClnCatch+Micro w/rflx Cul t Reviewed date:07/31/2024 01:06:17 PM Interpretation:07-31-2024 Performing Lab:[facility], [address] [place] [phone] Notes/Report: Urine, Clean Catch Color Urine Yellow Appearance Urine Cloudy PH 5.5 5.0-9.0 Glucose Urine UA Negative Negative mg/dL Urine Blood Moderate (2+) Negative Specific [place] - Urine 1.025 1.005-1.025 Urine Protein Negative Neg-Trace mg/dL Urine Ketones Negative Negative mg/dL Nitrite Urine Negative Negative Leukocyte Esterase Urine Small (1+) Negative RBC Urine 3-5 0-2 /HPF WBC Urine 0-5 0-5 /HPF Squamous Epithelial Cell Urine 6-10 0-2 /HPF Bacteria Urine 3+ None Seen Hyaline Casts Urine 0-2 0-2 /LPF REASON FOR VISIT yearly fasting labs Encounters Encounter Location Date Provider Diagnosis Fredy De Santiago MD [address] [place] [address] [place] [phone] 07/25/2024 Fredy De Santiago Blood tests for routine general physical examination Z00.00 ; Lymphocytosis D72.820 ; Low vitamin D level E55.9 and Prediabetes R73.03 Assessments Encounter Date Diagnosis (ICD Code) Assessment Notes Treatment Notes Treatment Clinical Notes Section Notes 07/25/2024 Blood tests for routine general physical examination (ICD-10 - Z00.00) 07/25/2024 Lymphocytosis (ICD-10 - D72.820) 07/25/2024 Low vitamin D level (ICD-10 - E55.9) 07/25/2024 Prediabetes (ICD-10 - R73.03) Plan Of Treatment Next Appt Details Provider Name:Fredy velasquez, 07/28/2025 07:30:00 AM, [address] [place] [address], [address], [phone], Provider Name:Fredy velasquez, 08/04/2025 08:30:00 AM, [address] [place] [address], Suite [facility], [place], [place], [phone], Progress Notes * Arely JACOB ADOB:[birth year] (65 yo F)Acc No.[id number]:07/25/2024 Progress Note Patient: Arely MARTINEZ Provider: Mirna De Santiago MD :1960 A ge:64 Y S ex:Female Date:07/25/2024 Address:[address] [place], [place] [phone] Subjective: * Chief Complaints: * 1 . Yearly fasting labs. * Medical History: Objective: * Vitals: Assessment: * Assessment: 1. B lood tests for routine general physical examination - Z00.00 (Primary) 2 .?Lymphocytosis - D72.820 3 . L ow vitamin D level - E55.9 4 . P rediabetes - R73.03 Plan: * Treatment: 2. L ymphocytosis L AB: Complete Blood Count Auto Diff (Collection Date & Time - 07/25/2024 07:00 AM) L AB: Comprehensive [place]. Panel Fast (Collection Date & Time - 07/25/2024 07:00 AM) L AB: Lipid Panel (Collection Date & Time - 07/25/2024 07:00 AM) L AB: Vitamin D 25-OH Total (Collection Date & Time - 07/25/2024 07:00 AM) L AB: Microalbumin, Random (Collection Date & Time - 07/25/2024 07:00 AM) L AB: Hemoglobin A1c (Collection Date & Time - 07/25/2024 07:00 AM) L AB: UA ClnCatch+Micro w/rflx Cult (Collection Date & Time - 07/25/2024 07:00 AM) 3. L ow vitamin D level L AB: Complete Blood Count Auto Diff (Collection Date & Time - 07/25/2024 07:00 AM) L AB: Comprehensive [place]. Panel Fast (Collection Date & Time - 07/25/2024 07:00 AM) L AB: Lipid Panel (Collection Date & Time - 07/25/2024 07:00 AM) L AB: Vitamin D 25-OH Total (Collection Date & Time - 07/25/2024 07:00 AM) L AB: Microalbumin, Random (Collection Date & Time - 07/25/2024 07:00 AM) L AB: Hemoglobin A1c (Collection Date & Time - 07/25/2024 07:00 AM) L AB: UA ClnCatch+Micro w/rflx Cult (Collection Date & Time - 07/25/2024 07:00 AM) 4. P rediabetes L AB: Complete Blood Count Auto Diff (Collection Date & Time - 07/25/2024 07:00 AM) L AB: Comprehensive [place]. Panel Fast (Collection Date & Time - 07/25/2024 07:00 AM) L AB: Lipid Panel (Collection Date & Time - 07/25/2024 07:00 AM) L AB: Vitamin D 25-OH Total (Collection Date & Time - 07/25/2024 07:00 AM) L AB: Microalbumin, Random (Collection Date & Time - 07/25/2024 07:00 AM) L AB: Hemoglobin A1c (Collection Date & Time - 07/25/2024 07:00 AM) L AB: UA ClnCatch+Micro w/rflx Cult (Collection Date & Time - 07/25/2024 07:00 AM) * Procedure Codes: 3 6415 VENIPUNCT, ROUTINE* * * The named appointment provid er may or may not be the originator of this progress note, and it is not deemed complete until electronically signed by the appointment provider. Sign off status: Pending * Provider: Mirna De Santiago MD Date: 0 07/25/2024 Generated for Moses mcneil/Tevin/Kimmieitting on: 1 02:50 PM EST
--- OUTSIDE RECORDS SUMMARY | 2024-07-31 03:00 | XMS_ITS ---
Author Organization Fredy De Santiago MD Address [address] [place] [phone] Care Team Providers Care Director Auto Name Role Phone Fredy De Santiago Primary [...] Date Provider Diagnosis Fredy De Santiago MD [address] [place] [address] [place] [phone] 07/31/2024 Fredy De Santiago Adult general medica [...] Name:Fredy Hussein ron, 07/28/2025 07:30:00 AM, [address] [facility], [address], [place], [place], [phone], Provider Name:Fredy Hussein madysonr, 08/04/2025 08:30:00 AM, [address] [facility], [address], [place], [place], [phone], Progress Notes * Arely JACOB ADOB:[birth year] (64 yo F)Acc No.[id number]:07/31/2024 Progress Notes Patient: Arely MARTINEZ Provider: Mirna De Santiago MD :1960 A ge:64 Y S ex:Female Date:07/31/2024 Address:[address] [place] [phone] Subjective: * Chief Complaints: * a nnual [...] of chronic issues, has recent evaluation by blade boner. had a d/c. * ROS: G eneral/Constitutional: [...] full-time. Pets: none. Travel outside of the [place]: no. S topped drinking x 1 [...] Culture < 10,000 cfu/ml - L ab:Comprehensive [place]. Panel Fast (Order Date - 07/25/2024) (Collection [...] to auscultation bilaterally. BREASTS: d one by blade boner. ABDOMEN: s oft, nontender, nondistended, bowel sounds present, normal, no organomegaly , no masses palpable. RECTAL EXAM: r efused. FEMALE GENITOURINARY: d one by blade boner. EXTREMITIES: n o clubbing, cyanosis, or edema. [...] 07/31/2024 Generated for Moses mcneil/Tevin/eTransmitting on: 1 02:51 PM EST History and Physical Notes * HPI (History of Present Illness) Category Sub-Category Detail Notes Category Not es Symptom(s) patient is a 64 yo female here for annual visit eith review of recent labs and follow up of chronic issues, has recent evaluation by blade boner. had a d/c Depression Screening PHQ-9 Little [...] cyanosi s, or edema BREASTS: done by blade boner RECTAL EXAM: refused FEMALE GENITOURINARY: done by blade boner ORAL CAVITY: mucosa moist
--- OUTSIDE RECORDS SUMMARY | 2024-08-29 03:30 | XMS_ITS ---
Author Organization Fredy De Santiago MD Address [address] [place] [phone] Care Team Providers Care Beam Builder Helper Name Role Phone Fredy De Santiago Primary Care Provider Results Component Value Reference Range Notes Urinalysis and Microscopic Reviewed date:08/29/2024 12:45:23 PM Interpretation: Performing Lab:[facility], [address] [place] [phone] Notes/Report: Color Urine Dark Yellow Appearance Urine Cloudy PH 5.5 5.0-9.0 Glucose Urine UA Negative Negative mg/dL Urine Blood Negative Negative Specific [place] - Urine 1.025 1.005-1.025 Urine Protein Trace Neg-Trace mg/dL Urine Ketones Trace Negative mg/dL Nitrite Urine Negative Negative Leukocyte Esterase Urine Trace Negative RBC Urine 0-2 0-2 /HPF WBC Urine 0-5 0-5 /HPF Squamous Epithelial Cell Urine 11-20 0-2 /HPF Calcium Oxalate Crystals Urine Present Bacteria Urine Trace None Seen Hyaline Casts Urine 0-2 0-2 /LPF REASON FOR VISIT URINALYSIS AND MICROSCOPIC Encounters Encounter Location Date Provider Diagnosis Fredy De Santiago MD [address] [place], [place] [phone] 08/29/2024 Fredy De Santiago Hematuria R31.9 Assessments Encounter Date Diagnosis (ICD Code) Assessment Notes Treatment Notes Treatment Clinical Notes Section Notes 08/29/2024 Hematuria (ICD-10 - R31.9) Plan Of Treatment Next Appt Details Provider Name:Fredy Hussein ier, 07/28/2025 07:30:00 AM, [address], [address], [place], [place], [phone], Provider Name:Fredy Hussein ier, 08/04/2025 08:30:00 AM, [address] [place] [address], [address], [place], [place], [phone], Progress Notes * Arely JACOB ADOB:[birth year] (65 yo F)Acc No.[id number]:08/29/2024 Progress Note Patient: Arely MARTINEZ Provider: Mirna De Santiago MD :1960 A ge:64 Y S ex:Female Date:08/29/2024 Address:[address] [place], [place] [phone] Subjective: * Chief Complaints: * 1 . URINALYSIS AND MICROSCOPIC. * Medical History: Objective: * Vitals: Assessment: * Assessment: 1. H ematuria - R31.9 (Primary) Plan: * Treatment: * * The named appointment provid er may or may not be the originator of this progress note, and it is not deemed complete until electronically signed by the appointment provider. Sign off status: Pending * Provider: Mirna De Santiago MD Date: 0 08/29/2024 Generated for Moses mcneil/Tevin/Ailyn on: 1 02:50 PM EST
--- OUTSIDE RECORDS SUMMARY | 2025-01-30 04:00 | XMS_ITS ---
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 Role Phone Fredy De Santiago [...] Status Risk Notes Problem Labile essential hypertension (984889525) Labile hypertension (I10) Active confirmed Vital Signs Blood pressure systolic 160 mm Hg 01/31/20 25 Blood pressure diastolic 90 mm Hg 025 Height 59.5 in 01/30/2025 Weight 212 lbs 01/30/2025 BMI 42.1 kg/m2 01/30/2025 weight is down 5 pounds [facility] e 07-31-24 Encounters Encounter Location Date Provider Diagnosis Fredy De Santiago MD [address] [place] [phone] 01/30/2025 Fredy De Santiago Prediabetes R73.03 and [...] Details Provider Name:Fredy velasquez, 07/28/2025 07:30:00 AM, [address] [place] [address], [place] [address], [place], [place], [phone], Provider Name:Fredy velasuqez, 08/04/2025 08:30:00 AM, [address] [place] [address], [address], [phone], Progress Notes * Arely JACOB ADOB:[birth year] (64 yo F)Acc No.[id number]:01/30/2025 Progress Notes Patient: Berto Arely MEEKS Provider: [...] 2947 ASSAY, GLUCOSE, BLOOD QUANT, Modifiers: QW 04301 GLYCATED HEMOGLOBIN TEST, Modifiers: QW * * Sign off status: Completed true * Provider: Mirna De Santiago MD Date: 1 Generated for Moses mcneil/Tevin/Ailyn on: 02:50 PM EST History and Physical Notes * [...]
--- NOTE | 2025-04-14 11:08 | A.OFFVIS_ITS ---
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 The patient is doing well with no complaints no abnormal uterine bleeding, pelvic pressure or pain. Pelvic ultrasound done recently showed the following: Uterus: The uterus is anteverted and measures 7.5 x 3.3 x 4.6 cm. The double wall endometrial thickness is 4 mm. Echogenic focus with posterior acoustic shadowing in the right fundus of the uterus measures 8 x 6 x 10 mm, previously 8 x 5 x 7 mm consistent with intramural leiomyoma. Adnexa: Both ovaries are visualized. There is normal color flow to the adnexa. There is no ovarian torsion. There is no pelvic ascites or fluid collection. Right ovary measures 1.6 x 0.9 x 0.7 cm. Left ovary measures 1.9 x 1.2 x 1.1 cm. US/US pelvic and transvaginal IMPRESSION: Degenerated and calcified uterine leiomyoma measuring 10 mm. [facility] Medical History Postmenopausal bleeding PCB (post coital bleeding) Breast calcification, left COVID-19 vaccine series completed BRCA negative Vitamin D deficiency Age related osteoporosis Surgical History Hx of laparoscopic gastric banding Hx of cholecystectomy History of arthroscopy of right shoulder History of arthroscopy of left shoulder Family History Mother History of breast cancer Sister History of breast cancer Sister History of breast cancer Maternal Aunt Ovarian cancer Social History Are you a primary managed care manager to a significant other at home: No Do you presently have visiting nurse or other home services: No Alcohol intake: current Alcohol intake frequency: a few times a week Patient Tobacco Use Status: Never used Tobacco Current occupational status: unemployed Current occupation: right hand dominant Sexual orientation: Straight/Heterosexual Gender identity: Female Female Reproductive History Menstrual Age of Menarche: 10 Review of Systems Const All systems reviewed & are unremarkable except as noted in HPI and below Reports as per HPI and Reports no additional complaints GI Reports no additional complaints Reports no additional complaints Physical Exam Vital Signs: Last Vital Signs BP 120/84 04/14/25 11:11 BMI result Body Mass Index 40.4 Assessment & Plan Assessment & Plan (1) Uterine myoma: Code(s): D25.9 - Leiomyoma of uterus, unspecified Category: Medical Plan: Discussed with the patient the findings on pelvic ultrasound & the risk of myosarcoma; in addition reviewed with the patient that malignancy and pre malignancy cannot be ruled out without hysterectomy for pathological evaluation ; furthermore, explained to the patient the limitation of pelvic ultrasound and endometrial biopsy in the setting. Discussed with the patient the options of treatment including expectant management versus hysterectomy; the pros and cons, risks benefits of each approach were discussed with the patient including the fact that in cases of myosarcoma, surgical treatment can lead to early diagnosis and positively affects the prognosis; after further discussion, the patient decided to proceed with expectant management. Will repeat pelvic ultrasound periodically. Instructions given to patient to call in case any of the following occurs: pressure symptoms, abnormal uterine bleeding, pelvic pain; and to schedule a 12 months pelvic ultrasound (order placed) and a follow-up appointment . All questions answered, the patient verbalized understanding and agreed with the plan . Orders: Orders US pelvic and transvaginal 1 Year D25.9 - Leiomyoma of uterus, unspecified Coding Level of Care Code Est Pt Level 3 (50991) Diagnoses Uterine myoma D25.9
[2025-04-14 11:11] VITALS: BP 120/84; BMI 40.4
--- OUTSIDE RECORDS SUMMARY | 2025-04-14 14:50 | XMS_ITS | Patient Health Record ---
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 Role Phone Fredy De Santiago Primary Care Provider Allergies Allergen (clinical drug ingredient) Drug/Non Drug Allergy documented on EMR Reaction Allergy Type Onset Date Status Penicillin (uncoded) hives Allergy Active Results Component Value Reference Range Notes Hemoglobin A1c Reviewed date:01/30/2025 09:14:43 AM Interpretation: Performing Lab: Notes/Report: Hemoglobin A1c 6.0 Complete Blood Count Auto Di ff Reviewed date:07/25/2024 05:17:26 PM Interpretation: Performing Lab:[facility], [address] [place] [address] Notes/Report: White Blood Count 9.6 4.8-10.8 X10*3/uL [...] NRBC Abs Auto 0.000 0.0-0.012 X10*3/uL Comprehensive [place]. Panel Fa st Reviewed date:07/25/2024 05:16:44 PM Interpretation: Performing Lab:[facility], [address] [place] [phone] Notes/Report: Sodium 143 135-145 mmol/L Potassium 3.7 [...] Panel Reviewed date:07/25/2024 05:01:06 PM Interpretation: Performing Lab:[facility], [address] [place] [phone] Notes/Report: Triglycerides 87 <150 mg/dL Desirable Triglyceride: [...] Total Reviewed date:07/25/2024 05:15:01 PM Interpretation: Performing Lab:[facility], [address] [place] [phone] Notes/Report: Vitamin D 25-OH Total 40.4 >30 [...] Random Reviewed date:07/25/2024 05:00:57 PM Interpretation: Performing Lab:[address] [address] Notes/Report: Creatinine Urine 185.77 Microalbumin Urine 32.0 Microalbum/Creatinine Ratio Ur 17.2 <30 ug/mg cr Albumin/Creatinine Ratio Reference Ranges: Normal: < 30 ug/mg creatinine Microalbuminuria: 30 - 300 ug/mg creatinine Clinical Albuminuria: > 300 ug/mg creatinine Hemoglobin A1c Reviewed date:07/25/2024 05:00:46 PM Interpretation: Performing Lab:[address] [phone] Notes/Report: Hemoglobin A1c % 5.8 <6.0 % [...] average glucose, using the formula of the T3O-Tfcgnyj Average Glucose study (ADAG), Diabetes Care, Vol.31,#8, Nov. 2007 UA ClnCatch+Micro w/rflx Cul t Reviewed date:07/31/2024 01:06:17 PM Interpretation:07-31-2024 Performing Lab:[facility], [address] [place] [phone] Notes/Report: Urine, Clean Catch Color Urine Yellow Appearance Urine Cloudy PH 5.5 5.0-9.0 Glucose Urine UA Negative Negative mg/dL Urine Blood Moderate (2+) Negative Specific Crowley - Urine 1.025 1.005-1.025 Urine Protein Negative Neg-Trace mg/dL Urine Ketones Negative Negative mg/dL Nitrite Urine Negative Negative Leukocyte Esterase Urine Small (1+) Negative RBC Urine 3-5 0-2 /HPF WBC Urine 0-5 0-5 /HPF Squamous Epithelial Cell Urine 6-10 0-2 /HPF Bacteria Urine 3+ None Seen Hyaline Casts Urine 0-2 0-2 /LPF Urinalysis and Microscopic Reviewed date:08/29/2024 12:45:23 PM Interpretation: Performing Lab:[facility], [address] [place] [phone] Notes/Report: Color Urine Dark Yellow Appearance Urine Cloudy PH 5.5 5.0-9.0 Glucose Urine UA Negative Negative mg/dL Urine Blood Negative Negative Specific Crowley - Urine 1.025 1.005-1.025 Urine Protein Trace [...] AM Interpretation: Performing Lab: Notes/Report: Value 95 CT NG by PCR Reviewed date:05/08/2024 05:48:45 PM Interpretation: Performing Lab:[facility], [address] [place] [phone] Notes/Report: Vaginal CT PCR NOT DETECTED Not [...] Panel Reviewed date:05/08/2024 05:51:05 PM Interpretation: Performing Lab:[facility], [address] [place] [phone] Notes/Report: Trichomonas vaginalis PCR NOT DETECTED Not [...] Smear Reviewed date:05/13/2024 12:43:34 PM Interpretation: Performing Lab:[facility], [address] [place] [phone] Notes/Report: --- Name: Martín Jacob Age/Sex: 64/F [facility] 1960 [id number] [id number] Attend Dr: Candice Petty CNM Re05/07/24 Status : DEP REF Location: [facility] Disch: --- SPEC : [id number] RECD : 05/08/24 STATUS: DAJUAN SEGURA NUM: [id number] GARETH: 05/07/[address] [facility] [address]: Candice Petty CNM ENTERED: 05/08/24 [...] MD [facility] [address] [facility] [address] [place] [address] Candice Petty CNM [facility] Women's Services [address] [facility] [address] [place] [address] --- Signed (signature on file) LIBERTY Moilna ([place]) 05/13/24 1018 --- END OF REPORT HPV High risk Reviewed date:05/13/2024 12:43:02 PM Interpretation: Performing Lab:[facility], [address] [place] [phone] Notes/Report: HPV High Risk Negative Negative HPV Genotype 16 Negative Negative HPV Genotype 18 Negative Negative HPV testing performed at [facility] (CLIA #[id number]), [address] [place] [address]. Testing for HPV was performed using the [...] date:05/29/2024 04:58:07 PM Interpretation: Performing Lab: Notes/Report: [address] [address] Ultrasound Report Signed Patient: Arely Jacob MR#: [id number] : 1960 Acct:[id number] Age/Sex: 64 / F ADM Date: 05/29/24 Loc: . 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 Attending Dr: Candice Petty CNM Ordering Physician: Candice Petty CNM Date of Service: 05/29/24 Procedure(s): US pel lissette and transvaginal Accession Number(s): [id number] cc: Fredy De Santiago MD; Candice Petty [...] by: Edwin Dukes MD 05/29/2024 12:09 PM [facility] Dictated By: Edwin Rosales MD Signed By: <Electronically signed by Edwni Manley MD in OV> 05/29/24 1209 DD/ 1105 TD/TT: 05/29/24 1135 Fire Truck Driver: Pathology Reviewed date:07/10/2024 04:38:33 PM Interpretation: Performing Lab:[facility], [address] [place] [phone] Notes/Report: --- Name: Martín Jacob Age/Sex: 64/F : 1960 Unit#: [id number] Attend Dr: Candice Petty CNM Re07/08/24 Status : DEP REF Location: [facility] Disch: --- SPEC : [id number] RECD : 07/08/24 STATUS: DAJUAN SEGURA NUM: [id number] GARETH: 07/08/24-[address]: Candice Petty CNM ENTERED: 07/08/24 TYPE: [...] MD [facility] [address] [facility] [address] [place] [address] Candice Petty CNM [facility] Women's Services [address] [facility] [address] [place] [address] --- Signed (signature on file) Dori Wu 07/09/24 1531 --- END OF REPORT Pathology Reviewed date:07/24/2024 06:29:37 PM Interpretation: Performing Lab:[facility], [address] [place] [phone] Notes/Report: --- Name: Martín Jacob Age/Sex: 64/F : 1960 Unit#: [id number] Attend Dr: Marcin Muñoz MD Re07/23/24 Status : [facility] Location: [facility] Disch: --- SPEC : [id number] RECD : 07/23/24 STATUS: DAJUAN SEGURA NUM: [id number] GARETH: 07/23/[address] [facility] [address]: Marcin Muñoz MD ENTERED: 07/23/24 [...] Description Microscopic sections reviewed. Material Received [facility]. Endometrial polyp Gross Description Received two [...] Martín Jacob Age/Sex: 64/F : 1960 Unit#: [id number] Attend Dr: Marcin Muñoz MD Re07/23/24 Status : [facility] Location: [facility] Disch: --- SPEC : [id number] RECD : 07/23/24 STATUS: DAJUAN SEGURA NUM: [id number] GARETH: 07/23/[address] [facility] [address]: Marcin Muñoz MD ENTERED: 07/23/24 56 SP TYPE: Surgical OTHR DR: Fredy De Santiago MD ORDERED: HE Stain/4, Gross Micro L4/2 Copies To: Fredy De Santiago MD [facility] [address] [facility] [address] [place] [address] Marcin Muñoz MD [facility] Women's Services [address] [facility] [address] [place] [address] --- Signed (signature on file) Dori [place] 07/24/24 1725 --- END OF REPORT Urine Culture Reviewed date:07/27/2024 09:07:25 AM Interpretation: Performing Lab:[facility], [address] [place] [phone] Notes/Report: Urine Culture Report Result Urine Culture < 10,000 cfu/ml US pelvic and transvaginal Reviewed date:03/24/2025 05:38:19 PM Interpretation: Performing Lab: Notes/Report: [address] [address] Ultrasound Report Signed Patient: Arely Jacob MR#: [id number] : 1960 Acct:[id number] Age/Sex: 64 / F ADM Date: 03/24/25 Loc: .[place] Attending Dr: Marcin Muñoz MD Ordering Physician: Marcin Muñoz MD Date of Service: 03/24/25 Procedure(s): US pelvic and transvaginal Accession Number(s): [id number] cc: Fredy De Santiago MD; Marcin Muñoz [...] by: Jaylen Neff MD 03/24/2025 02:55 PM [facility] Dictated By: Jaylen Neff MD Signed By: <Electronically signed by Jaylen Neff MD in OV> 03/24/25 1455 DD/ 1431 TD/TT: 03/24/25 1444 Fire Truck 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: [place] [address] Ultrasound Report Signed Patient: Arely Jacob MR#: [id number] : 1960 Acct:[id number] Age/Sex: 64 / F ADM Date: 03/24/25 Loc: .[place] Attending Dr: Marcin Muñoz MD Ordering Physician: Marcin Muñoz MD Date of Service: 03/24/25 Procedure(s): US pel lissette and transvaginal Accession Number(s): [id number] cc: Fredy De Santiago MD; Marcin Muñoz [...] by: Jaylen Neff MD 03/24/2025 02:55 PM [facility] Dictated By: Jaylen Neff MD Signed By: <Electronically signed by Jaylen Neff MD in OV> 03/24/25 1455 DD/ 1431 TD/TT: 03/24/25 1444 Fire Truck Driver: Reason For Referral No Information Medications Medication SIG (Take, Route, Frequency, Duration) Notes Start Date End Date Status Calcium Citrate 250 MG TAKE 1 TABLET BY MOUTH EVERY DAY for 30 Active Vitamin D3 50 MCG (1999 [place]) [...] Problem Status W/U Status Risk Notes Problem 16578154 Lymphocytosis (D72.820) Active confirmed Problem 87045757 Other osteoporosis without current pathological fracture (M81.8) Active confirmed Problem Labile essential hypertension (604483663) Labile hypertension (I10) Active confirmed Problem 970961812 Prediabetes (R73.03) Active confirmed Problem 163123026 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) Active confirmed Problem 427057710 BMI 40.0-44.9, adult (Z68.41) Active confirmed Problem 065338203 Low vitamin D level (E55.9) Active confirmed Problem 311936630 Abnormal mammogram of both breasts (R92.8) Active confirmed Problem 957671584887538 At high risk for breast cancer (Z91.89) [...] Provider Diagnosis Fredy De Santiago MD [address] [place] [address] [phone] 07/25/2024 Fredy De Santiago Blood tests for routine general physical examination Z00.00 ; Lymphocytosis D72.820 ; Low vitamin D level E55.9 and Prediabetes R73.03 Fredy De Santiago MD [address] [place] [address] Drive [address] [place] [id number] 08/29/2024 Fredy De Santiago Hematuria R31.9 Fredy De Santiago MD [address] [place] [address] Drive [address] [place] [id number] 07/31/2024 Fredy De Santiago Adult general medica l exam Z00.00 ; Lymphocytosis D72.820 ; Low vitamin D level E55.9 ; Prediabetes R73.03 ; Hematuria R31.9 and Depression screening Z13.31 Fredy De Santiago MD [address] [place] [phone] 01/30/2025 Fredy De Santiago Prediabetes R73.03 and [...] Details Provider Name:Fredy velasquez, 07/28/2025 07:30:00 AM, [address] [place] [address], [address], [phone], Provider Name:Fredy velasquez, 08/04/2025 08:30:00 AM, [address] [place] [address], [place] [address], [place], [phone], Insurance Providers Payer Name Payer Address Payer Phone Subscriber Number Group Number Insured Name Patient Relationship to Insured Coverage Start Date Coverage End Date [facility] [employer] [address] [address] [place] [address] [id number] Arely Jacob Self - patient is the insured Medical (General) History Medical History History ICD Code colonoscopy done 08/17/[address] Dario rodrigez 10 years
--- OUTSIDE RECORDS SUMMARY | 2025-04-14 14:51 | XMS_ITS | Patient Health Record ---
Author Organization 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: Nonsmoker; 3-4 beers twice a week Problems Problem Type SNOMED Code ICD Code Onset Dates Problem Status W/U Status Risk Notes Problem Screening for malignant neoplasm of colon (786018842) Encounter for screening for malignant neoplasm of colon (Z12.11) Active confirmed Problem Screening for malignant neoplasm of rectum (330275351) Encounter for screening for malignant neoplasm of rectum (Z12.12) Active confirmed Problem Preprocedural examination (613943914248658) Preprocedural examination (Z01.818) Active confirmed Plan Of Treatment Future Test Test Name Order Date COLONOSCOPY 05/19/2015 Insurance Providers Payer Name Payer Address Payer Phone Subscriber Number Group Number Insured Name Patient Relationship to Insured Coverage Start Date Coverage End Date [employer] [address] [place] [address] [id number] [place] Self - patient is the insured Medical (General) History Medical History History ICD Code Denies [place],DM,CVA,Lung disease,renal dise ase Surgical History Surgery Date(Month/Year) CCY 1997 Lap band--presently not inflated--Dr. Shannon allo--approx 2009 Both shoulders for bone spurs
== END 2025-04-14 11:51 | disposition home or self-care (01) ==
LOC: HO.HWS 10:56
PROVIDERS: PCP Internal Medicine; Visit Provider Obstetrics & Gynecology
DX: D25.9 Leiomyoma of uterus, unspecified (principal)
CPT/HCPCS: 99213

== ENCOUNTER → 2025-04-14 10:56 | Outpatient (BNVA) | payer MEDICARE, SELFPAY | PROVIDERS: PCP Internal Medicine; Visit Provider Obstetrics & Gynecology | DX: D25.9 Leiomyoma of uterus, unspecified (principal) | CPT/HCPCS: 99212 ==